=== PATIENT | female | born 1955 | race Caucasian/White ===

== ENCOUNTER → 2016-07-31 | Outpatient (REF) | payer OTHER | LOC: M LAB REF 11:49 | PROVIDERS: ATTEND Nurse Practitioner Family | DX: R50.9 Fever, unspecified (principal) ==

== ENCOUNTER 2016-10-08 00:53 | Emergency (ER) | payer OTHER ==
[~2016-10-08] VITALS: Ht 177.8 cm; Wt 71.2 kg
[2016-10-08] MEDS ORDERED: MELO7.5T6 PO (01:07)
[2016-10-08] MEDS ORDERED: CLON1TAB PO (01:08)
[2016-10-08] MEDS ORDERED: LISI-542 PO (01:08)
[2016-10-08] MEDS ORDERED: PRAV40TA2 PO (01:09)
[2016-10-08] MEDS ORDERED: VENL150C43 PO (01:10)
[2016-10-08] MEDS ORDERED: OMEP20CA3 PO (01:11)
[2016-10-08] MEDS ORDERED: MULTCAP11 PO (01:12)
[2016-10-08] MEDS ORDERED: SYMB16INH INH (01:12)
[2016-10-08] MEDS ORDERED: SING10TA32 PO (01:12)
[2016-10-08] MEDS ORDERED: ALBU17IN INH (01:14)
[2016-10-08] MEDS ORDERED: METOCLOPRAMIDE INJ 10MG/2ML VIAL (J2765) IV ONE ×2 (03:45→05:00)
[2016-10-08] MEDS ORDERED: NS 1,000 ML IV ONE (03:45)
[2016-10-08] MEDS ORDERED: diphenhydrAMINE INJ 50MG/ML VIAL (J1200) IV ONE ×2 (03:45→05:00)
[2016-10-08] MEDS ORDERED: KETOROLAC 30 MG/ML VIAL (J1885) IV ONE (03:45)
[2016-10-08 04:12] LABS: BASO # 0.1 K/mm3 (0.0-0.2); BASO % 0.9 % (0.0-1.0); EOS # 0.3 K/mm3 (0.0-0.50); EOS % 4.8 % (0.0-3.0); LARGE UNSTAINED CELL # 0.1 K/mm3 (0.0-0.4); LARGE UNSTAINED CELL % 1.7 % (0.0-4.0); LYMPH # 2.5 K/mm3 (1.5-4.5); LYMPH % 38.5 % (24.0-44.0); MEAN CORPUSCULAR HEMOGLOBIN 30.1 pg (27.0-33.0); MEAN CORPUSCULAR HGB CONC 32.3 g/dl (32.0-36.5); MEAN CORPUSCULAR VOLUME 93.2 fl (80.0-96.0); MONO # 0.3 K/mm3 (0.0-0.8); MONO % 4.8 % (0.0-5.0); NEUTROPHILS % 49.2 % (36.0-66.0); PLATELET COUNT, AUTOMATED 366 k/mm3 (150-450); RED CELL DISTRIBUTION WIDTH 12.8 % (11.5-14.5); WHITE BLOOD COUNT 6.1 K/mm3 (4.0-10.0)
--- NOTE | 2016-10-08 04:20 | REPUSA ---
CLINICAL HISTORY: Headaches. TECHNIQUE: Multiple axial brain CT scan sections were obtained from base to vertex without contrast a dministration. COMMENTS: The study shows normal configuration of sella turcica. There are no intra or extra-axial collections. There is no mass effect or midline shift. There is no evidence of hematoma formation. No hydrocephal us is present. No abnormal calcifications are noted. No significant abnormalities are seen either in the posterior fossa or supratentorial compartment. The sinuses and mastoid air cells are patent. IMPRESSION: No evidence of acute intracranial pathology. Thank you for your kind referral of this patient.
[2016-10-08 04:30] LABS: ANION GAP 5 MEQ/L (8-16); BLOOD UREA NITROGEN 9 MG/DL (7-18); CALCIUM LEVEL 8.6 MG/DL (8.8-10.2); CARBON DIOXIDE LEVEL 31 MEQ/L (21-32); CHLORIDE LEVEL 109 MEQ/L (98-107); CREATININE FOR GFR 0.68 MG/DL (0.55-1.02); GLOMERULAR FILTRATION RATE > 60.0 (>45); GLUCOSE, FASTING 90 MG/DL (80-110); POTASSIUM SERUM 3.6 MEQ/L (3.5-5.1); SODIUM LEVEL 145 MEQ/L (136-145)
[2016-10-08 06:03] VITALS: BP 109/69
== END 2016-10-08 06:06 | disposition home or self-care (01) ==
LOC: M ED 02:37
DX: R51 Headache (principal); Z79.899 Other long term (current) drug therapy
CPT/HCPCS: 70450; 80048; 85025; 86140; 96374; 96375; 99282; J1200; J1885; J2765

== ENCOUNTER 2017-09-22 16:11 | Emergency (ER) | payer OTHER ==
[2017-09-22] MEDS: ALBUTEROL SULFATE 2.5 MG/0.5 ML INH NEB SOLN NEB (17:15)
[2017-09-22 18:01] LABS: INFLUENZA A AMPLIFICATION NEGATIVE (NEGATIVE)
[2017-09-22 18:02] LABS: INFLUENZA B AMPLIFICATION NEGATIVE (NEGATIVE)
[2017-09-22] MEDS: IBUPROFEN 800 MG TAB PO (18:15)
[2017-09-22] MEDS: predniSONE 20 MG TAB PO (18:15)
== END 2017-09-22 18:25 | disposition home or self-care (01) ==
LOC: M ED 16:11
DX: B34.9 Viral infection, unspecified (principal); J44.1 Chronic obstructive pulmonary disease with (acute) exacerbation; I10 Essential (primary) hypertension; E78.5 Hyperlipidemia, unspecified; K21.9 Gastro-esophageal reflux disease without esophagitis; F41.9 Anxiety disorder, unspecified; Z79.899 Other long term (current) drug therapy; Z87.891 Personal history of nicotine dependence
CPT/HCPCS: 71046

== ENCOUNTER 2017-11-07 17:59 | Inpatient (IN) | payer OTHER ==
[2017-11-07] MEDS: NS 1,000 ML IV ×2 (18:15→21:30)
[2017-11-07 18:59] LABS: BASO # 0.1 10^3/uL (0.0-0.2); BASO % 0.4 % (0.0-1.0); EOS # 0.1 10^3/uL (0.0-0.50); EOS % 0.3 % (0.0-3.0); HEMATOCRIT 44.4 % (36.0-47.0); HEMOGLOBIN 14.9 g/dl (12.0-15.5); LYMPH # 1.8 10^3/uL (1.5-4.5); MEAN CORPUSCULAR HEMOGLOBIN 31.2 pg (27.0-33.0); MEAN CORPUSCULAR HGB CONC 33.6 g/dl (32.0-36.5); MEAN CORPUSCULAR VOLUME 93.1 fl (80.0-96.0); MONO # 1.3 10^3/uL (0.0-0.8); MONO % 4.4 % (0.0-5.0); NEUTROPHILS % 87.9 % (36.0-66.0); PLATELET COUNT, AUTOMATED 312 10^3/uL (150-450); RED BLOOD COUNT 4.77 10^6/uL (4.00-5.40)
[2017-11-07] MEDS: ONDANSETRON 4MG/2ML VIAL (J2405) IV (19:00)
[2017-11-07] MEDS: NS 500 ML IV (19:16)
[2017-11-07 19:20] LABS: AMMONIA 18 uMOL/L (<32)
[2017-11-07 19:24] LABS: NEUTROPHILS # 26.4 10^3/uL (1.8-7.7); POSITIVE DIFF POS FLAG
[2017-11-07] MEDS ORDERED: ONDANSETRON 4MG/2ML VIAL (J2405) As Ordered (19:24)
[2017-11-07 19:27] LABS: ALBUMIN 4.1 GM/DL (3.2-5.2); ALBUMIN/GLOBULIN RATIO 1.21 (1.00-1.93); ALKALINE PHOSPHATASE 112 U/L (45-117); ALT/SGPT 33 U/L (12-78); ANION GAP 12 MEQ/L (8-16); AST/SGOT 44 U/L (7-37); BILIRUBIN,DIRECT 0.2 MG/DL (0.0-0.2); BILIRUBIN,TOTAL 0.5 MG/DL (0.2-1.0); BLOOD UREA NITROGEN 17 MG/DL (7-18); CALCIUM LEVEL 9.6 MG/DL (8.8-10.2); CARBON DIOXIDE LEVEL 19 MEQ/L (21-32); CHLORIDE LEVEL 111 MEQ/L (98-107); CK-MB VALUE MASS 2.4 NG/ML (<3.6); CPK CREATINE PHOSPHOKINASE 158 U/L (26-192); CREATININE FOR GFR 1.65 MG/DL (0.55-1.30); GLOMERULAR FILTRATION RATE 33.4 (>45); GLUCOSE, FASTING 145 MG/DL (70-100); MB/CK RELATIVE INDEX 1.51 (< OR =4); POTASSIUM SERUM 4.1 MEQ/L (3.5-5.1); SODIUM LEVEL 142 MEQ/L (136-145); TOTAL PROTEIN 7.5 GM/DL (6.4-8.2); TROPONIN I < 0.02 NG/ML (< 0.10)
[2017-11-07 19:35] LABS: LACTIC ACID SEPSIS PROTOCOL 2.8 MMOL/L (0.4-2.0)
[2017-11-07] MEDS: SODIUM CHLORIDE IV (19:35)
[2017-11-07 20:22] LABS: KETONE, URINE AUTO RFX TRACE mg/dL (NEGATIVE); MUCUS, URINE RFX SMALL (NEGATIVE); NITRITE, URINE AUTO RFX NEGATIVE (NEGATIVE); RBC, URINE AUTO RFX 180 /HPF (0-3); SPECIFIC GRAVITY UR AUTO RFX 1.023 (1.002-1.035); SQUAM EPITHELIAL CELL UR AURFX 3 /HPF (0-6)
[2017-11-07 20:23] LABS: LEUKOCYTE ESTERASE UR AUTO RFX TRACE (NEGATIVE); WBC, URINE AUTO RFX 12 /HPF (0-3)
[2017-11-07] MEDS: ERTAPENEM SODIUM 1 GM in NS MINI-BAG PLUS 50 ML IV (20:31)
[2017-11-07] MEDS ORDERED: NS 1,000 ML IV (21:25)
[2017-11-07] MEDS ORDERED: IPRATROPIUM 0.5MG/ALBUTEROL 2.5MG INH SOL UD 3ML (DUONEB)(J7620) NEB (22:15)
[2017-11-07 22:26] LABS: OSMOLALITY SERUM 298 MOSM/KG (280-301)
[2017-11-07 22:31] LABS: INR 1.29; PROTHROMBIN TIME 16.4 SECONDS (12.4-14.5)
[2017-11-07 22:32] LABS: PARTIAL THROMBOPLASTIN TIME 35.3 SECONDS (26.8-37.9)
[2017-11-07 22:32] LABS: OSMOLALITY URINE 308 MOSM/KG (500-800)
[2017-11-07] MEDS: SYMBICORT 160/4.5MCG INHALER 6GM INH (22:37)
[2017-11-07 22:39] LABS: MAGNESIUM LEVEL 2.4 MG/DL (1.8-2.4); NT-PRO BNP 384 PG/ML (<125)
[2017-11-07] MEDS ORDERED: ACETAMINOPHEN 500 MG TAB PO (22:45)
[2017-11-07 22:51] LABS: SODIUM,RANDOM URINE 29 MEQ/L
[2017-11-07] MEDS ORDERED: CIPROFLOXACIN 200 MG in APPROPRIATE DILUENT 1 EA IV ×2 (23:00)
[2017-11-07] MEDS: CIPROFLOXACIN 200 MG in APPROPRIATE DILUENT 1 EA IV (23:35)
[2017-11-08] MEDS: ONDANSETRON 4MG/2ML VIAL (J2405) IV ×3 (01:10→15:01)
[2017-11-08] MEDS: ACETAMINOPHEN TAB 650MG DOSE (2X325MG) PO ×3 (01:12→20:10)
[2017-11-08] MEDS: metroNIDAZOLE 500 MG in APPROPRIATE DILUENT 1 EA IV ×3 (01:15→16:13)
[2017-11-08] MEDS: clonazePAM 1 MG TAB PO ×2 (01:27→20:41)
[2017-11-08] MEDS: NS 1,000 ML IV ×3 (06:30→20:48)
[2017-11-08 06:37] LABS: BASO # 0.1 10^3/uL (0.0-0.2); BASO % 0.2 % (0.0-1.0); HEMATOCRIT 36.9 % (36.0-47.0); IMMATURE GRANULOCYTE % 0.6 % (0-3.0); LYMPH # 0.7 10^3/uL (1.5-4.5); MEAN CORPUSCULAR HGB CONC 33.1 g/dl (32.0-36.5); MEAN CORPUSCULAR VOLUME 93.9 fl (80.0-96.0); MONO % 4.1 % (0.0-5.0); NEUTROPHILS # 21.3 10^3/uL (1.8-7.7); NEUTROPHILS % 92.1 % (36.0-66.0); PLATELET COUNT, AUTOMATED 233 10^3/uL (150-450); RED BLOOD COUNT 3.93 10^6/uL (4.00-5.40); RED CELL DISTRIBUTION WIDTH 13.3 % (11.5-14.5); WHITE BLOOD COUNT 23.2 10^3/uL (4.0-10.0)
[2017-11-08 07:12] LABS: HEMOGLOBIN 12.2 g/dl (12.0-15.5)
[2017-11-08 07:21] LABS: ALBUMIN 2.9 GM/DL (3.2-5.2); ALBUMIN/GLOBULIN RATIO 1.12 (1.00-1.93); ALKALINE PHOSPHATASE 74 U/L (45-117); ALT/SGPT 23 U/L (12-78); ANION GAP 8 MEQ/L (8-16); AST/SGOT 32 U/L (7-37); BILIRUBIN,TOTAL 0.3 MG/DL (0.2-1.0); BLOOD UREA NITROGEN 22 MG/DL (7-18); CALCIUM LEVEL 7.7 MG/DL (8.8-10.2); CARBON DIOXIDE LEVEL 20 MEQ/L (21-32); CHLORIDE LEVEL 119 MEQ/L (98-107); CREATININE FOR GFR 1.25 MG/DL (0.55-1.30); GLOMERULAR FILTRATION RATE 46.1 (>45); GLUCOSE, FASTING 123 MG/DL (70-100); POTASSIUM SERUM 4.5 MEQ/L (3.5-5.1); SODIUM LEVEL 147 MEQ/L (136-145); TOTAL PROTEIN 5.5 GM/DL (6.4-8.2)
[2017-11-08] MEDS: PANTOPRAZOLE 40MG INJ (PROTONIX) (C9113) IV (08:15)
[2017-11-08] MEDS: VENLAFAXINE **XR** 75MG CAPSULE PO (08:18)
[2017-11-08] MEDS: MULTIVITAMINS/MINERALS THERAP 1 TAB PO (08:18)
[2017-11-08] MEDS: MONTELUKAST 10 MG TAB PO (08:18)
[2017-11-08] MEDS: HEPARIN SOD (PORCINE) 5000 UNITS/ML VIAL SC ×2 (08:18→20:42)
[2017-11-08] MEDS: PRAVASTATIN 20 MG TAB PO (08:18)
[2017-11-08] MEDS: SYMBICORT 160/4.5MCG INHALER 6GM INH ×2 (09:34→20:52)
[2017-11-08 10:43] LABS: HEPATITIS B SURFACE ANTIBODY NEGATIVE (POSITIVE)
[2017-11-08 10:45] LABS: HEPATITIS B SURFACE ANTIGEN NEGATIVE (NEGATIVE)
[2017-11-08] MEDS: CIPROFLOXACIN 200 MG in APPROPRIATE DILUENT 1 EA IV ×2 (11:06→23:09)
[2017-11-08 11:14] LABS: HEPATITIS C VIRUS ABY INDEX < 0.0 INDEX (<0.8)
[2017-11-08 11:15] LABS: HEPATITIS A ANTIBODY IGM NEGATIVE (NEGATIVE)
[2017-11-08] MEDS: traMADol 50 MG TAB PO (12:56)
[2017-11-09] MEDS: metroNIDAZOLE 500 MG in APPROPRIATE DILUENT 1 EA IV ×3 (00:26→17:49)
[2017-11-09] MEDS: ACETAMINOPHEN TAB 650MG DOSE (2X325MG) PO (04:05)
[2017-11-09] MEDS: NS 1,000 ML IV (06:04)
[2017-11-09 07:27] LABS: HEMATOCRIT 30.3 % (36.0-47.0); MEAN CORPUSCULAR VOLUME 93.5 fl (80.0-96.0); RED BLOOD COUNT 3.24 10^6/uL (4.00-5.40); WHITE BLOOD COUNT 16.4 10^3/uL (4.0-10.0)
[2017-11-09 07:28] LABS: BASO % 0.2 % (0.0-1.0); EOS % 0.1 % (0.0-3.0); IMMATURE GRANULOCYTE % 0.4 % (0-3.0); LYMPH # 1.2 10^3/uL (1.5-4.5); LYMPH % 7.2 % (24.0-44.0); MEAN CORPUSCULAR HEMOGLOBIN 30.9 pg (27.0-33.0); NEUTROPHILS # 14.1 10^3/uL (1.8-7.7); NEUTROPHILS % 86.1 % (36.0-66.0); PLATELET COUNT, AUTOMATED 173 10^3/uL (150-450); RED CELL DISTRIBUTION WIDTH 13.9 % (11.5-14.5)
[2017-11-09] MEDS: SYMBICORT 160/4.5MCG INHALER 6GM INH ×3 (07:28→20:41)
[2017-11-09 07:59] LABS: ALBUMIN 2.3 GM/DL (3.2-5.2); ALBUMIN/GLOBULIN RATIO 0.96 (1.00-1.93); ALKALINE PHOSPHATASE 58 U/L (45-117); ALT/SGPT 18 U/L (12-78); ANION GAP 7 MEQ/L (8-16); AST/SGOT 28 U/L (7-37); BILIRUBIN,TOTAL 0.3 MG/DL (0.2-1.0); BLOOD UREA NITROGEN 15 MG/DL (7-18); CALCIUM LEVEL 7.2 MG/DL (8.8-10.2); CARBON DIOXIDE LEVEL 20 MEQ/L (21-32); CHLORIDE LEVEL 114 MEQ/L (98-107); CREATININE FOR GFR 0.77 MG/DL (0.55-1.30); GLOMERULAR FILTRATION RATE > 60.0 (>45); GLUCOSE, FASTING 97 MG/DL (70-100); POTASSIUM SERUM 3.8 MEQ/L (3.5-5.1); SODIUM LEVEL 141 MEQ/L (136-145); TOTAL PROTEIN 4.7 GM/DL (6.4-8.2)
[2017-11-09] MEDS ORDERED: SLF 3 ML SYR IV (08:15)
[2017-11-09] MEDS: PRAVASTATIN 20 MG TAB PO (08:38)
[2017-11-09] MEDS: VENLAFAXINE **XR** 75MG CAPSULE PO (08:38)
[2017-11-09] MEDS: HEPARIN SOD (PORCINE) 5000 UNITS/ML VIAL SC ×2 (08:38→20:32)
[2017-11-09] MEDS: PANTOPRAZOLE 40MG INJ (PROTONIX) (C9113) IV (08:38)
[2017-11-09] MEDS: MONTELUKAST 10 MG TAB PO (08:39)
[2017-11-09] MEDS: MULTIVITAMINS/MINERALS THERAP 1 TAB PO (08:39)
[2017-11-09] MEDS: GASTROGRAFIN SOLUTION 30ML PO ×2 (10:45→11:30)
[2017-11-09] MEDS: D5W/0.45% SODIUM CHLORIDE 1,000 ML IV ×2 (10:46→22:23)
[2017-11-09] MEDS: CIPROFLOXACIN 200 MG in APPROPRIATE DILUENT 1 EA IV ×2 (11:35→22:23)
[2017-11-09] MEDS ORDERED: ISOVUE-370 76% 100ML VIAL (Q9967) As Ordered (11:51)
[2017-11-09] MEDS: SLF 3 ML SYR IV ×2 (14:00→22:24)
[2017-11-09] MEDS: FIORICET TAB PO ×2 (15:00→20:31)
[2017-11-09] MEDS: PERCOCET 5MG/325MG TAB PO (15:10)
[2017-11-09] MEDS: MORPHINE 4 MG/ML 1ML VIAL/SYRINGE (J2270) IV (18:13)
[2017-11-09] MEDS: clonazePAM 1 MG TAB PO (20:31)
[2017-11-10] MEDS: ONDANSETRON 4MG/2ML VIAL (J2405) IV (00:37)
[2017-11-10] MEDS: FIORICET TAB PO ×3 (00:37→15:04)
[2017-11-10 04:17] LABS: HEMATOCRIT 27.8 % (36.0-47.0); HEMOGLOBIN 9.6 g/dl (12.0-15.5); MEAN CORPUSCULAR HEMOGLOBIN 31.9 pg (27.0-33.0); MEAN CORPUSCULAR HGB CONC 34.5 g/dl (32.0-36.5); MEAN CORPUSCULAR VOLUME 92.4 fl (80.0-96.0); PLATELET COUNT, AUTOMATED 164 10^3/uL (150-450); RED BLOOD COUNT 3.01 10^6/uL (4.00-5.40); RED CELL DISTRIBUTION WIDTH 13.5 % (11.5-14.5); WHITE BLOOD COUNT 12.5 10^3/uL (4.0-10.0)
[2017-11-10 04:30] LABS: POSITIVE MORPH POS FLAG
[2017-11-10 04:31] LABS: ADD MANUAL DIFFER YES; DIFF SLIDE NUMBER 39
[2017-11-10 04:40] LABS: ALBUMIN 2.1 GM/DL (3.2-5.2); ALKALINE PHOSPHATASE 55 U/L (45-117); ALT/SGPT 18 U/L (12-78); ANION GAP 6 MEQ/L (8-16); AST/SGOT 29 U/L (7-37); BILIRUBIN,TOTAL 0.3 MG/DL (0.2-1.0); BLOOD UREA NITROGEN 8 MG/DL (7-18); CALCIUM LEVEL 7.4 MG/DL (8.8-10.2); CARBON DIOXIDE LEVEL 22 MEQ/L (21-32); CHLORIDE LEVEL 112 MEQ/L (98-107); CREATININE FOR GFR 0.74 MG/DL (0.55-1.30); GLOMERULAR FILTRATION RATE > 60.0 (>45); GLUCOSE, FASTING 119 MG/DL (70-100); POTASSIUM SERUM 3.2 MEQ/L (3.5-5.1); SODIUM LEVEL 140 MEQ/L (136-145); TOTAL PROTEIN 5.1 GM/DL (6.4-8.2)
[2017-11-10 04:43] LABS: BANDS 8 % (< 11); CRENATED RBC 1+; LYMPHOCYTES 8 % (16-52); MONOCYTES 5 % (0-8); NEUTROPHILS 79 % (35-75); PLATELET CLUMPS SMALL AMT; PLATELET ESTIMATE NORMAL (NORMAL); TOXIC VACUOLATION 1+
[2017-11-10] MEDS: SLF 3 ML SYR IV ×3 (05:47→21:26)
[2017-11-10] MEDS: SYMBICORT 160/4.5MCG INHALER 6GM INH ×2 (08:13→21:18)
[2017-11-10] MEDS: HEPARIN SOD (PORCINE) 5000 UNITS/ML VIAL SC ×2 (08:49→20:11)
[2017-11-10] MEDS: PRAVASTATIN 20 MG TAB PO (08:49)
[2017-11-10] MEDS: VENLAFAXINE **XR** 75MG CAPSULE PO (08:50)
[2017-11-10] MEDS: POTASSIUM CHLORIDE 10 MEQ SR TABLET PO (08:50)
[2017-11-10] MEDS: MONTELUKAST 10 MG TAB PO (08:51)
[2017-11-10] MEDS: MULTIVITAMINS/MINERALS THERAP 1 TAB PO (08:52)
[2017-11-10] MEDS: PERCOCET 5MG/325MG TAB PO ×2 (08:52→16:36)
[2017-11-10] MEDS: CIPROFLOXACIN 200 MG in APPROPRIATE DILUENT 1 EA IV ×2 (11:35→23:34)
[2017-11-10] MEDS: clonazePAM 1 MG TAB PO (20:11)
[2017-11-11 05:15] LABS: BASO % 0.5 % (0.0-1.0); EOS # 0.1 10^3/uL (0.0-0.50); EOS % 1.7 % (0.0-3.0); HEMATOCRIT 27.5 % (36.0-47.0); HEMOGLOBIN 9.3 g/dl (12.0-15.5); IMMATURE GRANULOCYTE % 0.4 % (0-3.0); LYMPH # 1.1 10^3/uL (1.5-4.5); LYMPH % 14.3 % (24.0-44.0); MEAN CORPUSCULAR HEMOGLOBIN 31.3 pg (27.0-33.0); MEAN CORPUSCULAR HGB CONC 33.8 g/dl (32.0-36.5); MEAN CORPUSCULAR VOLUME 92.6 fl (80.0-96.0); MONO # 0.7 10^3/uL (0.0-0.8); MONO % 9.4 % (0.0-5.0); NEUTROPHILS # 5.6 10^3/uL (1.8-7.7); NEUTROPHILS % 73.7 % (36.0-66.0); PLATELET COUNT, AUTOMATED 190 10^3/uL (150-450); RED BLOOD COUNT 2.97 10^6/uL (4.00-5.40); RED CELL DISTRIBUTION WIDTH 13.5 % (11.5-14.5); WHITE BLOOD COUNT 7.6 10^3/uL (4.0-10.0)
[2017-11-11 05:31] LABS: ALBUMIN 2.1 GM/DL (3.2-5.2); ALBUMIN/GLOBULIN RATIO 0.66 (1.00-1.93); ALKALINE PHOSPHATASE 58 U/L (45-117); ALT/SGPT 19 U/L (12-78); ANION GAP 7 MEQ/L (8-16); AST/SGOT 32 U/L (7-37); BILIRUBIN,TOTAL 0.2 MG/DL (0.2-1.0); BLOOD UREA NITROGEN 3 MG/DL (7-18); CALCIUM LEVEL 7.7 MG/DL (8.8-10.2); CARBON DIOXIDE LEVEL 25 MEQ/L (21-32); CHLORIDE LEVEL 111 MEQ/L (98-107); CREATININE FOR GFR 0.71 MG/DL (0.55-1.30); GLOMERULAR FILTRATION RATE > 60.0 (>45); GLUCOSE, FASTING 80 MG/DL (70-100); POTASSIUM SERUM 3.4 MEQ/L (3.5-5.1); SODIUM LEVEL 143 MEQ/L (136-145); TOTAL PROTEIN 5.3 GM/DL (6.4-8.2)
[2017-11-11] MEDS: SLF 3 ML SYR IV ×3 (06:00→22:00)
[2017-11-11] MEDS: MULTIVITAMINS/MINERALS THERAP 1 TAB PO (08:31)
[2017-11-11] MEDS: PRAVASTATIN 20 MG TAB PO (08:31)
[2017-11-11] MEDS: HEPARIN SOD (PORCINE) 5000 UNITS/ML VIAL SC ×2 (08:32→20:35)
[2017-11-11] MEDS: MONTELUKAST 10 MG TAB PO (08:32)
[2017-11-11] MEDS: POTASSIUM CHLORIDE 10 MEQ SR TABLET PO ×2 (08:33→17:22)
[2017-11-11] MEDS: VENLAFAXINE **XR** 75MG CAPSULE PO (08:33)
[2017-11-11] MEDS: CIPROFLOXACIN 200 MG in APPROPRIATE DILUENT 1 EA IV (10:18)
[2017-11-11] MEDS: PERCOCET 5MG/325MG TAB PO (10:18)
[2017-11-11] MEDS: SYMBICORT 160/4.5MCG INHALER 6GM INH ×2 (10:19→21:37)
[2017-11-11 16:20] LABS: ANION GAP 7 MEQ/L (8-16); BLOOD UREA NITROGEN 4 MG/DL (7-18); CALCIUM LEVEL 7.7 MG/DL (8.8-10.2); CARBON DIOXIDE LEVEL 26 MEQ/L (21-32); CHLORIDE LEVEL 112 MEQ/L (98-107); GLOMERULAR FILTRATION RATE > 60.0 (>45); GLUCOSE, FASTING 92 MG/DL (70-100); MAGNESIUM LEVEL 1.9 MG/DL (1.8-2.4); POTASSIUM SERUM 3.5 MEQ/L (3.5-5.1); SODIUM LEVEL 145 MEQ/L (136-145)
[2017-11-11] MEDS: CIPROFLOXACIN 250 MG TAB PO (17:21)
[2017-11-11] MEDS: clonazePAM 1 MG TAB PO (20:35)
[2017-11-11] MEDS: ONDANSETRON 4MG/2ML VIAL (J2405) IV (20:35)
[2017-11-12] MEDS: FIORICET TAB PO (00:23)
[2017-11-12] MEDS: CIPROFLOXACIN 250 MG TAB PO ×2 (05:23→18:12)
[2017-11-12] MEDS: SLF 3 ML SYR IV ×3 (05:23→21:59)
[2017-11-12] MEDS: HEPARIN SOD (PORCINE) 5000 UNITS/ML VIAL SC ×2 (07:56→20:18)
[2017-11-12] MEDS: VENLAFAXINE **XR** 75MG CAPSULE PO (07:56)
[2017-11-12] MEDS: MULTIVITAMINS/MINERALS THERAP 1 TAB PO (07:56)
[2017-11-12] MEDS: PRAVASTATIN 20 MG TAB PO (07:56)
[2017-11-12] MEDS: MONTELUKAST 10 MG TAB PO (07:56)
[2017-11-12] MEDS: FORMOTEROL FUMARATE 20 MCG/2 ML INHALATION SOLUTION (PERFOROMIST) INH ×2 (08:00→19:44)
[2017-11-12] MEDS: BUDESONIDE 0.5 MG/2 ML INHALATION SUSPENSION INH ×2 (08:00→19:44)
[2017-11-12 08:37] LABS: BASO % 0.9 % (0.0-1.0); EOS # 0.2 10^3/uL (0.0-0.50); EOS % 4.2 % (0.0-3.0); HEMOGLOBIN 9.4 g/dl (12.0-15.5); IMMATURE GRANULOCYTE % 0.9 % (0-3.0); LYMPH # 1.3 10^3/uL (1.5-4.5); LYMPH % 27.6 % (24.0-44.0); MEAN CORPUSCULAR HGB CONC 33.6 g/dl (32.0-36.5); MEAN CORPUSCULAR VOLUME 92.4 fl (80.0-96.0); MONO # 0.5 10^3/uL (0.0-0.8); MONO % 11.9 % (0.0-5.0); NEUTROPHILS # 2.5 10^3/uL (1.8-7.7); NEUTROPHILS % 54.5 % (36.0-66.0); PLATELET COUNT, AUTOMATED 225 10^3/uL (150-450); RED BLOOD COUNT 3.03 10^6/uL (4.00-5.40); RED CELL DISTRIBUTION WIDTH 13.6 % (11.5-14.5); WHITE BLOOD COUNT 4.5 10^3/uL (4.0-10.0)
[2017-11-12] MEDS: SYMBICORT 160/4.5MCG INHALER 6GM INH (09:00)
[2017-11-12 09:11] LABS: ALBUMIN 2.1 GM/DL (3.2-5.2); ALBUMIN/GLOBULIN RATIO 0.75 (1.00-1.93); ALKALINE PHOSPHATASE 77 U/L (45-117); ALT/SGPT 21 U/L (12-78); ANION GAP 6 MEQ/L (8-16); AST/SGOT 30 U/L (7-37); BILIRUBIN,TOTAL 0.2 MG/DL (0.2-1.0); BLOOD UREA NITROGEN 4 MG/DL (7-18); CALCIUM LEVEL 7.6 MG/DL (8.8-10.2); CARBON DIOXIDE LEVEL 28 MEQ/L (21-32); CHLORIDE LEVEL 112 MEQ/L (98-107); CREATININE FOR GFR 0.75 MG/DL (0.55-1.30); GLOMERULAR FILTRATION RATE > 60.0 (>45); GLUCOSE, FASTING 108 MG/DL (70-100); SODIUM LEVEL 146 MEQ/L (136-145); TOTAL PROTEIN 4.9 GM/DL (6.4-8.2)
[2017-11-12] MEDS: clonazePAM 1 MG TAB PO (20:17)
[2017-11-13] MEDS: SLF 3 ML SYR IV (05:35)
[2017-11-13] MEDS: CIPROFLOXACIN 250 MG TAB PO (05:35)
[2017-11-13] MEDS: MONTELUKAST 10 MG TAB PO (08:26)
[2017-11-13] MEDS: PRAVASTATIN 20 MG TAB PO (08:26)
[2017-11-13] MEDS: MULTIVITAMINS/MINERALS THERAP 1 TAB PO (08:26)
[2017-11-13] MEDS: VENLAFAXINE **XR** 75MG CAPSULE PO (08:27)
[2017-11-13] MEDS: HEPARIN SOD (PORCINE) 5000 UNITS/ML VIAL SC (08:27)
[2017-11-13] MEDS: FORMOTEROL FUMARATE 20 MCG/2 ML INHALATION SOLUTION (PERFOROMIST) INH (10:21)
[2017-11-13] MEDS: BUDESONIDE 0.5 MG/2 ML INHALATION SUSPENSION INH (10:21)
[2017-11-14 00:11] LABS: VITAMIN E(ALPHA TOCOPHEROL) 5.2 mg/L (9.0-29.0); VITAMIN E(GAMMA TOCOPHEROL) 0.3 mg/L (0.5-4.9)
== END 2017-11-13 12:40 | disposition home or self-care (01) | DRG 872 ==
LOC: M MS4PR 11-12 13:40 → M PCU 11-08 13:53 → M ED 17:59 → M ED INP 21:10
DX: A41.9 Sepsis, unspecified organism (principal); N17.9 Acute kidney failure, unspecified; A08.0 Rotaviral enteritis; K21.9 Gastro-esophageal reflux disease without esophagitis; F41.9 Anxiety disorder, unspecified; E86.0 Dehydration; R65.20 Severe sepsis without septic shock; J44.9 Chronic obstructive pulmonary disease, unspecified; R55 Syncope and collapse; G43.909 Migraine, unspecified, not intractable, without status migrainosus; I10 Essential (primary) hypertension; Z79.899 Other long term (current) drug therapy; Z96.651 Presence of right artificial knee joint; R23.3 Spontaneous ecchymoses

== ENCOUNTER → 2017-11-25 | Outpatient (REF) | payer OTHER | LOC: M LAB REF 12:20 | DX: N39.0 Urinary tract infection, site not specified (principal) ==

== ENCOUNTER → 2017-12-13 | Outpatient (CLI) | payer OTHER ==
[2017-12-13 10:03] LABS: BASO # 0.1 10^3/uL (0.0-0.2); BASO % 1.6 % (0.0-1.0); EOS # 0.2 10^3/uL (0.0-0.50); EOS % 3.5 % (0.0-3.0); HEMATOCRIT 34.7 % (36.0-47.0); HEMOGLOBIN 11.6 g/dl (12.0-15.5); IMMATURE GRANULOCYTE % 0.3 % (0-3.0); LYMPH # 1.7 10^3/uL (1.5-4.5); LYMPH % 25.9 % (24.0-44.0); MEAN CORPUSCULAR HEMOGLOBIN 30.9 pg (27.0-33.0); MEAN CORPUSCULAR HGB CONC 33.4 g/dl (32.0-36.5); MEAN CORPUSCULAR VOLUME 92.3 fl (80.0-96.0); MONO # 0.6 10^3/uL (0.0-0.8); MONO % 9.9 % (0.0-5.0); NEUTROPHILS # 3.8 10^3/uL (1.8-7.7); NEUTROPHILS % 58.8 % (36.0-66.0); PLATELET COUNT, AUTOMATED 386 10^3/uL (150-450); RED BLOOD COUNT 3.76 10^6/uL (4.00-5.40); RED CELL DISTRIBUTION WIDTH 14.2 % (11.5-14.5); WHITE BLOOD COUNT 6.4 10^3/uL (4.0-10.0)
[2017-12-13 10:26] LABS: ALBUMIN 3.1 GM/DL (3.2-5.2); ALBUMIN/GLOBULIN RATIO 0.82 (1.00-1.93); ALKALINE PHOSPHATASE 102 U/L (45-117); ALT/SGPT 20 U/L (12-78); ANION GAP 7 MEQ/L (8-16); AST/SGOT 16 U/L (7-37); BILIRUBIN,TOTAL 0.2 MG/DL (0.2-1.0); BLOOD UREA NITROGEN 11 MG/DL (7-18); CALCIUM LEVEL 8.3 MG/DL (8.8-10.2); CARBON DIOXIDE LEVEL 25 MEQ/L (21-32); CHLORIDE LEVEL 111 MEQ/L (98-107); CREATININE FOR GFR 0.92 MG/DL (0.55-1.30); GLOMERULAR FILTRATION RATE > 60.0 (>45); GLUCOSE, FASTING 91 MG/DL (70-100); RHEUMATOID FACTOR QUANT < 10.0 IU/ML (<15.0); SODIUM LEVEL 143 MEQ/L (136-145); TOTAL PROTEIN 6.9 GM/DL (6.4-8.2)
[2017-12-13 10:31] LABS: ERYTHROCYTE SEDIMENTATION RATE 51 mm/hr (0-30)
[2017-12-13 10:48] LABS: TOTAL 25(OH) VITAMIN D 34.2 NG/ML (30.0-100.0)
[2017-12-14 15:28] LABS: ANTINUCLEAR ANTIBODIES DIRECT Negative (Negative)
== END ==
LOC: M LAB 09:03
DX: R51 Headache (principal)
CPT/HCPCS: 84443

== ENCOUNTER → 2018-10-31 | Outpatient (CLI) | payer OTHER ==
[~2018-10-31] MED LIST: ALBU17IN INH; CLON1TAB8 PO; EFFE75CA2 PO; FIOR1CAP PO; LISI-542 PO; MELO7.5T7 PO; MULTCAP11 PO; OMEP20CA3 PO; PRAV40TA2 PO; PRED20TA PO; SING10TA32 PO; SYMB16INH INH; VENL150C43 PO; VENTAER INH; VITMTA PO; ZOFR4TAB14 PO
--- NOTE | 2018-10-31 11:55 | REPMRS ---
Patient History The patient states she has not had a clinical breast exam in over a year. Family history of unknown cancer at age 49 in sister, breast cancer at age 65 in maternal aunt, unknown cancer at age 60 in maternal uncle. Took hormonal contraceptives for 6 months. 3D TOMOSYNTHESIS WAS PERFORMED. Digital Mammo Screening Bilat: October 31, 2018 - Exam #: [id number] Bilateral CC and MLO view(s) were taken. Technologist: Irina Cabrera, Technologist Prior study comparison: October 12, 2015, bilateral digital mammo screening bilat performed at [facility]. August 19, 2014, bilateral digital mammo screening bilat performed at [facility]. FINDINGS: There are scattered fibroglandular densities. There has been no change in the appearance of the mammogram from the prior studies. There is a mild amount of residual fibroglandular tissue which is fairly symmetric. There is no interval development of dominant mass, architectural distortion, or clustered microcalcification suggestive of malignancy. Assessment: BI-RADS/ACR category 1 mammogram. Negative Mammogram. Recommendation Routine screening mammogram in 1 year (for women over age 40). This mammogram was interpreted with the aid of an FDA-approved computer-aided dectection system. Electronically Signed By: Yahir Hare MD 10/31/18 [id number]
== END ==
LOC: M RAD 10:03
PROVIDERS: ATTEND Nurse Practitioner Adult Health
DX: Z12.31 Encounter for screening mammogram for malignant neoplasm of breast (principal); Z92.0 Personal history of contraception; Z80.9 Family history of malignant neoplasm, unspecified

== ENCOUNTER → 2018-11-07 | Outpatient (CLI) | payer OTHER ==
--- NOTE | 2018-11-17 00:37 | ECWPNPC ---
PATIENT NAME: DEJON WESTFALL : 1955 GENDER: FEMALE VISIT DATE: 11/07/2018 DISCHARGE DATE: 11/07/18 1154 VISIT LOCKED DATE TIME: PHYSICIAN: ALEYDA ANDERSON MD RESOURCE: ALEYDA ANDERSON MD REASON FOR APPOINTMENT 1. NECK PAIN HISTORY OF PRESENT ILLNESS PAIN SCREENING: PATIENT HAS A COMPLAINT OF ACUTE OR CHRONIC PAIN :YES 62 YEAR OLD FEMALE PATIENT WITH A HISTORY OF HEADACHES, NECK, AND RIGHT ARM PAIN. THE PATIENT DESCRIBES THE PAIN ACHING, SHOOTING, SORE, AND CONTINUOUS WITH A PAIN SCORE 5-9/10 DEPENDING ON PHYSICAL ACTIVITY. THE PATIENT STATES HER INCIDENT BEGAN WHILE SHE WAS OUTSIDE WITH HER GRANDCHILD WHEN SHE SUDDENLY DID NOT FEEL WELL. THE PATIENT SAYS SHE WENT INTO HER BATHROOM WHERE SHE CONTINUED TO GET SICK WITH DIARRHEA, SWEATING, AND PASSING OUT, WHICH LEAD TO HER HITTING HER HEAD ON THE SHOWER FLOOR. THE PATIENT SAYS SHE WAS AT [facility] FOR A WEEK FOR TESTING, BUT THE CAUSE WAS NOT FOUND. THE PATIENT SAID SHE SUFFERED A CONTUSIONS FROM HER FALL. THE PATIENT SAID SINCE THE ACCIDENT SHE HAS BEEN EXPERIENCING PAIN RADIATING FROM HER NECK UP TO HER HEAD AND FACE, DIFFICULTIES IN MOVING HER NECK LATERALLY AND UPWARD, AND TINGLING AND NUMBNESS IN HER RIGHT ARM. THE PATIENT STATES SHE HAS TRIED PAST CONSERVATIVE AND MEDICATION MANAGEMENTS. PATIENT DENIES UNEXPLAINABLE WEIGHT LOSS, FEVER, CHILLS, NEW CHANGES ON HER URINARY OR BOWEL CONTROL. FALL RISK SCREENING: SCREENING :NO FALLS REPORTED IN THE LAST YEAR CURRENT MEDICATIONS TAKING GABAPENTIN 100 MG CAPSULE DIRECTED ORALLY TID TAKING ZONISAMIDE 50 MG CAPSULE 1 CAPSULE ORALLY TWICE A DAY TAKING VENTOLIN HFA 108 (90 BASE) MCG/ACT AEROSOL SOLUTION DIRECTED INHALATION TAKING ASPIRIN 81 81 MG TABLET DELAYED RELEASE 1 TABLET ORALLY EVERY OTHER DAY TAKING LORATADINE 10 MG TABLET 1 TABLET ORALLY ONCE A DAY TAKING CLONAZEPAM 1 MG TABLET 1 TABLET ORALLY BID TAKING ONE DAILY COMPLETE - TABLET DIRECTED ORALLY TAKING SYMBICORT 160-4.5 MCG/ACT AEROSOL 2 PUFFS INHALATION TWICE A DAY TAKING LISINOPRIL 5 MG TABLET 1 TABLET ORALLY ONCE A DAY TAKING PRAVASTATIN SODIUM 40 MG TABLET 1 TABLET ORALLY ONCE A DAY TAKING MONTELUKAST SODIUM 10 MG TABLET 1 TABLET ORALLY ONCE A DAY TAKING OMEPRAZOLE 20 MG CAPSULE DELAYED RELEASE 1 CAPSULE ORALLY ONCE A DAY TAKING VENLAFAXINE HCL ER 225 MG TABLET EXTENDED RELEASE 24 HOUR 1 TABLET WITH FOOD ORALLY ONCE A DAY MEDICATION LIST REVIEWED AND RECONCILED WITH THE PATIENT PAST MEDICAL HISTORY ASTHMA CHRONIC NECK PAIN HYPERTENSION ALLERGIES N.K.D.A. SURGICAL HISTORY PARTIAL JAW REPLACEMENT 1986 RIGHT KNEE MENISCUS 2016 FAMILY HISTORY SIBLINGS: DIAGNOSED WITH CANCER SOCIAL HISTORY GENERAL: TOBACCO USE ARE YOU A:NONSMOKER PAIN CLINIC PFS, CLERGY, PUBLIC HEALTH REFERRALS HAS THE PATIENT BEEN EDUCATED REGARDING HIS/HER PLAN OF CARE?YES HAS THE PATIENT BEEN EDUCATED REGARDING PAIN, THE RISK FOR PAIN, THE IMPORTANCE OF EFFECTIVE PAIN MANAGEMENT, AND THE PAIN ASSESSMENT PROCESS?YES LATEX QUESTIONNAIRE LATEX ALLERGY : HAVE YOU EVER DEVELOPED ANY TYPE OF REACTION AFTER HANDLING LATEX PRODUCTS SUCH RUBBER GLOVES, CONDOMS, DIAPHRAGMS, BALLOONS, SOCKS, OR UNDERWEAR?NO LATEX ALLERGY : HAVE YOU EVER DEVELOPED ANY TYPE OF REACTION DURING OR AFTER DENTAL APPOINTMENT, VAGINAL/RECTAL EXAMINATION, SURGICAL PROCEDURE, OR ANY OTHER EXPOSURE?NO LATEX RISK : HAVE YOU EVER HAD ANY DIFFICULTY BREATHING OR HIVES AFTER EATING OR HANDLING ANY FRUITS, OR VEGETABLES; SUCH KIWI, BANANAS, STONE FRUITS, OR CHESTNUTSNO LATEX RISK : DO YOU HAVE A PREVIOUS PERSONAL HISTORY OF MORE THAN NINE SURGERIES, SPINA BIFIDA, OR REPEATED CATHERTIZATIONS? NO LATEX RISK : ARE YOU FREQUENTLY EXPOSED TO LATEX PRODUCTS IN YOUR OCCUPATION?NO DATE ASKED : 11/07/2018 ADVANCE DIRECTIVE ADVANCE DIRECTIVE DISCUSSED WITH PATIENT:NO PT DOES NOT HAVE A HCP AND DECLINES INFO AT THIS TIME. 11/07/18 CONGREGATION CONGREGATION NO ANABAPTIST BELIEFS THAT WOULD IMPACT HEALTH CARE. LANGUAGE LANGUAGES SPOKEN:SERBIAN ALCOHOL SCREENING DID YOU HAVE A DRINK CONTAINING ALCOHOL IN THE PAST YEAR?NO POINTS0 INTERPRETATIONNEGATIVE RECREATIONAL DRUG USE DRUG USE?NO LEARNING BARRIERS / SPECIAL NEEDS BARRIERS TO LEARNING?NO HEARING IMPAIRED?NO VISION IMPAIRED?YES :CORRECTIVE LENSES COGNITIVELY IMPAIRED?NO READINESS TO LEARN?YES REVIEWED WITH PT 11/07/18 1024 BV. HOSPITALIZATION/MAJOR DIAGNOSTIC PROCEDURE HOSPITALIZED FOR 3 DAYS FOR INFLUENZA 06/2017 HOSPITALIZED FOR 8 DAYS FOR NOROVIRUS 10/2017 REVIEW OF SYSTEMS REVIEWED BY: PROVIDER: ALEYDA ANDERSON MD . CONSTITUTIONAL: ANY CHANGE IN YOUR MEDICAL CONDITION? NO . CHILLS NO . FEVER NO . INFECTION: DO YOU HAVE NEW INFECTIONS? NO . DO YOU HAVE HISTORY OF MRSA? NO . MUSCULOSKELETAL: ANY NEW PATTERNS OF PAIN OR NUMBNESS? NO . SYTEMIC LUPUS NO . GASTROENTEROLOGY: ANY NEW CHANGE IN BOWEL CONTROL? YES, PT COMPLAINS OF INTERMITTENT DIARRHEA OVER THE PAST 6 MONTHS. . BARRETTS ESOPHAGUS NO . CIRRHOSIS NO . HEPATITIS NO . LIVER FAILURE NO . ACID REFLUX NO . UNEXPLAINED WEIGHT LOSS NO . GENITOURINARY: ANY NEW CHANGE IN BLADDER CONTROL? NO . IS THERE A CHANCE YOU COULD BE ? NO . HEMATOLOGY/LYMPH: DO YOU TAKE ANY BLOOD THINNERS? (FOR EXAMPLE- COUMADIN, PLAVIX, AGGRENOX, PLATEL, PRADAXA, OR XARELTO) NO . WHEN WAS YOUR LAST DOSE? DATE: TIME: . LOW PLATELET COUNT NO . SICKLE CELL DISEASE NO . VON WILLIEBRANDS NO . FACTOR V LEIDEN NO . THALLASEMIA NO . ANEMIA NO . EASY BRUISING NO . NEUROLOGY: HAVE YOU FALLEN IN THE PAST 12 MONTHS? YES, PT COMPLAINS OF A COUPLE MINOR FALLS IN THE PAST YEAR, DENIES ANY INJURIES WITH ANY OF THESE FALLS IN PAST YEAR. PT STATES SHE DID HAVE A FALL LAST OCTOBER, SHE HIT HER HEAD IN HER BATHTUB AND LOST CONSCIOUSNESS. WAS TREATED AT [facility], WAS TOLD SHE HAD A CONCUSSION. . ANY NEW EXTREMITY NUMBNESS OR WEAKNESS? NO . HEAD INJURY YES, HAD CONCUSSION OCT, 2017 . DEMENTIA NO . CEREBRAL PALSY NO . MULTIPLE SCLEROSIS NO . DIZZINESS NO . HEADACHE NO . STROKES NO . VERTIGO NO . CARDIOLOGY: DO YOU HAVE A PACEMAKER OR DEFIBRILLATOR? NO . ANGINA NO . HEART ATTACK NO . HEART SURGERY NO . CONGESTIVE HEART FAILURE/FLUID OVERLOAD NO . CHEST PAIN NO . HIGH BLOOD PRESSURE ON MEDICATION(S) . IRREGULAR HEART BEAT NO . RESPIRATORY: HAVE YOU BEEN SICK IN THE PAST WEEK? NO . FEVER NO . FLU LIKE SYMPTOMS? NO . CPAP NO . BYPAP NO . ASTHMA YES, ADULT ONSET ASTHMA. PT HAS INHALERS . EMPHYSEMA NO . CHRONIC LUNG DISEASES NO . SHORTNESS OF BREATH ON EXERTION NO . COUGH NO . SNORING NO . INTEGUMENTARY: DO YOU HAVE ANY RASHES OR OPEN SORES? YES, HAS A FEW MINOR CUTS ON HER ARMS FROM GARDENING. . ALLERGIC/IMMUNO: ARE YOU ALLERGIC TO IV DYE? NO . ANY NEW ALLERGIES? NO . PSYCHIATRIC: DO YOU HAVE THOUGHTS OF HURTING YOURSELF OR SOMEONE ELSE? NO . ARE YOU ABUSED, NEGLECTED, OR IN AN UNSAFE ENVIRONMENT? NO . ENDOCRINOLOGY: ARE YOU DIABETIC? NO . THYROID DISORDER NO . OTHER: DO YOU NEED ANY PRESCRIPTIONS? NO . IF YES, PLEASE LIST: ____ . ANY NEW PROBLEMS WITH YOUR MEDICATIONS? NO . WHEN DID YOU LAST EAT? ____ . WHEN DID YOU LAST DRINK? ____ . WHAT DID YOU LAST DRINK? ____ . NAME OF PERSON DRIVING YOU HOME? ____ . DO YOU HAVE ANY OTHER QUESTIONS OR CONCERNS NO . VITAL SIGNS WT 179.4 LBS, HT 69 IN, BMI 26.49 INDEX, BP 149/79 MM HG, HR 97%, RR 16 /MIN, TEMP 97.5 F, OXYGEN SAT % 97%, NA INITIALS SC 10:08. EXAMINATION GENERAL EXAMINATION: PATIENT IS ALERT O X 3 AND COOPERATIVE. LUNGS WHEEZES DURING INSPIRATION, TO AUSCULTATION. HEART: NO MURMURS OR GALLOPS; FACIAL CRANIAL NERVES ARE GROSSLY NORMAL. GOOD SYMMETRY OF FACIAL MUSCLE MOVEMENT. NORMAL VISUAL FELIZ. PRESENCE OF BANDS OF TISSUE AND TRIGGER POINTS WITH RESTRICTION OF MOVEMENT OF THE NECK. PAIN INCREASES OVER THE CERVICAL FACET JOINTS AND DOWN THE RIGHT ARM WITH EXTENSION AND LATERAL ROTATION OF THE NECK. RIGHT ARM IS WEAKER AT EXTENSION AND FLEXION. TENDERNESS OVER THE CERVICAL FACET OF THE NECK AREA. MRI OF THE CERVICAL SPINE DONE ON 07/09/2018 SHOWS CERVICAL FACET ARTHROPATHY AND BULGING DISCS AT C4-C5 AND C6-7 LEVELS. ASSESSMENTS MYALGIA, OTHER SITE - M79.18 (PRIMARY) CERVICAL DISC DISORDER WITH RADICULOPATHY OF CERVICAL REGION - M50.10 SPONDYLOSIS OF CERVICAL REGION WITHOUT MYELOPATHY OR RADICULOPATHY - M47.812 TREATMENT MYALGIA, OTHER SITE CLINICAL NOTES: WE DISCUSSED SEVERAL ISSUES WITH MS. WESTFALL'S PAIN MANAGEMENT CASE. DUE TO THE TRIGGER POINTS, BANDS OF TISSUE, AND RESTRICTION OF MOVEMENT, I WOULD LIKE TO MOVE FORWARD WITH A TRIGGER POINT INJECTION AT THIS TIME. WE DISCUSSED THE BENEFITS, RISKS, AND ALTERNATIVES OF THE INJECTION AND THE PATIENT WOULD LIKE TO PROCEED. I ALSO DISCUSSED THE OPTION OF AN EPIDURAL DUE TO THE BULGING DISKS AND RADIOFREQUENCY BLOCK FOR REDUCING THE ARTHRITIS IN THE CERVICAL FACET JOINTS. I WILL SEEK CLEARANCES FOR THESE PROCEDURES FROM LISY STEPHENS, THE PATIENT'S PRIMARY CARE, DUE TO THE PATIENT'S HISTORY OF EASY BRUISING AND POSSIBLE BLEEDING IN THE SPINE. THE PATIENT WILL FOLLOW UP IN SEVERAL WEEKS AFTER THE INJECTION. INSTRUCTIONS WERE GIVEN, QUESTIONS WERE ANSWERED, PATIENT REPORTS UNDERSTANDING AND AGREES WITH THE PLAN. I, AMRIT PANDEY, DOCUMENTED THE ABOVE INFORMATION ACTING A SCRIBE FOR DR. ANDERSON. I HAVE REVIEWED THE ABOVE DOCUMENT, WRITTEN BY AMRIT GRACE AND I VERIFY THAT IT IS ACCURATE. DEAR DR. LEWIS LAMAS M.D.: THANK YOU FOR YOUR KIND REFERRAL OF DEJON WESTFALL. IF YOU WANT TO DISCUSS HER CASE WITH ME PLEASE CALL ME AT THE PAIN CENTER AT [phone]. SINCERELY, ALEYDA ANDERSON MD PAIN MEDICINE . OTHERS NOTES: TRIGGER POINT INJECTION MATERIAL WAS PRINTED,TRIGGER POINT INJECTION: YOUR EXPERIENCE MATERIAL WAS PRINTED. PROCEDURE CODES FA211 ESTABILISHED PATIENT [facility] CHARGE G8427 CURRENT MEDS W/DOSAGES DOCUMENTED G8730 PAIN ASSESS POS TOOL F/U PLAN DOC DISPOSITION & COMMUNICATION FOLLOW UP 3 WEEKS (REASON: TPI) ELECTRONICALLY SIGNED BY ALEYDA ANDERSON MD, MD ON 11/16/2018 AT 08:55 AM EDT DISCLAIMER : THIS IS A VISIT SUMMARY EXTRACTED FROM THE [email or web address] CHART. IT IS NOT A COPY OF THE [employer] PROGRESS NOTE. KAITLYNN
== END ==
LOC: M PAIN 10:00
PROVIDERS: ATTEND Anesthesiology
DX: M79.18 Myalgia, other site (principal); M50.10 Cervical disc disorder with radiculopathy, unspecified cervical region; M47.812 Spondylosis without myelopathy or radiculopathy, cervical region; J45.909 Unspecified asthma, uncomplicated; I10 Essential (primary) hypertension; Z79.82 Long term (current) use of aspirin; Z79.899 Other long term (current) drug therapy

== ENCOUNTER → 2018-12-15 | Outpatient (CLI) | payer OTHER ==
[~2018-12-15] MED LIST changes: +BUPIVACAINE HCL 0.25% 10 ML VIAL As Ordered ONE; +BUPIVACAINE HCL 0.25% 30 ML VIAL As Ordered ONE; +TRIAMCINOLONE ACETONIDE SUSP 40 MG/ML VIAL (J3301) As Ordered ONE; +diazePAM 5 MG TAB As Ordered ONE; +oxyCODONE 5MG TAB As Ordered ONE
--- NOTE | 2018-12-24 00:26 | ECWPNPC ---
PATIENT NAME: DEJON WESTFALL : 1955 GENDER: FEMALE VISIT DATE: 12/15/2018 DISCHARGE DATE: 12/15/18 1338 VISIT LOCKED DATE TIME: PHYSICIAN: ALEYDA ANDERSON MD RESOURCE: ALEYDA ANDERSON MD REASON FOR APPOINTMENT 1. TPI HISTORY OF PRESENT ILLNESS HISTORY OF PRESENT ILLNESS: PAIN THE PATIENT DESCRIBES THE PAIN... FALL RISK SCREENING: SCREENING :NO FALLS REPORTED IN THE LAST YEAR CURRENT MEDICATIONS TAKING GABAPENTIN 100 MG CAPSULE DIRECTED ORALLY TID, NOTES: 12/15 699 TAKING ZONISAMIDE 50 MG CAPSULE 1 CAPSULE ORALLY TWICE A DAY, NOTES: 12/15 699 TAKING VENTOLIN HFA 108 (90 BASE) MCG/ACT AEROSOL SOLUTION DIRECTED INHALATION , NOTES: 12/15 699 TAKING ASPIRIN 81 81 MG TABLET DELAYED RELEASE 1 TABLET ORALLY EVERY OTHER DAY, NOTES: 12/14 729 TAKING LORATADINE 10 MG TABLET 1 TABLET ORALLY ONCE A DAY, NOTES: 12/15 699 TAKING CLONAZEPAM 1 MG TABLET 1 TABLET ORALLY BID, NOTES: 12/15 699 TAKING ONE DAILY COMPLETE - TABLET DIRECTED ORALLY , NOTES: 12/15 699 TAKING LISINOPRIL 5 MG TABLET 1 TABLET ORALLY ONCE A DAY, NOTES: 12/15 699 TAKING SYMBICORT 160-4.5 MCG/ACT AEROSOL 2 PUFFS INHALATION TWICE A DAY, NOTES: 12/15 699 TAKING PRAVASTATIN SODIUM 40 MG TABLET 1 TABLET ORALLY ONCE A DAY, NOTES: 12/15 699 TAKING MONTELUKAST SODIUM 10 MG TABLET 1 TABLET ORALLY ONCE A DAY, NOTES: 12/15 699 TAKING OMEPRAZOLE 20 MG CAPSULE DELAYED RELEASE 1 CAPSULE ORALLY ONCE A DAY, NOTES: 12/15 699 TAKING VENLAFAXINE HCL ER 225 MG TABLET EXTENDED RELEASE 24 HOUR 1 TABLET WITH FOOD ORALLY ONCE A DAY, NOTES: 12/15 699 TAKING EXCEDRIN EXTRA STRENGTH 250-250-65 MG TABLET 2 TABLETS ORALLY ONCE A DAY TAKING MAY USE CBD CREAM TOPICALLY NEEDED MEDICATION LIST REVIEWED AND RECONCILED WITH THE PATIENT PAST MEDICAL HISTORY ASTHMA CHRONIC NECK PAIN HYPERTENSION ANXIETY NOROVIRUS INFLUENZA ALLERGIES N.K.D.A. SURGICAL HISTORY PARTIAL JAW REPLACEMENT 1986 RIGHT KNEE MENISCUS 2015 FAMILY HISTORY FATHER: UNKNOWN MOTHER: , BLOOD CLOT AFTER SURGERY SIBLINGS: , SISTER-LUNG CANCER BROTHER- #1MALARIA, LEUKEMIA FROM AGENT ORANGE #2 DRUG ADDICTION, DIAGNOSED WITH CANCER HAS ADOPTED DAUGHTER. SOCIAL HISTORY GENERAL: TOBACCO USE ARE YOU A:NONSMOKER PAIN CLINIC PFS, CLERGY, PUBLIC HEALTH REFERRALS HAS THE PATIENT BEEN EDUCATED REGARDING HIS/HER PLAN OF CARE?YES HAS THE PATIENT BEEN EDUCATED REGARDING PAIN, THE RISK FOR PAIN, THE IMPORTANCE OF EFFECTIVE PAIN MANAGEMENT, AND THE PAIN ASSESSMENT PROCESS?YES LATEX QUESTIONNAIRE LATEX ALLERGY : HAVE YOU EVER DEVELOPED ANY TYPE OF REACTION AFTER HANDLING LATEX PRODUCTS SUCH RUBBER GLOVES, CONDOMS, DIAPHRAGMS, BALLOONS, SOCKS, OR UNDERWEAR?NO LATEX ALLERGY : HAVE YOU EVER DEVELOPED ANY TYPE OF REACTION DURING OR AFTER DENTAL APPOINTMENT, VAGINAL/RECTAL EXAMINATION, SURGICAL PROCEDURE, OR ANY OTHER EXPOSURE?NO LATEX RISK : HAVE YOU EVER HAD ANY DIFFICULTY BREATHING OR HIVES AFTER EATING OR HANDLING ANY FRUITS, OR VEGETABLES; SUCH KIWI, BANANAS, STONE FRUITS, OR CHESTNUTSNO LATEX RISK : DO YOU HAVE A PREVIOUS PERSONAL HISTORY OF MORE THAN NINE SURGERIES, SPINA BIFIDA, OR REPEATED CATHERTIZATIONS? NO LATEX RISK : ARE YOU FREQUENTLY EXPOSED TO LATEX PRODUCTS IN YOUR OCCUPATION?NO DATE ASKED : 12/15/2018 CAFFEINE CAFFEINE USE?YES HOW OFTEN AND HOW MUCH? (3) 16OZ BOTTLES OF PEPSI/DAY ADVANCE DIRECTIVE ADVANCE DIRECTIVE DISCUSSED WITH PATIENT:YES 12/15/18 PT STATES SHE HAS HCP:1. -MARLENY [phone](H) [phone](C)-CALL 1ST 2. DAUGHTER-JAKI [phone] EDUCATION LEVEL OF EDUCATION:FINISHED COLLEGE [employer]HEL[employer] RELIGIOUS [id number] LANGUAGE LANGUAGES SPOKEN:ITALIAN DOMESTIC VIOLENCE DO YOU FEEL SAFE IN YOUR ENVIRONMENT?YES ALCOHOL SCREENING DID YOU HAVE A DRINK CONTAINING ALCOHOL IN THE PAST YEAR?NO POINTS0 INTERPRETATIONNEGATIVE RECREATIONAL DRUG USE DRUG USE?NO LEARNING BARRIERS / SPECIAL NEEDS BARRIERS TO LEARNING?NO HEARING IMPAIRED?NO VISION IMPAIRED?YES :CORRECTIVE LENSES COGNITIVELY IMPAIRED?NO READINESS TO LEARN?YES LEARNING PREFERENCES?YES :DEMONSTRATION/VERBAL INSTRUCTION LEARNING CAPABILITIES PRESENT?YES EMOTIONAL BARRIERS?NO SPECIAL DEVICES?NO AIDS NURSE NEEDED?NO REVIEWED WITH PT 11/07/18 1024 BV. HOSPITALIZATION/MAJOR DIAGNOSTIC PROCEDURE HOSPITALIZED FOR 3 DAYS FOR INFLUENZA 06/2017 HOSPITALIZED FOR 8 DAYS FOR NOROVIRUS 10/2017 REVIEW OF SYSTEMS REVIEWED BY: PROVIDER: . CONSTITUTIONAL: ANY CHANGE IN YOUR MEDICAL CONDITION? NO . CHILLS NO . FEVER NO . INFECTION: DO YOU HAVE NEW INFECTIONS? NO . DO YOU HAVE HISTORY OF MRSA? NO . MUSCULOSKELETAL: ANY NEW PATTERNS OF PAIN OR NUMBNESS? NO . GASTROENTEROLOGY: ANY NEW CHANGE IN BOWEL CONTROL? NO . GENITOURINARY: ANY NEW CHANGE IN BLADDER CONTROL? NO . IS THERE A CHANCE YOU COULD BE ? NO . HEMATOLOGY/LYMPH: DO YOU TAKE ANY BLOOD THINNERS? (FOR EXAMPLE- COUMADIN, PLAVIX, AGGRENOX, PLATEL, PRADAXA, OR XARELTO) NO . WHEN WAS YOUR LAST DOSE? DATE: TIME: . NEUROLOGY: HAVE YOU FALLEN IN THE PAST 12 MONTHS? YES, SEVERAL TIMES JUST LOSES HER BALANCE- NOT EVALUATED AFTER. LAST TIME 1 1/2 WEEKS AGO- BRUISE LEFT FOREHEAD . ANY NEW EXTREMITY NUMBNESS OR WEAKNESS? YES, WEAKNESS AND NUMBNESS WORSE IN RIGHT ARM. DROP THINGS OFTEN. LEFT ARM IS OKAY . CARDIOLOGY: DO YOU HAVE A PACEMAKER OR DEFIBRILLATOR? NO . RESPIRATORY: HAVE YOU BEEN SICK IN THE PAST WEEK? NO . FEVER NO . FLU LIKE SYMPTOMS? NO . COUGH NO . INTEGUMENTARY: DO YOU HAVE ANY RASHES OR OPEN SORES? NO . ALLERGIC/IMMUNO: ARE YOU ALLERGIC TO IV DYE? NO . ANY NEW ALLERGIES? NO . PSYCHIATRIC: DO YOU HAVE THOUGHTS OF HURTING YOURSELF OR SOMEONE ELSE? NO . ARE YOU ABUSED, NEGLECTED, OR IN AN UNSAFE ENVIRONMENT? NO . ENDOCRINOLOGY: ARE YOU DIABETIC? NO . OTHER: DO YOU NEED ANY PRESCRIPTIONS? NO . IF YES, PLEASE LIST: ____ . ANY NEW PROBLEMS WITH YOUR MEDICATIONS? NO . WHEN DID YOU LAST EAT? 12/14/18 2300 . WHEN DID YOU LAST DRINK? 12/15 0700 . WHAT DID YOU LAST DRINK? SIP OF PEPSI AND GLASS OF WATER . NAME OF PERSON DRIVING YOU HOME? MARLENY . DO YOU HAVE ANY OTHER QUESTIONS OR CONCERNS NO . VITAL SIGNS WT 181.2 LBS, HT 69 IN, BMI 26.76 INDEX, BP 122/66 MM HG, HR 61 /MIN, RR 16 /MIN, TEMP 96.3 F, OXYGEN SAT % 98%, SAFE IN ENV? (Y/N) Y, NA INITIALS WY 11:43, REVIEWED BY: AD. ASSESSMENTS MYALGIA, OTHER SITE - M79.18 (PRIMARY) PROCEDURES PN TRIGGER POINT INJECTION WITH STEROIDS PRE PROCEDURE DIAGNOSIS 1. MYALGIA 2. PAIN AT BILATERAL NECK AREA AND RIGHT SHOULDER AREA POST PROCEDURE DIAGNOSIS 1. MYALGIA 2. PAIN AT BILATERAL NECK AREA AND RIGHT SHOULDER AREA PROCEDURE TRIGGER POINT INJECTION AT BILATERAL NECK AREA AND RIGHT SHOULDER AREA SURGEON DR. ALEYDA ANDERSON TRANSITION SPECIALIST NONE ANESTHESIA LOCAL PRE PROCEDURE NOTE THE PATIENT HAS A HISTORY OF CHRONIC PAIN AT THE RIGHT AND LEFT NECK AREA AND RIGHT SHOULDER AREA. I EVALUATE THE PATIENT AND REVIEWED THE CHART. THERE IS EVIDENCE OF BANDS OF TISSUE WITH RESTRICTION OF MOVEMENT AND PRESENCE OF TRIGGER POINT AT THE AFFECTED AREA. I WENT OVER THE RISKS, ALTERNATIVES, AND BENEFITS ASSOCIATED WITH THIS PROCEDURE. THE PATIENT WOULD LIKE TO PROCEED AND GIVE CONSENT TO PERFORMED THE PROCEDURE. THE PATIENT DENIES UNEXPLAINABLE WEIGHT LOSS, FEVER, CHILLS, OR NEW CHANGES IN URINARY OR BOWEL CONTROL DESCRIPTION OF PROCEDURE THE PATIENT WAS BROUGHT TO THE PROCEDURE ROOM AND PLACED IN THE SITTING POSITION. THE AREA WAS CLEANED WITH ALCOHOL. THE PROCEDURE WAS DONE USING ASEPTIC STERILE TECHNIQUE. I CHECKED LATERALITY AND THE LEVEL WHERE THE PROCEDURE WAS GOING TO BE PERFORMED WITH THE PATIENT AND THE SUPPORTING STAFF AT THE MOMENT OF THE TIME OUT IN THE PROCEDURE ROOM. USING A 25-GAUGE NEEDLE, TRIGGER POINTS WERE INJECTED AT THE RIGHT AND LEFT NECK AREA AND RIGHT SHOULDER AREA WITH A TOTAL OF 40 ML OF BUPIVACAINE 0.25% AND KENALOG 40 MG. THERE WAS NO EVIDENCE OF BLOOD, PARESTHESIA OR CEREBROSPINAL FLUID DURING THE PROCEDURE. THE PATIENT WAS SENT TO THE RECOVERY ROOM. THE PATIENT WAS MOVING THE EXTREMITIES AND DOING WELL. THERE WAS NO COMPLICATION DURING THE PROCEDURE POST PROCEDURE NOTE THE PATIENT WILL BE SEEN IN A FOLLOW UP IN THE NEXT FEW WEEKS. INSTRUCTIONS WERE GIVEN, QUESTIONS WERE ANSWERED, AND THE PATIENT EXPRESSED UNDERSTANDING AND AGREES WITH THE PLAN. I, LA CRUZ, DOCUMENTED THE ABOVE INFORMATION ACTING A SCRIBE FOR DR. ANDERSON. I HAVE REVIEWED THE ABOVE DOCUMENT, WRITTEN BY LA GRACE AND I VERIFY THAT IT IS ACCURATE. PROCEDURE CODES 58861 INJECT TRIGGER POINTS 3/> DISPOSITION & COMMUNICATION FOLLOW UP 3 WEEKS ELECTRONICALLY SIGNED BY ALEYDA ANDERSON MD, MD ON 12/23/2018 AT 03:40 PM EDT DISCLAIMER : THIS IS A VISIT SUMMARY EXTRACTED FROM THE [employer] CHART. IT IS NOT A COPY OF THE [employer] PROGRESS NOTE. KAITLYNN
== END ==
LOC: M PAIN 11:45
PROVIDERS: ATTEND Anesthesiology
DX: M79.18 Myalgia, other site (principal); J45.909 Unspecified asthma, uncomplicated; M54.2 Cervicalgia; I10 Essential (primary) hypertension; F41.9 Anxiety disorder, unspecified; Z79.82 Long term (current) use of aspirin; Z79.899 Other long term (current) drug therapy
CPT/HCPCS: 20553; J3301

== ENCOUNTER 2019-01-14 11:34 | Observation (INO) | payer MEDICARE, OTHER ==
[~2019-01-14] VITALS: Ht 175.3 cm; Wt 76.7 kg
[~2019-01-14 11:34] MED LIST changes: -BUPIVACAINE HCL 0.25% 10 ML VIAL As Ordered ONE; -BUPIVACAINE HCL 0.25% 30 ML VIAL As Ordered ONE; -OMEP20CA3 PO; +OMEP20CA4 PO; -TRIAMCINOLONE ACETONIDE SUSP 40 MG/ML VIAL (J3301) As Ordered ONE; -diazePAM 5 MG TAB As Ordered ONE; -oxyCODONE 5MG TAB As Ordered ONE
[2019-01-14] MEDS ORDERED: NS 1,000 ML IV ONE ×2 (12:15→16:00)
[2019-01-14] MEDS ORDERED: PROMETHAZINE INJ 25 MG/ML VIAL (J2550) IV ONE (12:15)
[2019-01-14 12:24] LABS: BASO # 0.1 10^3/uL (0.0-0.2); EOS # 0.1 10^3/uL (0.0-0.50); EOS % 1.5 % (0.0-3.0); HEMATOCRIT 42.9 % (36.0-47.0); HEMOGLOBIN 14.4 g/dl (12.0-15.5); LYMPH # 2.1 10^3/uL (1.5-4.5); LYMPH % 25.6 % (24.0-44.0); MEAN CORPUSCULAR HEMOGLOBIN 32.2 pg (27.0-33.0); MEAN CORPUSCULAR HGB CONC 33.6 g/dl (32.0-36.5); MONO # 0.8 10^3/uL (0.0-0.8); NEUTROPHILS # 5.1 10^3/uL (1.8-7.7); NEUTROPHILS % 61.5 % (36.0-66.0); PLATELET COUNT, AUTOMATED 374 10^3/uL (150-450); RED BLOOD COUNT 4.47 10^6/uL (4.00-5.40); WHITE BLOOD COUNT 8.2 10^3/uL (4.0-10.0)
[2019-01-14] MEDS ORDERED: IPRATROPIUM 0.5MG/ALBUTEROL 2.5MG INH SOL UD 3ML (DUONEB)(J7620) NEB ONE (12:30)
[2019-01-14] MEDS ORDERED: ALBUTEROL SULFATE 2.5 MG/0.5 ML INH NEB SOLN INH ONE (12:30)
[2019-01-14 12:35] LABS: INR 0.99; PROTHROMBIN TIME 12.8 SECONDS (11.8-14.0)
[2019-01-14 12:36] LABS: PARTIAL THROMBOPLASTIN TIME 34.3 SECONDS (25.0-38.4)
[2019-01-14 13:03] LABS: ALBUMIN 3.9 GM/DL (3.2-5.2); ALT/SGPT 28 U/L (12-78); AMYLASE 36 U/L (25-115); BILIRUBIN,DIRECT < 0.1 MG/DL (0.0-0.2); BILIRUBIN,TOTAL 0.3 MG/DL (0.2-1.0); CK-MB VALUE MASS 5.3 NG/ML (<3.6); CPK CREATINE PHOSPHOKINASE 214 U/L (26-192); LIPASE 73 U/L (73-393); MAGNESIUM LEVEL 2.5 MG/DL (1.8-2.4); MB/CK RELATIVE INDEX 2.48 (< OR =4); TOTAL PROTEIN 7.6 GM/DL (6.4-8.2); TROPONIN I < 0.02 NG/ML (< 0.10)
--- NOTE | 2019-01-14 14:00 | REP ---
REASON: Trauma. COMPARISON: 11/09/2017 TECHNIQUE: 4.5 mm contiguous transaxial sections were obtained from the skull base to the cerebral convexities with thin cuts through the posterior fossa without the administration of intravenous contrast. FINDINGS: The ventricles and sulci are consistent with the patient's age. There are no extra-axial fluid collections. There is no mass effect. The deep cerebral white matter is consistent with the patient's age. The orbital and petrous structures , cerebellopontine angles, and posterior fossa are unremarkable. The sella turcica, cavernous, and paracavernous structures are essentially unremarkable. The visualized portions of the paranasal sinuses and mastoid air cells are clear. Images of the skull base show no gross abnormality. IMPRESSION: Essentially unremarkable CT examination of the brain. There is no change from the prior exam. Electronically Signed by Ayden Stephen DO 01/14/2019 04:20 P
--- NOTE | 2019-01-14 14:14 | REP ---
REASON: Abdominal pain. The examination was ordered and performed without the administration of intravenous and oral bowel preparatory contrast stages. This limits the exam. The prior noncontrast-enhanced examination 11/07/2017 was reviewed and the prior contrast-enhanced examination of 11/09/2017 was reviewed. Limited evaluation of the solid intra-abdominal organs and gallbladder show no gross abnormalities. Limited evaluation of the pancreas, adrenal glands, kidneys, show no gross abnormalities or significant changes from the prior exams. There is a small right renal cyst status quo. Limited evaluation of the abdominal aorta and paraaortic regions show no gross abnormalities or significant changes from the prior exam. Limited evaluation of the bowel loops and their mesenteries show no gross abnormalities. The appendix is well visualized and is within normal limits. There is no free fluid or free air. CT PELVIS: Limited evaluation of the bowel loops and their mesenteries show no gross abnormalities. There is no free fluid or free air. There is no evidence of a pelvic mass or adenopathy. Bone window technique throughout the exam shows the osseous structures to be stable and intact. Spinal degenerative changes are noted status quo. IMPRESSION: No acute intra-abdominal or intrapelvic disease is noted on this limited examination as described above. Electronically Signed by Ayden Stephen DO 01/14/2019 04:20 P
--- NOTE | 2019-01-14 14:19 | REP ---
REASON FOR EXAM: Chest pain. PRIORS: Comparison is 07/09/2014. The lack of intravenous contrast decreases the sensitivity of the exam. The mediastinum and pulmonary ciera appear unchanged with no evidence of a significant mass or adenopathy. There are no pleural or pericardial effusions. The imaged osseous structures are stable and intact. Evaluation of the lung irizarry show a stable-appearing biapical pleural parenchymal scarring. The asymmetric pleural-based density seen previously in the right upper lobe laterally has increased in size and now there is evidence of central cavitation. The overall measurement of this lesion is approximately 3 x 2.3 x 2.2 cm. The lung irizarry are otherwise unchanged. Bilateral apical pleural blebs are noted status quo. IMPRESSION: There is a new cavitary lesion in the right upper lobe as described above. Infectious versus neoplastic etiology. This has been correlated clinically with pulmonary consultation and appropriate followup. Electronically Signed by Ayden Stephen DO 01/14/2019 04:20 P
[2019-01-14] MEDS ORDERED: ZONI50CA PO (16:05)
[2019-01-14] MEDS ORDERED: GABA-1171 PO (16:05)
[2019-01-14] MEDS ORDERED: CLAR10CA3 PO (16:06)
[2019-01-14] MEDS ORDERED: EXCETAB33 PO (16:06)
[2019-01-14] MEDS ORDERED: ACETAMINOPHEN TAB 650MG DOSE (2X325MG) PO ONE (16:45)
[2019-01-14] MEDS ORDERED: ACETAMINOPHEN TAB 650MG DOSE (2X325MG) PO PRN (17:30)
--- NOTE | 2019-01-14 17:59 | HPEPDOC ---
[facility] Medical History & Physical Date of Admission Jan 14, 2019 Date of Service: Jan 14, 2019 Attending Physician: GRAHAM FALCON MD History and Physical CHIEF COMPLAINT: Nausea, vomiting, diarrhea HISTORY OF PRESENT ILLNESS: Patient 63-year-old female with history of hypertension, hyperlipidemia, anxiety/depression who presents with 1 day of nausea, vomiting, diarrhea. Patient was in her usual state of health until day prior to admission when, while working outside, patient started to feel lightheaded and dizzy. She then had a syncopal episode while trying to sit down. Patient lost consciousness but landed on the grass. Patient then sat for a while in a chair. Patient then went inside and had episode of nausea, vomiting, diarrhea, which lasted about 30 minutes. Per patient, there were copious amounts of vomitus(NBNB) and diarrhea. Patient then confused about what happened for the rest of the evening but states she was mostly in bed. Patient then awoke the next morning feeling ongoing dizziness, lightheadedness with nausea. patient's daughter encouraged her to come to be evaluated in ED. Patient complaining of lightheadedness, dizziness, headache, chest fullness/pain, intermittent difficulty breathing, nausea, vomiting, diarrhea, abdominal pain. Patient denies cough, leg pain or swelling. PAST MEDICAL HISTORY: 1. Hypertension. 2. Hyperlipidemia. 3. Seasonal allergies 4. History of head trauma 5. Anxiety/depression. 6. History of lung nodule/calcification PAST SURGICAL HISTORY: 1. Right knee meniscal repair. 2. Jaw implantation surgery. SOCIAL HISTORY: Lives with . Quit smoking procedure smoked half pack cigarettes per day for 15 years. Denies alcohol. Denies illicits FAMILY HISTORY: Cancer ALLERGIES: Please see below. REVIEW OF SYSTEMS: 10 point review of systems reviewed and pertinent positives and negatives documented as per HPI. All other reviewed ROS negative. HOME MEDICATIONS: Please see below. PHYSICAL EXAMINATION: VITAL SIGNS: Please see below GENERAL APPEARANCE: Woman laying in stretcher in no acute distress. at bedside. Pleasant. Talkative. HEENT: PERRLA, EOMI, OP clear. Tongue straight, no adenopathy CARDIOVASCULAR: RRR, normal S1/S2. No MRG appreciated LUNGS:. Clear to auscultation bilaterally. No wheezes, rales or rhonchi. ABDOMEN:. Soft, nondistended, mild tenderness to palpation diffusely. MUSCULOSKELETAL:. No gross deformities. EXTREMITIES: No edema. Intact distal pulses. NEUROLOGICAL: No focal deficits PSYCHIATRIC: Normal mental status. normal mood LABORATORY DATA: See below. IMAGING: CT Head: neg for acute pathology CT Chest: There is a new cavitary lesion in the right upper lobe as described above. Infectious versus neoplastic etiology. This has been correlated clinically with pulmonary consultation and appropriate followup. CT ab/pelvis: No acute intra-abdominal or intrapelvic disease is noted MICROBIOLOGY: blood cultures pending ASSESSMENT: Patient 63-year-old female with history of hypertension, hyperlipidemia, anxiety/depression who presents with 1 day of nausea, vomiting, diarrhea in the setting of a syncope episode and lightheadedness/dizziness. Pt also found to have new renal dysfunction with Cr. 1.8 from baseline 0.92 last year. Pt also with elevated CK to 200's. . PLAN: 1. NANO -pt with pos orthostatics -suspect some element of prerenal etiology given N/V/D -will hydrate and recheck labs -trend BMP for Cr -also may be contribution of CK 2. Syncope -unclear etiology at this time -will place on tele -suspect some element of orthostasis 3. N/V/D -suspect viral etiology -symptomatic management of N/V -Pt says V/D has stopped 4. Cavitary lesion -Cavitary lesion found on CT chest imaging -pulm consult tomorrow for their input 5. HTN -monitor BP -can add back home BP meds as needed 6. HLD -cont. home meds 7. Anxiety/Depression -cont. home meds Disposition: admit to observation to assess how much of this is dehydration related Vital Signs Vital Signs Date Time Temp Pulse Resp B/P (MAP) Pulse Ox O2 Delivery O2 Flow Rate FiO2 01/14/19 16:04 84 97 01/14/19 16:00 100/50 (67) 01/14/19 11:34 96.6 18 Room Air Laboratory Data Labs 24H Laboratory Tests 2 01/14/19 12:08: Immature Granulocyte % (Auto) 0.4, White Blood Count 8.2, Red Blood Count 4.47, Hemoglobin 14.4, Hematocrit 42.9, Mean Corpuscular Volume 96.0, Mean Corpuscular Hemoglobin 32.2, Mean Corpuscular Hemoglobin Concent 33.6, Red Cell Distribution Width 14.1, Platelet Count 374, Neutrophils (%) (Auto) 61.5, Lymphocytes (%) (Auto) 25.6, Monocytes (%) (Auto) 10.0H, Eosinophils (%) (Auto) 1.5, Basophils (%) (Auto) 1.0, Neutrophils # (Auto) 5.1, Lymphocytes # (Auto) 2.1, Monocytes # (Auto) 0.8, Eosinophils # (Auto) 0.1, Basophils # (Auto) 0.1, Nucleated Red Blood Cells % (auto) 0.0, Prothrombin Time 12.8, Prothromb Time International Ratio 0.99, Activated Partial Thromboplast Time 34.3, Lactic Acid Level 1.4, Magnesium Level 2.5H, Aspartate Amino Transf (AST/SGOT) 25, Alanine Aminotransferase (ALT/SGPT) 28, Alkaline Phosphatase 102, Total Bilirubin 0.3, Direct Bilirubin < 0.1, Total Creatine Kinase 214H, Creatine Kinase MB 5.3H, Creatine Kinase MB Relative Index 2.48, Troponin I < 0.02, Total Protein 7.6, Albumin 3.9, Albumin/Globulin Ratio 1.05, Amylase Level 36, Lipase 73, Thyroid Stimulating Hormone (TSH) 1.460 01/14/19 12:32: POC Glucose (Misc Panel) 79, POC Sodium (Misc Panel) 139, POC Potassium (Misc Panel) 3.6, POC Chloride (Misc Panel) 103, POC Total CO2 (Misc Panel) 24.0, POC Blood Urea Nitrogen (Misc Panel 27H, POC Ionized Calcium (Misc Panel) 4.6, POC Creatinine (Misc Panel) 1.8H, POC Hematocrit (Misc Panel) 45.0 CBC/BMP Laboratory Tests 01/14/19 12:08 Red Blood Count 4.47, Mean Corpuscular Volume 96.0, Mean Corpuscular Hemoglobin 32.2, Mean Corpuscular Hemoglobin Concent 33.6, Red Cell Distribution Width 14.1, Neutrophils (%) (Auto) 61.5, Lymphocytes (%) (Auto) 25.6, Monocytes (%) (Auto) 10.0 H, Eosinophils (%) (Auto) 1.5, Basophils (%) (Auto) 1.0, Neutrophils # (Auto) 5.1, Lymphocytes # (Auto) 2.1, Monocytes # (Auto) 0.8, Eosinophils # (Auto) 0.1, Basophils # (Auto) 0.1 Microbiology Microbiology 01/14/19 Blood Culture, Received Pending 01/14/19 Blood Culture, Received Pending Home Medications Scheduled Budesonide/Formoterol (Symbicort 160-4.5 Mcg Inhaler) 60 Puff/Inhaler Aers, 2 PUFF INH BID Clonazepam (Clonazepam) 1 Mg Tab, 1 MG PO BID Gabapentin (Gabapentin) 100 Mg Capsule, 100 MG PO ASDIRECTED MEDICATION STILL AT PHARMACY. TO TAKE 1 CAP HS X 5 DAYS, THEN 1 CAP BID X 5 DAYS THEN TID. Lisinopril (Lisinopril) 5 Mg Tab, 5 MG PO DAILY Loratadine (Claritin) 10 Mg Capsule, 10 MG PO DAILY Montelukast Sodium (Singulair) 10 Mg Tab, 10 MG PO DAILY Multivitamins (Thera M Plus Tablet) 1 Tab Tab, 1 TAB PO DAILY Omeprazole (Omeprazole) 20 Mg Cap, 20 MG PO DAILY Pravastatin Sodium (Pravastatin Sodium) 40 Mg Tab, 40 MG PO DAILY Venlafaxine HCl (Effexor Xr) 75 Mg Cap, 225 MG PO DAILY Zonisamide (Zonisamide) 50 Mg Capsule, 50 MG PO BID MEDICATION STILL AT PHARMACY Scheduled PRN Albuterol Sulfate (Ventolin Hfa) 108 Mcg/Act Aer, 2 PUFFS INH QID PRN for SHORTNESS OF BREATH Aspirin/Acetaminophen/Caffeine (Excedrin Migraine Caplet) 1 Each Tablet, 1 TAB PO DAILY PRN for HEADACHE Allergies Coded Allergies: umeclidinium (Verified Adverse Reaction, Mild, STOMACH ACHE, 01/14/19) A-FIB/CHADSVASC A-FIB History Current/History of A-Fib/PAF?: No GRAHAM FALCON MD Jan 14, 2019 17:59
[2019-01-14] MEDS: HEPARIN SOD (PORCINE) 5000 UNITS/ML VIAL SC SCH (18:00)
[2019-01-14 18:11] LABS: CALCIUM LEVEL 8.1 MG/DL (8.8-10.2); CREATININE FOR GFR 1.32 MG/DL (0.55-1.30); POTASSIUM SERUM 3.5 MEQ/L (3.5-5.1)
[2019-01-14 18:30] VITALS: BP 113/57
--- NOTE | 2019-01-14 20:39 | ECGEPIP ---
[facility] - ED Test Date: 2019-01-14 Pat Name: DEJON WESTFALL Department: Room: - Gender: Female [employer]: TC : 1955 Requested By: Aleksey Dickens Order Number: [id number] Reading MD: Aleksey Rojas Measurements Intervals [place] Rate: 86 P: 38 MO: 143 QRS: 34 QRSD: 80 T: 50 QT: 366 QTc: 439 Interpretive Statements SINUS RHYTHM NONSPECIFIC T-WAVE ABNORMALITY SIMILAR TO 11/07/17 Electronically Signed on 01-14-2019 20:39:11 EDT by Aleksey Rojas
[2019-01-14] MEDS: NS 1,000 ML IV SCH (21:17)
[2019-01-15] MEDS: HEPARIN SOD (PORCINE) 5000 UNITS/ML VIAL SC SCH ×3 (02:45→10:03)
[2019-01-15] MEDS: NS 1,000 ML IV SCH ×2 (05:20→09:30)
[2019-01-15 06:00] VITALS: BP 116/70
[2019-01-15 06:44] LABS: BLOOD UREA NITROGEN 16 MG/DL (7-18); CALCIUM LEVEL 8.3 MG/DL (8.8-10.2); CARBON DIOXIDE LEVEL 24 MEQ/L (21-32); CHLORIDE LEVEL 118 MEQ/L (98-107); CPK CREATINE PHOSPHOKINASE 110 U/L (26-192); CREATININE FOR GFR 0.92 MG/DL (0.55-1.30); GLOMERULAR FILTRATION RATE > 60.0 (>45); GLUCOSE, FASTING 78 MG/DL (70-100); MB/CK RELATIVE INDEX 2.73 (< OR =4); POTASSIUM SERUM 4.2 MEQ/L (3.5-5.1); SODIUM LEVEL 145 MEQ/L (136-145)
--- NOTE | 2019-01-15 19:47 | DS.PDOC ---
Discharge Summary General Date of Admission Jan 14, 2019 at 17:17 Date of Discharge 01/15/19 Attending Physician: GRAHAM FALCON MD Discharge Summary PROCEDURES PERFORMED DURING STAY: None. ADMITTING DIAGNOSES: 1. syncope 2. dehydration 3. anxiety 4. Hypertension. 5. Hyperlipidemia. DISCHARGE DIAGNOSES: 1. syncope 2. dehydration 3. anxiety 4. Hypertension. 5. Hyperlipidemia. COMPLICATIONS/CHIEF COMPLAINT: Acute Kidney Injury. HISTORY OF PRESENT ILLNESS: As per HPI: "Patient 63-year-old female with history of hypertension, hyperlipidemia, anxiety/depression who presents with 1 day of nausea, vomiting, diarrhea. Patient was in her usual state of health until day prior to admission when, while working outside, patient started to feel lightheaded and dizzy. She then had a syncopal episode while trying to sit down. Patient lost consciousness but landed on the grass. Patient then sat for a while in a chair. Patient then went inside and had episode of nausea, vomiting, diarrhea, which lasted about 30 minutes. Per patient, there were copious amounts of vomitus(NBNB) and diarrhea. Patient then confused about what happened for the rest of the evening but states she was mostly in bed. Patient then awoke the next morning feeling ongoing dizziness, lightheadedness with nausea. patient's daughter encouraged her to come to be evaluated in ED. Patient complaining of lightheadedness, dizziness, headache, chest fullness/pain, intermittent difficulty breathing, nausea, vomiting, diarrhea, abdominal pain. Patient denies cough, leg pain or swelling." HOSPITAL COURSE: Pt placed on IV hydration and tele overnight. No tele events. With IV hydration morning labs showed resolution of NANO with labs back to baseline. PT feeling better as well. Discussed with pt the lung lesion and per pt she has already had this lesion worked up including biopsy and PET scan. Therefore, will defer further management to outpatient provider. Pt denies any fever, chills, CP, SOB, N/V/D, leg pain or swelling. Pt overall feeling back to baseline. Pt seen and examined on day of discharge and deemed stable to be discharged home. DISCHARGE MEDICATIONS: Please see below. ALLERGIES: Please see below. PHYSICAL EXAMINATION ON DISCHARGE: VITAL SIGNS: Please see below. GENERAL: laying in bed in NAD, appears younger than stated age CARDIOVASCULAR EXAMINATION: RRR, nl s1/2 no mrg appreciated RESPIRATORY EXAMINATION: CTA b/l no w/r/r ABDOMINAL EXAMINATION: soft, NT, ND EXTREMITIES: no edema, intact distal pulses SKIN: no rashes or skin breakdown NEUROLOGICAL EXAMINATION: no focal deficits PSYCHIATRIC EXAMINATION: nl mental status, A&Ox3 LABORATORY DATA: Please see below. IMAGING: CT Chest: Evaluation of the lung irizarry show a stable-appearing biapical pleural parenchymal scarring. The asymmetric pleural-based density seen previously in the right upper lobe laterally has increased in size and now there is evidence of central cavitation. The overall measurement of this lesion is approximately 3 x 2.3 x 2.2 cm. The lung irizarry are otherwise unchanged. Bilateral apical pleural blebs are noted status quo. ACTIVITY: As tolerated. DIET: regular DISCHARGE PLAN: Follow up with PMD within 1week DISPOSITION: 01 Home, Self-Care. DISCHARGE INSTRUCTIONS: 1. Please follow up with your PMD within 1 week ITEMS TO FOLLOWUP ON ON OUTPATIENT: 1. PMD to follow up cavitary lesion on CT chest. Per pt she has already had this evaluated but current findings should be correlated with prior images by PMD to assess for any malignant change DISCHARGE CONDITION: Stable. TIME SPENT ON DISCHARGE: 35 minutes. Vital Signs/I&Os Vital Signs Date Time Temp Pulse Resp B/P (MAP) Pulse Ox O2 Delivery O2 Flow Rate FiO2 01/15/19 06:00 98.3 81 17 116/70 (85) 97 01/14/19 18:18 Room Air I&O- Last 24 Hours up to 6 AM 01/15/19 06:00 Intake Total 1540 ml Output Total 900 ml Balance 640 ml Laboratory Data Labs 24H Laboratory Tests 2 01/15/19 05:50: Anion Gap 3L, Glomerular Filtration Rate > 60.0, Blood Urea Nitrogen 16, Creatinine 0.92, Sodium Level 145, Potassium Level 4.2, Chloride Level 118H, Carbon Dioxide Level 24, Calcium Level 8.3L, Total Creatine Kinase 110, Creatine Kinase MB 3.0, Creatine Kinase MB Relative Index 2.73 CBC/BMP Laboratory Tests 01/15/19 05:50 Calcium Level 8.3 L Microbiology Microbiology 01/14/19 Blood Culture - Preliminary, Resulted No growth after 24 hours . All specim... 01/14/19 Blood Culture - Preliminary, Resulted No growth after 24 hours . All specim... Discharge Medications Scheduled Budesonide/Formoterol (Symbicort 160-4.5 Mcg Inhaler) 60 Puff/Inhaler Aers, 2 PUFF INH BID, (Reported) Clonazepam (Clonazepam) 1 Mg Tab, 1 MG PO BID, (Reported) Gabapentin (Gabapentin) 100 Mg Capsule, 100 MG PO ASDIRECTED, (Reported) MEDICATION STILL AT PHARMACY. TO TAKE 1 CAP HS X 5 DAYS, THEN 1 CAP BID X 5 DAYS THEN TID. Lisinopril (Lisinopril) 5 Mg Tab, 5 MG PO DAILY, (Reported) Loratadine (Claritin) 10 Mg Capsule, 10 MG PO DAILY, (Reported) Montelukast Sodium (Singulair) 10 Mg Tab, 10 MG PO DAILY, (Reported) Multivitamins (Thera M Plus Tablet) 1 Tab Tab, 1 TAB PO DAILY, (Reported) Omeprazole (Omeprazole) 20 Mg Cap, 20 MG PO DAILY, (Reported) Pravastatin Sodium (Pravastatin Sodium) 40 Mg Tab, 40 MG PO DAILY, (Reported) Venlafaxine HCl (Effexor Xr) 75 Mg Cap, 225 MG PO DAILY, (Reported) Zonisamide (Zonisamide) 50 Mg Capsule, 50 MG PO BID, (Reported) MEDICATION STILL AT PHARMACY Scheduled PRN Albuterol Sulfate (Ventolin Hfa) 108 Mcg/Act Aer, 2 PUFFS INH QID PRN for SH ORTNESS OF BREATH, (Reported) Aspirin/Acetaminophen/Caffeine (Excedrin Migraine Caplet) 1 Each Tablet, 1 TAB PO DAILY PRN for HEADACHE, (Reported) Allergies Coded Allergies: umeclidinium (Verified Adverse Reaction, Mild, STOMACH ACHE, 01/14/19) GRAHAM FALCON MD Jan 15, 2019 19:47
== END 2019-01-15 12:20 | disposition home or self-care (01) ==
LOC: M ED 11:34 → M ED INP 17:17 → M MSPAV 18:55
PROVIDERS: ADMIT Internal Medicine; ATTEND Internal Medicine
DX: R55 Syncope and collapse (principal); E86.0 Dehydration; F41.9 Anxiety disorder, unspecified; I10 Essential (primary) hypertension; E78.49 Other hyperlipidemia; N17.9 Acute kidney failure, unspecified; Z79.899 Other long term (current) drug therapy; Z88.8 Allergy status to other drugs, medicaments and biological substances; Z87.891 Personal history of nicotine dependence
CPT/HCPCS: 36415; 70450; 71250; 74176; 80047; 80048; 80076; 82150; 82550; 82553; 83605; 83690; 83735; 84443; 84484; 85025; 85610; 85730; 87040; 93005; 93041; 94640; 94760; 96374; 96375; 99285; G0378

== ENCOUNTER → 2019-01-19 | Outpatient (REF) | payer MEDICARE ==
[~2019-01-19] MED LIST changes: +CLAR10CA3 PO; +EXCETAB33 PO; +GABA-1171 PO; +ZONI50CA PO
== END ==
LOC: M LAB REF 12:50
PROVIDERS: ATTEND Nurse Practitioner Adult Health
DX: C34.11 Malignant neoplasm of upper lobe, right bronchus or lung (principal)

== ENCOUNTER 2019-02-08 14:18 | Inpatient (IN) | payer MEDICARE ==
[~2019-02-08] VITALS: Ht 182.9 cm; Wt 85.9 kg
[2019-02-08] MEDS ORDERED: NS 1,000 ML IV ONE ×4 (14:30→16:30)
[2019-02-08] MEDS ORDERED: ONDANSETRON 4MG/2ML VIAL (J2405) IV ONE (14:45)
[2019-02-08 15:10] LABS: BASO # 0.1 10^3/uL (0.0-0.2); BASO % 1.2 % (0.0-1.0); EOS # 0.2 10^3/uL (0.0-0.50); EOS % 2.2 % (0.0-3.0); HEMATOCRIT 44.5 % (36.0-47.0); HEMOGLOBIN 14.8 g/dl (12.0-15.5); LYMPH # 3.1 10^3/uL (1.5-4.5); LYMPH % 30.1 % (24.0-44.0); MEAN CORPUSCULAR HEMOGLOBIN 31.6 pg (27.0-33.0); MEAN CORPUSCULAR HGB CONC 33.3 g/dl (32.0-36.5); MEAN CORPUSCULAR VOLUME 94.9 fl (80.0-96.0); MONO # 0.5 10^3/uL (0.0-0.8); MONO % 4.5 % (0.0-5.0); NEUTROPHILS # 6.4 10^3/uL (1.8-7.7); NEUTROPHILS % 61.4 % (36.0-66.0); PLATELET COUNT, AUTOMATED 369 10^3/uL (150-450); RED BLOOD COUNT 4.69 10^6/uL (4.00-5.40); WHITE BLOOD COUNT 10.4 10^3/uL (4.0-10.0)
[2019-02-08] MEDS ORDERED: NOREPINEPHRINE BITARTRATE 8 MG in D5W 492 ML IV SCH ×2 (15:35→19:00)
[2019-02-08] MEDS ORDERED: NOREPINEPHRINE 4 MG/4 ML AMP As Ordered ONE (15:36)
[2019-02-08 15:37] LABS: ALBUMIN 3.9 GM/DL (3.2-5.2); ALT/SGPT 27 U/L (12-78); BILIRUBIN,DIRECT 0.1 MG/DL (0.0-0.2); BILIRUBIN,TOTAL 0.3 MG/DL (0.2-1.0); BLOOD UREA NITROGEN 13 MG/DL (7-18); CALCIUM LEVEL 9.7 MG/DL (8.8-10.2); CARBON DIOXIDE LEVEL 20 MEQ/L (21-32); CHLORIDE LEVEL 109 MEQ/L (98-107); CREATININE FOR GFR 1.64 MG/DL (0.55-1.30); GLOMERULAR FILTRATION RATE 33.5 (>45); GLUCOSE, FASTING 160 MG/DL (70-100); LIPASE 348 U/L (73-393); POTASSIUM SERUM 4.1 MEQ/L (3.5-5.1); SODIUM LEVEL 141 MEQ/L (136-145); TOTAL PROTEIN 7.4 GM/DL (6.4-8.2)
[2019-02-08 15:44] LABS: CK-MB VALUE MASS 2.5 NG/ML (<3.6); CPK CREATINE PHOSPHOKINASE 129 U/L (26-192); MB/CK RELATIVE INDEX 1.94 (< OR =4); TROPONIN I < 0.02 NG/ML (< 0.10)
[2019-02-08] MEDS ORDERED: LIDOCAINE 2% 5ML JELLY UROJET TOP ONE (15:45)
[2019-02-08 15:57] LABS: INR 1.15; PARTIAL THROMBOPLASTIN TIME 26.5 SECONDS (25.0-38.4); PROTHROMBIN TIME 14.4 SECONDS (11.8-14.0)
[2019-02-08] MEDS ORDERED: PIPERACILLIN/TAZOBACTAM SOD 4.5 GM in D5W MINI-BAG PLUS 50 ML IV ONE (16:00)
[2019-02-08] MEDS ORDERED: ISOVUE-370 76% 100ML VIAL (Q9967) As Ordered ONE (16:00)
[2019-02-08 16:01] LABS: AMYLASE 91 U/L (25-115); C REACTIVE PROTEIN QUANTITATIV 0.63 MG/DL (0.00-0.30)
[2019-02-08] MEDS ORDERED: diphenhydrAMINE INJ 50MG/ML VIAL (J1200) IV STA (17:29)
[2019-02-08] MEDS ORDERED: IPRATROPIUM 0.5MG/ALBUTEROL 2.5MG INH SOL UD 3ML (DUONEB)(J7620) NEB PRN (17:45)
--- NOTE | 2019-02-08 17:51 | HPEPDOC ---
[facility] Medical History & Physical Date of Admission Feb 08, 2019 Date of Service: Feb 08, 2019 History and Physical CHIEF COMPLAINT: Nausea vomiting HISTORY OF PRESENT ILLNESS: This is a 63-year-old female who has a long history of recurrent bouts of nausea vomiting diarrhea where she drops her blood pressur es. They're 2 well documented admissions one from 2007 and one from December of this year as well as anecdotal stories from the patient's who is bedside today. These attacks seem to present out of no where without any known inciting trigger some of these episodes have been associated with being outdoors like today she was visited [id number] and previously while he was cutting the grass she began to feel unwell and went inside the house prior to the onset of 1 episode. Patient describes a long history of allergies and she is on loratadine and Singulair she cannot tell me what happens when she does not take these medications as she has been on them for years and takes them every day even in the winter. She tells me in the past she previously had injections related to her allergies. She tells me that prior to visiting the [facility] she was in her usual state of good health denies changes in her urine cough recent illness or fevers changes in bowels. She tells me she had a turkey sandwich prior to the onset of her symptoms but this is not unusual for her. Shortly thereafter she began to have feel intensely warm developed nausea and then had profuse watery diarrhea and vomiting uncontrolled bouts too numerous to count prompting her to present to the emergency room where she was found to be severely hypotensive. Otherwise patient denies weight loss, hair loss, headache, visual changes, chest pain, shortness of breath, cough, muscle aches, worsening arthritis, change in mood of note the patient's only documented allergy or adverse reaction was nausea and vomiting PAST MEDICAL HISTORY: 1. Hypertension. 2. COPD. 3. Dyslipidemia For anxiety depression 5 lung nodule. HOME MEDICATIONS: Please see below. ALLERGIES: Please see below PAST SURGICAL HISTORY: 1. Right knee surgery. SOCIAL HISTORY: Lives with: , Employment: Retired, Tobacco use: Former smoker [id number] in the past. ETOH: Denies, Illicit drug use: Denies, CODE STATUS: Full code FAMILY HISTORY:Reviewed and noncontributory REVIEW OF SYSTEMS: 10 systems reviewed and negative other than HPI PHYSICAL EXAMINATION: VITAL SIGNS: Temperature 97.5, pulse 101, respiratory rate 18, blood pressure 74/52, pulse oximetry 94 % on 2 L nasal cannula. GENERAL: Fatigued elderly female laying flat in bed awake alert oriented speaking in complete sentences she is able to open her eyes but keeps them closed and she tells me she is quite tired HEENT: Dry mucous membranes no elevation in CVP CARDIOVASCULAR: S1 S2 tachycardic no additional heart sounds appreciated. RESPIRATORY: Clear to auscultation bilaterally. Possibly some end expiratory wheeze ABDOMINAL: Bowel sounds hyperactive abdomen soft and diffusely tender to soft palpation EXTREMITIES: No clubbing cyanosis or edema NEUROLOGICAL: Spontaneously moves all 4 extremities cranial 2 through 12 grossly intact no gross focal deficits appreciated PSYCHOLOGICAL: Appropriate but fatigued LABORATORY DATA: See below. MICROBIOLOGY: Please see below. IMAGING: Chest x-ray: Report pending CT abdomen pelvis: Report pending ASSESSMENT & PLAN: This is a 63-year-old female presenting in shock. PROBLEMS: 1. Shock: The initial concern was for possibly septic shock. She has received over 2-1/2 L of normal saline and has been started on levo fed through a peripheral IV at 8 g. She is maintaining a map of 65 or greater at this current level. I will admit the patient to the medical intensive care unit she is started on empiric Zosyn I will continue her on lactated Ringer's at 150 mL per hour her initial lactic acid was within normal limits our recycle this in 4 ho urs from the original draw. It is somewhat peculiar to have such a sudden onset without a toxic shocklike trigger she does not have leukocytosis or fever. In fact the history of recurrent bouts has been more concerned for an atypical anaphylaxis presentation, she does not have involvement of her mucosal membranes or skin otherwise it does appear consistent. I will provide her with hydrocortisone 100 mg IV followed by 50 mg every 6 hours. I will also provide her with IV Benadryl 1. I'm optimistic about her recovery given her history of such bouts. I will check a pro-calcitonin blood cultures UA urine culture follow-up her chest x-ray CT scan of the abdomen as well as a GI PCR panel to exclude infectious pathology. I will also check a serum histamine and tryptase levels. For the time being she will be nothing by mouth we'll provide with IV PPI twice a day antiemetics and monitor closely 2. Acute kidney injury: Acute rise in creatinine similar to her previous stays likely prerenal azotemia secondary to her hypotension 3. Anxiety depression: We will hold her psychotropic medications for the time being 4. COPD: I'll provide her with nebulizer treatments as well as oxygen to keep sats greater than 90% she appears to be at her baseline respiratory status and is normally on inhalers at home 5. Hypertension: Shock as outlined above hold lisinopril 6. Gastroesophageal reflux disease: As outlined above DVT PROPHYLAXIS: Heparin DISPOSITION: Admitted to the medical intensive care unit prognosis is guarded all questions answered to the satisfaction of the who is bedside and the patient who is oriented at this time Vital Signs Vital Signs Date Time Temp Pulse Resp B/P (MAP) Pulse Ox O2 Delivery O2 Flow Rate FiO2 02/08/19 17:00 109/61 (77) 02/08/19 16:55 99 20 91 Nasal Cannula 02/08/19 16:29 97.5 2.0 Laboratory Data Labs 24H Laboratory Tests 2 02/08/19 14:57: POC Glucose (Misc Panel) 166H, POC Sodium (Misc Panel) 140, POC Potassium (Misc Panel) 3.7, POC Chloride (Misc Panel) 108, POC Total CO2 (Misc Panel) 19.0L, POC Blood Urea Nitrogen (Misc Panel 13, POC Ionized Calcium (Misc Panel) 4.9, POC Creatinine (Misc Panel) 1.7H, POC Hematocrit (Misc Panel) 45.0 02/08/19 14:59: Prothrombin Time 14.4H, Prothromb Time International Ratio 1.15, Activated Partial Thromboplast Time 26.5 02/08/19 15:00: Anion Gap 12, Glomerular Filtration Rate 33.5L, Lactic Acid Level 2.0, Calcium Level 9.7, Aspartate Amino Transf (AST/SGOT) 33, Alanine Aminotransferase (ALT/SGPT) 27, Alkaline Phosphatase 109, Total Bilirubin 0.3, Direct Bilirubin 0.1, Total Creatine Kinase 129, Creatine Kinase MB 2.5, Creatine Kinase MB Relative Index 1.94, Troponin I < 0.02, C-Reactive Protein, Quantitative 0.63H, Total Protein 7.4, Albumin 3.9, Albumin/Globulin Ratio 1.11, Amylase Level 91, Lipase 348 02/08/19 15:01: Immature Granulocyte % (Auto) 0.6, White Blood Count 10.4H, Red Blood Count 4.69, Hemoglobin 14.8, Hematocrit 44.5, Mean Corpuscular Volume 94.9, Mean Corpuscular Hemoglobin 31.6, Mean Corpuscular Hemoglobin Concent 33.3, Red Cell Distribution Width 14.0, Platelet Count 369, Neutrophils (%) (Auto) 61.4, Lymphocytes (%) (Auto) 30.1, Monocytes (%) (Auto) 4.5, Eosinophils (%) (Auto) 2.2, Basophils (%) (Auto) 1.2H, Neutrophils # (Auto) 6.4, Lymphocytes # (Auto) 3.1, Monocytes # (Auto) 0.5, Eosinophils # (Auto) 0.2, Basophils # (Auto) 0.1, Nucleated Red Blood Cells % (auto) 0.0 02/08/19 15:59: POC pH (Misc Panel) 7.236*L, POC Base Excess (Misc Panel) -10.0L, POC Saturated Percent O2 (Misc) 93L, POC pO2 (Misc Panel) 79.0L, POC pCO2 (Misc Panel) 42.2, POC HCO3 (Misc Panel) 17.9L, POC Total CO2 (Misc Panel) 19.0L CBC/BMP Laboratory Tests 02/08/19 15:00 02/08/19 15:01 Red Blood Count 4.69, Mean Corpuscular Volume 94.9, Mean Corpuscular Hemoglobin 31.6, Mean Corpuscular Hemoglobin Concent 33.3, Red Cell Distribution Width 14.0, Neutrophils (%) (Auto) 61.4, Lymphocytes (%) (Auto) 30.1, Monocytes (%) (Auto) 4.5, Eosinophils (%) (Auto) 2.2, Basophils (%) (Auto) 1.2 H, Neutrophils # (Auto) 6.4, Lymphocytes # (Auto) 3.1, Monocytes # (Auto) 0.5, Eosinophils # (Auto) 0.2, Basophils # (Auto) 0.1 Microbiology Microbiology 02/08/19 Blood Culture, Received Pending Home Medications Scheduled Budesonide/Formoterol (Symbicort 160-4.5 Mcg Inhaler) 60 Puff/Inhaler Aers, 2 PUFF INH BID Clonazepam (Clonazepam) 1 Mg Tab, 1 MG PO BID Gabapentin (Gabapentin) 100 Mg Capsule, 100 MG PO TID Lisinopril (Lisinopril) 5 Mg Tab, 2.5 MG PO DAILY Loratadine (Claritin) 10 Mg Capsule, 10 MG PO DAILY Montelukast Sodium (Singulair) 10 Mg Tab, 10 MG PO DAILY Multivitamins (Thera M Plus Tablet) 1 Tab Tab, 1 TAB PO DAILY Omeprazole (Omeprazole) 20 Mg Cap, 20 MG PO DAILY Pravastatin Sodium (Pravastatin Sodium) 40 Mg Tab, 40 MG PO DAILY Venlafaxine HCl (Effexor Xr) 75 Mg Cap, 225 MG PO DAILY Zonisamide (Zonisamide) 50 Mg Capsule, 50 MG PO BID Scheduled PRN Albuterol Sulfate (Ventolin Hfa) 108 Mcg/Act Aer, 2 PUFFS INH Q4H PRN for SHORTNESS OF BREATH Aspirin/Acetaminophen/Caffeine (Excedrin Migraine Caplet) 1 Each Tablet, 1 TAB PO DAILY PRN for HEADACHE Allergies Coded Allergies: umeclidinium (Verified Adverse Reaction, Mild, STOMACH ACHE, 01/14/19) A-FIB/CHADSVASC A-FIB History Current/History of A-Fib/PAF?: No SHAHLA SUÁREZ MD Feb 08, 2019 17:51
[2019-02-08 18:35] LABS: BASO # 0.1 10^3/uL (0.0-0.2); BASO % 0.5 % (0.0-1.0); EOS % 0.1 % (0.0-3.0); HEMOGLOBIN 13.9 g/dl (12.0-15.5); LYMPH # 1.2 10^3/uL (1.5-4.5); LYMPH % 5.1 % (24.0-44.0); MEAN CORPUSCULAR HEMOGLOBIN 32.6 pg (27.0-33.0); MEAN CORPUSCULAR HGB CONC 33.1 g/dl (32.0-36.5); MEAN CORPUSCULAR VOLUME 98.4 fl (80.0-96.0); MONO # 1.5 10^3/uL (0.0-0.8); MONO % 6.4 % (0.0-5.0); NEUTROPHILS # 20.8 10^3/uL (1.8-7.7); NEUTROPHILS % 87.4 % (36.0-66.0); PLATELET COUNT, AUTOMATED 321 10^3/uL (150-450); RED BLOOD COUNT 4.27 10^6/uL (4.00-5.40); WHITE BLOOD COUNT 23.9 10^3/uL (4.0-10.0)
[2019-02-08] MEDS ORDERED: HYDROCORTISONE 100 MG/2 ML VIAL (J1720) IV ONE (19:00)
[2019-02-08] MEDS: LR 1,000 ML IV SCH (19:04)
[2019-02-08] MEDS: ONDANSETRON 4MG/2ML VIAL (J2405) IV SCH (19:24)
[2019-02-08] MEDS: PANTOPRAZOLE 40MG INJ (PROTONIX) (C9113) IV SCH (19:24)
--- NOTE | 2019-02-08 19:31 | ECGEPIP ---
[facility] - ED Test Date: 2019-02-08 Pat Name: DEJON WESTFALL Department: Room: - Gender: Female Oral Health Therapist: daryl : 1955 Requested By: Alejo Fletcher Order Number: [id number] Reading MD: Alejo Fletcher Measurements Intervals [place] Rate: 99 P: 58 ME: 137 QRS: 40 QRSD: 81 T: 68 QT: 368 QTc: 473 Interpretive Statements SINUS RHYTHM NONSPECIFIC ST T WAVE CHANGES PROLONGED QTC CW 01/14/[address] T WAVE CHANGES Electronically Signed on 02-08-2019 19:31:01 EDT by Alejo Fletcher
[2019-02-08] MEDS: IPRATROPIUM 0.5MG/ALBUTEROL 2.5MG INH SOL UD 3ML (DUONEB)(J7620) NEB SCH (19:42)
[2019-02-08 19:54] LABS: APPEARANCE, URINE CLOUDY (CLEAR); BACTERIA, URINE AUTO 1+ (NEGATIVE); BILIRUBIN, URINE AUTO 1+ (NEGATIVE); BLOOD, URINE BLOOD 3+ (NEGATIVE); COLOR, URINE AMBER (YELLOW); GLUCOSE, URINE (UA) AUTO NEGATIVE (NEGATIVE); KETONE, URINE AUTO NEGATIVE (NEGATIVE); LEUKOCYTE ESTERASE, URINE AUTO NEGATIVE (NEGATIVE); NITRITE, URINE AUTO NEGATIVE (NEGATIVE); PROTEIN, URINE AUTO 1+ mg/dL (NEGATIVE); RBC, URINE AUTO 108 /HPF (0-3); SPECIFIC GRAVITY URINE AUTO 1.055 (1.002-1.035); SQUAMOUS EPITHELIAL CELL UR AU 5 /HPF (0-6); WBC, URINE AUTO 4 /HPF (0-3)
[2019-02-08 20:00] VITALS: BP 85/56
[2019-02-08 20:01] VITALS: BP 85/56
[2019-02-08 21:00] VITALS: BP 87/53
[2019-02-08] MEDS: HEPARIN SOD (PORCINE) 5000 UNITS/ML VIAL SC SCH (21:42)
[2019-02-08] MEDS: PIPERACILLIN/TAZOBACTAM SOD 3.375 GM in D5W MINI-BAG PLUS 50 ML IV SCH (21:43)
[2019-02-08 22:00] VITALS: BP 106/59
[2019-02-08 23:00] VITALS: BP 86/60
[2019-02-09] VITALS (23 sets, daily range): BP systolic 81–99; BP diastolic 47–57
[2019-02-09] MEDS: ONDANSETRON 4MG/2ML VIAL (J2405) IV SCH ×7 (00:59→23:51)
[2019-02-09] MEDS: LR 1,000 ML IV SCH ×4 (01:01→20:44)
[2019-02-09] MEDS: IPRATROPIUM 0.5MG/ALBUTEROL 2.5MG INH SOL UD 3ML (DUONEB)(J7620) NEB SCH ×4 (01:32→19:44)
[2019-02-09] MEDS: ACETAMINOPHEN TAB 650MG DOSE (2X325MG) PO PRN ×2 (01:33→08:55)
[2019-02-09] MEDS ORDERED: HYDROCORTISONE 100 MG/2 ML VIAL (J1720) IV SCH (02:00)
[2019-02-09 04:13] LABS: HEMOGLOBIN 12.6 g/dl (12.0-15.5); MEAN CORPUSCULAR HEMOGLOBIN 31.6 pg (27.0-33.0); MEAN CORPUSCULAR HGB CONC 32.3 g/dl (32.0-36.5); MEAN CORPUSCULAR VOLUME 97.7 fl (80.0-96.0); PLATELET COUNT, AUTOMATED 306 10^3/uL (150-450); RED BLOOD COUNT 3.99 10^6/uL (4.00-5.40)
[2019-02-09 04:30] LABS: CALCIUM LEVEL 7.7 MG/DL (8.8-10.2); CREATININE FOR GFR 1.66 MG/DL (0.55-1.30); POTASSIUM SERUM 4.3 MEQ/L (3.5-5.1)
[2019-02-09] MEDS: PIPERACILLIN/TAZOBACTAM SOD 3.375 GM in D5W MINI-BAG PLUS 50 ML IV SCH ×4 (04:54→22:06)
[2019-02-09] MEDS: PANTOPRAZOLE 40MG INJ (PROTONIX) (C9113) IV SCH ×2 (08:49→20:44)
[2019-02-09] MEDS: HEPARIN SOD (PORCINE) 5000 UNITS/ML VIAL SC SCH ×2 (08:50→20:45)
--- NOTE | 2019-02-09 10:06 | REP ---
AP PORTABLE SUPINE CHEST: 02/08/2019 Comparison: CT chest 01/14/2019, chest x-ray 10/09/2017. Clinical history: Weakness. Findings. Peripheral cavitary lesion in the right upper lobe subpleural or pleural-based is as seen on chest CT last month. There is some stranding towards the hilum. This is as seen on the chest CT. This is somewhat different configuration and is more complete in appearance than on the chest x-ray last year. The lung irizarry are well inflated. CP angles sharply defined. I see no definite layering effusion. Heart not grossly enlarged and the aorta is calcified at the arch but without gross aneurysm. Impression: 1. No gross cardiomegaly, willie edema, layering effusion or dense consolidation. There is cavitary lesion in the periphery of the right upper lobe as seen on the CT last month, unchanged when allowing for differences in technique. Electronically Signed by Mainor Easley MD 02/09/2019 10:19 A
--- NOTE | 2019-02-09 10:52 | REP ---
CT ABDOMEN PELVIS WITH IV CONTRAST ONLY: 02/08/2019. Clinical history: Hypotension, diarrhea. Comparison: CT 01/14/2019, 11/09/2017. Technique: Bolus of 75 ml of Isovue 370 given with scanning through the abdomen pelvis with both coronal and sagittal reconstructions. Findings: CT abdomen: Lung bases show minor dependent atelectasis but were otherwise clear. Heart is not enlarged. There is a small hiatal hernia. This is probably a sliding type. There is larger than previously visible. Stomach partially fluid-filled. The liver and spleen are without focal lesion. The gallbladder partially contracted without calcified stone or mass. Pancreas shows no calcification, mass, dilated duct, adjacent inflammatory change, fluid or adenopathy. Some of proximal small bowel loops are mildly prominent. No small bowel loops are fluid-filled without dilatation or air-fluid levels or the colon shows stool and fluid levels, left and right side. This is consistent with history of diarrhea. Transverse colon shows wall thickening while the right and left colon do not in the abdomen proper. Kidneys show function in a symmetric fashion. There is a posterior upper pole cyst unchanged about 11 mm. No stone, solid mass or hydronephrosis. No hydroureter or ureteral dilatation or stone on any of these images. The bone windows show degenerative changes in the lower lumbar spine without spondylolysis or compression fractures. The visualized ribs are intact. CT pelvis: sacrum, SI joints, iliac bones, hips and ischia without acute finding. Bladder empty with a [place] catheter balloon inflated within it. No calcifications in the bladder or evidence of bladder wall mass. Rectal balloon is present and inflated. The uterus is diminutive tilted towards the left. No pelvic or adnexal mass. Fluid-filled distal left colon, sigmoid and rectum to the balloon level. No ventral or inguinal hernia. Impression: 1. Small bowel loops fluid-filled without dilatation. Colon mostly fluid-filled with air-fluid levels but not distended. This is consistent with history of diarrhea and extends from the cecum to the rectal balloon. 2. Solid organs in the upper abdomen without acute finding. Gallbladder without calcified stone or mass. No ascites or intra-abdominal/retroperitoneal hematoma. 3. There is a small sliding-type hiatal hernia suggested, present now but not visible last month. 4. Symmetric renal enhancement with a small 11 mm cyst upper pole on the right. No stone, mass, hydronephrosis or cyst. No ureteral or bladder calculi. Bladder empty with [place] catheter balloon inflated. No other findings. Electronically Signed by Mainor Easley MD 02/09/2019 11:15 A
--- NOTE | 2019-02-09 11:37 | IPNPDOC ---
Date Seen The patient was seen on 02/09/19. Progress Note SUBJECTIVE: Patient reports feeling better this morning, she still feels somewhat nauseous but no vomiting she has tolerated ice chips otherwise patient denies chest pain, shortness breath, fevers, chills, denies diarrhea OBJECTIVE PHYSICAL EXAMINATION: VITAL SIGNS: Please see below. GENERAL: Fatigued elderly female laying flat in bed awake alert oriented speaking in complete sentences does appear improved from previous day exam HEENT: Dry mucous membranes no elevation in CVP CARDIOVASCULAR: S1 S2 tachycardic no additional heart sounds appreciated. RESPIRATORY: Clear to auscultation bilaterally. Possibly some end expiratory wheeze ABDOMINAL: Bowel sounds hyperactive abdomen soft and diffusely tender to soft palpation EXTREMITIES: No clubbing cyanosis or edema NEUROLOGICAL: Spontaneously moves all 4 extremities cranial 2 through 12 grossly intact no gross focal deficits appreciated PSYCHOLOGICAL: Appropriate LABORATORY DATA: See below. MICROBIOLOGY: Please see below. IMAGING: Chest x-ray: . No gross cardiomegaly, willie edema, layering effusion or dense consolidation. There is cavitary lesion in the periphery of the right upper lobe as seen on the CT last month, unchanged when allowing for differences in technique. CT abdomen pelvis: 1. Small bowel loops fluid-filled without dilatation. Colon mostly fluid-filled with air-fluid levels but not distended. This is consistent with history of diarrhea and extends from the cecum to the rectal balloon. 2. Solid organs in the upper abdomen without acute finding. Gallbladder without calcified stone or mass. No ascites or intra-abdominal/retroperitoneal hematoma. 3. There is a small sliding-type hiatal hernia suggested, present now but not visible last month. 4. Symmetric renal enhancement with a small 11 mm cyst upper pole on the right. No stone, mass, hydronephrosis or cyst. No ureteral or bladder calculi. Bladder empty with [place] catheter balloon inflated. No other findings. ASSESSMENT & PLAN: This is a 63-year-old female presenting in shock secondary to Escherichia coli. PROBLEMS: 1. Shock: Secondary to massive volume loss related to Escherichia coli. She had profound nausea and vomiting with volume loss. She is now off levo fed I'll continue with aggressive fluid resuscitation she does appear to be improving for now we will continue her on Zosyn and continue to monitor closely in the medical intensive care unit. Continue her on IV PPI twice a day she likely has an element of gastritis secondary to such profound retching 2. Acute kidney injury: Acute rise in creatinine similar to her previous stays likely prerenal azotemia secondary to her hypotension continue to monitor I suspect he'll be improved tomorrow 3. Anxiety depression: We will hold her psychotropic medications for the time being, consider resumption when she is able to better tolerate by mouth and had complete resolution of her nausea vomiting and diarrhea 4. COPD: I'll continue to provide her with nebulizer treatments as well as oxygen to keep sats greater than 90% she appears to be at her baseline respiratory status and is normally on inhalers at home 5. Hypertension: Shock as outlined above hold lisinopril 6. Gastroesophageal reflux disease: As outlined above DVT PROPHYLAXIS: Heparin DISPOSITION: Pending clinical improvement VS, I&O, 24H, Fishbone Vital Signs/I&O Vital Signs Date Time Temp Pulse Resp B/P (MAP) Pulse Ox O2 Delivery O2 Flow Rate FiO2 02/09/19 11:00 101 20 88/52 (64) 98 02/09/19 10:00 1.0 02/09/19 08:00 98.0 02/08/19 18:30 Nasal Cannula I&O- Last 24 Hours up to 6 AM 02/09/19 06:00 Intake Total 4634 ml Output Total 2035 ml Balance 2599 ml Laboratory Data 24H LABS Laboratory Tests 2 02/08/19 14:26: Bedside Glucose (Misc Panel) 143H 02/08/19 14:57: POC Glucose (Misc Panel) 166H, POC Sodium (Misc Panel) 140, POC Potassium (Misc Panel) 3.7, POC Chloride (Misc Panel) 108, POC Total CO2 (Misc Panel) 19.0L, POC Blood Urea Nitrogen (Misc Panel 13, POC Ionized Calcium (Misc Panel) 4.9, POC Creatinine (Misc Panel) 1.7H, POC Hematocrit (Misc Panel) 45.0 02/08/19 14:59: Prothrombin Time 14.4H, Prothromb Time International Ratio 1.15, Activated Partial Thromboplast Time 26.5 02/08/19 15:00: Anion Gap 12, Glomerular Filtration Rate 33.5L, Lactic Acid Level 2.0, Calcium L evel 9.7, Aspartate Amino Transf (AST/SGOT) 33, Alanine Aminotransferase (ALT/SGPT) 27, Alkaline Phosphatase 109, Total Bilirubin 0.3, Direct Bilirubin 0.1, Total Creatine Kinase 129, Creatine Kinase MB 2.5, Creatine Kinase MB Relative Index 1.94, Troponin I < 0.02, C-Reactive Protein, Quantitative 0.63H, Total Protein 7.4, Albumin 3.9, Albumin/Globulin Ratio 1.11, Amylase Level 91, Lipase 348 02/08/19 15:01: Immature Granulocyte % (Auto) 0.6, White Blood Count 10.4H, Red Blood Count 4.69, Hemoglobin 14.8, Hematocrit 44.5, Mean Corpuscular Volume 94.9, Mean Corpuscular Hemoglobin 31.6, Mean Corpuscular Hemoglobin Concent 33.3, Red Cell Distribution Width 14.0, Platelet Count 369, Neutrophils (%) (Auto) 61.4, Lymphocytes (%) (Auto) 30.1, Monocytes (%) (Auto) 4.5, Eosinophils (%) (Auto) 2.2, Basophils (%) (Auto) 1.2H, Neutrophils # (Auto) 6.4, Lymphocytes # (Auto) 3.1, Monocytes # (Auto) 0.5, Eosinophils # (Auto) 0.2, Basophils # (Auto) 0.1, Nucleated Red Blood Cells % (auto) 0.0 02/08/19 15:59: POC pH (Misc Panel) 7.236*L, POC Base Excess (Misc Panel) -10.0L, POC Saturated Percent O2 (Misc) 93L, POC pO2 (Misc Panel) 79.0L, POC pCO2 (Misc Panel) 42.2, POC HCO3 (Misc Panel) 17.9L, POC Total CO2 (Misc Panel) 19.0L 02/08/19 18:29: Immature Granulocyte % (Auto) 0.5, White Blood Count 23.9H, Red Blood Count 4.27, Hemoglobin 13.9, Hematocrit 42.0, Mean Corpuscular Volume 98.4H, Mean Corpuscular Hemoglobin 32.6, Mean Corpuscular Hemoglobin Concent 33.1, Red Cell Distribution Width 14.4, Platelet Count 321, Neutrophils (%) (Auto) 87.4H, Lymphocytes (%) (Auto) 5.1L, Monocytes (%) (Auto) 6.4H, Eosinophils (%) (Auto) 0.1, Basophils (%) (Auto) 0.5, Neutrophils # (Auto) 20.8H, Lymphocytes # (Auto) 1.2L, Monocytes # (Auto) 1.5H, Eosinophils # (Auto) 0.0, Basophils # (Auto) 0.1, Nucleated Red Blood Cells % (auto) 0.0, Lactic Acid Level 1.2, Troponin I < 0.02 02/08/19 19:30: Urine Appearance CLOUDYH, Urine Color LUIS, Urine pH 5.0, Urine Specific [place] 1.055, Urine Protein 1+H, Urine Glucose (UA) NEGATIVE, Urine Ketones NEGATIVE, Urine Urobilinogen 4.0H, Urine Bilirubin 1+H, Urine Leukocyte Esterase NEGATIVE, Urine Blood 3+H, Urine Nitrite NEGATIVE, Urine WBC (Auto) 4H, Urine RBC (Auto) 108H, Urine Hyaline Casts (Auto) 0, Urine Bacteria (Auto) 1+H, Urine Squamous Epithelial Cells 5, Urine Sperm (Auto) 02/09/19 01:00: Troponin I < 0.02 02/09/19 03:40: Nucleated Red Blood Cells % (auto) 0.0, Anion Gap 8, Glomerular Filtration Rate 33.0L, Blood Urea Nitrogen 21#H, Creatinine 1.66H, Sodium Level 143, Potassium Level 4.3, Chloride Level 113H, Carbon Dioxide Level 22, Calcium Level 7.7#L CBC/BMP Laboratory Tests 02/08/19 15:00 02/08/19 15:01 Red Blood Count 4.69, Mean Corpuscular Volume 94.9, Mean Corpuscular Hemoglobin 31.6, Mean Corpuscular Hemoglobin Concent 33.3, Red Cell Distribution Width 14.0, Neutrophils (%) (Auto) 61.4, Lymphocytes (%) (Auto) 30.1, Monocytes (%) (Auto) 4.5, Eosinophils (%) (Auto) 2.2, Basophils (%) (Auto) 1.2 H, Neutrophils # (Auto) 6.4, Lymphocytes # (Auto) 3.1, Monocytes # (Auto) 0.5, Eosinophils # (Auto) 0.2, Basophils # (Auto) 0.1 02/08/19 18:29 Red Blood Count 4.27, Mean Corpuscular Volume 98.4 H, Mean Corpuscular Hemoglobin 32.6, Mean Corpuscular Hemoglobin Concent 33.1, Red Cell Distribution Width 14.4, Neutrophils (%) (Auto) 87.4 H, Lymphocytes (%) (Auto) 5.1 L, Monocytes (%) (Auto) 6.4 H, Eosinophils (%) (Auto) 0.1, Basophils (%) (Auto) 0.5, Neutrophils # (Auto) 20.8 H, Lymphocytes # (Auto) 1.2 L, Monocytes # (Auto) 1.5 H, Eosinophils # (Auto) 0.0, Basophils # (Auto) 0.1 02/09/19 03:40 Red Blood Count 3.99 L, Mean Corpuscular Volume 97.7 H, Mean Corpuscular Hemoglobin 31.6, Mean Corpuscular Hemoglobin Concent 32.3, Red Cell Distribution Width 14.5, Calcium Level 7.7 #L Microbiology Microbiology 02/08/19 Blood Culture, Received Pending 02/08/19 Blood Culture, Received Pending 02/08/19 Gastrointestinal Tract Panel (PCR) - Final, Complete Enteroaggregative E.coli 02/08/19 Urine Culture, Received Pending SHAHLA SUÁREZ MD Feb 09, 2019 11:37
[2019-02-09] MEDS ORDERED: LR 1,000 ML IV ONE (11:45)
[2019-02-09] MEDS: EXCEDRIN MIGRAINE TABLET PO PRN (13:30)
[2019-02-09] MEDS: clonazePAM 1 MG TAB PO SCH ×2 (14:51→20:45)
[2019-02-09] MEDS: ZONISAMIDE 50 MG CAP (ZONEGRAN) PO SCH ×2 (14:51→20:45)
[2019-02-09] MEDS: GABAPENTIN 100 MG CAP PO SCH ×2 (15:00→20:45)
[2019-02-10] VITALS (9 sets, daily range): BP systolic 89–125; BP diastolic 51–76
[2019-02-10] MEDS: IPRATROPIUM 0.5MG/ALBUTEROL 2.5MG INH SOL UD 3ML (DUONEB)(J7620) NEB SCH ×4 (02:44→20:00)
[2019-02-10] MEDS: LR 1,000 ML IV SCH ×4 (03:24→23:33)
[2019-02-10] MEDS: ONDANSETRON 4MG/2ML VIAL (J2405) IV SCH (03:28)
[2019-02-10] MEDS: PIPERACILLIN/TAZOBACTAM SOD 3.375 GM in D5W MINI-BAG PLUS 50 ML IV SCH (03:32)
[2019-02-10 03:36] LABS: HEMATOCRIT 29.3 % (36.0-47.0); MEAN CORPUSCULAR HEMOGLOBIN 31.6 pg (27.0-33.0); MEAN CORPUSCULAR HGB CONC 32.8 g/dl (32.0-36.5); MEAN CORPUSCULAR VOLUME 96.4 fl (80.0-96.0); PLATELET COUNT, AUTOMATED 226 10^3/uL (150-450); RED BLOOD COUNT 3.04 10^6/uL (4.00-5.40); WHITE BLOOD COUNT 16.3 10^3/uL (4.0-10.0)
[2019-02-10] MEDS: EXCEDRIN MIGRAINE TABLET PO PRN ×2 (03:41→21:49)
[2019-02-10 03:44] LABS: HEMOGLOBIN 9.6 g/dl (12.0-15.5)
[2019-02-10 03:57] LABS: CALCIUM LEVEL 7.8 MG/DL (8.8-10.2); CREATININE FOR GFR 1.29 MG/DL (0.55-1.30); GLOMERULAR FILTRATION RATE 44.2 (>45); POTASSIUM SERUM 3.6 MEQ/L (3.5-5.1)
[2019-02-10] MEDS ORDERED: ONDANSETRON 4MG/2ML VIAL (J2405) IV PRN (08:30)
[2019-02-10] MEDS ORDERED: MONTELUKAST 10 MG TAB PO SCH (09:00)
[2019-02-10] MEDS: HEPARIN SOD (PORCINE) 5000 UNITS/ML VIAL SC SCH ×2 (09:03→21:16)
[2019-02-10] MEDS: clonazePAM 1 MG TAB PO SCH ×2 (09:04→21:15)
[2019-02-10] MEDS: GABAPENTIN 100 MG CAP PO SCH ×3 (09:04→21:15)
[2019-02-10] MEDS: PANTOPRAZOLE 40MG TAB (PROTONIX) PO SCH ×2 (09:04→21:15)
[2019-02-10] MEDS: ACETAMINOPHEN TAB 650MG DOSE (2X325MG) PO PRN ×2 (09:04→17:52)
[2019-02-10] MEDS: ZONISAMIDE 50 MG CAP (ZONEGRAN) PO SCH ×2 (09:04→21:15)
--- NOTE | 2019-02-10 10:59 | IPNPDOC ---
Date Seen The patient was seen on 02/10/19. Progress Note SUBJECTIVE: 63-year-old female who presented with nausea, vomiting, and diarrhea, found to be in shock secondary to Escherichia coli Patient states she does feel somewhat better today, although still feels fairly fatigued and continues to have diarrhea. She denies any blood in her stool. She states she has had much improvement in her nausea and has not vomited. She states she still has some diffuse abdominal cramping but that does also feel improved. She continues to tolerate ice chips and water. She denies any fevers, chills, lightheadedness, chest pain, palpitations, shortness of breath, cough, nausea, vomiting. OBJECTIVE: PHYSICAL EXAMINATION: VITAL SIGNS: Please see below. GENERAL: Alert, comfortable, laying in bed, no acute distress HEENT: PERRLA, EOMI, moist mucous membranes, no JVD CARDIOVASCULAR: Tachycardic with regular rhythm, Normal S1 and S2, no murmurs appreciated RESPIRATORY: Clear to auscultation bilaterally with good air entry bilaterally ABDOMINAL: Soft, diffusely tender to palpation, mildly distended, bowel sounds present and hyperactive, no masses or hepatosplenomegaly appreciated. EXTREMITIES: No cyanosis or edema, pulses 2/4 in the radial and dorsalis pedis arteries. NEUROLOGICAL: Alert and oriented 3 to person, place and time, cranial nerves 212 grossly intact, no focal deficits appreciated PSYCHOLOGICAL: Appropriate mood and affect LABORATORY DATA: See below. MICROBIOLOGY: Please see below. IMAGING: CXR: No gross cardiomegaly, willie edema, layering effusion or dense consolidation. There is cavitary lesion in the periphery of the right upper lobe as seen on the CT last month, unchanged when allowing for differences in technique. CT abdomen pelvis: 1. Small bowel loops fluid-filled without dilatation. Colon mostly fluid-filled with air-fluid levels but not distended. This is consistent with history of diarrhea and extends from the cecum to the rectal balloon. 2. Solid organs in the upper abdomen without acute finding. Gallbladder without calcified stone or mass. No ascites or intra-abdominal/retroperitoneal hematoma. 3. There is a small sliding-type hiatal hernia suggested, present now but not visible last month. 4. Symmetric renal enhancement with a small 11 mm cyst upper pole on the right. No stone, mass, hydronephrosis or cyst. No ureteral or bladder calculi. Bladder empty with [place] catheter balloon inflated. No other findings. ASSESSMENT & PLAN: This is a 63-year-old female presenting in shock secondary to Escherichia coli. PROBLEMS: 1. Hypovolemic Shock Secondary to volume loss with vomiting and diarrhea due to Escherichia coli infection. Blood pressure stable, off levophed and continues on fluids for rehyd ration. Vomiting has resolved, but she does continue to have diarrhea We'll progress her diet to clear liquids today to see if she tolerates this. 2. Acute kidney injury, resolved likely prerenal azotemia secondary to hypotension Renal function back to baseline 3. Anxiety/depression Continue to hold home medications, will restart if she tolerates diet 4. COPD Continue with nebulizer treatments, will continue her home inhalers as well. 5. Hypertension. Continue to hold home medications due to hypotension 6. GERD. Continue PPI DVT PROPHYLAXIS: Heparin DISPOSITION: Pending clinical improvement Attending Note I saw and evaluated the patient. I agree with the finding and plan of care as documented in the resident's note. VS, I&O, 24H, Fishbone Vital Signs/I&O Vital Signs Date Time Temp Pulse Resp B/P (MAP) Pulse Ox O2 Delivery O2 Flow Rate FiO2 02/10/19 08:00 108 18 107/68 (81) 98 02/10/19 04:00 98.6 02/09/19 10:00 1.0 02/08/19 18:30 Nasal Cannula I&O- Last 24 Hours up to 6 AM 02/10/19 06:00 Intake Total 4655 ml Output Total 905 ml Balance 3750 ml Laboratory Data 24H LABS Laboratory Tests 2 02/10/19 03:23: Nucleated Red Blood Cells % (auto) 0.0, Anion Gap 2L, Glomerular Filtration Rate 44.2L, Blood Urea Nitrogen 19H, Creatinine 1.29, Sodium Level 141, Potassium Level 3.6, Chloride Level 113H, Carbon Dioxide Level 26, Calcium Level 7.8L CBC/BMP Laboratory Tests 02/10/19 03:23 Red Blood Count 3.04 L, Mean Corpuscular Volume 96.4 H, Mean Corpuscular Hemoglobin 31.6, Mean Corpuscular Hemoglobin Concent 32.8, Red Cell Distribution Width 14.8 H, Calcium Level 7.8 L Microbiology Microbiology 02/08/19 Blood Culture - Preliminary, Resulted No growth after 24 hours . All specim... 02/08/19 Blood Culture - Preliminary, Resulted No growth after 24 hours . All specim... 02/08/19 Gastrointestinal Tract Panel (PCR) - Final, Complete Enteroaggregative E.coli 02/08/19 Urine Culture - Final, Complete [facility] PGY-1 Feb 10, 2019 10:59 DONITA PAULSON MD Feb 10, 2019 16:07
[2019-02-10] MEDS: SYMBICORT 160/4.5MCG INHALER 6GM INH SCH ×2 (13:33→20:17)
[2019-02-10] MEDS: MONTELUKAST 10 MG TAB PO SCH (21:15)
[2019-02-11] MEDS: IPRATROPIUM 0.5MG/ALBUTEROL 2.5MG INH SOL UD 3ML (DUONEB)(J7620) NEB SCH ×4 (02:00→21:07)
[2019-02-11 05:39] LABS: HEMATOCRIT 28.4 % (36.0-47.0); HEMOGLOBIN 9.2 g/dl (12.0-15.5); MEAN CORPUSCULAR HEMOGLOBIN 30.6 pg (27.0-33.0); MEAN CORPUSCULAR HGB CONC 32.4 g/dl (32.0-36.5); MEAN CORPUSCULAR VOLUME 94.4 fl (80.0-96.0); PLATELET COUNT, AUTOMATED 197 10^3/uL (150-450); RED BLOOD COUNT 3.01 10^6/uL (4.00-5.40); WHITE BLOOD COUNT 8.9 10^3/uL (4.0-10.0)
[2019-02-11] MEDS: LR 1,000 ML IV SCH (05:53)
[2019-02-11 05:58] LABS: BLOOD UREA NITROGEN 11 MG/DL (7-18); CALCIUM LEVEL 7.7 MG/DL (8.8-10.2); CARBON DIOXIDE LEVEL 24 MEQ/L (21-32); CHLORIDE LEVEL 115 MEQ/L (98-107); CREATININE FOR GFR 0.89 MG/DL (0.55-1.30); GLOMERULAR FILTRATION RATE > 60.0 (>45); GLUCOSE, FASTING 77 MG/DL (70-100); POTASSIUM SERUM 3.5 MEQ/L (3.5-5.1); SODIUM LEVEL 146 MEQ/L (136-145)
[2019-02-11 06:59] VITALS: BP 122/74
[2019-02-11] MEDS: SYMBICORT 160/4.5MCG INHALER 6GM INH SCH ×2 (07:39→21:07)
[2019-02-11] MEDS: PANTOPRAZOLE 40MG TAB (PROTONIX) PO SCH ×2 (09:34→21:46)
[2019-02-11] MEDS: GABAPENTIN 100 MG CAP PO SCH ×3 (09:34→21:46)
[2019-02-11] MEDS: HEPARIN SOD (PORCINE) 5000 UNITS/ML VIAL SC SCH ×2 (09:34→21:46)
[2019-02-11] MEDS: ZONISAMIDE 50 MG CAP (ZONEGRAN) PO SCH ×2 (09:34→21:47)
[2019-02-11] MEDS: clonazePAM 1 MG TAB PO SCH ×2 (09:34→21:46)
[2019-02-11 15:15] VITALS: BP 120/74
[2019-02-11] MEDS: EXCEDRIN MIGRAINE TABLET PO PRN ×2 (15:32→21:47)
[2019-02-11] MEDS: SUCRALFATE 1 GM TAB PO SCH ×2 (15:32→21:46)
--- NOTE | 2019-02-11 17:11 | IPNPDOC ---
Date Seen The patient was seen on 02/11/19. Progress Note SUBJECTIVE: 63-year-old female who presented with nausea, vomiting, and diarrhea, found to be in shock secondary to Escherichia coli Patient seen and examined today in her room lying comfortably in bed. She states she is in some improvement today with continued diffuse abdominal discomfort that improved from yesterday. She has been on a full liquid diet for breakfast, which she tolerated well without nausea or vomiting. She states she had one episode of diarrhea this morning, which was watery. She also states she does feel somewhat wheezy today and we typically use a rescue inhaler at home for this, agrees to DuoNeb while in hospital. She denies any fevers, chills, lightheadedness, chest pain, palpitations, shortness of breath, cough, nausea, vomiting. OBJECTIVE: PHYSICAL EXAMINATION: VITAL SIGNS: Please see below. GENERAL: Alert, comfortable, laying in bed, no acute distress HEENT: PERRLA, EOMI, moist mucous membranes, no JVD CARDIOVASCULAR: Regular rate and regular rhythm, Normal S1 and S2, no murmurs appreciated RESPIRATORY: Diffuse wheezing bilaterally, good air entry bilaterally. ABDOMINAL: Soft, diffusely tender to palpation, nondistended, bowel sounds present and hyperactive, no masses or hepatosplenomegaly appreciated. EXTREMITIES: No cyanosis or edema, pulses 2/4 in the radial and dorsalis pedis arteries. NEUROLOGICAL: Alert and oriented 3 [address] person, place and time, cranial nerves 212 grossly intact, no focal deficits appreciated PSYCHOLOGICAL: Appropriate mood and affect LABORATORY DATA: See below. MICROBIOLOGY: Please see below. IMAGING: CXR: No gross cardiomegaly, willie edema, layering effusion or dense consolidation. There is cavitary lesion in the periphery of the right upper lobe as seen on the CT last month, unchanged when allowing for differences in technique. CT abdomen pelvis: 1. Small bowel loops fluid-filled without dilatation. Colon mostly fluid-filled with air-fluid levels but not distended. This is consistent with history of diarrhea and extends from the cecum to the rectal balloon. 2. Solid organs in the upper abdomen without acute finding. Gallbladder without calcified stone or mass. No ascites or intra-abdominal/retroperitoneal hematoma. 3. There is a small sliding-type hiatal hernia suggested, present now but not visible last month. 4. Symmetric renal enhancement with a small 11 mm cyst upper pole on the right. No stone, mass, hydronephrosis or cyst. No ureteral or bladder calculi. Bladder empty with [place] catheter balloon inflated. No other findings. ASSESSMENT & PLAN: This is a 63-year-old female presenting in shock secondary to Escherichia coli. PROBLEMS: 1. Hypovolemic Shock Secondary to volume loss with vomiting and diarrhea due to Escherichia coli infection. Blood pressure stable, off levophed and continues on fluids for rehydration. Vomiting has resolved, but she does continue to have diarrhea Continue to progress diet today as a regular diet and see how she tolerates this. If she has good oral intake, will discontinue IV fluids. 2. Acute kidney injury, resolved likely prerenal azotemia secondary to hypotension Renal function back to baseline, continue to monitor 3. Anxiety/depression Continue to hold home medication 4. COPD Continue with nebulizer treatments as needed for wheezing, will continue her home inhalers as well. 5. Hypertension. Blood pressure currently stable, continue to hold home medications 6. GERD. Continue PPI DVT PROPHYLAXIS: Heparin DISPOSITION: Pending clinical improvement VS, I&O, 24H, [facility] Vital Signs/I&O Vital Signs Date Time Temp Pulse Resp B/P (MAP) Pulse Ox O2 Delivery O2 Flow Rate FiO2 02/11/19 15:15 98.7 75 20 120/74 (89) 97 02/09/19 10:00 1.0 02/08/19 18:30 Nasal Cannula I&O- Last 24 Hours up to 6 AM 02/11/19 06:00 Intake Total 2160 ml Output Total 0 ml Balance 2160 ml Laboratory Data 24H LABS Laboratory Tests 2 02/11/19 05:24: Nucleated Red Blood Cells % (auto) 0.0, Anion Gap 7L, Glomerular Filtration Rate > 60.0, Blood Urea Nitrogen 11, Creatinine 0.89, Sodium Level 146H, Potassium Level 3.5, Chloride Level 115H, Carbon Dioxide Level 24, Calcium Level 7.7L CBC/BMP Laboratory Tests 02/11/19 05:24 Red Blood Count 3.01 L, Mean Corpuscular Volume 94.4, Mean Corpuscular Hemoglobin 30.6, Mean Corpuscular Hemoglobin Concent 32.4, Red Cell Distribution Width 14.6 H, Calcium Level 7.7 L Microbiology Microbiology 02/08/19 Blood Culture - Preliminary, Resulted No Growth after 48 hours. All Specime... 8/18/19 Blood Culture - Preliminary, Resulted No Growth after 72 hours. All specime... 02/08/19 Gastrointestinal Tract Panel (PCR) - Final, Complete Enteroaggregative E.coli 02/08/19 Urine Culture - Final, Complete [facility] PGY-1 Feb 11, 2019 17:11
[2019-02-11] MEDS: MONTELUKAST 10 MG TAB PO SCH (21:46)
[2019-02-11 22:00] VITALS: BP 123/72
[2019-02-12 00:06] LABS: HISTAMINE PLASMA 0.6 ng/mL (<1.00); TRYPTASE 11.2 ug/L (2.2-13.2)
[2019-02-12] MEDS: IPRATROPIUM 0.5MG/ALBUTEROL 2.5MG INH SOL UD 3ML (DUONEB)(J7620) NEB SCH ×4 (01:37→20:00)
[2019-02-12 06:00] VITALS: BP 128/57
[2019-02-12 06:58] LABS: HEMATOCRIT 27.8 % (36.0-47.0); HEMOGLOBIN 9.1 g/dl (12.0-15.5); MEAN CORPUSCULAR HGB CONC 32.7 g/dl (32.0-36.5); MEAN CORPUSCULAR VOLUME 94.6 fl (80.0-96.0); PLATELET COUNT, AUTOMATED 231 10^3/uL (150-450); RED BLOOD COUNT 2.94 10^6/uL (4.00-5.40); WHITE BLOOD COUNT 6.3 10^3/uL (4.0-10.0)
[2019-02-12] MEDS: SYMBICORT 160/4.5MCG INHALER 6GM INH SCH ×2 (07:18→20:31)
[2019-02-12 07:22] LABS: BLOOD UREA NITROGEN 9 MG/DL (7-18); CALCIUM LEVEL 8.1 MG/DL (8.8-10.2); CARBON DIOXIDE LEVEL 25 MEQ/L (21-32); CHLORIDE LEVEL 115 MEQ/L (98-107); CREATININE FOR GFR 0.82 MG/DL (0.55-1.30); GLOMERULAR FILTRATION RATE > 60.0 (>45); GLUCOSE, FASTING 81 MG/DL (70-100); POTASSIUM SERUM 3.5 MEQ/L (3.5-5.1); SODIUM LEVEL 147 MEQ/L (136-145)
[2019-02-12 08:53] VITALS: BP 130/68
[2019-02-12] MEDS: ZONISAMIDE 50 MG CAP (ZONEGRAN) PO SCH ×2 (10:15→20:28)
[2019-02-12] MEDS: SUCRALFATE 1 GM TAB PO SCH ×4 (10:15→20:28)
[2019-02-12] MEDS: PANTOPRAZOLE 40MG TAB (PROTONIX) PO SCH ×2 (10:15→20:28)
[2019-02-12] MEDS: EXCEDRIN MIGRAINE TABLET PO PRN (10:17)
[2019-02-12] MEDS: GABAPENTIN 100 MG CAP PO SCH ×3 (10:17→20:28)
[2019-02-12] MEDS: HEPARIN SOD (PORCINE) 5000 UNITS/ML VIAL SC SCH ×2 (10:18→20:28)
[2019-02-12] MEDS: clonazePAM 1 MG TAB PO SCH ×2 (10:37→20:28)
[2019-02-12] MEDS ORDERED: FUROSEMIDE 20 MG/2 ML VIAL (J1940) IV ONE (11:00)
--- NOTE | 2019-02-12 11:42 | IPNPDOC ---
Date Seen The patient was seen on 02/12/19. Progress Note SUBJECTIVE: 63-year-old female who presented with nausea, vomiting, and diarrhea, found to be in shock secondary to Escherichia coli Patient seen and examined today in her room lying comfortably in bed. She continues to have some abdominal distention and discomfort, but denies any recurrent nausea, vomiting, and diarrhea. She states she is tolerating a low fiber diet better, after having some pain after eating spinach yesterday. She is also complaining of some increased shortness of breath today and increased leg swelling. She states she had gotten up to make her bed and very winded after and had to lay back down to rest. She also states she feels more short of breath when she lays flat in bed and prefers to have the head of the bed lifted up an angle. She denies any fevers, chills, lightheadedness, chest pain, palpitations, shortness of breath, cough, nausea, vomiting, diarrhea. OBJECTIVE: PHYSICAL EXAMINATION: VITAL SIGNS: Please see below. GENERAL: Alert, comfortable, laying in bed, no acute distress HEENT: PERRLA, EOMI, moist mucous membranes, no JVD CARDIOVASCULAR: Regular rate and regular rhythm, Normal S1 and S2, no murmurs appreciated RESPIRATORY: Diffuse wheezing bilaterally, good air entry bilaterally. ABDOMINAL: Soft, diffusely tender to palpation, mildly distended, bowel sounds present and hyperactive, no masses or hepatosplenomegaly appreciated. EXTREMITIES: 1+ bilateral edema up to the low calf, pulses 2/4 in the radial and dorsalis pedis arteries. NEUROLOGICAL: Alert and oriented 3 [address], place and time, cranial nerves 212 grossly intact, no focal deficits appreciated PSYCHOLOGICAL: Appropriate mood and affect LABORATORY DATA: See below. MICROBIOLOGY: Please see below. IMAGING: CXR: No gross cardiomegaly, willie edema, layering effusion or dense consolidation. There is cavitary lesion in the periphery of the right upper lobe as seen on the CT last month, unchanged when allowing for differences in technique. CT abdomen pelvis: 1. Small bowel loops fluid-filled without dilatation. Colon mostly fluid-filled with air-fluid levels but not distended. This is consistent with history of diarrhea and extends from the cecum to the rectal balloon. 2. Solid organs in the upper abdomen without acute finding. Gallbladder without calcified stone or mass. No ascites or intra-abdominal/retroperitoneal hematoma. 3. There is a small sliding-type hiatal hernia suggested, present now but not visible last month. 4. Symmetric renal enhancement with a small 11 mm cyst upper pole on the right. No stone, mass, hydronephrosis or cyst. No ureteral or bladder calculi. Bladder empty with [place] catheter balloon inflated. No other findings. ASSESSMENT & PLAN: This is a 63-year-old female presenting in shock secondary to Escherichia coli. PROBLEMS: 1. Hypovolemic shock 2/2 vomiting/diarrhea from E. coli infection Secondary to volume loss with vomiting and diarrhea due to Escherichia coli infection. Blood pressure stable, off levophed and off IVF. Pt is tolerating regular diet but continues to have some abdominal discomfort. Will give Bentyl for abdominal spasms and continue with a low fiber diet 2. Fluid overload Pt complaining of increased shortness of breath with exertion and when laying flat. On exam lungs are clear but 1+ pitting edema is present in bilateral lower extremities. Will give one-time dose, 10 mg Lasix IV to see if this helps, may consider additional doses if further diuresis needed. 3. Acute kidney injury, resolved likely prerenal azotemia secondary to hypotension Renal function back to baseline, continue to monitor 4. Anxiety/depression Continue to hold home medication 5. COPD Continue with nebulizer treatments as needed for wheezing, will continue her home inhalers as well. 6. Hypertension. Blood pressure currently stable, continue to hold home medications 7. GERD. Continue PPI DVT PROPHYLAXIS: Heparin DISPOSITION: Pending clinical improvement VS, I&O, 24H, Fishbone Vital Signs/I&O Vital Signs Date Time Temp Pulse Resp B/P (MAP) Pulse Ox O2 Delivery O2 Flow Rate FiO2 02/12/19 08:53 97.4 68 18 130/68 (88) 96 02/09/19 10:00 1.0 02/08/19 18:30 Nasal Cannula I&O- Last 24 Hours up to 6 AM 02/12/19 06:00 Intake Total 1700 ml Balance 1700 ml Laboratory Data 24H LABS Laboratory Tests 2 02/12/19 06:33: Nucleated Red Blood Cells % (auto) 0.0, Anion Gap 7L, Glomerular Filtration Rate > 60.0, Blood Urea Nitrogen 9, Creatinine 0.82, Sodium Level 147H, Potassium Level 3.5, Chloride Level 115H, Carbon Dioxide Level 25, Calcium Level 8.1L CBC/BMP Laboratory Tests 02/12/19 06:33 Red Blood Count 2.94 L, Mean Corpuscular Volume 94.6, Mean Corpuscular Hemoglobin 31.0, Mean Corpuscular Hemoglobin Concent 32.7, Red Cell Distribution Width 14.4, Calcium Level 8.1 L Microbiology Microbiology 02/08/19 Blood Culture - Preliminary, Resulted No Growth after 72 hours. All specime... 02/08/19 Blood Culture - Preliminary, Resulted No Growth after 72 hours. All specime... 02/08/19 Gastrointestinal Tract Panel (PCR) - Final, Complete Enteroaggregative E.coli 02/08/19 Urine Culture - Final, Complete [facility] PGY-1 Feb 12, 2019 11:42
[2019-02-12] MEDS: DICYCLOMINE 10 MG CAP PO PRN ×2 (12:59→20:28)
[2019-02-12 14:00] VITALS: BP 136/66
[2019-02-12] MEDS: ACETAMINOPHEN TAB 650MG DOSE (2X325MG) PO PRN (15:22)
[2019-02-12] MEDS: MONTELUKAST 10 MG TAB PO SCH (20:28)
[2019-02-12 21:22] VITALS: BP 120/54
[2019-02-13] MEDS: IPRATROPIUM 0.5MG/ALBUTEROL 2.5MG INH SOL UD 3ML (DUONEB)(J7620) NEB SCH ×4 (02:00→11:37)
[2019-02-13 06:43] VITALS: BP 137/76
[2019-02-13 07:23] LABS: HEMATOCRIT 31.6 % (36.0-47.0); HEMOGLOBIN 10.4 g/dl (12.0-15.5); MEAN CORPUSCULAR HEMOGLOBIN 31.6 pg (27.0-33.0); MEAN CORPUSCULAR HGB CONC 32.9 g/dl (32.0-36.5); PLATELET COUNT, AUTOMATED 288 10^3/uL (150-450); RED BLOOD COUNT 3.29 10^6/uL (4.00-5.40); WHITE BLOOD COUNT 6.7 10^3/uL (4.0-10.0)
[2019-02-13 07:49] LABS: CREATININE FOR GFR 1.03 MG/DL (0.55-1.30); GLOMERULAR FILTRATION RATE 57.3 (>45); POTASSIUM SERUM 3.3 MEQ/L (3.5-5.1)
[2019-02-13] MEDS: SYMBICORT 160/4.5MCG INHALER 6GM INH SCH (08:01)
[2019-02-13] MEDS ORDERED: FUROSEMIDE 20 MG/2 ML VIAL (J1940) IV ONE (08:45)
[2019-02-13] MEDS: SUCRALFATE 1 GM TAB PO SCH ×2 (08:59→12:43)
[2019-02-13] MEDS: clonazePAM 1 MG TAB PO SCH (08:59)
[2019-02-13] MEDS: PANTOPRAZOLE 40MG TAB (PROTONIX) PO SCH (08:59)
[2019-02-13] MEDS: ZONISAMIDE 50 MG CAP (ZONEGRAN) PO SCH (08:59)
[2019-02-13] MEDS: HEPARIN SOD (PORCINE) 5000 UNITS/ML VIAL SC SCH (08:59)
[2019-02-13] MEDS: GABAPENTIN 100 MG CAP PO SCH (08:59)
[2019-02-13] MEDS ORDERED: POTASSIUM CHLORIDE 10 MEQ SR TABLET PO ONE (10:15)
[2019-02-13] MEDS ORDERED: DICY1CAP8 PO (11:19)
--- NOTE | 2019-02-13 17:55 | DS.PDOC ---
Discharge Summary General Date of Admission Feb 08, 2019 at 17:31 Date of Discharge 02/13/2019 Primary Care Physician: Massiel Stephens Attending Physician: DONIAT PAULSON MD Discharge Summary PROCEDURES PERFORMED DURING STAY: None ADMITTING DIAGNOSES: 1. Shock, septic 2. NANO 3. Anxiety/depression 4. COPD 5. HTN 6. GERD DISCHARGE DIAGNOSES: 1. Shock, hypovolemic, resolved 2. NANO secondary to hypotension, resolved 3. Anxiety/depression 4. COPD 5. HTN 6. GERD COMPLICATIONS/CHIEF COMPLAINT: Septic Shock. HISTORY OF PRESENT ILLNESS: 63-year-old female presented to the emergency room with recurrent episodes of nausea, vomiting, diarrhea with drops in blood pre ssure. She states the attacks present out of nowhere without any known trigger and many have been associated with being outdoors, similar to the day she presented. On the day the symptoms began, she was visiting [employer] and had been cutting grass earlier. She has a history of allergies and is on loratadine and Singulair for this. She also states she has had injections for allergies in the past. She does state she had a turkey sandwich prior to the onset of symptoms, but this is not unusual food for her. She admits to profuse watery diarrhea and vomiting too numerous to count. In the emergency room, the patient was found to be hypotensive. HOSPITAL COURSE: Patient was admitted to the ICU and started on IV fluids. She continued to be serially hypotensive and did require blood pressure support sleeve affect. She had a mildly elevated to be account of fevers, mildly elevated CRP, and a borderline lactic acid at 2.0. BP lactic acid is 1.2. Blood cultures were drawn and negative. GI panel was positive for Enteroaggregative E.coli. Patient was started on Zosyn for antibiotic coverage and PPI for gastritis. She was kept nothing by mouth until she started to develop an appetite and then her diet was progressed slowly. She does have some recurrent abdominal pain which was treated with Bentyl with good effect. Patient also did have elevated creatinine and BUN on presentation, which resolved with fluid resuscitation. As the patient's shock improved, she did start to develop some increasing shortness of breath and bilateral lower extremity swelling. This was treated with IV Lasix with good effect. She also developed some wheezing, which was treated with nebulizer treatments with good effect. On the day of discharge, the patient was found to be stable and safe for discharge home. DISCHARGE MEDICATIONS: Please see below. ALLERGIES: Please see below. PHYSICAL EXAMINATION ON DISCHARGE: VITAL SIGNS: Please see below. GENERAL: Alert, comfortable, laying in bed, no acute distress HEENT: PERRLA, EOMI, moist mucous membranes NECK: supple, no JVD CARDIOVASCULAR EXAMINATION: Regular rate and regular rhythm, Normal S1 and S2, no murmurs appreciated RESPIRATORY EXAMINATION: Diffuse wheezing bilaterally, good air entry bilaterally. ABDOMINAL EXAMINATION: Soft, diffusely tender to palpation, mildly distended, bowel sounds present and hyperactive, no masses or hepatosplenomegaly appreciated. EXTREMITIES: trace bilateral edema, pulses 2/4 in the radial and dorsalis pedis arteries. SKIN: intact, warm, dry NEUROLOGICAL EXAMINATION: Alert and oriented [address], place and time, cranial nerves 212 grossly intact, no focal deficits appreciated PSYCHIATRIC EXAMINATION: Appropriate mood and affect LABORATORY DATA: Please see below. IMAGING: CXR: No gross cardiomegaly, willie edema, layering effusion or dense consolidation. There is cavitary lesion in the periphery of the right upper lobe as seen on the CT last month, unchanged when allowing for differences in [place]. CT abdomen pelvis: 1. Small bowel loops fluid-filled without dilatation. Colon mostly fluid-filled with air-fluid levels but not distended. This is consistent with history of diarrhea and extends from the cecum to the rectal balloon. 2. Solid organs in the upper abdomen without acute finding. Gallbladder without calcified stone or mass. No ascites or intra-abdominal/retroperitoneal hematoma. 3. There is a small sliding-type hiatal hernia suggested, present now but not visible last month. 4. Symmetric renal enhancement with a small 11 mm cyst upper pole on the right. No stone, mass, hydronephrosis or cyst. No ureteral or bladder calculi. Bladder empty with [place] catheter balloon inflated. No other findings. PROGNOSIS: Good ACTIVITY: As tolerated. DIET: As tolerated DISCHARGE PLAN: Home DISPOSITION: 01 Home, Self-Care. DISCHARGE INSTRUCTIONS: 1.FOLLOW UP: MASSIEL STEPHENS [phone](02/16/19 @ 3:15) 2. You can use bentyl for the next 5-7 days if you continue to have abdmoinal discomfort or pain. 3. Continue to take all of your home medications 4. If your symptoms return please call your PCP or return to the ER for further evaluation ITEMS TO FOLLOWUP ON ON OUTPATIENT: 1. Sepsis secondary to Escherichia coli infection with volume depletion. DISCHARGE CONDITION: Stable TIME SPENT ON DISCHARGE: Greater than 35 minutes. Vital Signs/I&Os Vital Signs Date Time Temp Pulse Resp B/P (MAP) Pulse Ox O2 Delivery O2 Flow Rate FiO2 02/13/19 06:43 98.0 74 20 137/76 (96) 97 02/09/19 10:00 1.0 02/08/19 18:30 Nasal Cannula I&O- Last 24 Hours up to 6 AM 02/13/19 06:00 Intake Total 2840 ml Output Total 0 ml Balance 2840 ml Laboratory Data Labs 24H Laboratory Tests 2 02/13/19 07:10: Nucleated Red Blood Cells % (auto) 0.0, Anion Gap 7L, Glomerular Filtration Rate 57.3, Blood Urea Nitrogen 7, Creatinine 1.03, Sodium Level 143, Potassium Level 3.3L, Chloride Level 110H, Carbon Dioxide Level 26, Calcium Level 8.0L CBC/BMP Laboratory Tests 02/13/19 07:10 Red Blood Count 3.29 L, Mean Corpuscular Volume 96.0, Mean Corpuscular Hemoglobin 31.6, Mean Corpuscular Hemoglobin Concent 32.9, Red Cell Distribution Width 14.5, Calcium Level 8.0 L Microbiology Microbiology 02/08/19 Blood Culture - Preliminary, Resulted No Growth after 72 hours. All specime... 02/08/19 Blood Culture - Final, Complete NO GROWTH AFTER 5 DAYS 02/08/19 Gastrointestinal Tract Panel (PCR) - Final, Complete Enteroaggregative E.coli 02/08/19 Urine Culture - Final, Complete Discharge Medications Scheduled Budesonide/Formoterol (Symbicort 160-4.5 Mcg Inhaler) 60 Puff/Inhaler Aers, 2 PUFF INH BID, (Reported) Clonazepam (Clonazepam) 1 Mg Tab, 1 MG PO BID, (Reported) Gabapentin (Gabapentin) 100 Mg Capsule, 100 MG PO TID, (Reported) Lisinopril (Lisinopril) 5 Mg Tab, 2.5 MG PO DAILY, (Reported) Loratadine (Claritin) 10 Mg Capsule, 10 MG PO DAILY, (Reported) Montelukast Sodium (Singulair) 10 Mg Tab, 10 MG PO DAILY, (Reported) Multivitamins (Thera M Plus Tablet) 1 Tab Tab, 1 TAB PO DAILY, (Reported) Omeprazole (Omeprazole) 20 Mg Cap, 20 MG PO DAILY, (Reported) Pravastatin Sodium (Pravastatin Sodium) 40 Mg Tab, 40 MG PO DAILY, (Reported) Venlafaxine HCl (Effexor Xr) 75 Mg Cap, 225 MG PO DAILY, (Reported) Zonisamide (Zonisamide) 50 Mg Capsule, 50 MG PO BID, (Reported) Scheduled PRN Albuterol Sulfate (Ventolin Hfa) 108 Mcg/Act Aer, 2 PUFFS INH Q4H PRN for SHORTNESS OF BREATH, (Reported) Aspirin/Acetaminophen/Caffeine (Excedrin Migraine Caplet) 1 Each Tablet, 1 TAB PO DAILY PRN for HEADACHE, (Reported) Dicyclomine HCl (Dicyclomine HCl) 10 Mg Capsule, 10 MG PO TIDP PRN for CRAMPS Allergies Coded Allergies: umeclidinium (Verified Adverse Reaction, Mild, STOMACH ACHE, 01/14/19) [facility] PGY-1 Feb 13, 2019 17:12
== END 2019-02-13 14:15 | disposition home or self-care (01) | DRG 371 ==
LOC: M ED 14:18 → M ED INP 17:31 → M ICU 18:49 → M MS5PR 02-10 16:00
PROVIDERS: ADMIT Internal Medicine; ATTEND Internal Medicine
DX: A04.4 Other intestinal Escherichia coli infections (principal); R57.1 Hypovolemic shock; N17.9 Acute kidney failure, unspecified; I10 Essential (primary) hypertension; J44.9 Chronic obstructive pulmonary disease, unspecified; E87.70 Fluid overload, unspecified; E78.5 Hyperlipidemia, unspecified; F41.9 Anxiety disorder, unspecified; F32.9 Major depressive disorder, single episode, unspecified; R91.1 Solitary pulmonary nodule; Z87.891 Personal history of nicotine dependence; K21.9 Gastro-esophageal reflux disease without esophagitis; Z79.899 Other long term (current) drug therapy; Z88.8 Allergy status to other drugs, medicaments and biological substances

== ENCOUNTER → 2019-02-20 | Outpatient (CLI) | payer MEDICARE ==
[~2019-02-20] MED LIST changes: +DICY1CAP8 PO
== END ==
LOC: M PAIN 11:00
PROVIDERS: ATTEND Anesthesiology
DX: M79.18 Myalgia, other site (principal); M54.2 Cervicalgia; J45.909 Unspecified asthma, uncomplicated; I10 Essential (primary) hypertension; Z86.59 Personal history of other mental and behavioral disorders; Z86.19 Personal history of other infectious and parasitic diseases; Z88.8 Allergy status to other drugs, medicaments and biological substances; Z79.82 Long term (current) use of aspirin; Z79.899 Other long term (current) drug therapy

== ENCOUNTER 2019-03-04 14:27 | Emergency (ER) | payer MEDICARE ==
[~2019-03-04] VITALS: Ht 175.3 cm; Wt 78.8 kg
[2019-03-04 15:30] LABS: BASO # 0.1 10^3/uL (0.0-0.2); BASO % 1.3 % (0.0-1.0); EOS # 0.2 10^3/uL (0.0-0.5); EOS % 3.1 % (0.0-3.0); LYMPH # 2.5 10^3/uL (1.5-5.0); LYMPH % 39.8 % (24.0-44.0); MEAN CORPUSCULAR HEMOGLOBIN 32.2 pg (27.0-33.0); MEAN CORPUSCULAR HGB CONC 33.3 g/dl (32.0-36.5); MEAN CORPUSCULAR VOLUME 96.5 fl (80.0-96.0); MONO # 0.6 10^3/uL (0.0-0.8); MONO % 9.1 % (0.0-5.0); NEUTROPHILS % 46.5 % (36.0-66.0); PLATELET COUNT, AUTOMATED 340 10^3/uL (150-450); RED BLOOD COUNT 3.73 10^6/uL (4.00-5.40); WHITE BLOOD COUNT 6.4 10^3/uL (4.0-10.0)
[2019-03-04 15:38] LABS: ALBUMIN 3.4 GM/DL (3.2-5.2); ALT/SGPT 21 U/L (12-78); BILIRUBIN,DIRECT < 0.1 MG/DL (0.0-0.2); BILIRUBIN,TOTAL 0.4 MG/DL (0.2-1.0); BLOOD UREA NITROGEN 10 MG/DL (7-18); CALCIUM LEVEL 8.9 MG/DL (8.8-10.2); CARBON DIOXIDE LEVEL 23 MEQ/L (21-32); CHLORIDE LEVEL 107 MEQ/L (98-107); CREATININE FOR GFR 1.03 MG/DL (0.55-1.30); GLOMERULAR FILTRATION RATE 57.3 (>45); GLUCOSE, FASTING 88 MG/DL (70-100); LIPASE 59 U/L (73-393); POTASSIUM SERUM 3.9 MEQ/L (3.5-5.1); SODIUM LEVEL 140 MEQ/L (136-145); TOTAL PROTEIN 6.9 GM/DL (6.4-8.2)
[2019-03-04] MEDS ORDERED: MIRA3350 PO (18:52)
[2019-03-04] MEDS ORDERED: LACTULOSE 20 GM/30 ML SYRUP UD PO ONE (19:00)
[2019-03-04 19:01] VITALS: BP 108/63
--- NOTE | 2019-03-04 19:19 | REP ---
ABDOMINAL SERIES: Supine and erect views of the abdomen demonstrate no free air and no evidence of small bowel obstruction. Moderate fecal material is seen throughout the colon. No dilated small bowel loops are seen. There are degenerative changes of the spine and hips. An accompanying view of the chest demonstrates scarring focally in the right upper lobe unchanged when compared to the prior study of 01/29/2019. No acute infiltrate is seen. The heart is normal in size. IMPRESSION: No free air or obstruction. Moderate fecal retention. Electronically Signed by Yahir Hare MD 03/05/2019 10:56 A
== END 2019-03-04 19:20 | disposition home or self-care (01) ==
LOC: M ED 14:27
DX: K59.00 Constipation, unspecified (principal); K92.1 Melena; I10 Essential (primary) hypertension; J44.9 Chronic obstructive pulmonary disease, unspecified; E78.5 Hyperlipidemia, unspecified; R91.1 Solitary pulmonary nodule; Z87.891 Personal history of nicotine dependence; Z79.82 Long term (current) use of aspirin; Z79.899 Other long term (current) drug therapy; Z88.8 Allergy status to other drugs, medicaments and biological substances

== ENCOUNTER → 2019-04-03 | Outpatient (CLI) | payer MEDICARE ==
[~2019-04-03] MED LIST changes: +BUPIVACAINE HCL 0.25% 10 ML VIAL As Ordered ONE; +BUPIVACAINE HCL 0.25% 30 ML VIAL As Ordered ONE; +MIRA3350 PO; +TRIAMCINOLONE ACETONIDE SUSP 40 MG/ML VIAL (J3301) As Ordered ONE; +diazePAM 5 MG TAB As Ordered ONE; +oxyCODONE 5MG TAB As Ordered ONE
--- NOTE | 2019-04-17 00:55 | ECWPNPC ---
PATIENT NAME: DEJON WESTFALL : 1955 GENDER: FEMALE VISIT DATE: 04/03/2019 DISCHARGE DATE: 04/03/19 1555 VISIT LOCKED DATE TIME: PHYSICIAN: ALEYDA ANDERSON MD RESOURCE: ALEYDA ANDERSON MD REASON FOR APPOINTMENT 1. TPI, LEFT NECK AND SHOULDER HISTORY OF PRESENT ILLNESS HISTORY OF PRESENT ILLNESS: PAIN THE PATIENT DESCRIBES THE PAIN... FALL RISK SCREENING: SCREENING :NO FALLS REPORTED IN THE LAST YEAR CURRENT MEDICATIONS TAKING VENTOLIN HFA 108 (90 BASE) MCG/ACT AEROSOL SOLUTION DIRECTED INHALATION , NOTES: 04/03/19 TAKING ASPIRIN 81 81 MG TABLET DELAYED RELEASE 1 TABLET ORALLY EVERY OTHER DAY, NOTES: 04/02/19 TAKING CLONAZEPAM 1 MG TABLET 1 TABLET ORALLY BID, NOTES: 04/03/19 TAKING ONE DAILY COMPLETE - TABLET DIRECTED ORALLY , NOTES: 04/03/19 TAKING LISINOPRIL 5 MG TABLET 1 TABLET ORALLY ONCE A DAY, NOTES: 04/03/19 TAKING SYMBICORT 160-4.5 MCG/ACT AEROSOL 2 PUFFS INHALATION TWICE A DAY, NOTES: 04/03/19 TAKING PRAVASTATIN SODIUM 40 MG TABLET 1 TABLET ORALLY ONCE A DAY, NOTES: 04/03/19 TAKING MONTELUKAST SODIUM 10 MG TABLET 1 TABLET ORALLY ONCE A DAY, NOTES: 04/03/19 TAKING OMEPRAZOLE 20 MG CAPSULE DELAYED RELEASE 1 CAPSULE ORALLY ONCE A DAY, NOTES: 04/03/19 TAKING VENLAFAXINE HCL ER 225 MG TABLET EXTENDED RELEASE 24 HOUR 1 TABLET WITH FOOD ORALLY ONCE A DAY, NOTES: 04/03/19 TAKING EXCEDRIN EXTRA STRENGTH 250-250-65 MG TABLET 2 TABLETS ORALLY ONCE A DAY NEEDED, NOTES: 04/03/19 TAKING MAY USE CBD CREAM TOPICALLY NEEDED, NOTES: NONE LATELY TAKING GABAPENTIN 100 MG CAPSULE DIRECTED ORALLY TID FOR PAIN, NOTES: 04/03/19 TAKING ZONISAMIDE 100 MG CAPSULE 1 CAPSULE ORALLY TWICE A DAY, NOTES: 04/03/19 NOT-TAKING LORATADINE 10 MG TABLET 1 TABLET ORALLY ONCE A DAY MEDICATION LIST REVIEWED AND RECONCILED WITH THE PATIENT PAST MEDICAL HISTORY ASTHMA CHRONIC NECK PAIN HYPERTENSION ANXIETY NOROVIRUS INFLUENZA ECOLI ALLERGIES DICYCLOMINE HCL: UNCONTROLLABLE CRYING, VISION CHANGES, FELT FUNNY, CONFUSED - SIDE EFFECTS SURGICAL HISTORY PARTIAL JAW REPLACEMENT 1985 RIGHT KNEE MENISCUS 2015 FAMILY HISTORY FATHER: UNKNOWN MOTHER: , BLOOD CLOT AFTER SURGERY SIBLINGS: , SISTER-LUNG CANCER BROTHER- #1MALARIA, LEUKEMIA FROM AGENT ORANGE #2 DRUG ADDICTION, DIAGNOSED WITH OTHER MALIGNANT NEOPLASM OF UNSPECIFIED SITE HAS ADOPTED DAUGHTER. SOCIAL HISTORY GENERAL: TOBACCO USE ARE YOU A:NONSMOKER PAIN CLINIC PFS, CLERGY, PUBLIC HEALTH REFERRALS HAS THE PATIENT BEEN EDUCATED REGARDING HIS/HER PLAN OF CARE?YES HAS THE PATIENT BEEN EDUCATED REGARDING PAIN, THE RISK FOR PAIN, THE IMPORTANCE OF EFFECTIVE PAIN MANAGEMENT, AND THE PAIN ASSESSMENT PROCESS?YES LATEX QUESTIONNAIRE LATEX ALLERGY : HAVE YOU EVER DEVELOPED ANY TYPE OF REACTION AFTER HANDLING LATEX PRODUCTS SUCH RUBBER GLOVES, CONDOMS, DIAPHRAGMS, BALLOONS, SOCKS, OR UNDERWEAR?NO LATEX ALLERGY : HAVE YOU EVER DEVELOPED ANY TYPE OF REACTION DURING OR AFTER DENTAL APPOINTMENT, VAGINAL/RECTAL EXAMINATION, SURGICAL PROCEDURE, OR ANY OTHER EXPOSURE?NO DATE ASKED : 02/20/2019 LATEX RISK : HAVE YOU EVER HAD ANY DIFFICULTY BREATHING OR HIVES AFTER EATING OR HANDLING ANY FRUITS, OR VEGETABLES; SUCH KIWI, BANANAS, STONE FRUITS, OR CHESTNUTSNO LATEX RISK : DO YOU HAVE A PREVIOUS PERSONAL HISTORY OF MORE THAN NINE SURGERIES, SPINA BIFIDA, OR REPEATED CATHERIZATIONS? NO LATEX RISK : ARE YOU FREQUENTLY EXPOSED TO LATEX PRODUCTS IN YOUR OCCUPATION?NO CAFFEINE CAFFEINE USE?YES HOW OFTEN AND HOW MUCH? (3) 16OZ BOTTLES OF PEPSI/DAY ADVANCE DIRECTIVE ADVANCE DIRECTIVE DISCUSSED WITH PATIENT:YES PT STATES SHE HAS HCP:1. -MARLENY [phone](H) [phone](C)-CALL 1ST 2. DAUGHTER-JAKI [phone] EDUCATION LEVEL OF EDUCATION:FINISHED COLLEGE BACHELORS CONGREGATION [id number] EVANGELICAL LANGUAGE LANGUAGES SPOKEN:ALGERIAN DOMESTIC VIOLENCE DO YOU FEEL SAFE IN YOUR ENVIRONMENT?YES ALCOHOL SCREENING DID YOU HAVE A DRINK CONTAINING ALCOHOL IN THE PAST YEAR?NO POINTS0 INTERPRETATIONNEGATIVE RECREATIONAL DRUG USE DRUG USE?NO LEARNING BARRIERS / SPECIAL NEEDS BARRIERS TO LEARNING?NO HEARING IMPAIRED?NO VISION IMPAIRED?YES COGNITIVELY IMPAIRED?NO :CORRECTIVE LENSES READINESS TO LEARN?YES LEARNING PREFERENCES?YES :DEMONSTRATION/VERBAL INSTRUCTION LEARNING CAPABILITIES PRESENT?YES EMOTIONAL BARRIERS?NO SPECIAL DEVICES?NO MEDICARE SALES EXECUTIVE NEEDED?NO REVIEWED WITH PT 11/07/18 1024 BV02/20/19 REVIEWED WITH PT. AD. HOSPITALIZATION/MAJOR DIAGNOSTIC PROCEDURE HOSPITALIZED FOR 3 DAYS FOR INFLUENZA 06/2017 HOSPITALIZED FOR 8 DAYS FOR NOROVIRUS 10/2017 ECOLI 01/2019 DEHYDRATION REVIEW OF SYSTEMS REVIEWED BY: PROVIDER: . CONSTITUTIONAL: ANY CHANGE IN YOUR MEDICAL CONDITION? NO . CHILLS NO . FEVER NO . INFECTION: DO YOU HAVE NEW INFECTIONS? NO . DO YOU HAVE HISTORY OF MRSA? NO . MUSCULOSKELETAL: ANY NEW PATTERNS OF PAIN OR NUMBNESS? NO . GASTROENTEROLOGY: ANY NEW CHANGE IN BOWEL CONTROL? NO . GENITOURINARY: ANY NEW CHANGE IN BLADDER CONTROL? NO . IS THERE A CHANCE YOU COULD BE ? NO . HEMATOLOGY/LYMPH: DO YOU TAKE ANY BLOOD THINNERS? (FOR EXAMPLE- COUMADIN, PLAVIX, AGGRENOX, PLATEL, PRADAXA, OR XARELTO) NO . WHEN WAS YOUR LAST DOSE? DATE: TIME: . NEUROLOGY: HAVE YOU FALLEN IN THE PAST 12 MONTHS? YES, PT STATES SHE FALLS ALL THE TIME FROM LOSS OF BALANCE . ANY NEW EXTREMITY NUMBNESS OR WEAKNESS? YES, LEFT ARM WEAKNESS AND NUMBNESS . CARDIOLOGY: DO YOU HAVE A PACEMAKER OR DEFIBRILLATOR? NO . RESPIRATORY: HAVE YOU BEEN SICK IN THE PAST WEEK? NO . FEVER NO . FLU LIKE SYMPTOMS? NO . COUGH NO . INTEGUMENTARY: DO YOU HAVE ANY RASHES OR OPEN SORES? NO . ALLERGIC/IMMUNO: ARE YOU ALLERGIC TO IV DYE? NO . ANY NEW ALLERGIES? NO . PSYCHIATRIC: DO YOU HAVE THOUGHTS OF HURTING YOURSELF OR SOMEONE ELSE? NO . ARE YOU ABUSED, NEGLECTED, OR IN AN UNSAFE ENVIRONMENT? NO . ENDOCRINOLOGY: ARE YOU DIABETIC? NO . OTHER: DO YOU NEED ANY PRESCRIPTIONS? NO . IF YES, PLEASE LIST: ____ . ANY NEW PROBLEMS WITH YOUR MEDICATIONS? NO . WHEN DID YOU LAST EAT? 04/03/19 0730 . WHEN DID YOU LAST DRINK? 04/03/19 1130 . WHAT DID YOU LAST DRINK? WATER . NAME OF PERSON DRIVING YOU HOME? MARLENY . DO YOU HAVE ANY OTHER QUESTIONS OR CONCERNS NO . VITAL SIGNS WT 171.0 LBS, HT 69 IN, BMI 25.25 INDEX, BP 131/81 MM HG, HR 89 /MIN, RR 16 /MIN, TEMP 96.0 F, OXYGEN SAT % 97%, NA INITIALS AW 1427, REVIEWED BY: EM. ASSESSMENTS MYALGIA, OTHER SITE - M79.18 (PRIMARY) PROCEDURES PN TRIGGER POINT INJECTION WITH STEROIDS PRE PROCEDURE DIAGNOSIS 1. MYALGIA 2. PAIN AT LEFT NECK AREA AND LEFT SHOULDER AREA. POST PROCEDURE DIAGNOSIS 1. MYALGIA 2. PAIN AT LEFT NECK AREA AND LEFT SHOULDER AREA. PROCEDURE TRIGGER POINT INJECTION AT LEFT NECK AREA AND LEFT SHOULDER AREA. SURGEON DR. ALEYDA ANDERSON GRAVEL MACHINE OPERATOR NONE ANESTHESIA LOCAL PRE PROCEDURE NOTE THE PATIENT HAS A HISTORY OF CHRONIC PAIN AT THE LEFT NECK AREA AND LEFT SHOULDER AREA. I EVALUATED THE PATIENT AND REVIEWED THE CHART. THERE IS EVIDENCE OF BANDS OF TISSUE WITH RESTRICTION OF MOVEMENT AND PRESENCE OF TRIGGER POINT AT THE AFFECTED AREA. I WENT OVER THE RISKS, ALTERNATIVES, AND BENEFITS ASSOCIATED WITH THIS PROCEDURE. THE PATIENT WOULD LIKE TO PROCEED AND GIVES CONSENT TO PERFORM THE PROCEDURE. THE PATIENT DENIES UNEXPLAINABLE WEIGHT LOSS, FEVER, CHILLS, OR NEW CHANGES IN URINARY OR BOWEL CONTROL DESCRIPTION OF PROCEDURE THE PATIENT WAS BROUGHT TO THE PROCEDURE ROOM AND PLACED IN THE SITTING POSITION. THE AREA WAS CLEANED WITH ALCOHOL. THE PROCEDURE WAS DONE USING ASEPTIC STERILE TECHNIQUE. I CHECKED LATERALITY AND THE LEVEL WHERE THE PROCEDURE WAS GOING TO BE PERFORMED WITH THE PATIENT AND THE SUPPORTING STAFF AT THE MOMENT OF THE TIME OUT IN THE PROCEDURE ROOM. USING A 25-GAUGE NEEDLE, TRIGGER POINTS WERE INJECTED AT THE LEFT NECK AREA AND LEFT SHOULDER AREA WITH A TOTAL OF 40 ML OF BUPIVACAINE 0.25% AND KENALOG 40 MG. THERE WAS NO EVIDENCE OF BLOOD, PARESTHESIA OR CEREBROSPINAL FLUID DURING THE PROCEDURE. THE PATIENT WAS SENT TO THE RECOVERY ROOM. THE PATIENT WAS MOVING THE EXTREMITIES AND DOING WELL. THERE WAS NO COMPLICATION DURING THE PROCEDURE POST PROCEDURE NOTE THE PATIENT WILL BE SEEN IN A FOLLOW UP IN THE NEXT FEW WEEKS. INSTRUCTIONS WERE GIVEN, QUESTIONS WERE ANSWERED, AND THE PATIENT EXPRESSED UNDERSTANDING AND AGREES WITH THE PLAN. I, AMRIT PANDEY, DOCUMENTED THE ABOVE INFORMATION ACTING A SCRIBE FOR DR. ANDERSON. I HAVE REVIEWED THE ABOVE DOCUMENT, WRITTEN BY AMRIT GRACE AND I VERIFY THAT IT IS ACCURATE. PROCEDURE CODES 56321 INJ TRIGGER POINT / [facility] DISPOSITION & COMMUNICATION FOLLOW UP 3 WEEKS ELECTRONICALLY SIGNED BY ALEYDA ANDERSNO MD, MD ON 04/16/2019 AT 06:48 PM EDT DISCLAIMER : THIS IS A VISIT SUMMARY EXTRACTED FROM THE [employer] CHART. IT IS NOT A COPY OF THE [employer] PROGRESS NOTE. KAITLYNN
== END ==
LOC: M PAIN 14:30
PROVIDERS: ATTEND Anesthesiology
DX: M79.18 Myalgia, other site (principal); M54.2 Cervicalgia; I10 Essential (primary) hypertension; Z79.82 Long term (current) use of aspirin; Z79.899 Other long term (current) drug therapy; Z88.8 Allergy status to other drugs, medicaments and biological substances
CPT/HCPCS: 20552; J3301

== ENCOUNTER → 2019-04-21 | Outpatient (CLI) | payer MEDICARE ==
[~2019-04-21] MED LIST changes: -BUPIVACAINE HCL 0.25% 10 ML VIAL As Ordered ONE; -BUPIVACAINE HCL 0.25% 30 ML VIAL As Ordered ONE; -TRIAMCINOLONE ACETONIDE SUSP 40 MG/ML VIAL (J3301) As Ordered ONE; -diazePAM 5 MG TAB As Ordered ONE; -oxyCODONE 5MG TAB As Ordered ONE
--- NOTE | 2019-04-23 00:59 | ECWPNPC ---
PATIENT NAME: DEJON WESTFALL : 1955 GENDER: FEMALE VISIT DATE: 04/21/2019 DISCHARGE DATE: 04/21/19 1424 VISIT LOCKED DATE TIME: PHYSICIAN: ANDREA FALCON RESOURCE: ANDREA FALCON REASON FOR APPOINTMENT 1. POST TPI HISTORY OF PRESENT ILLNESS HISTORY OF PRESENT ILLNESS: PAIN THE PATIENT DESCRIBES THE PAIN... 63-YEAR-OLD FEMALE IN FOR POST TPI FOLLOW-UP. SHE FEELS THE PROCEDURE HELP TO RELIEVE THE PAIN IN THE UPPER ASPECT OF HER NECK HOWEVER SHE IS EXPERIENCING PAIN IN THE LOWER ASPECT OF THE LEFT SIDE OF HER NECK AND UPPER LEFT SHOULDER. SHE RATES HER PAIN CURRENTLY AT A 4 OUT OF 10 AND DESCRIBES IT ACHING, TENDER, AND SHOOTING. FALL RISK SCREENING: SCREENING :NO FALLS REPORTED IN THE LAST YEAR CURRENT MEDICATIONS TAKING VENTOLIN HFA 108 (90 BASE) MCG/ACT AEROSOL SOLUTION DIRECTED INHALATION TAKING CLONAZEPAM 1 MG TABLET 1 TABLET ORALLY BID TAKING ONE DAILY COMPLETE - TABLET DIRECTED ORALLY TAKING LISINOPRIL 5 MG TABLET 1 TABLET ORALLY ONCE A DAY TAKING SYMBICORT 160-4.5 MCG/ACT AEROSOL 2 PUFFS INHALATION TWICE A DAY TAKING PRAVASTATIN SODIUM 40 MG TABLET 1 TABLET ORALLY ONCE A DAY TAKING MONTELUKAST SODIUM 10 MG TABLET 1 TABLET ORALLY ONCE A DAY TAKING OMEPRAZOLE 20 MG CAPSULE DELAYED RELEASE 1 CAPSULE ORALLY ONCE A DAY TAKING VENLAFAXINE HCL ER 225 MG TABLET EXTENDED RELEASE 24 HOUR 1 TABLET WITH FOOD ORALLY ONCE A DAY TAKING EXCEDRIN EXTRA STRENGTH 250-250-65 MG TABLET 2 TABLETS ORALLY ONCE A DAY NEEDED TAKING MAY USE CBD CREAM TOPICALLY NEEDED TAKING GABAPENTIN 100 MG CAPSULE DIRECTED ORALLY TID FOR PAIN TAKING ZONISAMIDE 100 MG CAPSULE 1 CAPSULE ORALLY TWICE A DAY NOT-TAKING ASPIRIN 81 81 MG TABLET DELAYED RELEASE 1 TABLET ORALLY EVERY OTHER DAY NOT-TAKING LORATADINE 10 MG TABLET 1 TABLET ORALLY ONCE A DAY MEDICATION LIST REVIEWED AND RECONCILED WITH THE PATIENT PAST MEDICAL HISTORY ASTHMA CHRONIC NECK PAIN HYPERTENSION ANXIETY NOROVIRUS INFLUENZA ECOLI ALLERGIES DICYCLOMINE HCL: UNCONTROLLABLE CRYING, VISION CHANGES, FELT FUNNY, CONFUSED - SIDE EFFECTS SURGICAL HISTORY PARTIAL JAW REPLACEMENT 1985 RIGHT KNEE MENISCUS 2015 FAMILY HISTORY FATHER: UNKNOWN MOTHER: , BLOOD CLOT AFTER SURGERY SIBLINGS: , SISTER-LUNG CANCER BROTHER- #1MALARIA, LEUKEMIA FROM AGENT ORANGE #2 DRUG ADDICTION, DIAGNOSED WITH OTHER MALIGNANT NEOPLASM OF UNSPECIFIED SITE HAS ADOPTED DAUGHTER. SOCIAL HISTORY GENERAL: TOBACCO USE ARE YOU A:NONSMOKER PAIN CLINIC PFS, CLERGY, PUBLIC HEALTH REFERRALS HAS THE PATIENT BEEN EDUCATED REGARDING HIS/HER PLAN OF CARE?YES HAS THE PATIENT BEEN EDUCATED REGARDING PAIN, THE RISK FOR PAIN, THE IMPORTANCE OF EFFECTIVE PAIN MANAGEMENT, AND THE PAIN ASSESSMENT PROCESS?YES LATEX QUESTIONNAIRE LATEX ALLERGY : HAVE YOU EVER DEVELOPED ANY TYPE OF REACTION AFTER HANDLING LATEX PRODUCTS SUCH RUBBER GLOVES, CONDOMS, DIAPHRAGMS, BALLOONS, SOCKS, OR UNDERWEAR?NO LATEX ALLERGY : HAVE YOU EVER DEVELOPED ANY TYPE OF REACTION DURING OR AFTER DENTAL APPOINTMENT, VAGINAL/RECTAL EXAMINATION, SURGICAL PROCEDURE, OR ANY OTHER EXPOSURE?NO LATEX RISK : HAVE YOU EVER HAD ANY DIFFICULTY BREATHING OR HIVES AFTER EATING OR HANDLING ANY FRUITS, OR VEGETABLES; SUCH KIWI, BANANAS, STONE FRUITS, OR CHESTNUTSNO LATEX RISK : DO YOU HAVE A PREVIOUS PERSONAL HISTORY OF MORE THAN NINE SURGERIES, SPINA BIFIDA, OR REPEATED CATHERIZATIONS? NO LATEX RISK : ARE YOU FREQUENTLY EXPOSED TO LATEX PRODUCTS IN YOUR OCCUPATION?NO DATE ASKED : 02/20/2019 CAFFEINE CAFFEINE USE?YES HOW OFTEN AND HOW MUCH? (3) 16OZ BOTTLES OF PEPSI/DAY ADVANCE DIRECTIVE ADVANCE DIRECTIVE DISCUSSED WITH PATIENT:YES PT STATES SHE HAS HCP:1. -MARLENY [phone](H) [phone](C)-CALL 1ST 2. DAUGHTER-JAKI [phone] EDUCATION LEVEL OF EDUCATION:FINISHED COLLEGE BACHELORS LATTER-DAY [id number] RASTAFARI LANGUAGE LANGUAGES SPOKEN:LATVIAN DOMESTIC VIOLENCE DO YOU FEEL SAFE IN YOUR ENVIRONMENT?YES ALCOHOL SCREENING DID YOU HAVE A DRINK CONTAINING ALCOHOL IN THE PAST YEAR?NO POINTS0 INTERPRETATIONNEGATIVE RECREATIONAL DRUG USE DRUG USE?NO LEARNING BARRIERS / SPECIAL NEEDS BARRIERS TO LEARNING?NO HEARING IMPAIRED?NO VISION IMPAIRED?YES COGNITIVELY IMPAIRED?NO :CORRECTIVE LENSES READINESS TO LEARN?YES LEARNING PREFERENCES?YES :DEMONSTRATION/VERBAL INSTRUCTION LEARNING CAPABILITIES PRESENT?YES EMOTIONAL BARRIERS?NO SPECIAL DEVICES?NO NANOSCIENCE TECHNICIAN NEEDED?NO REVIEWED WITH PT 11/07/18 1024 BV02/20/19 REVIEWED WITH PT. MEMO WITH PATIENT 04/21/19 1350 JS. HOSPITALIZATION/MAJOR DIAGNOSTIC PROCEDURE HOSPITALIZED FOR 3 DAYS FOR INFLUENZA 06/2017 HOSPITALIZED FOR 8 DAYS FOR NOROVIRUS 10/2017 ECOLI 01/2019 DEHYDRATION REVIEW OF SYSTEMS REVIEWED BY: PROVIDER: MIKO FALCON TOOL ROOM GEAR MACHINE OPERATOR-C . CONSTITUTIONAL: ANY CHANGE IN YOUR MEDICAL CONDITION? NO . CHILLS NO . FEVER NO . INFECTION: DO YOU HAVE NEW INFECTIONS? NO . DO YOU HAVE HISTORY OF MRSA? NO . MUSCULOSKELETAL: ANY NEW PATTERNS OF PAIN OR NUMBNESS? NO . GASTROENTEROLOGY: ANY NEW CHANGE IN BOWEL CONTROL? NO . GENITOURINARY: ANY NEW CHANGE IN BLADDER CONTROL? NO . IS THERE A CHANCE YOU COULD BE ? NO . HEMATOLOGY/LYMPH: DO YOU TAKE ANY BLOOD THINNERS? (FOR EXAMPLE- COUMADIN, PLAVIX, AGGRENOX, PLATEL, PRADAXA, OR XARELTO) NO . WHEN WAS YOUR LAST DOSE? DATE: TIME: . NEUROLOGY: HAVE YOU FALLEN IN THE PAST 12 MONTHS? YES, STATES PRIOR TO LAST VISIT, DISCUSSED AT PREVIOUS VISIT . ANY NEW EXTREMITY NUMBNESS OR WEAKNESS? NO . CARDIOLOGY: DO YOU HAVE A PACEMAKER OR DEFIBRILLATOR? NO . RESPIRATORY: HAVE YOU BEEN SICK IN THE PAST WEEK? NO . FEVER NO . FLU LIKE SYMPTOMS? NO . COUGH NO . INTEGUMENTARY: DO YOU HAVE ANY RASHES OR OPEN SORES? NO . ALLERGIC/IMMUNO: ARE YOU ALLERGIC TO IV DYE? NO . ANY NEW ALLERGIES? NO . PSYCHIATRIC: DO YOU HAVE THOUGHTS OF HURTING YOURSELF OR SOMEONE ELSE? NO . ARE YOU ABUSED, NEGLECTED, OR IN AN UNSAFE ENVIRONMENT? NO . ENDOCRINOLOGY: ARE YOU DIABETIC? NO . OTHER: DO YOU NEED ANY PRESCRIPTIONS? YES . IF YES, PLEASE LIST: ____ . ANY NEW PROBLEMS WITH YOUR MEDICATIONS? NO . WHEN DID YOU LAST EAT? ____ . WHEN DID YOU LAST DRINK? ____ . WHAT DID YOU LAST DRINK? ____ . NAME OF PERSON DRIVING YOU HOME? ____ . DO YOU HAVE ANY OTHER QUESTIONS OR CONCERNS FLU VACCINE 2 WEEKS AGO . VITAL SIGNS WT 170.8 LBS, HT 69 IN, BMI 25.22 INDEX, BP 122/72 MM HG, HR 111 /MIN, RR 16 /MIN, TEMP 95.4 F, OXYGEN SAT % 99%, SAFE IN ENV? (Y/N) YES, NA INITIALS AW 1337, REVIEWED BY: SHAYAN. EXAMINATION GENERAL EXAMINATION: GENERALNO ACUTE DISTRESS, WELL NOURISHED AND HYDRATED. PSYCHAPPROPRIATE MOOD AND AFFECT . NECK:POINT TENDER ALONG POSTERIOR ASPECT LEFT NECK AND ACROSS LEFT TRAPEZIUS SURROUNDING SKIN SHOWS NO ERYTHEMA, ECCHYMOSIS, INCREASED WARMTH, AND/OR SKIN ERUPTIONS NOTED.. LUNGS:CLEAR TO AUSCULTATION BILATERALLY, NO WHEEZES, RHONCHI, RALES. HEART:NO MURMURS, REGULAR RATE AND RHYTHM. ASSESSMENTS MYALGIA, OTHER SITE - M79.18 (PRIMARY) TREATMENT MYALGIA, OTHER SITE NOTES: TPI LEFT NECK AND SHOULDER. CLINICAL NOTES: 63-YEAR-OLD FEMALE IN FOR TPI FOLLOW-UP. GIVEN PRESENTING SYMPTOMS AND RESULTS OF PHYSICAL EXAMINATION RECOMMENDED TPI OF THE LEFT NECK AND SHOULDER WITH POSTPROCEDURAL FOLLOW-UP. PATIENT HAS EXPRESSED UNDERSTANDING OF AND WAS IN AGREEMENT WITH TREATMENT PLAN. GIVEN TIME TO ASK QUESTIONS AND EXPRESS CONCERNS. PREVENTIVE MEDICINE PAIN CLINIC TEACHING: PROCEDURE TEACHING REVIEWED INFORMATION ON TRIGGER POINT INJECTIONS WITH PATIENT. ALSO REVIEWED PRE-PROCEDURE INSTRUCTIONS. PATIENT VERBALIZED AN UNDERSTANDING. HARLAN PEGUERO 04/21/2019 2:24:29 PM > . PROCEDURE CODES FA211 ESTABILISHED PATIENT [facility] CHARGE DISPOSITION & COMMUNICATION FOLLOW UP POSTPROCEDURE (REASON: TPI LEFT NECK AND SHOULDER) ELECTRONICALLY SIGNED BY KRIS PAUL ON 04/22/2019 AT 08:53 AM EDT DISCLAIMER : THIS IS A VISIT SUMMARY EXTRACTED FROM THE [employer] CHART. IT IS NOT A COPY OF THE [employer] PROGRESS NOTE. KAITLYNN
== END ==
LOC: M PAIN 13:45
PROVIDERS: ATTEND Family Medicine
DX: M79.18 Myalgia, other site (principal); J45.909 Unspecified asthma, uncomplicated; M54.2 Cervicalgia; I10 Essential (primary) hypertension; F41.9 Anxiety disorder, unspecified; Z79.899 Other long term (current) drug therapy; Z88.8 Allergy status to other drugs, medicaments and biological substances

== ENCOUNTER → 2019-05-12 | Outpatient (CLI) | payer MEDICARE ==
[~2019-05-12] MED LIST changes: +BUPIVACAINE HCL 0.25% 10 ML VIAL As Ordered ONE; +BUPIVACAINE HCL 0.25% 30 ML VIAL As Ordered ONE; +TRIAMCINOLONE ACETONIDE SUSP 40 MG/ML VIAL (J3301) As Ordered ONE; +diazePAM 5 MG TAB As Ordered ONE; +oxyCODONE 5MG TAB As Ordered ONE
--- NOTE | 2019-05-19 00:58 | ECWPNPC ---
PATIENT NAME: DEJON WESTFALL : 1955 GENDER: FEMALE VISIT DATE: 05/12/2019 DISCHARGE DATE: 05/12/191513 VISIT LOCKED DATE TIME: PHYSICIAN: ALEYDA ANDERSON MD RESOURCE: ALEYDA ANDERSON MD REASON FOR APPOINTMENT 1. TPI LEFT NECK AND SHOULDER HISTORY OF PRESENT ILLNESS HISTORY OF PRESENT ILLNESS: PAIN THE PATIENT DESCRIBES THE PAIN... FALL RISK SCREENING: SCREENING :NO FALLS REPORTED IN THE LAST YEAR CURRENT MEDICATIONS TAKING VENTOLIN HFA 108 (90 BASE) MCG/ACT AEROSOL SOLUTION DIRECTED INHALATION , NOTES: 05-12-19799 TAKING CLONAZEPAM 1 MG TABLET 1 TABLET ORALLY BID, NOTES: 05-12-19699 TAKING ONE DAILY COMPLETE - TABLET DIRECTED ORALLY , NOTES: 05-12-19799 TAKING LISINOPRIL 5 MG TABLET 1 TABLET ORALLY ONCE A DAY, NOTES: 05-12-19799 TAKING SYMBICORT 160-4.5 MCG/ACT AEROSOL 2 PUFFS INHALATION TWICE A DAY, NOTES: 05-12-19699 TAKING PRAVASTATIN SODIUM 40 MG TABLET 1 TABLET ORALLY ONCE A DAY, NOTES: 05-12-19799 TAKING MONTELUKAST SODIUM 10 MG TABLET 1 TABLET ORALLY ONCE A DAY, NOTES: 05-12-19799 TAKING OMEPRAZOLE 20 MG CAPSULE DELAYED RELEASE 1 CAPSULE ORALLY ONCE A DAY, NOTES: 05-12-19799 TAKING VENLAFAXINE HCL ER 225 MG TABLET EXTENDED RELEASE 24 HOUR 1 TABLET WITH FOOD ORALLY ONCE A DAY, NOTES: 05-12-19799 TAKING EXCEDRIN EXTRA STRENGTH 250-250-65 MG TABLET 2 TABLETS ORALLY ONCE A DAY NEEDED, NOTES: NOT LATELY TAKING MAY USE CBD CREAM TOPICALLY NEEDED TAKING GABAPENTIN 100 MG CAPSULE DIRECTED ORALLY TID FOR PAIN, NOTES: 05-12-19699 TAKING ZONISAMIDE 100 MG CAPSULE 1 CAPSULE ORALLY TWICE A DAY, NOTES: 05-11-19799 NOT-TAKING ASPIRIN 81 81 MG TABLET DELAYED RELEASE 1 TABLET ORALLY EVERY OTHER DAY NOT-TAKING LORATADINE 10 MG TABLET 1 TABLET ORALLY ONCE A DAY MEDICATION LIST REVIEWED AND RECONCILED WITH THE PATIENT PAST MEDICAL HISTORY ASTHMA CHRONIC NECK PAIN HYPERTENSION ANXIETY NOROVIRUS INFLUENZA ECOLI ALLERGIES DICYCLOMINE HCL: UNCONTROLLABLE CRYING, VISION CHANGES, FELT FUNNY, CONFUSED - SIDE EFFECTS SURGICAL HISTORY PARTIAL JAW REPLACEMENT 1986 RIGHT KNEE MENISCUS 2016 FAMILY HISTORY FATHER: UNKNOWN MOTHER: , BLOOD CLOT AFTER SURGERY SIBLINGS: , SISTER-LUNG CANCER BROTHER- #1MALARIA, LEUKEMIA FROM AGENT ORANGE #2 DRUG ADDICTION, DIAGNOSED WITH OTHER MALIGNANT NEOPLASM OF UNSPECIFIED SITE HAS ADOPTED DAUGHTER. SOCIAL HISTORY GENERAL: TOBACCO USE ARE YOU A:NONSMOKER PAIN CLINIC PFS, CLERGY, PUBLIC HEALTH REFERRALS HAS THE PATIENT BEEN EDUCATED REGARDING HIS/HER PLAN OF CARE?YES HAS THE PATIENT BEEN EDUCATED REGARDING PAIN, THE RISK FOR PAIN, THE IMPORTANCE OF EFFECTIVE PAIN MANAGEMENT, AND THE PAIN ASSESSMENT PROCESS?YES LATEX QUESTIONNAIRE LATEX ALLERGY : HAVE YOU EVER DEVELOPED ANY TYPE OF REACTION AFTER HANDLING LATEX PRODUCTS SUCH RUBBER GLOVES, CONDOMS, DIAPHRAGMS, BALLOONS, SOCKS, OR UNDERWEAR?NO LATEX ALLERGY : HAVE YOU EVER DEVELOPED ANY TYPE OF REACTION DURING OR AFTER DENTAL APPOINTMENT, VAGINAL/RECTAL EXAMINATION, SURGICAL PROCEDURE, OR ANY OTHER EXPOSURE?NO DATE ASKED : 02/20/2019 LATEX RISK : HAVE YOU EVER HAD ANY DIFFICULTY BREATHING OR HIVES AFTER EATING OR HANDLING ANY FRUITS, OR VEGETABLES; SUCH KIWI, BANANAS, STONE FRUITS, OR CHESTNUTSNO LATEX RISK : DO YOU HAVE A PREVIOUS PERSONAL HISTORY OF MORE THAN NINE SURGERIES, SPINA BIFIDA, OR REPEATED CATHERIZATIONS? NO LATEX RISK : ARE YOU FREQUENTLY EXPOSED TO LATEX PRODUCTS IN YOUR OCCUPATION?NO CAFFEINE CAFFEINE USE?YES HOW OFTEN AND HOW MUCH? (3) 16OZ BOTTLES OF PEPSI/DAY ADVANCE DIRECTIVE ADVANCE DIRECTIVE DISCUSSED WITH PATIENT:YES PT STATES SHE HAS HCP:1. -MARLENY [phone](H) [phone](C)-CALL 1ST 2. DAUGHTER-JAKI [phone] EDUCATION LEVEL OF EDUCATION:FINISHED COLLEGE BACHELORS ANABAPTISM [id number] RESTORATIONISM LANGUAGE LANGUAGES SPOKEN:LIBERIAN DOMESTIC VIOLENCE DO YOU FEEL SAFE IN YOUR ENVIRONMENT?YES ALCOHOL SCREENING DID YOU HAVE A DRINK CONTAINING ALCOHOL IN THE PAST YEAR?NO POINTS0 INTERPRETATIONNEGATIVE RECREATIONAL DRUG USE DRUG USE?NO LEARNING BARRIERS / SPECIAL NEEDS BARRIERS TO LEARNING?NO HEARING IMPAIRED?NO VISION IMPAIRED?YES COGNITIVELY IMPAIRED?NO :CORRECTIVE LENSES READINESS TO LEARN?YES LEARNING PREFERENCES?YES :DEMONSTRATION/VERBAL INSTRUCTION LEARNING CAPABILITIES PRESENT?YES EMOTIONAL BARRIERS?NO SPECIAL DEVICES?NO ORDINARY SEAMAN NEEDED?NO REVIEWED WITH PT 11/07/18 1024 BV02/20/19 REVIEWED WITH PTAdreinne HAMPTON WITH PATIENT 04/21/19 9810 JS. HOSPITALIZATION/MAJOR DIAGNOSTIC PROCEDURE HOSPITALIZED FOR 3 DAYS FOR INFLUENZA 06/2017 HOSPITALIZED FOR 8 DAYS FOR NOROVIRUS 10/2017 ECOLI 01/2019 DEHYDRATION REVIEW OF SYSTEMS REVIEWED BY: PROVIDER: . CONSTITUTIONAL: ANY CHANGE IN YOUR MEDICAL CONDITION? NO . CHILLS NO . FEVER NO . INFECTION: DO YOU HAVE NEW INFECTIONS? NO . DO YOU HAVE HISTORY OF MRSA? NO . MUSCULOSKELETAL: ANY NEW PATTERNS OF PAIN OR NUMBNESS? NO . GASTROENTEROLOGY: ANY NEW CHANGE IN BOWEL CONTROL? NO . GENITOURINARY: ANY NEW CHANGE IN BLADDER CONTROL? NO . IS THERE A CHANCE YOU COULD BE ? NO . HEMATOLOGY/LYMPH: DO YOU TAKE ANY BLOOD THINNERS? (FOR EXAMPLE- COUMADIN, PLAVIX, AGGRENOX, PLATEL, PRADAXA, OR XARELTO) NO . WHEN WAS YOUR LAST DOSE? DATE: TIME: . NEUROLOGY: HAVE YOU FALLEN IN THE PAST 12 MONTHS? NO . ANY NEW EXTREMITY NUMBNESS OR WEAKNESS? NO . CARDIOLOGY: DO YOU HAVE A PACEMAKER OR DEFIBRILLATOR? NO . RESPIRATORY: HAVE YOU BEEN SICK IN THE PAST WEEK? NO . FEVER NO . FLU LIKE SYMPTOMS? NO . COUGH NO . INTEGUMENTARY: DO YOU HAVE ANY RASHES OR OPEN SORES? NO . ALLERGIC/IMMUNO: ARE YOU ALLERGIC TO IV DYE? NO . ANY NEW ALLERGIES? NO . PSYCHIATRIC: DO YOU HAVE THOUGHTS OF HURTING YOURSELF OR SOMEONE ELSE? NO . ARE YOU ABUSED, NEGLECTED, OR IN AN UNSAFE ENVIRONMENT? NO . ENDOCRINOLOGY: ARE YOU DIABETIC? NO . OTHER: DO YOU NEED ANY PRESCRIPTIONS? NO . IF YES, PLEASE LIST: ____ . ANY NEW PROBLEMS WITH YOUR MEDICATIONS? NO . WHEN DID YOU LAST EAT? ____[phone] . WHEN DID YOU LAST DRINK? ____[phone] . WHAT DID YOU LAST DRINK? ____ . NAME OF PERSON DRIVING YOU HOME? ____MARLENY . DO YOU HAVE ANY OTHER QUESTIONS OR CONCERNS NO . VITAL SIGNS WT 168.6 LBS, HT 69 IN, BMI 24.90 INDEX, BP 108/65 MM HG, HR 112 /MIN, RR 16 /MIN, TEMP 97.8 F, OXYGEN SAT % 100%, NA INITIALS AW 1335. ASSESSMENTS MYALGIA, OTHER SITE - M79.18 (PRIMARY) PROCEDURES PN TRIGGER POINT INJECTION WITH STEROIDS PRE PROCEDURE DIAGNOSIS 1. MYALGIA 2. PAIN AT LEFT NECK AREA AND LEFT SHOULDER AREA. POST PROCEDURE DIAGNOSIS 1. MYALGIA 2. PAIN AT LEFT NECK AREA AND LEFT SHOULDER AREA. PROCEDURE TRIGGER POINT INJECTION AT LEFT NECK AREA AND LEFT SHOULDER AREA. SURGEON DR. ALEYDA ANDERSON AUTOMOTIVE PARTS PERSON NONE ANESTHESIA LOCAL PRE PROCEDURE NOTE THE PATIENT HAS A HISTORY OF CHRONIC PAIN AT THE LEFT NECK AREA AND LEFT SHOULDER AREA. I EVALUATED THE PATIENT AND REVIEWED THE CHART. THERE IS EVIDENCE OF BANDS OF TISSUE WITH RESTRICTION OF MOVEMENT AND PRESENCE OF TRIGGER POINT AT THE AFFECTED AREA. I WENT OVER THE RISKS, ALTERNATIVES, AND BENEFITS ASSOCIATED WITH THIS PROCEDURE. THE PATIENT WOULD LIKE TO PROCEED AND GIVES CONSENT TO PERFORM THE PROCEDURE. THE PATIENT DENIES UNEXPLAINABLE WEIGHT LOSS, FEVER, CHILLS, OR NEW CHANGES IN URINARY OR BOWEL CONTROL DESCRIPTION OF PROCEDURE THE PATIENT WAS BROUGHT TO THE PROCEDURE ROOM AND PLACED IN THE SITTING POSITION. THE AREA WAS CLEANED WITH ALCOHOL. THE PROCEDURE WAS DONE USING ASEPTIC STERILE TECHNIQUE. I CHECKED LATERALITY AND THE LEVEL WHERE THE PROCEDURE WAS GOING TO BE PERFORMED WITH THE PATIENT AND THE SUPPORTING STAFF AT THE MOMENT OF THE TIME OUT IN THE PROCEDURE ROOM. USING A 25-GAUGE NEEDLE, TRIGGER POINTS WERE INJECTED AT THE LEFT NECK AREA AND LEFT SHOULDER AREA WITH A TOTAL OF 40 ML OF BUPIVACAINE 0.25% AND KENALOG 40 MG. THERE WAS NO EVIDENCE OF BLOOD, PARESTHESIA OR CEREBROSPINAL FLUID DURING THE PROCEDURE. THE PATIENT WAS SENT TO THE RECOVERY ROOM. THE PATIENT WAS MOVING THE EXTREMITIES AND DOING WELL. THERE WAS NO COMPLICATION DURING THE PROCEDURE POST PROCEDURE NOTE THE PATIENT WILL BE SEEN IN A FOLLOW UP IN THE NEXT FEW WEEKS. INSTRUCTIONS WERE GIVEN, QUESTIONS WERE ANSWERED, AND THE PATIENT EXPRESSED UNDERSTANDING AND AGREES WITH THE PLAN. I, AMRIT PANDEY, DOCUMENTED THE ABOVE INFORMATION ACTING A SCRIBE FOR DR. ANDERSON. I HAVE REVIEWED THE ABOVE DOCUMENT, WRITTEN BY AMRIT GRACE AND I VERIFY THAT IT IS ACCURATE. PROCEDURE CODES 52660 INJ TRIGGER POINT / [facility] DISPOSITION & COMMUNICATION FOLLOW UP 3 WEEKS ELECTRONICALLY SIGNED BY ALEYDA ANDERSON MD, MD ON 05/18/2019 AT 02:30 PM EST DISCLAIMER : THIS IS A VISIT SUMMARY EXTRACTED FROM THE [facility] CHART. IT IS NOT A COPY OF THE [facility] PROGRESS NOTE. [facility]
== END ==
LOC: M PAIN 13:30
PROVIDERS: ATTEND Anesthesiology
DX: M79.18 Myalgia, other site (principal)
CPT/HCPCS: 20552; J3301

== ENCOUNTER → 2019-05-29 | Outpatient (CLI) | payer MEDICARE ==
[~2019-05-29] MED LIST changes: -BUPIVACAINE HCL 0.25% 10 ML VIAL As Ordered ONE; -BUPIVACAINE HCL 0.25% 30 ML VIAL As Ordered ONE; +OMEP-172 PO; -OMEP20CA4 PO; -TRIAMCINOLONE ACETONIDE SUSP 40 MG/ML VIAL (J3301) As Ordered ONE; -diazePAM 5 MG TAB As Ordered ONE; -oxyCODONE 5MG TAB As Ordered ONE
--- NOTE | 2019-06-02 01:17 | ECWPNPC ---
PATIENT NAME: DEJON WESTFALL : 1955 GENDER: FEMALE VISIT DATE: 05/29/2019 DISCHARGE DATE: 05/29/19958 VISIT LOCKED DATE TIME: PHYSICIAN: ANDREA FALCON RESOURCE: ANDREA FALCON REASON FOR APPOINTMENT 1. POST TPI HISTORY OF PRESENT ILLNESS HISTORY OF PRESENT ILLNESS: PAIN THE PATIENT DESCRIBES THE PAIN... 63-YEAR-OLD FEMALE IN FOR POST TPI FOLLOW-UP. SHE RATES HER PAIN PREPROCEDURE AT A 6 OUT OF 10 AND POSTPROCEDURE AT A 3-4 OUT OF 10. SHE DOES NOT FEEL THIS PROCEDURE WAS EFFECTIVE OVERALL AND ADMITS TO CONTINUED PAIN IN HER LEFT NECK AND SHOULDER. SHE RATES HER PAIN CURRENTLY AT A 3 OUT OF 10 AND DESCRIBES IT ACHING, SORE, AND TENDER. FALL RISK SCREENING: SCREENING :NO FALLS REPORTED IN THE LAST YEAR CURRENT MEDICATIONS TAKING VENTOLIN HFA 108 (90 BASE) MCG/ACT AEROSOL SOLUTION DIRECTED INHALATION TAKING CLONAZEPAM 1 MG TABLET 1 TABLET ORALLY BID TAKING ONE DAILY COMPLETE - TABLET DIRECTED ORALLY TAKING LISINOPRIL 5 MG TABLET 1 TABLET ORALLY ONCE A DAY TAKING SYMBICORT 160-4.5 MCG/ACT AEROSOL 2 PUFFS INHALATION TWICE A DAY TAKING PRAVASTATIN SODIUM 40 MG TABLET 1 TABLET ORALLY ONCE A DAY TAKING MONTELUKAST SODIUM 10 MG TABLET 1 TABLET ORALLY ONCE A DAY TAKING OMEPRAZOLE 20 MG CAPSULE DELAYED RELEASE 1 CAPSULE ORALLY ONCE A DAY TAKING VENLAFAXINE HCL ER 225 MG TABLET EXTENDED RELEASE 24 HOUR 1 TABLET WITH FOOD ORALLY ONCE A DAY TAKING EXCEDRIN EXTRA STRENGTH 250-250-65 MG TABLET 2 TABLETS ORALLY ONCE A DAY NEEDED, NOTES: NOT LATELY TAKING MAY USE CBD CREAM TOPICALLY NEEDED TAKING GABAPENTIN 100 MG CAPSULE DIRECTED ORALLY TID FOR PAIN, NOTES: 05-12-19 0700 TAKING ZONISAMIDE 100 MG CAPSULE 1 CAPSULE ORALLY TWICE A DAY UNKNOWN ASPIRIN 81 81 MG TABLET DELAYED RELEASE 1 TABLET ORALLY EVERY OTHER DAY UNKNOWN LORATADINE 10 MG TABLET 1 TABLET ORALLY ONCE A DAY MEDICATION LIST REVIEWED AND RECONCILED WITH THE PATIENT PAST MEDICAL HISTORY ASTHMA CHRONIC NECK PAIN HYPERTENSION ANXIETY NOROVIRUS INFLUENZA ECOLI ALLERGIES DICYCLOMINE HCL: UNCONTROLLABLE CRYING, VISION CHANGES, FELT FUNNY, CONFUSED - SIDE EFFECTS SURGICAL HISTORY PARTIAL JAW REPLACEMENT 1986 RIGHT KNEE MENISCUS 2015 FAMILY HISTORY FATHER: UNKNOWN MOTHER: , BLOOD CLOT AFTER SURGERY SIBLINGS: , SISTER-LUNG CANCER BROTHER- #1MALARIA, LEUKEMIA FROM AGENT ORANGE #2 DRUG ADDICTION, DIAGNOSED WITH OTHER MALIGNANT NEOPLASM OF UNSPECIFIED SITE HAS ADOPTED DAUGHTER. SOCIAL HISTORY GENERAL: TOBACCO USE ARE YOU A:NONSMOKER PAIN CLINIC PFS, CLERGY, PUBLIC HEALTH REFERRALS HAS THE PATIENT BEEN EDUCATED REGARDING HIS/HER PLAN OF CARE?YES HAS THE PATIENT BEEN EDUCATED REGARDING PAIN, THE RISK FOR PAIN, THE IMPORTANCE OF EFFECTIVE PAIN MANAGEMENT, AND THE PAIN ASSESSMENT PROCESS?YES LATEX QUESTIONNAIRE LATEX ALLERGY : HAVE YOU EVER DEVELOPED ANY TYPE OF REACTION AFTER HANDLING LATEX PRODUCTS SUCH RUBBER GLOVES, CONDOMS, DIAPHRAGMS, BALLOONS, SOCKS, OR UNDERWEAR?NO LATEX ALLERGY : HAVE YOU EVER DEVELOPED ANY TYPE OF REACTION DURING OR AFTER DENTAL APPOINTMENT, VAGINAL/RECTAL EXAMINATION, SURGICAL PROCEDURE, OR ANY OTHER EXPOSURE?NO DATE ASKED : 02/20/2019 LATEX RISK : HAVE YOU EVER HAD ANY DIFFICULTY BREATHING OR HIVES AFTER EATING OR HANDLING ANY FRUITS, OR VEGETABLES; SUCH KIWI, BANANAS, STONE FRUITS, OR CHESTNUTSNO LATEX RISK : DO YOU HAVE A PREVIOUS PERSONAL HISTORY OF MORE THAN NINE SURGERIES, SPINA BIFIDA, OR REPEATED CATHERIZATIONS? NO LATEX RISK : ARE YOU FREQUENTLY EXPOSED TO LATEX PRODUCTS IN YOUR OCCUPATION?NO CAFFEINE CAFFEINE USE?YES HOW OFTEN AND HOW MUCH? (3) 16OZ BOTTLES OF PEPSI/DAY ADVANCE DIRECTIVE ADVANCE DIRECTIVE DISCUSSED WITH PATIENT:YES PT STATES SHE HAS HCP:1. -MARLENY [phone](H) [phone](C)-CALL 1ST 2. DAUGHTER-JAKI [phone] EDUCATION LEVEL OF EDUCATION:FINISHED COLLEGE BACHELORS ORIENTAL ORTHODOX [id number] GNOSTICIST LANGUAGE LANGUAGES SPOKEN:AZERBAIJANI DOMESTIC VIOLENCE DO YOU FEEL SAFE IN YOUR ENVIRONMENT?YES ALCOHOL SCREENING DID YOU HAVE A DRINK CONTAINING ALCOHOL IN THE PAST YEAR?NO POINTS0 INTERPRETATIONNEGATIVE RECREATIONAL DRUG USE DRUG USE?NO LEARNING BARRIERS / SPECIAL NEEDS BARRIERS TO LEARNING?NO HEARING IMPAIRED?NO VISION IMPAIRED?YES COGNITIVELY IMPAIRED?NO :CORRECTIVE LENSES READINESS TO LEARN?YES LEARNING PREFERENCES?YES :DEMONSTRATION/VERBAL INSTRUCTION LEARNING CAPABILITIES PRESENT?YES EMOTIONAL BARRIERS?NO SPECIAL DEVICES?NO AUTO SERVICE REPRESENTATIVE NEEDED?NO REVIEWED WITH PT 11/07/18 1024 BV02/20/19 REVIEWED WITH PT. MEMO WITH PATIENT 04/21/19 1350 JS. HOSPITALIZATION/MAJOR DIAGNOSTIC PROCEDURE HOSPITALIZED FOR 3 DAYS FOR INFLUENZA 06/2017 HOSPITALIZED FOR 8 DAYS FOR NOROVIRUS 10/2017 ECOLI 01/2019 DEHYDRATION REVIEW OF SYSTEMS REVIEWED BY: PROVIDER: MIKO BARBOSAC . CONSTITUTIONAL: ANY CHANGE IN YOUR MEDICAL CONDITION? NO . CHILLS NO . FEVER NO . INFECTION: DO YOU HAVE NEW INFECTIONS? NO . DO YOU HAVE HISTORY OF MRSA? NO . MUSCULOSKELETAL: ANY NEW PATTERNS OF PAIN OR NUMBNESS? NO . GASTROENTEROLOGY: ANY NEW CHANGE IN BOWEL CONTROL? NO . GENITOURINARY: ANY NEW CHANGE IN BLADDER CONTROL? NO . IS THERE A CHANCE YOU COULD BE ? NO . HEMATOLOGY/LYMPH: DO YOU TAKE ANY BLOOD THINNERS? (FOR EXAMPLE- COUMADIN, PLAVIX, AGGRENOX, PLATEL, PRADAXA, OR XARELTO) NO . WHEN WAS YOUR LAST DOSE? DATE: TIME: . NEUROLOGY: HAVE YOU FALLEN IN THE PAST 12 MONTHS? FALL ON THANKSGIVEING , CAUSE BEING " CARELESSNESS" . ANY NEW EXTREMITY NUMBNESS OR WEAKNESS? NO . CARDIOLOGY: DO YOU HAVE A PACEMAKER OR DEFIBRILLATOR? NO . RESPIRATORY: HAVE YOU BEEN SICK IN THE PAST WEEK? NO . FEVER NO . FLU LIKE SYMPTOMS? NO . COUGH NO . INTEGUMENTARY: DO YOU HAVE ANY RASHES OR OPEN SORES? NO . ALLERGIC/IMMUNO: ARE YOU ALLERGIC TO IV DYE? NO . ANY NEW ALLERGIES? NO . PSYCHIATRIC: DO YOU HAVE THOUGHTS OF HURTING YOURSELF OR SOMEONE ELSE? NO . ARE YOU ABUSED, NEGLECTED, OR IN AN UNSAFE ENVIRONMENT? NO . ENDOCRINOLOGY: ARE YOU DIABETIC? NO . OTHER: DO YOU NEED ANY PRESCRIPTIONS? NO . IF YES, PLEASE LIST: ____ . ANY NEW PROBLEMS WITH YOUR MEDICATIONS? NO . WHEN DID YOU LAST EAT? ____ . WHEN DID YOU LAST DRINK? ____ . WHAT DID YOU LAST DRINK? ____ . NAME OF PERSON DRIVING YOU HOME? ____ . DO YOU HAVE ANY OTHER QUESTIONS OR CONCERNS NO . VITAL SIGNS WT 173.0 LBS, HT 69 IN, BMI 25.54 INDEX, BP 156/78 MM HG, HR 100 /MIN, RR 16 /MIN, TEMP 97.0 F, OXYGEN SAT % 99%, SAFE IN ENV? (Y/N) YES, NA INITIALS AW 0921, REVIEWED BY: KG. EXAMINATION GENERAL EXAMINATION: GENERALNO ACUTE DISTRESS, WELL NOURISHED AND HYDRATED. PSYCHAPPROPRIATE MOOD AND AFFECT . LUNGS:CLEAR TO AUSCULTATION BILATERALLY, NO WHEEZES, RHONCHI, RALES. HEART:NO MURMURS, REGULAR RATE AND RHYTHM. ASSESSMENTS CERVICAL DISC DISORDER WITH RADICULOPATHY OF CERVICAL REGION - M50.10 (PRIMARY) TREATMENT CERVICAL DISC DISORDER WITH RADICULOPATHY OF CERVICAL REGION NOTES: ADRIEN C5-C6 C6-C7. CLINICAL NOTES: 63-YEAR-OLD FEMALE IN FOR TPI FOLLOW-UP. GIVEN PRESENTING SYMPTOMS AND RESULTS OF PHYSICAL EXAMINATION RECOMMENDED ADRIEN C4-C5 C6-C7 WITH POST PROCEDURAL FOLLOW-UP. PATIENT HAS EXPRESSED UNDERSTANDING OF AND WAS IN AGREEMENT WITH TREATMENT PLAN. GIVEN TIME TO ASK QUESTIONS AND EXPRESS CONCERNS. PREVENTIVE MEDICINE PAIN CLINIC TEACHING: PROCEDURE TEACHING PT GIVEN WRITTEN AND VERBAL EDUCATION ON CERVICAL EPIDURAL INJECTIONS. PT ALSO GIVEN WRITTEN AND VERBAL PRE PROCEDURE INSTRUCTIONS. PT VERBALIZES UNDERSTANDING OF ALL EDUCATION AND INSTRUCTIONS. MATEUSZ GRANGER 05/29/2019 10:51:23 AM > . PROCEDURE CODES FA211 ESTABILISHED PATIENT [facility] CHARGE DISPOSITION & COMMUNICATION FOLLOW UP POSTPROCEDURE (REASON: ADRIEN C4-C5 C6-C7) ELECTRONICALLY SIGNED BY KRIS PAUL ON 06/01/2019 AT 08:28 AM EST DISCLAIMER : THIS IS A VISIT SUMMARY EXTRACTED FROM THE [employer] CHART. IT IS NOT A COPY OF THE [employer] PROGRESS NOTE. KAITLYNN
== END ==
LOC: M PAIN 09:15
PROVIDERS: ATTEND Family Medicine
DX: M50.10 Cervical disc disorder with radiculopathy, unspecified cervical region (principal); J45.909 Unspecified asthma, uncomplicated; I10 Essential (primary) hypertension; Z86.59 Personal history of other mental and behavioral disorders; Z88.8 Allergy status to other drugs, medicaments and biological substances; Z79.899 Other long term (current) drug therapy

== ENCOUNTER 2019-07-09 17:25 | Inpatient (IN) | payer MEDICARE ==
[~2019-07-09] VITALS: Ht 175.3 cm; Wt 81.1 kg
[~2019-07-09 17:25] MED LIST changes: -OMEP-172 PO; +OMEP1CAP73 PO
[2019-07-09] MEDS ORDERED: NS 2,350 ML in IV 1 EA IV ONE (17:45)
[2019-07-09 18:00] LABS: BASO # 0.1 10^3/uL (0.0-0.2); BASO % 0.6 % (0.0-1.0); EOS # 0.1 10^3/uL (0.0-0.5); EOS % 0.6 % (0.0-3.0); HEMATOCRIT 37.7 % (36.0-47.0); HEMOGLOBIN 12.4 g/dl (12.0-15.5); LYMPH # 2.1 10^3/uL (1.5-5.0); LYMPH % 9.2 % (24.0-44.0); MEAN CORPUSCULAR HEMOGLOBIN 31.9 pg (27.0-33.0); MEAN CORPUSCULAR HGB CONC 32.9 g/dl (32.0-36.5); MEAN CORPUSCULAR VOLUME 96.9 fl (80.0-96.0); MONO # 1.2 10^3/uL (0.0-0.8); MONO % 5.6 % (0.0-5.0); NEUTROPHILS # 18.5 10^3/uL (1.5-8.5); NEUTROPHILS % 83.3 % (36.0-66.0); PLATELET COUNT, AUTOMATED 359 10^3/uL (150-450); RED BLOOD COUNT 3.89 10^6/uL (4.00-5.40); WHITE BLOOD COUNT 22.2 10^3/uL (4.0-10.0)
[2019-07-09 18:14] LABS: INR 1.24; PARTIAL THROMBOPLASTIN TIME 29.1 SECONDS (25.0-38.4); PROTHROMBIN TIME 15.4 SECONDS (11.8-14.0)
[2019-07-09 18:16] LABS: VENOUS BASE EXCESS -11.7 (-2.0-2.0); VENOUS HCO3 17.1 MEQ/L (23.0-27.0); VENOUS O2 SATURATION 73.3 % (60.0-80.0); VENOUS PARTIAL PRESSURE CO2 50.6 mmHg (38.0-50.0); VENOUS PARTIAL PRESSURE O2 43.1 mmHg (30.0-50.0); VENOUS PH 7.147 UNITS (7.330-7.430); VENOUS STANDARD HCO3 14.9 MEQ/L; VENOUS TOTAL CO2 18.7 MEQ/L (24.0-28.0)
[2019-07-09 18:27] LABS: ALBUMIN 3.2 GM/DL (3.2-5.2); ALT/SGPT 18 U/L (12-78); BILIRUBIN,DIRECT < 0.1 MG/DL (0.0-0.2); BILIRUBIN,TOTAL 0.5 MG/DL (0.2-1.0); BLOOD UREA NITROGEN 21 MG/DL (7-18); C REACTIVE PROTEIN QUANTITATIV 1.25 MG/DL (0.00-0.30); CALCIUM LEVEL 8.2 MG/DL (8.8-10.2); CARBON DIOXIDE LEVEL 21 MEQ/L (21-32); CHLORIDE LEVEL 113 MEQ/L (98-107); CK-MB VALUE MASS 1.8 NG/ML (<3.6); CPK CREATINE PHOSPHOKINASE 65 U/L (26-192); CREATININE FOR GFR 1.81 MG/DL (0.55-1.30); GLOMERULAR FILTRATION RATE 29.9 (>45); GLUCOSE, FASTING 143 MG/DL (70-100); MB/CK RELATIVE INDEX 2.77 (< OR =4); SODIUM LEVEL 142 MEQ/L (136-145); TOTAL PROTEIN 6.2 GM/DL (6.4-8.2); TROPONIN I < 0.02 NG/ML (< 0.10)
--- NOTE | 2019-07-09 18:27 | REP ---
CHEST, PORTABLE: AP portable view of the chest is performed and compared to prior study of 03/04/2019. Irregular nodular lesion in the right upper lobe peripherally appears mildly larger than when compared to the prior study. No acute infiltrate is seen. Heart is normal in size and there is calcification of the thoracic aorta. Mediastinal silhouette is unchanged. Electronically Signed by Yahir Hare MD 07/09/2019 07:16 P
[2019-07-09] MEDS ORDERED: cefTRIAXone SOD 2 GM in D5W MINI-BAG PLUS 50 ML IV ONE (18:30)
[2019-07-09 18:44] LABS: INFLUENZA A AMPLIFICATION NEGATIVE (NEGATIVE); INFLUENZA B AMPLIFICATION NEGATIVE (NEGATIVE)
[2019-07-09] MEDS ORDERED: COLA100C5 PO (18:54)
[2019-07-09] MEDS ORDERED: ZONI100C17 PO (18:54)
[2019-07-09] MEDS ORDERED: ALEV220T22 PO (18:54)
[2019-07-09] MEDS ORDERED: MIRA3350 PO (18:54)
[2019-07-09] MEDS ORDERED: VENL150C43 PO (18:54)
--- NOTE | 2019-07-09 19:32 | REPVR ---
PROCEDURE INFORMATION: Exam: CT Chest Without Contrast Exam date and. The cyst: 07/09/2019 6:22 PM Exam date and time: 07/09/2019 6:22 PM Age: 63 years old Clinical indication: Other: Hypotension TECHNIQUE: Imaging protocol: Computed tomography of the chest without contrast. Radiation optimization: All CT scans at this facility use at least one of these dose optimization techniques: automated exposure control; mA and/or kV adjustment per patient size (includes targeted exams where dose is matched to clinical indication); or iterative reconstruction. COMPARISON: CT Chest without contrast 01/14/2019 12:49 PM FINDINGS: Lungs: Mild bilateral apical paraseptal emphysematous changes. Pleural space: Increasing size of a cavitating right upper lobe mass now measuring 3 x 2.9 x 3.4 cm the mass now extends to the lateral pleural surface associated with focal pleural thickening. Heart: Unremarkable. No cardiomegaly. No pericardial effusion. Moderate atherosclerotic changes in the coronary arteries. Aorta: The aorta demonstrates mild atherosclerotic calcification. Lymph nodes: Unremarkable. No enlarged lymph nodes. Bones/joints: Unremarkable. No acute fracture. Soft tissues: Unremarkable. IMPRESSION: 1. Increasing size of a cavitating right upper lobe mass now measuring 3 x 2.9 x 3.4 cm the mass now extends to the lateral pleural surface associated with focal pleural thickening. 2. Mild bilateral apical paraseptal emphysematous changes. Electronically signed by: Marco Finnegan On 07/09/2019 19:32:13 PM
--- NOTE | 2019-07-09 19:44 | REPVR ---
PROCEDURE INFORMATION: Exam: CT Abdomen And Pelvis Without Contrast Exam date and time: 07/09/2019 6:22 PM Age: 63 years old Clinical indication: Other: Hypotension TECHNIQUE: Imaging protocol: Computed tomography of the abdomen and pelvis without contrast. Radiation optimization: All CT scans at this facility use at least one of these dose optimization techniques: automated exposure control; mA and/or kV adjustment per patient size (includes targeted exams where dose is matched to clinical indication); or iterative reconstruction. COMPARISON: CT ABD PELVIS W/O CONTRAST 01/14/2019 12:49 PM FINDINGS: Mediastinum: A small hiatal hernia is present. Liver: Normal. No mass. Gallbladder and bile ducts: Normal. No calcified stones. No ductal dilation. Pancreas: There is diffuse pancreatic atrophy. Spleen: Normal. No splenomegaly. Adrenals: Normal. No mass. Kidneys and ureters: Normal. No hydronephrosis. Stomach and bowel: There is increased fluid in the right hemicolon and mural stratification and wall thickening in the distal transverse, splenic flexure and descending colon. Clinical correlation to exclude colitis suggested. Inflammatory changes demonstrated adjacent to the duodenal sweep with some dilatation of the duodenal sweep, findings which may indicate the presence of acute duodenitis. Appendix: No evidence of appendicitis. Intraperitoneal space: Unremarkable. No free air. No significant fluid collection. Vasculature: The aorta and iliac arteries demonstrates mild atherosclerotic calcification. Lymph nodes: Unremarkable. No enlarged lymph nodes. Bladder: Unremarkable as visualized. Reproductive: Unremarkable as visualized. Bones/joints: Moderate to severe central spinal stenosis L3-L4, L4-L5. Soft tissues: Unremarkable. IMPRESSION: 1. Small hiatal hernia. 2. There is increased fluid in the right hemicolon and mural stratification and wall thickening in the distal transverse, splenic flexure and descending colon. Clinical correlation to exclude colitis suggested. 3. Inflammatory changes demonstrated adjacent to the duodenal sweep with some dilatation of the duodenal sweep, findings which may indicate the presence of acute duodenitis. 4. There is diffuse pancreatic atrophy. Electronically signed by: Marco Finnegan On 07/09/2019 19:44:03 PM
--- NOTE | 2019-07-09 20:17 | HPEPDOC ---
General Date of Admission Jul 09, 2019 at 19:40 Date of Service: Jul 09, 2019 Chief Complaint The patient is a 63-year-old female Who presented to the emergency room with complaints of abdominal pain associated with nausea and vomiting History of Present Illness Patient is a 63-year-old female with a PMHx of Chronic constipation (Follows with Dr. Grayson), Hx of E. Coli Diarrhea, HTN, DLP, COPD, Anxiety, Neuropathy, Chronic pain 2/2 Herniated disks at cervical spine (Follows with pain clinic) and GERD, presented to the emergency room with complaint of abdominal pain associated with nausea and vomiting. Patient reported that today around 1 PM she began to experience a single episode of diarrhea followed by multiple episodes of nausea and vomiting. Reported approximately 5-6 times of vomiting. . He denied any blood in her stool or her vomitus. Patient reported abdominal pain that occurred at the lower portion of her abdomen, rated an 8-9/10, reported as painful, continuous, non-radiating, without any alleviating or aggravating factors. Patient reported that she felt w eak and was unable to ambulate and crawled to her bed. She contacted her daughter who then called EMS for further assistance. Upon arrival to emergency room, patient was found to have a systolic blood pressure in 70s. This has responded to IV fluid hydration. Clinically, patient reports that her abdominal pain has resolved. She denies any nausea, vomiting. Denies chest pain, shortness of breath, palpitations, cough, discomfort with urination. Patient denies experiencing any fevers, chills. Over the last 2 weeks. She reports her appetite has been fairly normal, however, today it has obviously decreased. She reports that her weight has remained consistent. Home Medications Scheduled Budesonide/Formoterol (Symbicort 160-4.5 Mcg Inhaler) 60 Puff/Inhaler Aers, 2 PUFF INH BID, (Reported) Clonazepam (Clonazepam) 1 Mg Tab, 1 MG PO BID, (Reported) Docusate Sodium (Colace) 100 Mg Capsule, 200 MG PO QHS, (Reported) Gabapentin (Gabapentin) 100 Mg Capsule, 100 MG PO TID, (Reported) Lisinopril (Lisinopril) 5 Mg Tab, 5 MG PO DAILY, (Reported) Montelukast Sodium (Singulair) 10 Mg Tab, 10 MG PO DAILY, (Reported) Multivitamins (Thera M Plus Tablet) 1 Tab Tab, 1 TAB PO DAILY, (Reported) Omeprazole (Omeprazole) 20 Mg Cap, 20 MG PO DAILY, (Reported) Polyethylene Glycol 3350 (Miralax) 119 Gm Powder, 17 GM PO DAILY, (Reported) dilute in 8 ounces of water or juice Pravastatin Sodium (Pravastatin Sodium) 40 Mg Tab, 40 MG PO DAILY, (Reported) Venlafaxine HCl (Effexor Xr) 75 Mg Cap, 75 MG PO DAILY, (Reported) TAKES WITH 150MG FOR TOTAL DOSE 225MG Venlafaxine HCl (Venlafaxine HCl ER) 150 Mg Cap.er.24h, 150 MG PO DAILY, (Reported) TAKES WITH 75MG FOR TOTAL DOSE 225MG Zonisamide (Zonisamide) 100 Mg Capsule, 100 MG PO BID, (Reported) Scheduled PRN Albuterol Sulfate (Ventolin Hfa) 108 Mcg/Act Aer, 2 PUFFS INH Q4H PRN for SHORTNESS OF BREATH, (Reported) Naproxen Sodium (Aleve) 220 Mg Tablet, 220 MG PO BID PRN for PAIN, (Reported) Allergies Coded Allergies: umeclidinium (Verified Adverse Reaction, Mild, dizzy, black spots in front of eyes, 05/19/19) Past Medical History Medical History Chronic constipation (Follows with Dr. Grayson), Hx of E. 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 Review of Systems Other systems 10 point review of systems complete, all negative otherwise stated in HPI Vital Signs - Vitals: BP 102/63, HR 86, RR 13, Sat 97%RA, Temp 97.0 - General: Lying in bed, No acute distress, Speaking in full sentences, AAOx3 - HEENT: NC, AT, PERRLA, EOMI - CVS: RRR, +S1S2 - Lungs: Fair air entry bilaterally, No appreciable wheezing / rales / rhonchi - Abdomen: Soft, Non-distended, does not reveal any significant abdominal tenderness - Extremities: No lower extremity edema, No calf tenderness - Neuro: No focal motor or sensory deficit - Skin: No visible rashes Laboratory Data Labs 24H Laboratory Tests 2 07/09/19 17:35: Immature Granulocyte % (Auto) 0.7, Neutrophils (%) (Auto) 83.3H, Lymphocytes (%) (Auto) 9.2L, Monocytes (%) (Auto) 5.6H, Eosinophils (%) (Auto) 0.6, Basophils (%) (Auto) 0.6, Neutrophils # (Auto) 18.5H, Lymphocytes # (Auto) 2.1, Monocytes # (Auto) 1.2H, Eosinophils # (Auto) 0.1, Basophils # (Auto) 0.1, Nucleated Red Blood Cells % (auto) 0.0, Prothrombin Time 15.4H, Prothromb Time International Ratio 1.24, Activated Partial Thromboplast Time 29.1, Anion Gap 8, Glomerular Filtration Rate 29.9L, Lactic Acid Level 1.2, Calcium Level 8.2L, Total Bilirubin 0.5, Direct Bilirubin < 0.1, Aspartate Amino Transf (AST/SGOT) 17, Alanine Aminotransferase (ALT/SGPT) 18, Alkaline Phosphatase 84, Total Creatine Kinase 65, Creatine Kinase MB 1.8, Creatine Kinase MB Relative Index 2.77, Troponin I < 0.02, C-Reactive Protein, Quantitative 1.25H, Total Protein 6.2L, Albumin 3.2, Albumin/Globulin Ratio 1.07 07/09/19 17:47: POC Glucose (Misc Panel) 149H, POC Sodium (Misc Panel) 140, POC Potassium (Misc Panel) 3.8, POC Chloride (Misc Panel) 109, POC Total CO2 (Misc Panel) 20.0L, POC Blood Urea Nitrogen (Misc Panel 21, POC Ionized Calcium (Misc Panel) 4.7, POC Creatinine (Misc Panel) 1.8H, POC Hematocrit (Misc Panel) 38.0 07/09/19 18:00: Blood Gas Bicarbonate Standard 14.9, Venous Blood pH 7.147L, Venous Blood Partial Pressure CO2 50.6H, Venous Blood Partial Pressure O2 43.1, Venous Blood Total Carbon Dioxide 18.7L, Venous Blood HCO3 17.1L, Venous Blood Oxygen Saturation 73.3, Venous Blood Base Excess -11.7L, Influenza Type A (RT-PCR) NEGATIVE, Influenza Type B (RT-PCR) NEGATIVE CBC/BMP Laboratory Tests 07/09/19 17:35 Microbiology Microbiology 07/09/19 Blood Culture, Received Pending 07/09/19 Blood Culture, Received Pending Plan / VTE VTE Prophylaxis Ordered?: Yes Plan Plan Hypotension - likely 2/2 hypovolemic etiology - 2/2 nausea / vomiting / diarrhea, less likely 2/2 sepsis - 2/2 intra-abdominal etiology - Patient has presented to the emergency room brought in by EMS after she experience weakness and inability to walk - In the ER, patient was found to have systolic blood pressures in the 70s; this has responded with IV fluid hydration; currently, patient systolic blood pressure is in the 100-110 range - Will check blood cultures, urinalysis, urine culture, GI panel - Will continue with IV fluid hydration Nausea, vomiting and diarrhea associated with abdominal pain - possibly 2/2 enteritis / colitis - Currently patient has reported resolution of her symptoms - Physical without any epigastric tenderness - Profound leukocytosis with neutrophil predominance; no lactic acidosis - CT abdomen / pelvis 07/09: 1. Small hiatal hernia. 2. There is increased fluid in the right hemicolon and mural stratification and wall thickening in the distal transverse, splenic flexure and descending colon. Clinical correlation to exclude colitis suggested. 3. Inflammatory changes demonstrated adjacent to the duodenal sweep with some dilatation of the duodenal sweep, findings which may indicate the presence of acute duodenitis. 4. There is diffuse pancreatic atrophy. - Blood cultures pending; will check GI panel, urine analysis and urine cultures - Will empirically cover with ciprofloxacin and Flagyl - pending results of GI panel Acute kidney injury - likely 2/2 pre-renal etiology, possibly 2/2 intra-renal etiology - 2/2 possible ATN - Baseline creatinine approximately 1.0; current creatinine of 1.8 - Will avoid nephrotoxic medications - Will continue with aggressive IV fluid hydration Lung Lesion - CXR 07/09: Irregular nodular lesion in the right upper lobe peripherally appears mildly larger than when compared to the prior study. No acute infiltrate is seen. Heart is normal in size and there is calcification of the thoracic aorta. Mediastinal silhouette is unchanged. - CT chest 07/09: 1. Increasing size of a cavitating right upper lobe mass now measuring 3 x 2.9 x 3.4 cm the mass now extends to the lateral pleural surface associated with focal pleural thickening. 2. Mild bilateral apical paraseptal emphysematous changes. - Findings were discussed with the patient - Will require follow up with Pulmonology; possibly as an outpatient Chronic constipation - Follows with Dr. Grayson - Patient has had a recent EGD and colonoscopy in May 2019; multiple polyps were found; pathology reviewed and was negative for malignancies - Colonoscopy did reveal abnormal finding and transverse colon; possible correlation with imaging above - Will likely require outpatient follow-up with Dr. Grayson Hx of E. Coli Diarrhea - GI panel pending HTN - Patient was initially hypotensive upon arrival to emergency room - Will hold lisinopril at this time DLP - Continue with pravastatin COPD - No evidence of exacerbation - Continue with inhaled therapy as ordered Anxiety - Continue with benzodiazepines from outpatient setting Neuropathy - Continue with gabapentin Chronic pain 2/2 Herniated disks at cervical spine - Patient follows with pain clinic - We will continue with venlafaxine and Zonisamide GERD - c/w Protonix DVT prophylaxis - Will start Heparin VIRGINIE LORD MD Jul 09, 2019 20:17
[2019-07-09] MEDS: DOCUSATE SODIUM 100 MG CAP PO SCH (21:00)
[2019-07-09 21:07] VITALS: BP 108/70
--- NOTE | 2019-07-09 21:18 | ECGEPIP ---
[facility] - ED Test Date: 2019-07-09 Pat Name: DEJON WESTFALL Department: Room: - Gender: Female Supervisor Riprap Placing: franchesca : 1955 Requested By: Frannie Nelson Order Number: [id number] Reading MD: Frannie Nelson Measurements Intervals [place]aud Rate: 96 P: 33 MI: 142 QRS: 19 QRSD: 82 T: 41 QT: 380 QTc: 481 Interpretive Statements SINUS RHYTHM WITH OCCASIONAL VENTRICULAR PREMATURE COMPLEXES NONSPECIFIC T-WAVE ABNORMALITY PROLONGED QTC SIMILAR 02/08/19 Electronically Signed on 07-09-2019 21:17:46 EST by Frannie Nelson
[2019-07-09] MEDS: GABAPENTIN 100 MG CAP PO SCH (21:47)
[2019-07-09] MEDS: clonazePAM 1 MG TAB PO SCH (21:48)
[2019-07-09] MEDS: ZONISAMIDE 100 MG CAP (ZONEGRAN) PO SCH (21:48)
[2019-07-09] MEDS: metroNIDAZOLE 500 MG in IV 1 EA IV SCH (21:48)
[2019-07-09] MEDS: NS 1,000 ML IV SCH (21:49)
[2019-07-10] VITALS: BP 102/64
[2019-07-10] MEDS: SYMBICORT 160/4.5MCG INHALER 6GM INH SCH ×3 (03:43→20:23)
[2019-07-10 04:00] VITALS: BP 110/58
[2019-07-10 05:30] LABS: BASO # 0.1 10^3/uL (0.0-0.2); BASO % 0.5 % (0.0-1.0); EOS # 0.1 10^3/uL (0.0-0.5); EOS % 0.6 % (0.0-3.0); LYMPH # 1.8 10^3/uL (1.5-5.0); MEAN CORPUSCULAR HEMOGLOBIN 31.2 pg (27.0-33.0); MEAN CORPUSCULAR HGB CONC 32.6 g/dl (32.0-36.5); MEAN CORPUSCULAR VOLUME 95.7 fl (80.0-96.0); MONO # 0.9 10^3/uL (0.0-0.8); MONO % 6.3 % (0.0-5.0); NEUTROPHILS % 80.1 % (36.0-66.0); PLATELET COUNT, AUTOMATED 288 10^3/uL (150-450); RED BLOOD COUNT 3.24 10^6/uL (4.00-5.40)
[2019-07-10 05:37] LABS: HEMOGLOBIN 10.1 g/dl (12.0-15.5)
[2019-07-10 05:47] LABS: CALCIUM LEVEL 7.4 MG/DL (8.8-10.2); CREATININE FOR GFR 1.34 MG/DL (0.55-1.30); GLOMERULAR FILTRATION RATE 42.3 (>45); MAGNESIUM LEVEL 1.9 MG/DL (1.8-2.4); POTASSIUM SERUM 3.8 MEQ/L (3.5-5.1)
[2019-07-10] MEDS: metroNIDAZOLE 500 MG in IV 1 EA IV SCH ×3 (05:59→21:32)
[2019-07-10] MEDS: HEPARIN SOD (PORCINE) 5000 UNITS/ML VIAL SC SCH ×3 (05:59→21:33)
[2019-07-10 08:00] VITALS: BP 91/55
[2019-07-10] MEDS: MIRALAX *UNIT DOSE* 17GM PACKET PO SCH (08:40)
[2019-07-10] MEDS ORDERED: VENLAFAXINE **XR** 75MG CAPSULE PO SCH (09:00)
[2019-07-10] MEDS: VENLAFAXINE **XR** 75MG CAPSULE PO SCH (09:00)
[2019-07-10] MEDS: PRAVASTATIN 20 MG TAB PO SCH (09:01)
[2019-07-10] MEDS: OMEPRAZOLE 20 MG CAP PO SCH (09:01)
[2019-07-10] MEDS: MONTELUKAST 10 MG TAB PO SCH (09:01)
[2019-07-10] MEDS: clonazePAM 1 MG TAB PO SCH ×2 (09:01→21:32)
[2019-07-10] MEDS: ZONISAMIDE 100 MG CAP (ZONEGRAN) PO SCH ×2 (09:01→21:36)
[2019-07-10] MEDS: GABAPENTIN 100 MG CAP PO SCH ×3 (09:01→21:32)
[2019-07-10] MEDS: MULTIVITAMINS/MINERALS THERAP 1 TAB PO SCH (09:01)
[2019-07-10] MEDS: NS 1,000 ML IV SCH ×2 (09:27→21:32)
[2019-07-10 11:58] LABS: APPEARANCE, URINE CLEAR (CLEAR); BACTERIA, URINE AUTO NEGATIVE (NEGATIVE); BILIRUBIN, URINE AUTO NEGATIVE (NEGATIVE); BLOOD, URINE BLOOD NEGATIVE (NEGATIVE); COLOR, URINE YELLOW (YELLOW); GLUCOSE, URINE (UA) AUTO NEGATIVE (NEGATIVE); KETONE, URINE AUTO NEGATIVE (NEGATIVE); LEUKOCYTE ESTERASE, URINE AUTO 2+ (NEGATIVE); MUCUS, URINE SMALL (NEGATIVE); NITRITE, URINE AUTO NEGATIVE (NEGATIVE); PROTEIN, URINE AUTO NEGATIVE (NEGATIVE); RBC, URINE AUTO 1 /HPF (0-3); SPECIFIC GRAVITY URINE AUTO 1.004 (1.002-1.035); SQUAMOUS EPITHELIAL CELL UR AU 0 /HPF (0-6); UROBILINOGEN, URINE AUTO 0.2 mg/dL (0.0-2.0); WBC, URINE AUTO 18 /HPF (0-3)
[2019-07-10 12:00] VITALS: BP 108/57
[2019-07-10 16:00] VITALS: BP 143/65
[2019-07-10] MEDS: cefTRIAXone SOD 1 GM in D5W MINI-BAG PLUS 50 ML IV SCH (18:02)
[2019-07-10] MEDS: ACETAMINOPHEN TAB 650MG DOSE (2X325MG) PO PRN (18:02)
--- NOTE | 2019-07-10 18:24 | IPNPDOC ---
Date Seen The patient was seen on 07/10/19. Progress Note SUBJECTIVE: Patient reports feeling better today. States that she feels a bit "queezy" but no longer nauseous and abdomen is no longer tender. BP has been stable overnight >100 systolic. WBC 22->15. Cr 1.8->1.3 OBJECTIVE PHYSICAL EXAMINATION: VITAL SIGNS: Please see below. General: No acute distress, Alert Eyes: Normal sclera, EOMI HENT: Atraumatic Cardiovascular: Normal rate Pulmonary: Clear to auscultation b/l, no wheezing GI: Soft, nontender Skin: Warm and dry Neuro: CN grossly intact. No focal deficits. Strengths equal b/l. Psych: oriented x 3 LABORATORY DATA, IMAGING STUDIES, MICROBIOLOGY: Please see below. DVT prophylaxis ordered?: HSQ ASSESSMENT AND PLAN: 1. Suspect enteritis/colitis - Symptoms had resolved. Leukocytosis improving, no lactic acidosis. - CT abdomen shows some wall thickening in distal bowel. Likely viral enteritis. - c/w antibiotics until GI panel results. - Supportive care, IVF. 2. NANO - Pre-renal etiology for n/v/d. - IVF support. Improving. 3. Lung lesion - reportedly larger than in the past with history of lung lesion that was bi opsied about 5-6 years ago. In setting of 20 years smoking history. - Was done in [place] and patient was told everything was fine. - Discussed with pulm. can continue workup/follow outpatient. 4. Chronic constipation/abdomen symptoms - follows with Dr. Grayson and reported recent polyp resections. - need to continue follow up post discharge. - hx E. coli diarrhea. 5. HTN - Initially hypotensive but now normotensive. - Hold anti-hypertensive at this time. 6. HLD - c/w statin 7. COPD - c/w inhaled therapy. not in exacerbation. 8. Anxiety - c/w home benzo meds 9. chronic cervical spine pain 2/2 herniated disc - c/w home med DISPOSITION: Home. VS, I&O, 24H, Fishbone Vital Signs/I&O Vital Signs Date Time Temp Pulse Resp B/P (MAP) Pulse Ox O2 Delivery O2 Flow Rate FiO2 07/10/19 16:00 97.1 85 17 143/65 (91) 98 Room Air I&O- Last 24 Hours up to 6 AM 07/10/19 06:00 Intake Total 3800 ml Output Total 0 ml Balance 3800 ml Laboratory Data 24H LABS Laboratory Tests 2 07/10/19 05:09: Immature Granulocyte % (Auto) 0.5, Neutrophils (%) (Auto) 80.1H, Lymphocytes (%) (Auto) 12.0L, Monocytes (%) (Auto) 6.3H, Eosinophils (%) (Auto) 0.6, Basophils (%) (Auto) 0.5, Neutrophils # (Auto) 12.0H, Lymphocytes # (Auto) 1.8, Monocytes # (Auto) 0.9H, Eosinophils # (Auto) 0.1, Basophils # (Auto) 0.1, Nucleated Red Blood Cells % (auto) 0.0, Anion Gap 7L, Glomerular Filtration Rate 42.3L, Calcium Level 7.4L, Magnesium Level 1.9 07/10/19 11:15: Urine Color YELLOW, Urine Appearance CLEAR, Urine pH 5.0, Urine Specific [place] 1.004, Urine Protein NEGATIVE, Urine Glucose (Auto)(UA) NEGATIVE, Urine Ketones (Auto) NEGATIVE, Urine Blood NEGATIVE, Urine Nitrite NEGATIVE, Urine Bilirubin NEGATIVE, Urine Urobilinogen 0.2, Urine Leukocyte Esterase (Auto) 2+H, Urine WBC (Auto) 18H, Urine RBC (Auto) 1, Urine Hyaline Casts (Auto) 0, Urine Bacteria (Auto) NEGATIVE, Urine Squamous Epithelial Cells 0, Urine Mucus (Auto) SMALL, Urine Sperm (Auto) CBC/BMP Laboratory Tests 07/10/19 05:09 Microbiology Microbiology 07/10/19 Urine Culture, Received Pending 07/09/19 Blood Culture - Preliminary, Resulted No growth after 24 hours . All specim... 07/09/19 Blood Culture - Preliminary, Resulted No growth after 24 hours . All specim... SELAM BLUE MD Jul 10, 2019 18:24
[2019-07-10 20:00] VITALS: BP 136/71
[2019-07-10] MEDS: DOCUSATE SODIUM 100 MG CAP PO SCH (21:32)
[2019-07-11] VITALS (7 sets, daily range): BP systolic 104–142; BP diastolic 61–82
[2019-07-11] MEDS: metroNIDAZOLE 500 MG in IV 1 EA IV SCH ×3 (05:32→21:40)
[2019-07-11] MEDS: HEPARIN SOD (PORCINE) 5000 UNITS/ML VIAL SC SCH ×3 (05:32→21:41)
[2019-07-11 05:48] LABS: BASO # 0.1 10^3/uL (0.0-0.2); BASO % 1.2 % (0.0-1.0); EOS # 0.1 10^3/uL (0.0-0.5); EOS % 2.8 % (0.0-3.0); HEMATOCRIT 29.1 % (36.0-47.0); HEMOGLOBIN 9.4 g/dl (12.0-15.5); LYMPH # 1.9 10^3/uL (1.5-5.0); LYMPH % 37.1 % (24.0-44.0); MEAN CORPUSCULAR HEMOGLOBIN 31.4 pg (27.0-33.0); MEAN CORPUSCULAR HGB CONC 32.3 g/dl (32.0-36.5); MEAN CORPUSCULAR VOLUME 97.3 fl (80.0-96.0); MONO # 0.4 10^3/uL (0.0-0.8); MONO % 8.5 % (0.0-5.0); NEUTROPHILS # 2.5 10^3/uL (1.5-8.5); NEUTROPHILS % 50.2 % (36.0-66.0); PLATELET COUNT, AUTOMATED 255 10^3/uL (150-450); RED BLOOD COUNT 2.99 10^6/uL (4.00-5.40)
[2019-07-11 06:23] LABS: BLOOD UREA NITROGEN 10 MG/DL (7-18); CALCIUM LEVEL 7.6 MG/DL (8.8-10.2); CARBON DIOXIDE LEVEL 19 MEQ/L (21-32); CHLORIDE LEVEL 119 MEQ/L (98-107); CREATININE FOR GFR 0.94 MG/DL (0.55-1.30); GLOMERULAR FILTRATION RATE > 60.0 (>45); GLUCOSE, FASTING 79 MG/DL (70-100); POTASSIUM SERUM 3.6 MEQ/L (3.5-5.1); SODIUM LEVEL 145 MEQ/L (136-145)
[2019-07-11] MEDS: SYMBICORT 160/4.5MCG INHALER 6GM INH SCH ×2 (08:27→18:15)
[2019-07-11] MEDS: clonazePAM 1 MG TAB PO SCH ×2 (10:04→21:40)
[2019-07-11] MEDS: PRAVASTATIN 20 MG TAB PO SCH (10:05)
[2019-07-11] MEDS: MONTELUKAST 10 MG TAB PO SCH (10:05)
[2019-07-11] MEDS: MULTIVITAMINS/MINERALS THERAP 1 TAB PO SCH (10:05)
[2019-07-11] MEDS: OMEPRAZOLE 20 MG CAP PO SCH (10:05)
[2019-07-11] MEDS: MIRALAX *UNIT DOSE* 17GM PACKET PO SCH (10:05)
[2019-07-11] MEDS: GABAPENTIN 100 MG CAP PO SCH ×3 (10:05→21:40)
[2019-07-11] MEDS: VENLAFAXINE **XR** 75MG CAPSULE PO SCH (10:27)
[2019-07-11] MEDS: ZONISAMIDE 100 MG CAP (ZONEGRAN) PO SCH ×2 (10:27→21:40)
[2019-07-11] MEDS: ACETAMINOPHEN TAB 650MG DOSE (2X325MG) PO PRN (10:28)
[2019-07-11] MEDS: NS 1,000 ML IV SCH ×3 (12:15→19:07)
--- NOTE | 2019-07-11 13:47 | IPNPDOC ---
Date Seen The patient was seen on 07/11/19. Progress Note SUBJECTIVE: Patient reports feeling still a bit crampy in lower abdomen. Denies apparent tenderness or nausea. Afebrile overnight. WBC 22->15->5 Had not passed PT yesterday but patient reports no problems walking around at all, to re-evaluate today. OBJECTIVE PHYSICAL EXAMINATION: VITAL SIGNS: Please see below. General: Alert, mild discomfort Eyes: Normal sclera, EOMI HENT: Atraumatic Cardiovascular: Normal rate Pulmonary: Clear to auscultation b/l, no wheezing GI: Soft, nontender Skin: Warm and dry Neuro: CN grossly intact. No focal deficits. Strengths equal b/l. Psych: oriented x 3 LABORATORY DATA, IMAGING STUDIES, MICROBIOLOGY: Please see below. DVT prophylaxis ordered?: HSQ ASSESSMENT AND PLAN: 1. Suspect enteritis/colitis - Symptoms had resolved. Leukocytosis improving, no lactic acidosis. - CT abdomen shows some wall thickening in distal bowel. Likely viral enteritis. - GI panel negative but still have some abdominal crampiness. Has history of E. coli infection with GI problems, follows with Dr. Grayson. - Supportive care, IVF. 2. NANO - Pre-renal etiology for n/v/d. - IVF support. Improving. 3. Lung lesion - reportedly larger than in the past with history of lung lesion that was biopsied about 5-6 years ago. In setting of 20 years smoking history. - Was done in [place] and patient was told everything was fine. - Discussed with pulm. can continue workup/follow outpatient. 4. Chronic constipation/abdomen symptoms - follows with Dr. Grayson and reported recent polyp resections. - need to continue follow up post discharge. - hx E. coli diarrhea. 5. HTN - Initially hypotensive but now normotensive. - Hold anti-hypertensive at this time. 6. HLD - c/w statin 7. COPD - c/w inhaled therapy. not in exacerbation. 8. Anxiety - c/w home benzo meds 9. chronic cervical spine pain 2/2 herniated disc - c/w home med DISPOSITION: Home likely tomorrow. VS, I&O, 24H, Fishbone Vital Signs/I&O Vital Signs Date Time Temp Pulse Resp B/P (MAP) Pulse Ox O2 Delivery O2 Flow Rate FiO2 07/11/19 12:00 97.6 77 18 140/82 (101) 100 Room Air I&O- Last 24 Hours up to 6 AM 07/11/19 06:00 Intake Total 4460 ml Output Total 2200 ml Balance 2260 ml Laboratory Data 24H LABS Laboratory Tests 2 07/11/19 05:19: Immature Granulocyte % (Auto) 0.2, Neutrophils (%) (Auto) 50.2, Lymphocytes (%) (Auto) 37.1, Monocytes (%) (Auto) 8.5H, Eosinophils (%) (Auto) 2.8, Basophils (%) (Auto) 1.2H, Neutrophils # (Auto) 2.5, Lymphocytes # (Auto) 1.9, Monocytes # (Auto) 0.4, Eosinophils # (Auto) 0.1, Basophils # (Auto) 0.1, Nucleated Red Blood Cells % (auto) 0.0, Anion Gap 7L, Glomerular Filtration Rate > 60.0, Calcium Level 7.6L, Magnesium Level 2.0 CBC/BMP Laboratory Tests 07/11/19 05:19 Microbiology Microbiology 07/10/19 Gastrointestinal Tract Panel (PCR) - Final, Complete 07/10/19 Urine Culture - Final, Complete 07/09/19 Blood Culture - Preliminary, Resulted No growth after 24 hours . All specim... 07/09/19 Blood Culture - Preliminary, Resulted No growth after 24 hours . All specim... SELAM BLUE MD Jul 11, 2019 13:47
[2019-07-11] MEDS: cefTRIAXone SOD 1 GM in D5W MINI-BAG PLUS 50 ML IV SCH (17:35)
[2019-07-11] MEDS: traMADol 50 MG TAB PO PRN (17:58)
[2019-07-11] MEDS: DOCUSATE SODIUM 100 MG CAP PO SCH (21:40)
[2019-07-12] MEDS: HEPARIN SOD (PORCINE) 5000 UNITS/ML VIAL SC SCH ×3 (05:24→20:39)
[2019-07-12] MEDS: NS 1,000 ML IV SCH (05:24)
[2019-07-12] MEDS: metroNIDAZOLE 500 MG in IV 1 EA IV SCH ×3 (05:24→20:38)
[2019-07-12 06:00] VITALS: BP 129/74
[2019-07-12 06:30] LABS: BASO # 0.1 10^3/uL (0.0-0.2); BASO % 1.1 % (0.0-1.0); EOS # 0.1 10^3/uL (0.0-0.5); EOS % 2.6 % (0.0-3.0); HEMATOCRIT 29.7 % (36.0-47.0); HEMOGLOBIN 9.2 g/dl (12.0-15.5); LYMPH # 1.8 10^3/uL (1.5-5.0); LYMPH % 33.7 % (24.0-44.0); MEAN CORPUSCULAR HEMOGLOBIN 30.3 pg (27.0-33.0); MEAN CORPUSCULAR VOLUME 97.7 fl (80.0-96.0); MONO # 0.6 10^3/uL (0.0-0.8); MONO % 10.7 % (0.0-5.0); NEUTROPHILS # 2.8 10^3/uL (1.5-8.5); NEUTROPHILS % 51.5 % (36.0-66.0); PLATELET COUNT, AUTOMATED 265 10^3/uL (150-450); RED BLOOD COUNT 3.04 10^6/uL (4.00-5.40); WHITE BLOOD COUNT 5.4 10^3/uL (4.0-10.0)
[2019-07-12 07:01] LABS: BLOOD UREA NITROGEN 7 MG/DL (7-18); CALCIUM LEVEL 7.9 MG/DL (8.8-10.2); CARBON DIOXIDE LEVEL 21 MEQ/L (21-32); CHLORIDE LEVEL 117 MEQ/L (98-107); CREATININE FOR GFR 0.85 MG/DL (0.55-1.30); GLOMERULAR FILTRATION RATE > 60.0 (>45); GLUCOSE, FASTING 82 MG/DL (70-100); MAGNESIUM LEVEL 1.9 MG/DL (1.8-2.4); POTASSIUM SERUM 3.7 MEQ/L (3.5-5.1); SODIUM LEVEL 144 MEQ/L (136-145)
[2019-07-12] MEDS: SYMBICORT 160/4.5MCG INHALER 6GM INH SCH ×2 (07:51→21:00)
[2019-07-12] MEDS: MULTIVITAMINS/MINERALS THERAP 1 TAB PO SCH (08:26)
[2019-07-12] MEDS: clonazePAM 1 MG TAB PO SCH ×2 (08:26→20:38)
[2019-07-12] MEDS: GABAPENTIN 100 MG CAP PO SCH ×3 (08:26→20:38)
[2019-07-12] MEDS: MIRALAX *UNIT DOSE* 17GM PACKET PO SCH (08:26)
[2019-07-12] MEDS: PRAVASTATIN 20 MG TAB PO SCH (08:26)
[2019-07-12] MEDS: ZONISAMIDE 100 MG CAP (ZONEGRAN) PO SCH ×2 (08:26→20:38)
[2019-07-12] MEDS: OMEPRAZOLE 20 MG CAP PO SCH (08:26)
[2019-07-12] MEDS: VENLAFAXINE **XR** 75MG CAPSULE PO SCH (08:26)
[2019-07-12] MEDS: MONTELUKAST 10 MG TAB PO SCH (08:26)
[2019-07-12] MEDS: ONDANSETRON 4MG/2ML VIAL (J2405) IV PRN (09:16)
--- NOTE | 2019-07-12 11:11 | IPNPDOC ---
Date Seen The patient was seen on 07/12/19. Progress Note SUBJECTIVE: Patient reports less abdominal discomfort after getting one dose of tramadol yesterday. Reportedly has been ambulating well. Transitioned to full liquid diet today but reportedly vomited and did not tolerate well. OBJECTIVE PHYSICAL EXAMINATION: VITAL SIGNS: Please see below. General: Alert, generalized weakness Eyes: Normal sclera, EOMI HENT: Atraumatic Cardiovascular: Normal rate Pulmonary: Clear to auscultation b/l, no wheezing GI: Soft, nontender Skin: Warm and dry Neuro: CN grossly intact. No focal deficits. Strengths equal b/l. Psych: oriented x 3 LABORATORY DATA, IMAGING STUDIES, MICROBIOLOGY: Please see below. DVT prophylaxis ordered?: HSQ ASSESSMENT AND PLAN: 1. Suspect enteritis/colitis - Symptoms improving. Leukocytosis resolved, no lactic acidosis. - CT abdomen shows some wall thickening in distal bowel. Likely viral enteritis. - GI panel negative, still nauseous. Has history of E. coli infection with GI problems, follows with Dr. Grayson. - Supportive care, IVF. 2. NANO - Pre-renal etiology for n/v/d. - IVF with resolution. 3. Lung lesion - reportedly larger than in the past with history of lung lesion that was biopsied about 5-6 years ago. In setting of 20 years smoking history. - Was done in [place] and patient was told everything was fine. - Discussed with pulm. can continue workup/follow outpatient. 4. Chronic constipation/abdomen symptoms - follows with Dr. Grayson and reported recent polyp resections. - need to continue follow up post discharge. - hx E. coli diarrhea. 5. HTN - Initially hypotensive but now normotensive. - Hold anti-hypertensive at this time. 6. HLD - c/w statin 7. COPD - c/w inhaled therapy. not in exacerbation. 8. Anxiety - c/w home benzo meds 9. chronic cervical spine pain 2/2 herniated disc - c/w home med DISPOSITION: Home once patient able to tolerate diet. VS, I&O, 24H, Fishbone Vital Signs/I&O Vital Signs Date Time Temp Pulse Resp B/P (MAP) Pulse Ox O2 Delivery O2 Flow Rate FiO2 07/12/19 06:00 97.0 69 17 129/74 (92) 96 Room Air I&O- Last 24 Hours up to 6 AM 07/12/19 05:59 Intake Total 4665 ml Output Total 2250 ml Balance 2415 ml Laboratory Data 24H LABS Laboratory Tests 2 07/12/19 06:08: Immature Granulocyte % (Auto) 0.4, Neutrophils (%) (Auto) 51.5, Lymphocytes (%) (Auto) 33.7, Monocytes (%) (Auto) 10.7H, Eosinophils (%) (Auto) 2.6, Basophils (%) (Auto) 1.1H, Neutrophils # (Auto) 2.8, Lymphocytes # (Auto) 1.8, Monocytes # (Auto) 0.6, Eosinophils # (Auto) 0.1, Basophils # (Auto) 0.1, Nucleated Red Blo od Cells % (auto) 0.0, Anion Gap 6L, Glomerular Filtration Rate > 60.0, Calcium Level 7.9L, Magnesium Level 1.9 CBC/BMP Laboratory Tests 07/12/19 06:08 Microbiology Microbiology 07/10/19 Gastrointestinal Tract Panel (PCR) - Final, Complete 07/10/19 Urine Culture - Final, Complete 07/09/19 Blood Culture - Preliminary, Resulted No Growth after 48 hours. All Specime... 07/09/19 Blood Culture - Preliminary, Resulted No Growth after 48 hours. All Specime... SELAM BLUE MD Jul 12, 2019 11:11
[2019-07-12 14:00] VITALS: BP_SYST 116; BP_SYST 65; BP_DIAS 64
[2019-07-12] MEDS: cefTRIAXone SOD 1 GM in D5W MINI-BAG PLUS 50 ML IV SCH (18:01)
[2019-07-12] MEDS: DOCUSATE SODIUM 100 MG CAP PO SCH (20:38)
[2019-07-12 22:00] VITALS: BP 123/65
[2019-07-13] MEDS: metroNIDAZOLE 500 MG in IV 1 EA IV SCH (05:03)
[2019-07-13] MEDS: HEPARIN SOD (PORCINE) 5000 UNITS/ML VIAL SC SCH ×3 (05:03→22:03)
[2019-07-13 05:54] LABS: BASO # 0.1 10^3/uL (0.0-0.2); BASO % 1.3 % (0.0-1.0); EOS # 0.2 10^3/uL (0.0-0.5); EOS % 3.4 % (0.0-3.0); HEMATOCRIT 27.4 % (36.0-47.0); LYMPH % 37.5 % (24.0-44.0); MEAN CORPUSCULAR HEMOGLOBIN 31.4 pg (27.0-33.0); MEAN CORPUSCULAR HGB CONC 32.8 g/dl (32.0-36.5); MEAN CORPUSCULAR VOLUME 95.5 fl (80.0-96.0); MONO # 0.5 10^3/uL (0.0-0.8); MONO % 9.8 % (0.0-5.0); NEUTROPHILS # 2.5 10^3/uL (1.5-8.5); NEUTROPHILS % 47.8 % (36.0-66.0); PLATELET COUNT, AUTOMATED 260 10^3/uL (150-450); RED BLOOD COUNT 2.87 10^6/uL (4.00-5.40); WHITE BLOOD COUNT 5.2 10^3/uL (4.0-10.0)
[2019-07-13 06:00] VITALS: BP 124/55
[2019-07-13 06:34] LABS: BLOOD UREA NITROGEN 6 MG/DL (7-18); CALCIUM LEVEL 7.9 MG/DL (8.8-10.2); CARBON DIOXIDE LEVEL 24 MEQ/L (21-32); CHLORIDE LEVEL 120 MEQ/L (98-107); CREATININE FOR GFR 0.94 MG/DL (0.55-1.30); GLOMERULAR FILTRATION RATE > 60.0 (>45); GLUCOSE, FASTING 83 MG/DL (70-100); MAGNESIUM LEVEL 1.9 MG/DL (1.8-2.4); POTASSIUM SERUM 3.6 MEQ/L (3.5-5.1); SODIUM LEVEL 148 MEQ/L (136-145)
[2019-07-13] MEDS: SYMBICORT 160/4.5MCG INHALER 6GM INH SCH ×2 (07:29→19:28)
[2019-07-13] MEDS: PRAVASTATIN 20 MG TAB PO SCH (09:14)
[2019-07-13] MEDS: MIRALAX *UNIT DOSE* 17GM PACKET PO SCH (09:14)
[2019-07-13] MEDS: clonazePAM 1 MG TAB PO SCH ×2 (09:14→22:04)
[2019-07-13] MEDS: ZONISAMIDE 100 MG CAP (ZONEGRAN) PO SCH ×2 (09:14→22:04)
[2019-07-13] MEDS: OMEPRAZOLE 20 MG CAP PO SCH (09:15)
[2019-07-13] MEDS: MULTIVITAMINS/MINERALS THERAP 1 TAB PO SCH (09:15)
[2019-07-13] MEDS: MONTELUKAST 10 MG TAB PO SCH (09:15)
[2019-07-13] MEDS: GABAPENTIN 100 MG CAP PO SCH ×3 (09:15→22:04)
[2019-07-13] MEDS: VENLAFAXINE **XR** 75MG CAPSULE PO SCH (09:15)
[2019-07-13 14:00] VITALS: BP 122/81
--- NOTE | 2019-07-13 14:26 | IPNPDOC ---
Date Seen The patient was seen on 07/13/19. Progress Note SUBJECTIVE: Patient appears much more comfortable this morning. Still has abdominal sensation that she cannot describe but not pain. Nausea had improved and seemed to tolerate regular diet since last night. Na 148 this morning. Afebrile overnight, WBC 5.2. OBJECTIVE PHYSICAL EXAMINATION: VITAL SIGNS: Please see below. General: Alert, generalized weakness Eyes: Normal sclera, EOMI HENT: Atraumatic Cardiovascular: Normal rate Pulmonary: Clear to auscultation b/l, no wheezing GI: Soft, nontender Skin: Warm and dry Neuro: CN grossly intact. No focal deficits. Strengths equal b/l. Psych: oriented x 3 LABORATORY DATA, IMAGING STUDIES, MICROBIOLOGY: Please see below. DVT prophylaxis ordered?: HSQ ASSESSMENT AND PLAN: 1. Suspect enteritis/colitis - Symptoms improving. Leukocytosis resolved, no lactic acidosis. - CT abdomen shows some wall thickening in distal bowel. Likely viral enteritis. - GI panel negative. Has history of E. coli infection with GI problems, follows with Dr. Grayson. - Supportive care. 2. NANO - Pre-renal etiology for n/v/d. - IVF with resolution. 3. Lung lesion - reportedly larger than in the past with history of lung lesion that was biopsied about 5-6 years ago. In setting of 20 years smoking history. - Was done in [place] and patient was told everything was fine. - Discussed with pulm. can continue workup/follow outpatient. 4. Chronic constipation/abdomen symptoms - follows with Dr. Grayson and reported recent polyp resections. - need to continue follow up post discharge. - hx E. coli diarrhea. 5. HTN - Initially hypotensive but now normotensive. - Hold anti-hypertensive at this time. 6. HLD - c/w statin 7. COPD - c/w inhaled therapy. not in exacerbation. 8. Anxiety - c/w home benzo meds 9. chronic cervical spine pain 2/2 herniated disc - c/w home med 10. Hypernatremia - Encouraged oral free water intake. - tolerating diet better now. DISPOSITION: Home likely tomorrow if hypernatremia improves/not worsen VS, I&O, 24H, Fishbone Vital Signs/I&O Vital Signs Date Time Temp Pulse Resp B/P (MAP) Pulse Ox O2 Delivery O2 Flow Rate FiO2 07/13/19 06:00 98.3 55 16 124/55 (78) 95 Room Air I&O- Last 24 Hours up to 6 AM 07/13/19 06:00 Intake Total 2140 ml Output Total 3000 ml Balance -860 ml Laboratory Data 24H LABS Laboratory Tests 2 07/13/19 05:34: Immature Granulocyte % (Auto) 0.2, Neutrophils (%) (Auto) 47.8, Lymphocytes (%) (Auto) 37.5, Monocytes (%) (Auto) 9.8H, Eosinophils (%) (Auto) 3.4H, Basophils (%) (Auto) 1.3H, Neutrophils # (Auto) 2.5, Lymphocytes # (Auto) 2.0, Monocytes # (Auto) 0.5, Eosinophils # (Auto) 0.2, Basophils # (Auto) 0.1, Nucleated Red Blood Cells % (auto) 0.0, Anion Gap 4L, Glomerular Filtration Rate > 60.0, Calcium Level 7.9L, Magnesium Level 1.9 CBC/BMP Laboratory Tests 07/13/19 05:34 Microbiology Microbiology 07/10/19 Gastrointestinal Tract Panel (PCR) - Final, Complete 07/10/19 Urine Culture - Final, Complete 07/09/19 Blood Culture - Preliminary, Resulted No Growth after 72 hours. All specime... 07/09/19 Blood Culture - Preliminary, Resulted No Growth after 72 hours. All specime... SELAM BLUE MD Jul 13, 2019 14:26
[2019-07-13 22:00] VITALS: BP 132/68
[2019-07-13] MEDS: DOCUSATE SODIUM 100 MG CAP PO SCH (22:04)
[2019-07-13] MEDS: ONDANSETRON 4MG/2ML VIAL (J2405) IV PRN (22:09)
[2019-07-13] MEDS: traMADol 50 MG TAB PO PRN (22:10)
[2019-07-14] MEDS: HEPARIN SOD (PORCINE) 5000 UNITS/ML VIAL SC SCH ×2 (05:31→13:02)
[2019-07-14 06:00] VITALS: BP 122/65
[2019-07-14 06:12] LABS: BASO # 0.1 10^3/uL (0.0-0.2); BASO % 1.3 % (0.0-1.0); EOS # 0.2 10^3/uL (0.0-0.5); EOS % 3.1 % (0.0-3.0); HEMATOCRIT 28.8 % (36.0-47.0); HEMOGLOBIN 9.2 g/dl (12.0-15.5); LYMPH # 1.7 10^3/uL (1.5-5.0); LYMPH % 30.2 % (24.0-44.0); MEAN CORPUSCULAR HEMOGLOBIN 30.7 pg (27.0-33.0); MEAN CORPUSCULAR HGB CONC 31.9 g/dl (32.0-36.5); MONO # 0.6 10^3/uL (0.0-0.8); MONO % 10.7 % (0.0-5.0); NEUTROPHILS % 54.2 % (36.0-66.0); PLATELET COUNT, AUTOMATED 276 10^3/uL (150-450); WHITE BLOOD COUNT 5.5 10^3/uL (4.0-10.0)
[2019-07-14 06:35] LABS: BLOOD UREA NITROGEN 5 MG/DL (7-18); CALCIUM LEVEL 8.2 MG/DL (8.8-10.2); CARBON DIOXIDE LEVEL 25 MEQ/L (21-32); CHLORIDE LEVEL 116 MEQ/L (98-107); CREATININE FOR GFR 0.85 MG/DL (0.55-1.30); GLOMERULAR FILTRATION RATE > 60.0 (>45); GLUCOSE, FASTING 94 MG/DL (70-100); MAGNESIUM LEVEL 1.8 MG/DL (1.8-2.4); POTASSIUM SERUM 3.6 MEQ/L (3.5-5.1); SODIUM LEVEL 146 MEQ/L (136-145)
[2019-07-14] MEDS: SYMBICORT 160/4.5MCG INHALER 6GM INH SCH (07:40)
[2019-07-14] MEDS: PRAVASTATIN 20 MG TAB PO SCH (08:24)
[2019-07-14] MEDS: MONTELUKAST 10 MG TAB PO SCH (08:24)
[2019-07-14] MEDS: OMEPRAZOLE 20 MG CAP PO SCH (08:24)
[2019-07-14] MEDS: MIRALAX *UNIT DOSE* 17GM PACKET PO SCH (08:24)
[2019-07-14] MEDS: clonazePAM 1 MG TAB PO SCH (08:24)
[2019-07-14] MEDS: MULTIVITAMINS/MINERALS THERAP 1 TAB PO SCH (08:24)
[2019-07-14] MEDS: VENLAFAXINE **XR** 75MG CAPSULE PO SCH (08:24)
[2019-07-14] MEDS: GABAPENTIN 100 MG CAP PO SCH (08:24)
[2019-07-14] MEDS: ZONISAMIDE 100 MG CAP (ZONEGRAN) PO SCH (08:24)
[2019-07-14 14:00] VITALS: BP 157/86
--- NOTE | 2019-07-14 14:36 | DS.PDOC ---
Discharge Summary General Date of Admission Jul 09, 2019 at 19:40 Date of Discharge July 14 2019 Primary Care Physician: Massiel Louise Attending Physician: SELAM BLUE MD Discharge Summary PROCEDURES PERFORMED DURING STAY: [None]. ADMITTING DIAGNOSES: 1. Hypotension - likely 2/2 hypovolemic etiology - 2/2 nausea / vomiting / diarrhea, less likely 2/2 sepsis - 2/2 intra-abdominal etiology 2. Nausea, vomiting and diarrhea associated with abdominal pain - possibly 2/2 enteritis / colitis 3. Acute kidney injury - likely 2/2 pre-renal etiology, possibly 2/2 intra-renal etiology - 2/2 possible ATN 4. Lung Lesion 5. Chronic constipation DISCHARGE DIAGNOSES: 1. Suspect enteritis/colitis - resolved 2. NANO -resolved 3. Lung lesion - f/u w PCP for Pulm referal 4. Chronic constipation/abdomen symptoms - has f/u apt w GI on Jun 5. Hypernatremia -resolving COMPLICATIONS/CHIEF COMPLAINT: Hypotension. HISTORY OF PRESENT ILLNESS: Per HPI " Patient is a 63-year-old female with a PMHx of Chronic constipation (Follows with Dr. Grayson), Hx of E. Coli Diarrhea, HTN, DLP, COPD, Anxiety, Neuropathy, Chronic pain 2/2 Herniated disks at cervical spine (Follows with pain clinic) and GERD, presented to the emergency room with complaint of abdominal pain associated with nausea and vomiting. Patient reported that today around 1 PM she began to experience a single episode of diarrhea followed by multiple episodes of nausea and vomiting. Reported approximately 5-6 times of vomiting. . He denied any blood in her stool or her vomitus. Patient reported abdominal pain that occurred at the lower portion of her abdomen, rated an 8-9/10, reported as painful, continuous, non-radiating, without any alleviating or aggravating factors. Patient reported that she felt weak and was unable to ambulate and crawled to her bed. She contacted her allan andrade who then called EMS for further assistance. Upon arrival to emergency room, patient was found to have a systolic blood pressure in 70s. This has responded to IV fluid hydration. Clinically, patient reports that her abdominal pain has resolved. She denies any nausea, vomiting. Denies chest pain, shortness of breath, palpitations, cough, discomfort with urination. Patient denies experiencing any fevers, chills. Over the last 2 weeks. She reports her appetite has been fairly normal, however, today it has obviously decreased. She reports that her weight has remained consistent." HOSPITAL COURSE: She was admitted to the hospital for a 6 days, received supportive care for the enteritis/colitis. Her NANO resolved after receiving IV fluids. She developed hypernatremia which improved with increased free water intake. She was examined on July 14 at 2:10 PM reported that she no longer had abdominal pain, vomiting or diarrhea. She was no longer hypotensive and her hypernatremia had improved. DISCHARGE MEDICATIONS: Please see below. ALLERGIES: Please see below. PHYSICAL EXAMINATION ON DISCHARGE: VITAL SIGNS: Please see below. GENERAL: Well-nourished, well-developed, not in apparent distress HEENT:. Normocephalic, atraumatic. Mucous members moist and pink CARDIOVASCULAR EXAMINATION: Regular rate and rhythm. No murmurs, rubs or gallops RESPIRATORY EXAMINATION: . Clear to auscultation bilaterally on room air ABDOMINAL EXAMINATION: Soft and nontender on palpation PSYCHIATRIC EXAMINATION: Alert and oriented, able to understand and follow commands LABORATORY DATA: Please see below. IMAGING: See EMR PROGNOSIS: Fair ACTIVITY: As tolerated DIET: Regular DISCHARGE PLAN: She has a follow-up appointment with her PCP tomorrow to discuss referral to business project analyst to follow-up on the lung nodule; she also has an appointment with GI on the DISPOSITION: Home DISCHARGE INSTRUCTIONS: 1. See discharge plan ITEMS TO FOLLOWUP ON ON OUTPATIENT: 1. See discharge plan. 2. Repeat BMP to follow-up on hypernatremia DISCHARGE CONDITION: [Stable]. TIME SPENT ON DISCHARGE: Approximately 15 minutes. Vital Signs/I&Os Vital Signs Date Time Temp Pulse Resp B/P (MAP) Pulse Ox O2 Delivery O2 Flow Rate FiO2 07/14/19 06:00 97.8 74 20 122/65 (84) 94 07/13/19 22:10 Room Air I&O- Last 24 Hours up to 6 AM 07/14/19 06:00 Intake Total 3455 ml Output Total 2850 ml Balance 605 ml Laboratory Data Labs 24H Laboratory Tests 2 07/14/19 05:46: Immature Granulocyte % (Auto) 0.5, Neutrophils (%) (Auto) 54.2, Lymphocytes (%) (Auto) 30.2, Monocytes (%) (Auto) 10.7H, Eosinophils (%) (Auto) 3.1H, Basophils (%) (Auto) 1.3H, Neutrophils # (Auto) 3.0, Lymphocytes # (Auto) 1.7, Monocytes # (Auto) 0.6, Eosinophils # (Auto) 0.2, Basophils # (Auto) 0.1, Nucleated Red Blood Cells % (auto) 0.0, Anion Gap 5L, Glomerular Filtration Rate > 60.0, Calcium Level 8.2L, Magnesium Level 1.8 CBC/BMP Laboratory Tests 07/14/19 05:46 Microbiology Microbiology 07/10/19 Gastrointestinal Tract Panel (PCR) - Final, Complete 07/10/19 Urine Culture - Final, Complete 07/09/19 Blood Culture - Preliminary, Resulted No Growth after 72 hours. All specime... 07/09/19 Blood Culture - Preliminary, Resulted No Growth after 72 hours. All specime... Discharge Medications Scheduled Budesonide/Formoterol (Symbicort 160-4.5 Mcg Inhaler) 60 Puff/Inhaler Aers, 2 PUFF INH BID, (Reported) Clonazepam (Clonazepam) 1 Mg Tab, 1 MG PO BID, (Reported) Docusate Sodium (Colace) 100 Mg Capsule, 200 MG PO QHS, (Reported) Gabapentin (Gabapentin) 100 Mg Capsule, 100 MG PO TID, (Reported) Lisinopril (Lisinopril) 5 Mg Tab, 5 MG PO DAILY, (Reported) Montelukast Sodium (Singulair) 10 Mg Tab, 10 MG PO DAILY, (Reported) Multivitamins (Thera M Plus Tablet) 1 Tab Tab, 1 TAB PO DAILY, (Reported) Omeprazole (Omeprazole) 20 Mg Cap, 20 MG PO DAILY, (Reported) Polyethylene Glycol 3350 (Miralax) 119 Gm Powder, 17 GM PO DAILY, (Reported) dilute in 8 ounces of water or juice Pravastatin Sodium (Pravastatin Sodium) 40 Mg Tab, 40 MG PO DAILY, (Reported) Venlafaxine HCl (Effexor Xr) 75 Mg Cap, 75 MG PO DAILY, (Reported) TAKES WITH 150MG FOR TOTAL DOSE 225MG Venlafaxine HCl (Venlafaxine HCl ER) 150 Mg Cap.er.24h, 150 MG PO DAILY, (Reported) TAKES WITH 75MG FOR TOTAL DOSE 225MG Zonisamide (Zonisamide) 100 Mg Capsule, 100 MG PO BID, (Reported) Scheduled PRN Albuterol Sulfate (Ventolin Hfa) 108 Mcg/Act Aer, 2 PUFFS INH Q4H PRN for SHORTNESS OF BREATH, (Reported) Naproxen Sodium (Aleve) 220 Mg Tablet, 220 MG PO BID PRN for PAIN, (Reported) Allergies Coded Allergies: umeclidinium (Verified Adverse Reaction, Mild, dizzy, black spots in front of eyes, 05/19/19) CONNOR ENGLISH MD Jul 14, 2019 14:36
[2019-07-14 22:00] VITALS: BP 110/56
== END 2019-07-14 15:00 | disposition home or self-care (01) | DRG 392 ==
LOC: M ED 17:25 → EDBD 17:25 → M ED INP 19:40 → ENRESERV 20:06 → M PCU 21:07 → M MSPAV 07-11 19:00
PROVIDERS: ADMIT Internal Medicine; ATTEND Internal Medicine
DX: K52.9 Noninfective gastroenteritis and colitis, unspecified (principal); N17.9 Acute kidney failure, unspecified; E87.0 Hyperosmolality and hypernatremia; K59.09 Other constipation; E78.5 Hyperlipidemia, unspecified; J44.9 Chronic obstructive pulmonary disease, unspecified; F41.9 Anxiety disorder, unspecified; G62.9 Polyneuropathy, unspecified; M89.29 Other disorders of bone development and growth, multiple sites; M50.20 Other cervical disc displacement, unspecified cervical region; K21.9 Gastro-esophageal reflux disease without esophagitis; Z79.899 Other long term (current) drug therapy; Z88.8 Allergy status to other drugs, medicaments and biological substances; Z87.891 Personal history of nicotine dependence; I95.9 Hypotension, unspecified; E86.1 Hypovolemia; D72.829 Elevated white blood cell count, unspecified; R91.8 Other nonspecific abnormal finding of lung field

== ENCOUNTER → 2019-07-16 | Outpatient (CLI) | payer MEDICARE ==
[~2019-07-16] MED LIST changes: +ALEV220T22 PO; +COLA100C5 PO; +GLUCAGON FOR INJ 1 MG VIAL (J1610) As Ordered ONE; +ISOVUE-370 76% 100ML VIAL (Q9967) As Ordered ONE; +VoLumen 0.1% SUSPENSION 450ML BOTTLE As Ordered ONE; +ZONI100C17 PO
--- NOTE | 2019-07-17 04:50 | REP ---
Clinical: Benign neoplasm of the transverse colon. Constipation. Technique: Axial contrast enhanced images using CT enterography technique including 100 ml Isovue 370 intravenous contrast material and low density oral contrast as per protocol. Images obtained in arterial phase and portal venous phases of enhancement along with coronal and sagittal MIP re-formations. Comparison: 07/09/2019 Findings: The enteric system including stomach/duodenum, small and large bowel is unremarkable by current examination. Previously suggested elements of duodenitis and colitis involving the transverse and splenic flexure are no longer apparent. The terminal ileum, cecum and appendix are normal. There is no bowel wall thickening or adjacent inflammatory changes. There is no evidence for bowel obstruction. Incidental scattered sigmoid diverticula noted without acute diverticulitis. No free air. No free fluid. Liver, spleen, pancreas, gallbladder, bilateral adrenal glands and kidneys are normal. 1.1 cm right renal cyst noted. Pelvis demonstrates normal bladder and age-appropriate uterus/adnexa. No ascites. No free air. No adenopathy. Abdominal aorta and vasculature without aneurysm or dissection. Musculoskeletal structures demonstrate age-related changes without focal abnormality. Lung bases are clear. Impression: 1. The enteric system is relatively normal and the previously suggested elements of duodenitis as well as colitis are no longer apparent. No obvious acute enteric abnormalities or pathology appreciated. 2. Scattered sigmoid diverticula without acute diverticulitis. 3. Stable 1.1 cm simple right renal cyst. Electronically Signed by Benja Corcoran MD 07/17/2019 04:42 A
== END ==
LOC: M RAD 07:21
PROVIDERS: ATTEND Internal Medicine Gastroenterology
DX: D12.3 Benign neoplasm of transverse colon (principal); K59.00 Constipation, unspecified; N28.1 Cyst of kidney, acquired; K57.90 Diverticulosis of intestine, part unspecified, without perforation or abscess without bleeding
CPT/HCPCS: 74177; J1610; Q9967

== ENCOUNTER → 2019-07-20 | Outpatient (CLI) | payer MEDICARE ==
[~2019-07-20] MED LIST changes: -GLUCAGON FOR INJ 1 MG VIAL (J1610) As Ordered ONE; -ISOVUE-370 76% 100ML VIAL (Q9967) As Ordered ONE; +ISOVUE-M 300 61% 15ML VIAL (Q9967) As Ordered ONE; +LIDOCAINE 1% SDV INJ 30 ML VIAL As Ordered ONE; -VoLumen 0.1% SUSPENSION 450ML BOTTLE As Ordered ONE; +diazePAM 5 MG TAB As Ordered ONE; +methylPREDNISolone SUSP 40 MG/ML (DEPO-medrol) VIAL (J1030) As Ordered ONE; +oxyCODONE 5MG TAB As Ordered ONE
--- NOTE | 2019-07-20 18:38 | REP ---
C-ARM VIEWS CERVICAL SPINE: CLINICAL HISTORY: Pain. Three C-ARM views of the cervical spine region were performed during cervical epidural injection performed by Dr. Mathis. Needle was seen at the lower cervical level. 21 seconds of fluoroscopy time was utilized. Electronically Signed by Yahir Hare MD 07/22/2019 12:13 P
--- NOTE | 2019-07-31 03:37 | ECWPNPC ---
PATIENT NAME: DEJON WESTFALL : 1955 GENDER: FEMALE VISIT DATE: 07/20/2019 DISCHARGE DATE: 07/20/19 1342 VISIT LOCKED DATE TIME: PHYSICIAN: ALEYDA ANDERSON MD RESOURCE: ALEYDA ANDERSON MD REASON FOR APPOINTMENT 1. ADRIEN C7-T1 HISTORY OF PRESENT ILLNESS HISTORY OF PRESENT ILLNESS: PAIN THE PATIENT DESCRIBES THE PAIN... FALL RISK SCREENING: SCREENING :NO FALLS REPORTED IN THE LAST YEAR CURRENT MEDICATIONS TAKING VENTOLIN HFA 108 (90 BASE) MCG/ACT AEROSOL SOLUTION DIRECTED INHALATION , NOTES: 07/20 599 TAKING CLONAZEPAM 1 MG TABLET 1 TABLET ORALLY BID, NOTES: 07/20 599 TAKING ONE DAILY COMPLETE - TABLET DIRECTED ORALLY , NOTES: 07/20 599 TAKING LISINOPRIL 5 MG TABLET 1 TABLET ORALLY ONCE A DAY, NOTES: 07/20 599 TAKING SYMBICORT 160-4.5 MCG/ACT AEROSOL 2 PUFFS INHALATION TWICE A DAY, NOTES: 07/20 599 TAKING PRAVASTATIN SODIUM 40 MG TABLET 1 TABLET ORALLY ONCE A DAY, NOTES: 07/20 599 TAKING MONTELUKAST SODIUM 10 MG TABLET 1 TABLET ORALLY ONCE A DAY, NOTES: 07/20 599 TAKING OMEPRAZOLE 20 MG CAPSULE DELAYED RELEASE 1 CAPSULE ORALLY ONCE A DAY, NOTES: 07/20 599 TAKING VENLAFAXINE HCL ER 225 MG TABLET EXTENDED RELEASE 24 HOUR 1 TABLET WITH FOOD ORALLY ONCE A DAY, NOTES: 07/20 599 TAKING EXCEDRIN EXTRA STRENGTH 250-250-65 MG TABLET 2 TABLETS ORALLY ONCE A DAY NEEDED, NOTES: NOT RECENT TAKING MAY USE CBD CREAM TOPICALLY NEEDED, NOTES: NONE RECENT TAKING GABAPENTIN 100 MG CAPSULE DIRECTED ORALLY TID FOR PAIN, NOTES: 07/20 599 TAKING ZONISAMIDE 100 MG CAPSULE 1 CAPSULE ORALLY TWICE A DAY, NOTES: 07/20 599 NOT-TAKING ASPIRIN 81 81 MG TABLET DELAYED RELEASE 1 TABLET ORALLY EVERY OTHER DAY NOT-TAKING LORATADINE 10 MG TABLET 1 TABLET ORALLY ONCE A DAY MEDICATION LIST REVIEWED AND RECONCILED WITH THE PATIENT PAST MEDICAL HISTORY ASTHMA CHRONIC NECK PAIN HYPERTENSION ANXIETY NOROVIRUS INFLUENZA ECOLI DEHYDRATION ALLERGIES DICYCLOMINE HCL: UNCONTROLLABLE CRYING, VISION CHANGES, FELT FUNNY, CONFUSED - SIDE EFFECTS SURGICAL HISTORY PARTIAL JAW [facility]AC[facility] FAMILY H[facility] FATHER: UNKNOWN MOTHER: , BLOOD CLOT AFTER SURGERY SIBLINGS: , SISTER-LUNG CANCER BROTHER-#1 MALARIA, LEUKEMIA FROM AGENT ORANGE, #2 DRUNG ADDICTION, DIAGNOSED ITH OTHER MALIGNANT NEOPLASM OF UNSPECIFIED SITE HAS ADOPTED DAUGHTER. SOCIAL HISTORY GENERAL: TOBACCO USE ARE YOU A:NONSMOKER PAIN CLINIC PFS, CLERGY, PUBLIC HEALTH REFERRALS HAS THE PATIENT BEEN EDUCATED REGARDING HIS/HER PLAN OF CARE?YES HAS THE PATIENT BEEN EDUCATED REGARDING PAIN, THE RISK FOR PAIN, THE IMPORTANCE OF EFFECTIVE PAIN MANAGEMENT, AND THE PAIN ASSESSMENT PROCESS?YES LATEX QUESTIONNAIRE LATEX ALLERGY : HAVE YOU EVER DEVELOPED ANY TYPE OF REACTION AFTER HANDLING LATEX PRODUCTS SUCH RUBBER GLOVES, CONDOMS, DIAPHRAGMS, BALLOONS, SOCKS, OR UNDERWEAR?NO LATEX ALLERGY : HAVE YOU EVER DEVELOPED ANY TYPE OF REACTION DURING OR AFTER DENTAL APPOINTMENT, VAGINAL/RECTAL EXAMINATION, SURGICAL PROCEDURE, OR ANY OTHER EXPOSURE?NO LATEX RISK : HAVE YOU EVER HAD ANY DIFFICULTY BREATHING OR HIVES AFTER EATING OR HANDLING ANY FRUITS, OR VEGETABLES; SUCH KIWI, BANANAS, STONE FRUITS, OR CHESTNUTSNO LATEX RISK : DO YOU HAVE A PREVIOUS PERSONAL HISTORY OF MORE THAN NINE SURGERIES, SPINA BIFIDA, OR REPEATED CATHERIZATIONS? NO LATEX RISK : ARE YOU FREQUENTLY EXPOSED TO LATEX PRODUCTS IN YOUR OCCUPATION?NO DATE ASKED : 07/20/2019 CAFFEINE CAFFEINE USE?YES HOW OFTEN AND HOW MUCH? (3) 16OZ BOTTLES PEPSI/DAY ADVANCE DIRECTIVE ADVANCE DIRECTIVE DISCUSSED WITH PATIENT:YES PT STATES SHE HAS HCP: 1. -MARLENY [phone] (C)-CALL 1ST, (H) 2. DAUGHTER-JAKI [phone] EDUCATION LEVEL OF EDUCATION:FINISHED [employer]LEGE [employer] [id number] [employer] LANG[employer] LANGUAGES SPOKEN:SERBIAN DOMESTIC VIOLENCE DO YOU FEEL SAFE IN YOUR ENVIRONMENT?YES ALCOHOL SCREENING DID YOU HAVE A DRINK CONTAINING ALCOHOL IN THE PAST YEAR?NO POINTS0 INTERPRETATIONNEGATIVE RECREATIONAL DRUG USE DRUG USE?NO LEARNING BARRIERS / SPECIAL NEEDS BARRIERS TO LEARNING?NO HEARING IMPAIRED?NO VISION IMPAIRED?YES :CORRECTIVE LENSES COGNITIVELY IMPAIRED?NO READINESS TO LEARN?YES LEARNING PREFERENCES?YES :DEMONSTRATION/VERBAL INSTRUCTION LEARNING CAPABILITIES PRESENT?YES EMOTIONAL BARRIERS?NO SPECIAL DEVICES?NO PENOLOGY PROFESSOR NEEDED?NO REVIEWED WITH PT 11/07/18 1024 BV02/20/19 REVIEWED WITH PT. MEMO WITH PATIENT 04/21/19 1350 JS07/14/2019 REVIEWED WITH PT. AD. HOSPITALIZATION/MAJOR DIAGNOSTIC PROCEDURE FOR 3 DAYS FOR INFLUENZA 06/2017 FOR 8 DAYS FOR NOROVIRUS 10/2017 ECOLI 01/2019 DEHYDRATION X2 ?,06/2019 REVIEW OF SYSTEMS REVIEWED BY: PROVIDER: . CONSTITUTIONAL: ANY CHANGE IN YOUR MEDICAL CONDITION? YES, WAS RELEASED FROM [facility] APPROX. 2 WEEKS AGO DUE TO SYNCOPE/DEHYDRATION . CHILLS NO . FEVER NO . INFECTION: DO YOU HAVE NEW INFECTIONS? NO . DO YOU HAVE HISTORY OF MRSA? NO . MUSCULOSKELETAL: ANY NEW PATTERNS OF PAIN OR NUMBNESS? NO . GASTROENTEROLOGY: ANY NEW CHANGE IN BOWEL CONTROL? NO . GENITOURINARY: ANY NEW CHANGE IN BLADDER CONTROL? NO . IS THERE A CHANCE YOU COULD BE ? NO . HEMATOLOGY/LYMPH: DO YOU TAKE ANY BLOOD THINNERS? (FOR EXAMPLE- COUMADIN, PLAVIX, AGGRENOX, PLATEL, PRADAXA, OR XARELTO) NO . WHEN WAS YOUR LAST DOSE? DATE: TIME: . NEUROLOGY: HAVE YOU FALLEN IN THE PAST 12 MONTHS? NO . ANY NEW EXTREMITY NUMBNESS OR WEAKNESS? NO . CARDIOLOGY: DO YOU HAVE A PACEMAKER OR DEFIBRILLATOR? NO . RESPIRATORY: HAVE YOU BEEN SICK IN THE PAST WEEK? NO . FEVER NO . FLU LIKE SYMPTOMS? NO . COUGH NO . INTEGUMENTARY: DO YOU HAVE ANY RASHES OR OPEN SORES? NO . ALLERGIC/IMMUNO: ARE YOU ALLERGIC TO IV DYE? NO . ANY NEW ALLERGIES? NO . PSYCHIATRIC: DO YOU HAVE THOUGHTS OF HURTING YOURSELF OR SOMEONE ELSE? NO . ARE YOU ABUSED, NEGLECTED, OR IN AN UNSAFE ENVIRONMENT? NO . ENDOCRINOLOGY: ARE YOU DIABETIC? NO . OTHER: DO YOU NEED ANY PRESCRIPTIONS? NO . IF YES, PLEASE LIST: ____ . ANY NEW PROBLEMS WITH YOUR MEDICATIONS? NO . WHEN DID YOU LAST EAT? 07/19 2100 . WHEN DID YOU LAST DRINK? 07/20 0600 . WHAT DID YOU LAST DRINK? WATER . NAME OF PERSON DRIVING YOU HOME? MARLENY . DO YOU HAVE ANY OTHER QUESTIONS OR CONCERNS NO PT HAS NOT HAD ANY VACCINES IN THE PAST 30 DAYS . VITAL SIGNS WT 168.2 LBS, HT 69 IN, BMI 24.84 INDEX, BP 127/65 MM HG, HR 112 /MIN, RR 16 /MIN, TEMP 97.0 F, OXYGEN SAT % 98%, SAFE IN ENV? (Y/N) Y, NA INITIALS AW 1022, REVIEWED BY: AD. ASSESSMENTS CERVICAL DISC DISORDER WITH RADICULOPATHY OF CERVICAL REGION - M50.10 (PRIMARY) TREATMENT CERVICAL DISC DISORDER WITH RADICULOPATHY OF CERVICAL REGION [facility] FLUORO GUIDE SPINE INJECTION (PAIN)[id number] PROCEDURES PN CERVICAL EPIDURAL PRE PROCEDURE DIAGNOSIS CERVICAL DISC DISORDER WITH RADICULOPATHY POST PROCEDURE DIAGNOSIS CERVICAL DISC DISORDER WITH RADICULOPATHY PROCEDURE CERVICAL EPIDURAL STEROID INJECTION UNDER FLUOROSCOPIC GUIDANCE SURGEON DR. ALEYDA ANDERSON BOBBIN DRIER NONE ANESTHESIA LOCAL PRE PROCEDURE NOTE THE PATIENT HAS A HISTORY OF CHRONIC CERVICAL PAIN. I EVALUATED THE PATIENT AND REVIEWED THE CHART. I WENT OVER THE RISKS, ALTERNATIVES AND BENEFITS ASSOCIATED WITH THIS PROCEDURE. THE PATIENT WOULD LIKE TO PROCEED AND GAVE CONSENT TO PERFORM THE PROCEDURE. THE PATIENT DENIES UNEXPLAINABLE WEIGHT LOSS, FEVER, CHILLS, OR NEW CHANGES IN URINARY OR BOWEL CONTROL. DESCRIPTION OF PROCEDURE THE PATIENT WAS BROUGHT TO THE PROCEDURE ROOM AND PLACED IN THE PRONE POSITION. THE CERVICOTHORACIC AREA WAS CLEANED WITH BETADINE SOLUTION AND DRAPED ASEPTICALLY. THE PROCEDURE WAS DONE UNDER STERILE CONDITIONS. I CHECKED LATERALITY AND THE LEVEL WHERE THE PROCEDURE WAS GOING TO BE PERFORMED WITH THE PATIENT AND THE SUPPORTING STAFF AT THE MOMENT OF THE TIMEOUT IN THE PROCEDURE ROOM. UNDER FLUOROSCOPIC GUIDANCE, THE TARGET WAS SELECTED AT THE INTERLAMINAR LEVEL OF C7-T1. LIDOCAINE WAS USED TO NUMB THE SKIN AND THE SUBCUTANEOUS TISSUE BELOW IT. EPIDURAL TUOHY NEEDLE 17-GAUGE WAS ADVANCED UNDER FLUOROSCOPIC GUIDANCE AND FOLLOWING PATIENT FEEDBACK UNTIL THE EPIDURAL SPACE WAS REACHED 6 CM DEEP INTO THE SKIN BY THE LOSS OF RESISTANCE TECHNIQUE. ISOVUE M DYE 30%, 0.25 ML, WAS INJECTED SHOWING ADEQUATE SPREAD OF THE DYE. THEN, A SOLUTION OF 3 ML OF NORMAL SALINE WITH DEPO-MEDROL 60 MG WAS INJECTED SLOWLY FOLLOWING PATIENT FEEDBACK. THERE WAS NO EVIDENCE OF BLOOD, PARESTHESIA OR CEREBROSPINAL FLUID DURING THE PROCEDURE. THE PATIENT WAS SENT TO THE RECOVERY ROOM. THE PATIENT WAS MOVING THE EXTREMITIES AND DOING WELL. THERE WAS NO COMPLICATION DURING THE PROCEDURE. FLUOROSCOPY TIME WAS 21 SECONDS POST PROCEDURE NOTE THE PATIENT WILL BE SEEN IN A FOLLOWUP IN THE NEXT FEW WEEKS. I AM LOOKING FOR LONG-LASTING PAIN RELIEF WITH THIS INTERVENTION. INSTRUCTIONS WERE GIVEN, QUESTIONS WERE ANSWERED, AND THE PATIENT EXPRESSED UNDERSTANDING AND AGREES WITH THE PLAN. I, CARINA MEHTA, DOCUMENTED THE ABOVE INFORMATION ACTING A SCRIBE FOR DR. ANDERSON. I HAVE REVIEWED THE ABOVE DOCUMENT, WRITTEN BY SANJAY COCHRAN, AND I VERIFY THAT IT IS ACCURATE PROCEDURE CODES 20299 CERVICAL/THORACIC W/ IMAGING [id number] RADXPS IN END [id number] [id number] DISPOSITION & COMMUNICATION FOLLOW UP 3 WEEKS ELECTRONICALLY SIGNED BY ALEYDA ANDERSON MD, MD ON 07/30/2019 AT 05:18 PM EST DISCLAIMER : THIS IS A VISIT SUMMARY EXTRACTED FROM THE [employer] CHART. IT IS NOT A COPY OF THE [employer] PROGRESS NOTE. KAITLYNN
== END ==
LOC: M PAIN 10:30
PROVIDERS: ATTEND Anesthesiology
DX: M50.10 Cervical disc disorder with radiculopathy, unspecified cervical region (principal); J45.909 Unspecified asthma, uncomplicated; I10 Essential (primary) hypertension; Z86.59 Personal history of other mental and behavioral disorders; Z88.8 Allergy status to other drugs, medicaments and biological substances; Z79.899 Other long term (current) drug therapy
CPT/HCPCS: 62321; J1030; Q9967

== ENCOUNTER 2019-07-27 15:41 | Inpatient (IN) | payer MEDICARE ==
[~2019-07-27] VITALS: Ht 175.3 cm; Wt 75.9 kg
[~2019-07-27 15:41] MED LIST changes: -ISOVUE-M 300 61% 15ML VIAL (Q9967) As Ordered ONE; -LIDOCAINE 1% SDV INJ 30 ML VIAL As Ordered ONE; -diazePAM 5 MG TAB As Ordered ONE; -methylPREDNISolone SUSP 40 MG/ML (DEPO-medrol) VIAL (J1030) As Ordered ONE; -oxyCODONE 5MG TAB As Ordered ONE
[2019-07-27] MEDS ORDERED: MECLIZINE 25 MG TABLET PO ONE (18:00)
[2019-07-27] MEDS ORDERED: NS 1,000 ML IV ONE (18:00)
--- NOTE | 2019-07-27 18:33 | REP ---
KUB: Two views. History: Constipation. Lack of bowel movement times 2 weeks. Findings: Two views of the abdomen demonstrate formed stool in the proximal and transverse segments of the colon. No rectal stool is seen. No colonic dilation is observed. No small bowel dilation is seen. Psoas margins and flank stripes are intact. No mass organomegaly is seen. Impression: There is some formed stool in the right and transverse colon segments. No larger small bowel dilation seen. Unremarkable KUB. Electronically Signed by Jorje Warner MD 07/27/2019 06:24 P
[2019-07-27 18:51] LABS: BASO # 0.1 10^3/uL (0.0-0.2); BASO % 1.5 % (0.0-1.0); EOS # 0.2 10^3/uL (0.0-0.5); EOS % 2.2 % (0.0-3.0); HEMOGLOBIN 11.7 g/dl (12.0-15.5); LYMPH # 2.9 10^3/uL (1.5-5.0); LYMPH % 38.3 % (24.0-44.0); MEAN CORPUSCULAR HGB CONC 31.6 g/dl (32.0-36.5); MEAN CORPUSCULAR VOLUME 98.1 fl (80.0-96.0); MONO # 0.8 10^3/uL (0.0-0.8); MONO % 9.9 % (0.0-5.0); NEUTROPHILS # 3.6 10^3/uL (1.5-8.5); NEUTROPHILS % 47.8 % (36.0-66.0); PLATELET COUNT, AUTOMATED 331 10^3/uL (150-450); RED BLOOD COUNT 3.77 10^6/uL (4.00-5.40); WHITE BLOOD COUNT 7.6 10^3/uL (4.0-10.0)
[2019-07-27 19:01] LABS: INR 1.01; PROTHROMBIN TIME 13.1 SECONDS (11.8-14.0)
[2019-07-27 19:02] LABS: PARTIAL THROMBOPLASTIN TIME 26.5 SECONDS (25.0-38.4)
--- NOTE | 2019-07-27 19:15 | REPVR ---
PROCEDURE INFORMATION: Exam: CT Head Without Contrast Exam date and time: 07/27/2019 6:41 PM Age: 63 years old Clinical indication: Syncope and collapse TECHNIQUE: Imaging protocol: Computed tomography of the head without contrast. Radiation optimization: All CT scans at this facility use at least one of these dose optimization techniques: automated exposure control; mA and/or kV adjustment per patient size (includes targeted exams where dose is matched to clinical indication); or iterative reconstruction. COMPARISON: CT Head without contrast 01/14/2019 12:46 PM FINDINGS: Brain: Normal. No hemorrhage. Unremarkable white matter. No mass effect. Ventricles: Normal. No ventriculomegaly. Bones/joints: Unremarkable. No acute fracture. Sinuses: Visualized sinuses are unremarkable. No fluid levels. Mastoid air cells: Visualized mastoid air cells are well aerated. Soft tissues: Unremarkable. IMPRESSION: No acute intracranial abnormality. Electronically signed by: Marco Finnegan On 07/27/2019 19:15:19 PM
--- NOTE | 2019-07-27 19:21 | ECGEPIP ---
[facility] - ED Test Date: 2019-07-27 Pat Name: DEJON WESTFALL Department: Room: - Gender: Female Jinriksha Driver: : [id number] Requested By: JORDAN Dickens PA-C Order Number: [id number] Reading MD: Frannie Nelson Measurements Intervals [place] Rate: 69 P: 57 [place]: 156 QRS: 58 QRSD: 85 T: 57 QT: 419 QTc: 449 Interpretive Statements SINUS RHYTHM NSTTW abnormalities SHORTER QTC COMPARED 07/09/19 Electronically Signed on 07-27-2019 19:21:17 EST by Frannie Nelson
[2019-07-27 19:25] LABS: BLOOD UREA NITROGEN 23 MG/DL (7-18); CALCIUM LEVEL 8.4 MG/DL (8.8-10.2); CARBON DIOXIDE LEVEL 26 MEQ/L (21-32); CHLORIDE LEVEL 106 MEQ/L (98-107); CK-MB VALUE MASS 1.5 NG/ML (<3.6); CPK CREATINE PHOSPHOKINASE 70 U/L (26-192); GLOMERULAR FILTRATION RATE 26.6 (>45); GLUCOSE, FASTING 84 MG/DL (70-100); MB/CK RELATIVE INDEX 2.14 (< OR =4); POTASSIUM SERUM 3.9 MEQ/L (3.5-5.1); SODIUM LEVEL 139 MEQ/L (136-145)
[2019-07-27 19:26] LABS: TROPONIN I < 0.02 NG/ML (< 0.10)
--- NOTE | 2019-07-27 20:53 | HPEPDOC ---
[facility] Medical History & Physical Date of Admission Jul 27, 2019 Date of Service: Jul 27, 2019 Primary Care Physician: Massiel Louise Attending Physician: CONNOR ENGLISH MD History and Physical TIME OF SERVICE: 9:45 PM CHIEF COMPLAINT: Sent by home RN because of low blood pressure HISTORY OF PRESENT ILLNESS: This is a 63-year-old female that was sent to the ER for evaluation by her home RN who noted that her blood pressure was 80/50. The patient reports feeling dizzy and lightheaded yesterday and fell 2 times but did not hurt herself. Today she developed an 8 out of 10 headache and had to sit down because of the dizziness to avoid passing out. She also has associated blurry vision. She is also complaining of abdominal bloating and has not had a bowel movement several days. Denies having nausea, vomiting or diarrhea. She denies eating less food or drinking less water than usual. She was discharged on July 14 after being admitted for management of NANO secondary to enterocolitis. REVIEW OF SYSTEMS: 12 point review of systems negative except as listed in HPI PAST MEDICAL HISTORY: Chronic Hypertension COPD Dyslipidemia Anxiety/depression Neuropathy Chronic neck pain secondary to herniated disks Chronic constipation Right knee surgery. SOCIAL HISTORY: Tobacco use: Former smoker [id number] in the past FAMILY HISTORY:Reviewed and noncontributory ALLERGIES: Please see below. HOME MEDICATIONS: Please see below. PHYSICAL EXAMINATION: VITAL SIGNS: Please see below. GEN: well-nourished / well developed/ appears uncomfortable INTEGUMENT: not flushed/ not jaundice CVS: RRR/NMRG LUNGS: clear to auscultation bilaterally on room air ABDOMEN: Contour (distended) / bowel sounds are a proactive/ the abdomen is tympanic on percussion, soft & not tender with palpation MSK/EXTREMITIES: range of motion intact in all 4 extremities NEURO: CN 2-12 are grossly intact / speech is not dysarthric PSYCH: alert and oriented to person place and time/ able to understand and follow all commands LABORATORY DATA: See below. IMAGING: CT head is unremarkable. KUB showed formed stool in the colon MICROBIOLOGY: Please see below. ASSESSMENT: Ms. Damon is a 63-year-old female the past with history of HTN, COPD, dyslipidemia, anxiety, depression, neuropathy, chronic neck pain, chronic constipation who is admitted for evaluation of NANO and and presyncope. PLAN: 1.Acute Renal Failure Cause is likely prerenal due to combination of hypotension and her medications including an LANCE inhibitor, and naproxen. She is chronically on omeprazole, which can also cause interstitial nephritis. Clinically she does not appear to be dehydrated. Her baseline creatinine was about 0.85 on July 14, today it has increased to 2. Her BUN has increased from 5 up to 23, while her GFR has decreased from greater than 60 down to 26.6 Her UA is unremarkable and CPKs within normal limits Plan: Is/Os, daily weights / IVF / f/u ulytes for FENa / renal US / hold Lance inhibitor, omeprazole, naproxen 2. Presyncope Possibly due to hypotension as her blood pressures reported to be 80/50 at home Orthostats were negative. The EKG was unremarkable per ER provider. Her troponin was within normal limits and the CT of the head did not show an acute process. Plan: Telemetry / IV fluids /elevate head of bed/ fall precautions / hold BP meds 3. Chronic Hypertension . She is currently normotensive.- Plan: hold BP meds, the daytime team may consider starting amlodipine in the morning if her blood pressure increases 4. COPD- Plan: c/w home meds 5. Dyslipidemia - Plan: c/w home meds 6. Anxiety/depression - Plan: c/w home meds 7. Neuropathy / Chronic neck pain secondary to herniated disks- Plan: c/w home meds 8. Chronic constipation - Plan: c/w home meds / add MiraLAX and request enema 9. Normocytic normochromic anemia. Her hemoglobin is at baseline. - Plan: Follow -up CBC DVT PROPHYLAXIS: Heparin bc her GFR is under 30 DISPOSITION: Home after more than 2 midnight's stay Vital Signs Vital Signs Date Time Temp Pulse Resp B/P (MAP) Pulse Ox O2 Delivery O2 Flow Rate FiO2 07/27/19 19:23 65 118/62 (80) 70 139/67 (91) 78 126/66 (86) 07/27/19 19:03 15 99 07/27/19 18:33 Room Air 07/27/19 15:41 97.7 Laboratory Data Labs 24H Laboratory Tests 2 07/27/19 18:32: Immature Granulocyte % (Auto) 0.3, Neutrophils (%) (Auto) 47.8, Lymphocytes (%) (Auto) 38.3, Monocytes (%) (Auto) 9.9H, Eosinophils (%) (Auto) 2.2, Basophils (% ) (Auto) 1.5H, Neutrophils # (Auto) 3.6, Lymphocytes # (Auto) 2.9, Monocytes # (Auto) 0.8, Eosinophils # (Auto) 0.2, Basophils # (Auto) 0.1, Nucleated Red Blood Cells % (auto) 0.0, Prothrombin Time 13.1, Prothromb Time International Ratio 1.01, Activated Partial Thromboplast Time 26.5, Anion Gap 7L, Glomerular Filtration Rate 26.6L, Calcium Level 8.4L, Total Creatine Kinase 70, Creatine Kinase MB 1.5, Creatine Kinase MB Relative Index 2.14, Troponin I < 0.02, Thyroid Stimulating Hormone (TSH) 2.810 07/27/19 18:37: POC Glucose (Misc Panel) 88, POC Sodium (Misc Panel) 136, POC Potassium (Misc Panel) 3.7, POC Chloride (Misc Panel) 104, POC Total CO2 (Misc Panel) 24.0, POC Blood Urea Nitrogen (Misc Panel 24, POC Ionized Calcium (Misc Panel) 4.8, POC Creatinine (Misc Panel) 1.9H, POC Hematocrit (Misc Panel) 37.0L 07/27/19 19:39: Urine Color YELLOW, Urine Appearance CLEAR, Urine pH 5.0, Urine Specific Dunn 1.005, Urine Protein NEGATIVE, Urine Glucose (UA) NEGATIVE, Urine Ketones NEGATIVE, Urine Blood NEGATIVE, Urine Nitrite NEGATIVE, Urine Bilirubin NEGATIVE, Urine Urobilinogen 0.2, Urine Leukocyte Esterase NEGATIVE, Urine WBC (Auto) 2, Urine RBC (Auto) 3, Urine Hyaline Casts (Auto) 0, Urine Bacteria (Auto) 1+H, Urine Squamous Epithelial Cells 1, Urine Transitional Epithelial Cells <1, Urine Mucus (Auto) SMALL, Urine Sperm (Auto) CBC/BMP Laboratory Tests 07/27/19 18:32 Home Medications Scheduled Budesonide/Formoterol (Symbicort 160-4.5 Mcg Inhaler) 60 Puff/Inhaler Aers, 2 PUFF INH BID Clonazepam (Clonazepam) 1 Mg Tab, 1 MG PO BID Docusate Sodium (Colace) 100 Mg Capsule, 200 MG PO QHS Gabapentin (Gabapentin) 100 Mg Capsule, 100 MG PO TID Lisinopril (Lisinopril) 5 Mg Tab, 5 MG PO DAILY Montelukast Sodium (Singulair) 10 Mg Tab, 10 MG PO DAILY Multivitamins (Thera M Plus Tablet) 1 Tab Tab, 1 TAB PO DAILY Omeprazole (Omeprazole) 20 Mg Cap, 20 MG PO DAILY Polyethylene Glycol 3350 (Miralax) 119 Gm Powder, 17 GM PO QPM TAKES BEFORE DINNER AROUND 1600 Pravastatin Sodium (Pravastatin Sodium) 40 Mg Tab, 40 MG PO DAILY Venlafaxine HCl (Effexor Xr) 75 Mg Cap, 75 MG PO DAILY TAKES WITH 150MG FOR TOTAL DOSE 225MG Venlafaxine HCl (Venlafaxine HCl ER) 150 Mg Cap.er.24h, 150 MG PO DAILY TAKES WITH 75MG FOR TOTAL DOSE 225MG Zonisamide (Zonisamide) 100 Mg Capsule, 100 MG PO BID Scheduled PRN Albuterol Sulfate (Ventolin Hfa) 108 Mcg/Act Aer, 2 PUFFS INH Q4H PRN for SHORTNESS OF BREATH Naproxen Sodium (Aleve) 220 Mg Tablet, 220 MG PO BID PRN for PAIN Allergies Coded Allergies: umeclidinium (Verified Adverse Reaction, Mild, dizzy, black spots in front of eyes, 05/19/19) A-FIB/CHADSVASC A-FIB History Current/History of A-Fib/PAF?: No Current PO Anticoag Therapy: No CONNOR ENGLISH MD Jul 27, 2019 20:53
[2019-07-27] MEDS ORDERED: MAALOX 30 ML SUSP *UDC PO PRN (21:00)
[2019-07-27] MEDS ORDERED: DOCUSATE SODIUM 100 MG CAP PO SCH (21:00)
[2019-07-27] MEDS ORDERED: MOM 30ML SUSPENSION UDC PO PRN (21:00)
[2019-07-27] MEDS ORDERED: ACETAMINOPHEN TAB 650MG DOSE (2X325MG) PO PRN (21:00)
[2019-07-27] MEDS ORDERED: MIRALAX *UNIT DOSE* 17GM PACKET PO SCH (21:00)
[2019-07-27] MEDS ORDERED: ALBUTEROL 90 MCG/ACT 8GM HFA INHALER INH PRN (21:45)
--- NOTE | 2019-07-27 23:29 | REPVR ---
PROCEDURE INFORMATION: Exam: US Retroperitoneal Limited, Kidneys Exam date and time: 07/27/2019 11:06 PM Age: 63 years old Clinical indication: Abnormal findings; Abnormal lab test; Abnormal kidney function lab tests; Additional info: Second episode of chaya in one month R/O ckd TECHNIQUE: Imaging protocol: Real-time ultrasound of the retroperitoneum with image documentation. Examination was focused on the kidneys. COMPARISON: RENAL US 11/08/2017 6:09 AM FINDINGS: Right kidney: The right kidney measures 9.5 cm in its cephalocaudad dimension and 4.6 x 4.7 cm in diameter. There is an upper pole cyst measuring 1.3 x 1.4 x 1.3 cm. No mass or hydronephrosis. Left kidney: The left kidney measures 9.5 cm in its cephalocaudad dimension and 5.3 x 4.8 cm in diameter. No mass, cyst or hydronephrosis. Bladder: The bladder is within normal limits. IMPRESSION: 1. Right renal cyst measuring 13 x 14 x 13 mm. 2. Otherwise negative renal sonogram. Electronically signed by: Earl Walden On 07/27/2019 23:28:44 PM
[2019-07-28] MEDS: GABAPENTIN 100 MG CAP PO SCH ×2 (00:25→08:00)
[2019-07-28] MEDS: ZONISAMIDE 100 MG CAP (ZONEGRAN) PO SCH ×2 (00:25→08:00)
[2019-07-28] MEDS: clonazePAM 1 MG TAB PO SCH ×2 (00:25→08:00)
[2019-07-28] MEDS: NS 1,000 ML IV SCH ×2 (00:26→07:00)
[2019-07-28] MEDS: HEPARIN SOD (PORCINE) 5000 UNITS/ML VIAL (J1644 PER 1000UNITS) SQ SCH ×2 (00:27→08:01)
[2019-07-28 04:45] VITALS: BP 116/59
[2019-07-28] MEDS ORDERED: SYMBICORT 160/4.5MCG INHALER 6GM INH SCH (08:00)
[2019-07-28 08:36] LABS: HEMATOCRIT 33.1 % (36.0-47.0); HEMOGLOBIN 10.4 g/dl (12.0-15.5); MEAN CORPUSCULAR HEMOGLOBIN 30.8 pg (27.0-33.0); MEAN CORPUSCULAR HGB CONC 31.4 g/dl (32.0-36.5); MEAN CORPUSCULAR VOLUME 97.9 fl (80.0-96.0); PLATELET COUNT, AUTOMATED 301 10^3/uL (150-450); RED BLOOD COUNT 3.38 10^6/uL (4.00-5.40); WHITE BLOOD COUNT 5.2 10^3/uL (4.0-10.0)
[2019-07-28 08:58] LABS: CREATININE FOR GFR 1.14 MG/DL (0.55-1.30); GLOMERULAR FILTRATION RATE 50.9 (>45); POTASSIUM SERUM 4.5 MEQ/L (3.5-5.1)
[2019-07-28] MEDS ORDERED: VENLAFAXINE **XR** 75MG CAPSULE PO SCH ×2 (09:00)
[2019-07-28] MEDS ORDERED: MULTIVITAMINS/MINERALS THERAP 1 TAB PO SCH (09:00)
[2019-07-28] MEDS ORDERED: ENOXAPARIN 40 MG/0.4 ML SYRINGE (J1650) SC SCH (09:00)
[2019-07-28] MEDS ORDERED: MONTELUKAST 10 MG TAB PO SCH (09:00)
[2019-07-28] MEDS ORDERED: PRAVASTATIN 20 MG TAB PO SCH (09:00)
--- NOTE | 2019-07-28 15:31 | DS.PDOC ---
Discharge Summary General Date of Admission Jul 27, 2019 at 20:51 Date of Discharge 07/28/19 Discharge Summary PROCEDURES PERFORMED DURING STAY: None. ADMITTING DIAGNOSES: 1. NANO. Presyncope. DISCHARGE DIAGNOSES: 1. NANO, presyncope, hypertension. COMPLICATIONS/CHIEF COMPLAINT: Acute Kidney Injury, Pre Syncope. HISTORY OF PRESENT ILLNESS: This is a 63-year-old female that was sent to the ER for evaluation by her home RN who noted that her blood pressure was 80/50. The patient reports feeling dizzy and lightheaded yesterday and fell 2 times but did not hurt herself. Today she developed an 8 out of 10 headache and had to sit down because of the dizziness to avoid passing out. She also has associated blurry vision. She is also complaining of abdominal bloating and has not had a bowel movement several days. Denies having nausea, vomiting or diarrhea. She denies eating less food or drinking less water than usual. She was discharged on July 14 after being admitted for management of NANO secondary to enterocolitis.. HOSPITAL COURSE: Patient was admitted with the diagnosis of acute kidney injury, most likely secondary to medications, also was found to have high BUN/creatinine. Patient received a liter of normal saline in ED and her ANTWAN inhibitor was stopped. Patient was not found hypotensive during stay in the emergency room. Patient is clinically stable. Her be on creatinine this morning is essentially within normal limits. Her ANTWAN inhibitor have been stopped and she will be discharged home and follow with her PCP for further care.. DISCHARGE MEDICATIONS: Please see below. ALLERGIES: Please see below. PHYSICAL EXAMINATION ON DISCHARGE: VITAL SIGNS: Please see below. GENERAL: Within normal limits HEENT: PERRLA. Extraocular muscles intact NECK: Supple CARDIOVASCULAR EXAMINATION: S1, S2, regular RESPIRATORY EXAMINATION: Clear to A&P ABDOMINAL EXAMINATION: , Soft, nontender, bowel sounds present. No organomegaly EXTREMITIES: No clubbing, cyanosis, edema SKIN: Within normal limits NEUROLOGICAL EXAMINATION: . No focal motor sensory deficit PSYCHIATRIC EXAMINATION: Normal LABORATORY DATA: Please see below. IMAGING: Head CT: IMPRESSION: No acute intracranial abnormality. PROGNOSIS: Good ACTIVITY: As tolerated. DIET: As tolerated DISCHARGE PLAN: Discharge home DISPOSITION: Home, Self-Care. DISCHARGE INSTRUCTIONS: 1. As per discharge instruction. ITEMS TO FOLLOWUP ON ON OUTPATIENT: 1. Follow PCP in one week. DISCHARGE CONDITION: Stable. TIME SPENT ON DISCHARGE: 25 minutes. Vital Signs/I&Os Vital Signs Date Time Temp Pulse Resp B/P (MAP) Pulse Ox O2 Delivery O2 Flow Rate FiO2 07/28/19 04:45 75 17 116/59 (78) 97 07/28/19 02:30 Room Air 07/27/19 15:41 97.7 Laboratory Data Labs 24H Laboratory Tests 2 07/27/19 18:32: Immature Granulocyte % (Auto) 0.3, Neutrophils (%) (Auto) 47.8, Lymphocytes (%) (Auto) 38.3, Monocytes (%) (Auto) 9.9H, Eosinophils (%) (Auto) 2.2, Basophils (%) (Auto) 1.5H, Neutrophils # (Auto) 3.6, Lymphocytes # (Auto) 2.9, Monocytes # (Auto) 0.8, Eosinophils # (Auto) 0.2, Basophils # (Auto) 0.1, Nucleated Red Blood Cells % (auto) 0.0, Prothrombin Time 13.1, Prothromb Time International Ratio 1.01, Activated Partial Thromboplast Time 26.5, Anion Gap 7L, Glomerular Filtration Rate 26.6L, Calcium Level 8.4L, Total Creatine Kinase 70, Creatine Kinase MB 1.5, Creatine Kinase MB Relative Index 2.14, Troponin I < 0.02, Thyroid Stimulating Hormone (TSH) 2.810 07/27/19 18:37: POC Glucose (Misc Panel) 88, POC Sodium (Misc Panel) 136, POC Potassium (Misc Panel) 3.7, POC Chloride (Misc Panel) 104, POC Total CO2 (Misc Panel) 24.0, POC Blood Urea Nitrogen (Misc Panel 24, POC Ionized Calcium (Misc Panel) 4.8, POC Creatinine (Misc Panel) 1.9H, POC Hematocrit (Misc Panel) 37.0L 07/27/19 19:39: Urine Color YELLOW, Urine Appearance CLEAR, Urine pH 5.0, Urine Specific [place] 1.005, Urine Protein NEGATIVE, Urine Glucose (UA) NEGATIVE, Urine Ketones NEGATIVE, Urine Blood NEGATIVE, Urine Nitrite NEGATIVE, Urine Bilirubin NEGATIVE, Urine Urobilinogen 0.2, Urine Leukocyte Esterase NEGATIVE, Urine WBC (Auto) 2, Urine RBC (Auto) 3, Urine Hyaline Casts (Auto) 0, Urine Bacteria (Auto) 1+H, Urine Squamous Epithelial Cells 1, Urine Transitional Epithelial Cells <1, Urine Mucus (Auto) SMALL, Urine Sperm (Auto) 07/28/19 08:11: Nucleated Red Blood Cells % (auto) 0.0, Anion Gap 4L, Glomerular Filtration Rate 50.9, Calcium Level 8.0L CBC/BMP Laboratory Tests 07/27/19 18:32 07/28/19 08:11 Discharge Medications Scheduled Budesonide/Formoterol (Symbicort 160-4.5 Mcg Inhaler) 60 Puff/Inhaler Aers, 2 PUFF INH BID, (Reported) Clonazepam (Clonazepam) 1 Mg Tab, 1 MG PO BID, (Reported) Docusate Sodium (Colace) 100 Mg Capsule, 200 MG PO QHS, (Reported) Gabapentin (Gabapentin) 100 Mg Capsule, 100 MG PO TID, (Reported) Montelukast Sodium (Singulair) 10 Mg Tab, 10 MG PO DAILY, (Reported) Multivitamins (Thera M Plus Tablet) 1 Tab Tab, 1 TAB PO DAILY, (Reported) Omeprazole (Omeprazole) 20 Mg Cap, 20 MG PO DAILY, (Reported) Polyethylene Glycol 3350 (Miralax) 119 Gm Powder, 17 GM PO QPM, (Reported) TAKES BEFORE DINNER AROUND 1600 Pravastatin Sodium (Pravastatin Sodium) 40 Mg Tab, 40 MG PO DAILY, (Reported) Venlafaxine HCl (Effexor Xr) 75 Mg Cap, 75 MG PO DAILY, (Reported) TAKES WITH 150MG FOR TOTAL DOSE 225MG Venlafaxine HCl (Venlafaxine HCl ER) 150 Mg Cap.er.24h, 150 MG PO DAILY, (Reported) TAKES WITH 75MG FOR TOTAL DOSE 225MG Zonisamide (Zonisamide) 100 Mg Capsule, 100 MG PO BID, (Reported) Scheduled PRN Albuterol Sulfate (Ventolin Hfa) 108 Mcg/Act Aer, 2 PUFFS INH Q4H PRN for SHORTNESS OF BREATH, (Reported) Naproxen Sodium (Aleve) 220 Mg Tablet, 220 MG PO BID PRN for PAIN, (Reported) Allergies Coded Allergies: umeclidinium (Verified Adverse Reaction, Mild, dizzy, black spots in front of eyes, 05/19/19) BHAKTI ROSE MD Jul 28, 2019 15:31
[2019-07-28] MEDS ORDERED: MIRALAX *UNIT DOSE* 17GM PACKET PO SCH (16:00)
--- NOTE | 2019-07-28 17:01 | IPNPDOC ---
Subjective Date Seen The patient was seen on 07/28/19. Subjective Chief Complaint/HPI Patient is comfortable, no distress. Offers no new complaints General: Denies: ROS Unobtainable, Chills, Night Sweats, Fatigue, Malaise, Normal Appetite, Other Symptoms Constitutional: Denies: Chills, Fever, Malaise, Night Sweats, Weakness, Fatigue, Weight Loss, Lethargy, Other Skin: Denies: Rash, Lesions, Jaundice, Bruising, Itching, Dry, Breakdown, Nail Changes, Other Pulmonary: Denies: Dyspnea, Cough, Pleuritic Chest Pain, Other Symptoms Cardiovascular: Denies: Chest Pain, Palpitations, Orthopnea, Paroxysmal Noc. Dyspnea, Edema, Lt Headedness, Other Symptoms Gastrointestinal: Denies: Nausea, Vomiting, Abdominal Pain, Diarrhea, Constipation, Melena, Hematochezia, Other Symptoms Genitourinary: Denies: Dysuria, Frequency, Incontinence, Hematuria, Retention, Other Symptoms Musculoskeletal: Denies: Neck Pain, Back Pain, Shoulder Pain, Arm Pain, Hand Pain, Leg Pain, Foot Pain, Joint Pain, Muscle Pain, Spasms, Other Symptoms Neurological: Denies: Weakness, Numbness, Incoordination, Change in speech, Confusion, Seizures, Other Symptoms Objective Physical Examination General Exam: Positive: Alert, Cooperative Eye Exam: Positive: PERRLA, Conjunctiva & lids normal ENT Exam: Positive: Atraumatic, Mucous membr. moist/pink Neck Exam: Positive: Supple Chest Exam: Positive: Clear to auscultation, Normal air movement Heart Exam: Positive: Rate Normal, Normal S2 Abdomen Exam: Positive: Normal bowel sounds Extremity Exam: Positive: Normal pulses Neuro Exam: Positive: Strength at 5/5 X4 ext, Cranial Nerves 3-12 NL Assessment /Plan Problems (1) Acute kidney injury Status: Resolved Problem Text: Patient acute renal failure most likely secondary to dehydration and her medication including ANTWAN inhibitor and naproxen Patient's renal functions are within normal range. This morning after IV hydration We will continue monitoring renal function and continue IV fluid for 24 more hours A.m. labs (2) Pre-syncope Status: Resolved Problem Text: Most likely secondary to dehydration Continue IV hydration Check a.m. labs Continue home meds (3) HTN (hypertension) Status: Chronic Problem Text: Hold ANTWAN inhibitor continue all other meds (4) COPD with exacerbation Status: Chronic Problem Text: Continue home meds Plan/VTE VTE Prophylaxis Ordered?: Yes VS, I&O, 24H, Fishbone Vital Signs/I&O Vital Signs Date Time Temp Pulse Resp B/P (MAP) Pulse Ox O2 Delivery O2 Flow Rate FiO2 07/28/19 04:45 75 17 116/59 (78) 97 07/28/19 02:30 Room Air 07/27/19 15:41 97.7 Laboratory Data 24H LABS Laboratory Tests 2 07/27/19 18:32: Immature Granulocyte % (Auto) 0.3, Neutrophils (%) (Auto) 47.8, Lymphocytes (%) (Auto) 38.3, Monocytes (%) (Auto) 9.9H, Eosinophils (%) (Auto) 2.2, Basophils (%) (Auto) 1.5H, Neutrophils # (Auto) 3.6, Lymphocytes # (Auto) 2.9, Monocytes # (Auto) 0.8, Eosinophils # (Auto) 0.2, Basophils # (Auto) 0.1, Nucleated Red Blood Cells % (auto) 0.0, Prothrombin Time 13.1, Prothromb Time International Ratio 1.01, Activated Partial Thromboplast Time 26.5, Anion Gap 7L, Glomerular Filtration Rate 26.6L, Calcium Level 8.4L, Total Creatine Kinase 70, Creatine Kinase MB 1.5, Creatine Kinase MB Relative Index 2.14, Troponin I < 0.02, Thyro id Stimulating Hormone (TSH) 2.810 07/27/19 18:37: POC Glucose (Misc Panel) 88, POC Sodium (Misc Panel) 136, POC Potassium (Misc Panel) 3.7, POC Chloride (Misc Panel) 104, POC Total CO2 (Misc Panel) 24.0, POC Blood Urea Nitrogen (Misc Panel 24, POC Ionized Calcium (Misc Panel) 4.8, POC Creatinine (Misc Panel) 1.9H, POC Hematocrit (Misc Panel) 37.0L 07/27/19 19:39: Urine Color YELLOW, Urine Appearance CLEAR, Urine pH 5.0, Urine Specific [place] 1.005, Urine Protein NEGATIVE, Urine Glucose (UA) NEGATIVE, Urine Ketones NEGATIVE, Urine Blood NEGATIVE, Urine Nitrite NEGATIVE, Urine Bilirubin NEGATIVE, Urine Urobilinogen 0.2, Urine Leukocyte Esterase NEGATIVE, Urine WBC (Auto) 2, Urine RBC (Auto) 3, Urine Hyaline Casts (Auto) 0, Urine Bacteria (Auto) 1+H, Urine Squamous Epithelial Cells 1, Urine Transitional Epithelial Cells <1, Urine Mucus (Auto) SMALL, Urine Sperm (Auto) 07/28/19 08:11: Nucleated Red Blood Cells % (auto) 0.0, Anion Gap 4L, Glomerular Filtration Rate 50.9, Calcium Level 8.0L CBC/BMP Laboratory Tests 07/27/19 18:32 07/28/19 08:11 BHAKTI ROSE MD Jul 28, 2019 12:34
[2019-07-28] MEDS ORDERED: DOCUSATE SODIUM 100 MG CAP PO SCH (21:00)
== END 2019-07-28 14:30 | disposition home or self-care (01) | DRG 684 ==
LOC: M ED 15:41 → M ED INP 20:51 → ENRESERVTM 07-28 13:51 → ENRESERVDT 07-28 13:51
PROVIDERS: ADMIT Internal Medicine; ATTEND Internal Medicine
DX: N17.9 Acute kidney failure, unspecified (principal); I95.9 Hypotension, unspecified; I10 Essential (primary) hypertension; Z79.899 Other long term (current) drug therapy; Z88.8 Allergy status to other drugs, medicaments and biological substances; J44.9 Chronic obstructive pulmonary disease, unspecified; G62.9 Polyneuropathy, unspecified; K59.00 Constipation, unspecified; E78.5 Hyperlipidemia, unspecified; F41.9 Anxiety disorder, unspecified; F32.9 Major depressive disorder, single episode, unspecified; M50.20 Other cervical disc displacement, unspecified cervical region; D64.9 Anemia, unspecified; Z87.891 Personal history of nicotine dependence

== ENCOUNTER → 2019-08-03 | Outpatient (CLI) | payer MEDICARE ==
--- NOTE | 2019-08-05 03:51 | ECWPNPC ---
PATIENT NAME: DEJON WESTFALL : 1955 GENDER: FEMALE VISIT DATE: 08/03/2019 DISCHARGE DATE: 08/03/19 1108 VISIT LOCKED DATE TIME: PHYSICIAN: ANDREA FALCON RESOURCE: ANDREA FALCON REASON FOR APPOINTMENT 1. POST ADRIEN C4-C5 C6-C7 HISTORY OF PRESENT ILLNESS HISTORY OF PRESENT ILLNESS: PAIN THE PATIENT DESCRIBES THE PAIN... 63-YEAR-OLD FEMALE IN FOR POST ADRIEN FOLLOW-UP. SHE RATES HER PAIN PREPROCEDURE AT A 4-5 OUT OF 10 AND POSTPROCEDURE AT A 0-1 OUT OF 10 AND FURTHER STATES THAT HER RELIEF CONTINUES TODAY. SHE RATES HER PAIN CURRENTLY AT A 1 OUT OF 10 AND DESCRIBES IT SORE, AND TENDER. FALL RISK SCREENING: SCREENING :NO FALLS REPORTED IN THE LAST YEAR CURRENT MEDICATIONS TAKING VENTOLIN HFA 108 (90 BASE) MCG/ACT AEROSOL SOLUTION 2 PUFFS DIRECTED INHALATION NEEDED TAKING CLONAZEPAM 1 MG TABLET 1 TABLET ORALLY BID TAKING ONE DAILY COMPLETE - TABLET DIRECTED ORALLY DAILY TAKING SYMBICORT 160-4.5 MCG/ACT AEROSOL 2 PUFFS INHALATION TWICE A DAY TAKING PRAVASTATIN SODIUM 40 MG TABLET 1 TABLET ORALLY ONCE A DAY TAKING MONTELUKAST SODIUM 10 MG TABLET 1 TABLET ORALLY ONCE A DAY TAKING OMEPRAZOLE 20 MG CAPSULE DELAYED RELEASE 1 CAPSULE ORALLY ONCE A DAY TAKING VENLAFAXINE HCL ER 225 MG TABLET EXTENDED RELEASE 24 HOUR 1 TABLET WITH FOOD ORALLY ONCE A DAY TAKING MAY USE CBD CREAM TOPICALLY NEEDED TAKING GABAPENTIN 100 MG CAPSULE DIRECTED ORALLY TID FOR PAIN TAKING ZONISAMIDE 100 MG CAPSULE 1 CAPSULE ORALLY TWICE A DAY NOT-TAKING EXCEDRIN EXTRA STRENGTH 250-250-65 MG TABLET 2 TABLETS ORALLY ONCE A DAY NEEDED NOT-TAKING LISINOPRIL 5 MG TABLET 1 TABLET ORALLY ONCE A DAY NOT-TAKING ASPIRIN 81 81 MG TABLET DELAYED RELEASE 1 TABLET ORALLY EVERY OTHER DAY NOT-TAKING LORATADINE 10 MG TABLET 1 TABLET ORALLY ONCE A DAY MEDICATION LIST REVIEWED AND RECONCILED WITH THE PATIENT PAST MEDICAL HISTORY ASTHMA CHRONIC NECK PAIN HYPERTENSION ANXIETY NOROVIRUS INFLUENZA ECOLI DEHYDRATION ALLERGIES DICYCLOMINE HCL: UNCONTROLLABLE CRYING, VISION CHANGES, FELT FUNNY, CONFUSED - SIDE EFFECTS SURGICAL HISTORY PARTIAL JAW REPLACEMENT 1986 RIGHT KNEE MENICCUS 2015 FAMILY HISTORY FATHER: UNKNOWN MOTHER: , BLOOD CLOT AFTER SURGERY SIBLINGS: , SISTER-LUNG CANCER BROTHER-#1 MALARIA, LEUKEMIA FROM AGENT ORANGE, #2 DRUNG ADDICTION, DIAGNOSED ITH OTHER MALIGNANT NEOPLASM OF UNSPECIFIED SITE HAS ADOPTED DAUGHTER. SOCIAL HISTORY GENERAL: TOBACCO USE ARE YOU A:NONSMOKER PAIN CLINIC PFS, CLERGY, PUBLIC HEALTH REFERRALS HAS THE PATIENT BEEN EDUCATED REGARDING HIS/HER PLAN OF CARE?YES HAS THE PATIENT BEEN EDUCATED REGARDING PAIN, THE RISK FOR PAIN, THE IMPORTANCE OF EFFECTIVE PAIN MANAGEMENT, AND THE PAIN ASSESSMENT PROCESS?YES LATEX QUESTIONNAIRE LATEX ALLERGY : HAVE YOU EVER DEVELOPED ANY TYPE OF REACTION AFTER HANDLING LATEX PRODUCTS SUCH RUBBER GLOVES, CONDOMS, DIAPHRAGMS, BALLOONS, SOCKS, OR UNDERWEAR?NO LATEX ALLERGY : HAVE YOU EVER DEVELOPED ANY TYPE OF REACTION DURING OR AFTER DENTAL APPOINTMENT, VAGINAL/RECTAL EXAMINATION, SURGICAL PROCEDURE, OR ANY OTHER EXPOSURE?NO DATE ASKED : 07/20/2019 LATEX RISK : HAVE YOU EVER HAD ANY DIFFICULTY BREATHING OR HIVES AFTER EATING OR HANDLING ANY FRUITS, OR VEGETABLES; SUCH KIWI, BANANAS, STONE FRUITS, OR CHESTNUTSNO LATEX RISK : DO YOU HAVE A PREVIOUS PERSONAL HISTORY OF MORE THAN NINE SURGERIES, SPINA BIFIDA, OR REPEATED CATHERIZATIONS? NO LATEX RISK : ARE YOU FREQUENTLY EXPOSED TO LATEX PRODUCTS IN YOUR OCCUPATION?NO CAFFEINE CAFFEINE USE?YES HOW OFTEN AND HOW MUCH? (3) 16OZ BOTTLES PEPSI/DAY ADVANCE DIRECTIVE ADVANCE DIRECTIVE DISCUSSED WITH PATIENT:YES PT STATES SHE HAS HCP: 1. -MARLENY [phone] (C)-CALL 1ST, (H) 2. DAUGHTER-JAKI [phone] EDUCATION LEVEL OF EDUCATION:FINISHED [employer] [id number] BAPTISM LANGUAGE LANGUAGES SPOKEN:UKRAINIAN DOMESTIC VIOLENCE DO YOU FEEL SAFE IN YOUR ENVIRONMENT?YES ALCOHOL SCREENING DID YOU HAVE A DRINK CONTAINING ALCOHOL IN THE PAST YEAR?NO POINTS0 INTERPRETATIONNEGATIVE RECREATIONAL DRUG USE DRUG USE?NO LEARNING BARRIERS / SPECIAL NEEDS BARRIERS TO LEARNING?NO HEARING IMPAIRED?NO VISION IMPAIRED?YES COGNITIVELY IMPAIRED?NO :CORRECTIVE LENSES READINESS TO LEARN?YES LEARNING PREFERENCES?YES :DEMONSTRATION/VERBAL INSTRUCTION LEARNING CAPABILITIES PRESENT?YES EMOTIONAL BARRIERS?NO SPECIAL DEVICES?NO DEMURRAGE CLERK NEEDED?NO REVIEWED WITH PT 11/07/18 1024 BV02/20/19 REVIEWED WITH PT. NEILWED WITH PATIENT 04/21/19 1350 JS07/14/2019 REVIEWED WITH PT. AD. HOSPITALIZATION/MAJOR DIAGNOSTIC PROCEDURE FOR 3 DAYS FOR INFLUENZA 06/2017 FOR 8 DAYS FOR NOROVIRUS 10/2017 ECOLI 01/2019 DEHYDRATION X2 ?,06/2019 REVIEW OF SYSTEMS REVIEWED BY: PROVIDER: MIKO ROSALES . CONSTITUTIONAL: ANY CHANGE IN YOUR MEDICAL CONDITION? NO . CHILLS NO . FEVER NO . INFECTION: DO YOU HAVE NEW INFECTIONS? NO . DO YOU HAVE HISTORY OF MRSA? NO . MUSCULOSKELETAL: ANY NEW PATTERNS OF PAIN OR NUMBNESS? NO . GASTROENTEROLOGY: ANY NEW CHANGE IN BOWEL CONTROL? NO . GENITOURINARY: ANY NEW CHANGE IN BLADDER CONTROL? NO . IS THERE A CHANCE YOU COULD BE ? NO . HEMATOLOGY/LYMPH: DO YOU TAKE ANY BLOOD THINNERS? (FOR EXAMPLE- COUMADIN, PLAVIX, AGGRENOX, PLATEL, PRADAXA, OR XARELTO) NO . WHEN WAS YOUR LAST DOSE? DATE: TIME: . NEUROLOGY: HAVE YOU FALLEN IN THE PAST 12 MONTHS? YES . ANY NEW EXTREMITY NUMBNESS OR WEAKNESS? NO . CARDIOLOGY: DO YOU HAVE A PACEMAKER OR DEFIBRILLATOR? NO . RESPIRATORY: HAVE YOU BEEN SICK IN THE PAST WEEK? NO . FEVER NO . FLU LIKE SYMPTOMS? NO . COUGH NO . INTEGUMENTARY: DO YOU HAVE ANY RASHES OR OPEN SORES? NO . ALLERGIC/IMMUNO: ARE YOU ALLERGIC TO IV DYE? NO . ANY NEW ALLERGIES? NO . PSYCHIATRIC: DO YOU HAVE THOUGHTS OF HURTING YOURSELF OR SOMEONE ELSE? NO . ARE YOU ABUSED, NEGLECTED, OR IN AN UNSAFE ENVIRONMENT? NO . ENDOCRINOLOGY: ARE YOU DIABETIC? NO . OTHER: DO YOU NEED ANY PRESCRIPTIONS? NO . IF YES, PLEASE LIST: ____ . ANY NEW PROBLEMS WITH YOUR MEDICATIONS? NO . WHEN DID YOU LAST EAT? ____ . WHEN DID YOU LAST DRINK? ____ . WHAT DID YOU LAST DRINK? ____ . NAME OF PERSON DRIVING YOU HOME? ____ . DO YOU HAVE ANY OTHER QUESTIONS OR CONCERNS NO . VITAL SIGNS WT 167.8 LBS, HT 69 IN, BMI 24.78 INDEX, BP 117/84 MM HG, HR 119 /MIN, RR 18 /MIN, TEMP 96.0 F, OXYGEN SAT % 98%, NA INITIALS AW 1032, REVIEWED BY: LS. EXAMINATION GENERAL EXAMINATION: GENERALNO ACUTE DISTRESS, WELL NOURISHED AND HYDRATED. PSYCHAPPROPRIATE MOOD AND AFFECT . LUNGS:CLEAR TO AUSCULTATION BILATERALLY, NO WHEEZES, RHONCHI, RALES. HEART:NO MURMURS, REGULAR RATE AND RHYTHM. ASSESSMENTS CERVICAL DISC DISORDER WITH RADICULOPATHY OF CERVICAL REGION - M50.10 (PRIMARY) TREATMENT CERVICAL DISC DISORDER WITH RADICULOPATHY OF CERVICAL REGION CLINICAL NOTES: 63-YEAR-OLD FEMALE IN FOR POST ADRIEN FOLLOW-UP. GIVEN PRESENTING SYMPTOMS AND RESULTS OF PHYSICAL EXAMINATION RECOMMEND FOLLOW-UP IN 2 MONTHS. PATIENT HAS EXPRESSED UNDERSTANDING OF AND WAS IN AGREEMENT WITH TREATMENT PLAN. GIVEN TIME TO ASK QUESTIONS AND EXPRESS CONCERNS. PROCEDURE CODES FA211 ESTABILISHED PATIENT [facility] CHARGE DISPOSITION & COMMUNICATION FOLLOW UP 2 MONTHS (REASON: NECK PAIN ) ELECTRONICALLY SIGNED BY KRIS PAUL ON 08/04/2019 AT 08:10 AM EST DISCLAIMER : THIS IS A VISIT SUMMARY EXTRACTED FROM THE [employer] CHART. IT IS NOT A COPY OF THE [employer] PROGRESS NOTE. KAITLYNN
== END ==
LOC: M PAIN 10:15
PROVIDERS: ATTEND Family Medicine
DX: M50.10 Cervical disc disorder with radiculopathy, unspecified cervical region (principal); J45.909 Unspecified asthma, uncomplicated; I10 Essential (primary) hypertension; Z86.59 Personal history of other mental and behavioral disorders; Z88.8 Allergy status to other drugs, medicaments and biological substances; Z79.899 Other long term (current) drug therapy

== ENCOUNTER → 2019-08-04 | Outpatient (CLI) | payer MEDICARE ==
[2019-08-04 12:54] LABS: C REACTIVE PROTEIN QUANTITATIV 1.03 MG/DL (0.00-0.30); PERCENT SATURATION 31.7 % (13.2-45.0)
[2019-08-05 10:35] LABS: FOLATE 23.9 NG/ML
[2019-08-07 00:08] LABS: ANCA-ATYPICAL <1:20 titer (Neg:<1:20); ANTI-SACCHAROMYCES CEREV. IgA <20.0 Units (0.0-24.9); ANTI-SACCHAROMYCES CEREV. IgG 39.6 Units (0.0-24.9); CYTOPLASMIC NEUTROP AB ANCA-C <1:20 titer (Neg:<1:20); PERINUCLEAR AB ANCA-P <1:20 titer (Neg:<1:20)
== END ==
LOC: M LAB 11:36
PROVIDERS: ATTEND Internal Medicine Gastroenterology
DX: K56.600 Partial intestinal obstruction, unspecified as to cause (principal); Z79.51 Long term (current) use of inhaled steroids; Z79.899 Other long term (current) drug therapy

== ENCOUNTER 2019-08-10 12:34 | Day surgery (SDC) | payer MEDICARE ==
[~2019-08-10] VITALS: Ht 175.3 cm; Wt 74.1 kg
[~2019-08-10 12:34] MED LIST changes: +LIDOCAINE 1% MDV 20ML VIAL SQ PRN; +LR 1,000 ML IV ONE; +NS 1,000 ML IV ONE
[2019-08-10] MEDS ORDERED: LIDOCAINE 2% INJ 100 MG/5 ML SDV (FOR ANES.) As Ordered ONE (14:19)
[2019-08-10] MEDS ORDERED: propofoL 200 MG/20 ML VIAL As Ordered ONE ×2 (14:19→14:32)
--- NOTE | 2019-08-10 14:49 | ROOR ---
Patient Name: Susan Damon Procedure Date: 08/10/2019 2:09 PM Date of : 1955 Age: 63 Room: [facility] Gender: Female Note Status: Finalized Procedure: Colonoscopy Indications: Follow-up for history of adenomatous polyps in the colon, Follow-up of colonic obstruction Providers: Madan Grayson MD Referring MD: Massiel Louise NP Requesting Provider: Medicines: Monitored Anesthesia Care Complications: No immediate complications. Procedure: Pre-Anesthesia Assessment: - Prior to the procedure, a History and Physical was performed, and patient medications and allergies were reviewed. The patient is competent. The risks and benefits of the procedure and the sedation options and risks were discussed with the patient. All questions were answered and informed consent was obtained. Patient identification and proposed procedure were verified by the physician, the nurse and the anesthesiologist in the procedure room. Mental Status Examination: alert and oriented. Airway Examination: normal oropharyngeal airway and neck mobility. Respiratory Examination: clear to auscultation. CV Examination: normal. Prophylactic Antibiotics: The patient does not require prophylactic antibiotics. Prior Anticoagulants: The patient has taken no previous anticoagulant or antiplatelet agents. ASA Grade Assessment: III - A patient with severe systemic disease. After reviewing the risks and benefits, the patient was deemed in satisfactory condition to undergo the procedure. The anesthesia plan was to use monitored anesthesia care (MAC). Immediately prior to administration of medications, the patient was re-assessed for adequacy to receive sedatives. The heart rate, respiratory rate, oxygen saturations, blood pressure, adequacy of pulmonary ventilation, and response to care were monitored throughout the procedure. The physical status of the patient was re-assessed after the procedure. The Colonoscope was introduced through the anus and advanced to the cecum, identified by appendiceal orifice and ileocecal valve. The colonoscopy was performed without difficulty. The patient tolerated the procedure well. The quality of the bowel preparation was poor. The ileocecal valve, appendiceal orifice, and rectum were photographed. Scope insertion time was 4 minutes. Scope withdrawal time was 8 minutes. The total duration of the procedure was 12 minutes. Findings: The perianal and digital rectal examinations were normal. A benign-appearing, intrinsic moderate stenosis measuring 1.2 cm (inner diameter) was found in the transverse colon and was traversed. Biopsies were taken with a cold forceps for histology. Verification of patient identification for the specimen was done by the physician and nurse using the patient's name, date and medical record number. Estimated blood loss was minimal. A tattoo was seen in the transverse colon. Noted on either side of the stricture. Multiple small and large-mouthed diverticula were found from sigmoid to ascending colon. Non-bleeding external and internal hemorrhoids were found during anoscopy. The hemorrhoids were medium-sized. A large amount of semi-liquid semi-solid stool was found from sigmoid to cecum, interfering with visualization. Lavage of the area was performed using a large amount of sterile water, resulting in incomplete clearance with continued poor visualization. Impression: - Preparation of the colon was poor. - Stricture in the transverse colon. Biopsied. - A tattoo was seen in the transverse colon. Noted on either side of the stricture. - Diverticulosis from sigmoid to ascending colon. - Non-bleeding external and internal hemorrhoids. Recommendation: - Patient has a contact number available for emergencies. The signs and symptoms of potential delayed complications were discussed with the patient. Return to normal activities tomorrow. Written discharge instructions were provided to the patient. - High fiber diet. - Continue present medications. - Await pathology results. - Repeat colonoscopy in 3 - 5 years for surveillance based on pathology results. - Telephone GI clinic for pathology results in 2 weeks. - Return to primary care physician. Madan Grayson MD Madan Grayson MD 08/10/2019 2:48:58 PM Electronically signed by Madan Grayson MD Number of Addenda: 0 Note Initiated On: 08/10/2019 2:09 PM Estimated Blood Loss: Estimated blood loss was minimal.
[2019-08-10 15:14] VITALS: BP 139/85
== END 2019-08-10 15:16 | disposition home or self-care (01) ==
LOC: M SDC 12:34
PROVIDERS: ATTEND Internal Medicine Gastroenterology
DX: K56.609 Unspecified intestinal obstruction, unspecified as to partial versus complete obstruction (principal); K57.30 Diverticulosis of large intestine without perforation or abscess without bleeding; D12.3 Benign neoplasm of transverse colon; K64.4 Residual hemorrhoidal skin tags; K64.8 Other hemorrhoids; I10 Essential (primary) hypertension; K21.9 Gastro-esophageal reflux disease without esophagitis; F41.9 Anxiety disorder, unspecified; G43.909 Migraine, unspecified, not intractable, without status migrainosus; J45.909 Unspecified asthma, uncomplicated; R91.1 Solitary pulmonary nodule; Z87.891 Personal history of nicotine dependence; Z79.899 Other long term (current) drug therapy; Z79.51 Long term (current) use of inhaled steroids; Z88.8 Allergy status to other drugs, medicaments and biological substances

== ENCOUNTER → 2019-08-14 | Outpatient (CLI) | payer MEDICARE ==
[~2019-08-14] MED LIST changes: -LIDOCAINE 1% MDV 20ML VIAL SQ PRN; -LR 1,000 ML IV ONE; -NS 1,000 ML IV ONE
--- NOTE | 2019-08-14 16:43 | REP ---
CT chest without contrast: History: Nonspecific abnormal finding in the lung irizarry. Comparison chest CT studies are from July 09, 2019 and January 14, 2019. Findings: There is a cavitary irregular spiculated mass in the right upper lobe of the lung abutting the adjacent pleural surface. This measures 3.6 cm in greatest diameter today. This is an oblique measurement from the coronal multiplanar reformation scans. Axial, transverse and anteroposterior dimensions are 3.1 x 3.4 cm. The lesion appears very slightly larger than on the July 09, 2019 study. There is tenting and fibrosis extending to the overlying pleura. No other pulmonary parenchymal opacity is seen. Pleural angles are sharp. There is vascular calcification in the coronary artery distribution and in the aortic arch. There are scattered normal-sized mediastinal lymph nodes. No adenopathy is seen. No adrenal lesion is observed. Visualized upper abdominal structures are unremarkable. No bony destructive lesion is seen. Impression: Progressive spiculated cavitary mass right upper lobe. Malignancy versus granulomatous versus fungal lesion. Electronically Signed by Jorje Warner MD 08/14/2019 05:09 P
== END ==
LOC: M RAD 14:51
PROVIDERS: ATTEND Internal Medicine Pulmonary Disease
DX: R91.8 Other nonspecific abnormal finding of lung field (principal)

== ENCOUNTER 2019-08-31 05:44 | Day surgery (SDC) | payer MEDICARE ==
[~2019-08-31] VITALS: Ht 175.3 cm; Wt 74.9 kg
[2019-08-31] MEDS ORDERED: EPINEPHrine 1MG/10ML SYRINGE 1.5IN As Ordered ONE (07:13)
[2019-08-31] MEDS ORDERED: THROMBIN SOLN 5,000 UNITS VIAL As Ordered ONE (07:13)
[2019-08-31] MEDS ORDERED: CETACAINE SPRAY 5GM As Ordered ONE (07:13)
[2019-08-31] MEDS ORDERED: LIDOCAINE 1% SDV INJ 30 ML VIAL As Ordered ONE (07:14)
[2019-08-31] MEDS ORDERED: LIDOCAINE VISCOUS 2% SOLN 15ML UDC As Ordered ONE (07:14)
[2019-08-31] MEDS ORDERED: LIDOCAINE 2% INJ 100 MG/5 ML SDV (FOR ANES.) As Ordered ONE (07:46)
[2019-08-31] MEDS ORDERED: fentaNYL 250 MCG/5 ML INJECTION (J3010) As Ordered ONE (07:46)
[2019-08-31] MEDS ORDERED: ONDANSETRON 4MG/2ML VIAL (J2405) As Ordered ONE (07:46)
[2019-08-31] MEDS ORDERED: METOCLOPRAMIDE INJ 10MG/2ML VIAL (J2765) As Ordered ONE (07:46)
[2019-08-31] MEDS ORDERED: MIDAZOLAM INJ 2 MG/2 ML VIAL (J2250) As Ordered ONE (07:46)
[2019-08-31] MEDS ORDERED: dexameTHASONE 4 MG/ML 1ML VIAL (J1100) As Ordered ONE (07:46)
[2019-08-31] MEDS ORDERED: ROCURONIUM BROMIDE 50 MG/5 ML VIAL As Ordered ONE (07:46)
[2019-08-31] MEDS ORDERED: SUGAMMADEX SODIUM 500 MG/5 ML VIAL (BRIDION) As Ordered ONE (07:46)
[2019-08-31] MEDS ORDERED: propofoL 200 MG/20 ML VIAL As Ordered ONE (07:46)
[2019-08-31] MEDS ORDERED: LABETALOL HCL 100 MG/20 ML VIAL As Ordered ONE ×2 (07:47→13:05)
[2019-08-31] MEDS ORDERED: ALBUTEROL 6.7GM INHALER **FOR ANES. CART/OMNICELL ONLY As Ordered ONE (08:10)
--- NOTE | 2019-08-31 08:33 | REP ---
Chest x-ray: Single fluoroscopic view. History: Intra procedural imaging. 3 minutes 2 seconds of fluoroscopy time is reported. Findings: A single last image hold fluoroscopically obtained spot radiograph of the chest documents bronchoscopic position and fiducial marker placement. This appears to be in the right upper lobe and. Electronically Signed by Jorje Warner MD 08/31/2019 08:23 A
[2019-08-31] MEDS ORDERED: NORCO, ANEXSIA 5/325MG TABLET (HYDROcodone/ACETAMINOPHEN) PO PRN (08:45)
[2019-08-31] MEDS ORDERED: ONDANSETRON 4MG/2ML VIAL (J2405) IV PRN (08:45)
[2019-08-31] MEDS ORDERED: fentaNYL 100 MCG/2 ML INJECTION (J3010) IV PRN (08:45)
[2019-08-31] MEDS ORDERED: LR 1,000 ML IV SCH (08:45)
[2019-08-31] MEDS ORDERED: METOCLOPRAMIDE INJ 10MG/2ML VIAL (J2765) IV PRN (08:45)
--- NOTE | 2019-08-31 08:58 | ROOR ---
Patient Name: Susan Damon Procedure Date: 08/31/2019 7:21 AM Date of : 1955 Admit Type: Outpatient Age: 63 Note Status: Finalized Attending MD: Ondina Judge MD Procedure: Bronchoscopy Indications: Right upper lobe mass Providers: Ondina Judge MD (Doctor) Referring MD: 1. No Referring Physician 1. No Referring Physician, Admin. (Referring MD) Requesting Physician: Medicines: General Anesthesia, Cetacaine topical Complications: No immediate complications. Estimated blood loss: Minimal Procedure: Pre-Anesthesia Assessment: - Prior to the procedure, a History and Physical was performed, and patient medications and allergies were reviewed. The patient's tolerance of previous anesthesia was also reviewed. The risks and benefits of the procedure and the sedation options and risks were discussed with the patient. All questions were answered, and informed consent was obtained. Prior Anticoagulants: The patient has taken no previous anticoagulant or antiplatelet agents. ASA Grade Assessment: II - A patient with mild systemic disease. After reviewing the risks and benefits, the patient was deemed in satisfactory condition to undergo the procedure. The Bronchoscope was introduced through the mouth, via the endotracheal tube (the patient was intubated for the procedure) and advanced to the tracheobronchial tree of both lungs. The procedure was accomplished without difficulty. The patient tolerated the procedure well. Findings: The chele is sharp. The entire tracheobronchial tree was examined to at least the first subsegmental level. Bronchial anatomy was normal; there are no endobronchial lesions and scant mucous secretions. Bronchial mucosa showed some pitting and webbing in bilateral bronchial tree and appeared normal except in the right upper lobe. Right Lung Abnormalities: Edematous and friable mucosa was found in the apical segment of the right upper lobe (B1) and in the anterior segment of the right upper lobe (B3). Electromagnetic navigation bronchoscopy utilizing the [employer] system with iLogic upgrade was performed. The CT scan was used for planning purposes. A virtual bronchoscopic image was generated using the planning software and the chele, left main bronchus chele, left lower lobe basilar segment, right upper lobe, right middle lobe and right lower lobe basilar segment registration points were marked on the virtual image. The target in the apical segment of the right upper lobe was marked. A mass 3.4 cm in size was found and a pathway was identified. After a complete airway exam, the locatable guide/extended working channel was inserted and an automatic registration was performed. The navigation phase was then begun to locate the target lesion(s). Positioning centrally (in relation to the lesion) was confirmed using the Olympus radial probe US catheter. The locatable guide was removed from the extended working channel. Fluoroscopy guided transbronchial brushings were obtained in the apical segment of the right upper lobe with a needle brush and sent for routine cytology. Transbronchial brushing technique was selected because the sampling site was not visible endoscopically. Transbronchial needle aspiration of a mass was performed in the apical segment of the right upper lobe using GenCut needle and sent for routine cytology. The procedure was guided by fluoroscopy. Transbronchial needle aspiration technique was selected because the sampling site was not visible endoscopically. Transbronchial biopsies were performed in the apical segment of the right upper lobe using forceps and sent for histopathology examination. The procedure was guided by fluoroscopy. Transbronchial biopsy technique was selected because the sampling site was not visible endoscopically. BAL was performed in the RUL apical segment (B1) of the lung and sent for routine cytology and bacterial, AFB and fungal analysis. The return was blood-tinged and cellular. Mucous plugs were present in the return fluid. Fiducial marker placement was performed. Once the target lesion was identified, two markers were deployed in the lesion 2 mm apart in the apical segment of the right upper lobe. Impression: - Right upper lobe mass - Edema was present in the apical segment of the right upper lobe (B1) and in the anterior segment of the right upper lobe (B3). - Friable mucosa was found in the apical segment of the right upper lobe (B1) and in the anterior segment of the right upper lobe (B3). - Electromagnetic navigation bronchoscopy was performed. - Transbronchial brushings were obtained. - A transbronchial needle aspiration was performed. - Transbronchial lung biopsies were performed. - Bronchoalveolar lavage was performed. - Fiducial markers were deployed. Recommendation: - Follow up with bronchoscopist as previously scheduled. Attending Participation: I personally performed the entire procedure. Ondina Judge MD 08/31/2019 8:57:46 AM Number of Addenda: 0 Note Initiated On: 08/31/2019 7:21 AM
--- NOTE | 2019-08-31 09:09 | REP ---
Portable chest, 08:45 a.m., single AP view with the patient sitting, post op study: Comparison is 07/09/2019. There is a focal density in the right upper lobe that appears larger in size. There is a surgical clip within this density as an interval change. There is no pneumothorax or pleural fluid collection. Left lung is clear. Cardiac size normal. The ciera, mediastinum, skeletal structures are unremarkable. Impression: Surgical clip is now identified within the known right upper lobe focal density. There is no pneumothorax. Electronically Signed by Yahir Maldonado MD 08/31/2019 09:01 A
[2019-08-31 09:46] VITALS: BP 127/71
== END 2019-08-31 10:38 | disposition home or self-care (01) ==
LOC: M SDC 05:44
PROVIDERS: ATTEND Internal Medicine Pulmonary Disease
DX: C34.11 Malignant neoplasm of upper lobe, right bronchus or lung (principal); J81.1 Chronic pulmonary edema; J45.30 Mild persistent asthma, uncomplicated; E78.5 Hyperlipidemia, unspecified; F41.9 Anxiety disorder, unspecified; F32.9 Major depressive disorder, single episode, unspecified; K59.09 Other constipation; K21.9 Gastro-esophageal reflux disease without esophagitis; M54.2 Cervicalgia; G43.909 Migraine, unspecified, not intractable, without status migrainosus; Z87.19 Personal history of other diseases of the digestive system; Z87.891 Personal history of nicotine dependence; Z88.8 Allergy status to other drugs, medicaments and biological substances; Z79.899 Other long term (current) drug therapy; Z79.51 Long term (current) use of inhaled steroids
CPT/HCPCS: 31623; 31624; 31626; 31627; 31628; 31629; 71045; 76000; 87070; 87077; 87102; 87116; 87186; 87205; 87206; 88104; 88108; 88173; 88305; 88313; A4648; J1100; J2250; J2405; J2765; J3010

== ENCOUNTER → 2019-09-08 | Outpatient (CLI) | payer MEDICARE ==
--- NOTE | 2019-09-08 15:13 | PFTRPT ---
Height: 69.50 Inches Weight: 166.00 Lbs BSA: 1.92 Diagnosis: J45.30 DATE OF PROCEDURE: 09/08/2019 ORDERED BY: Dr. Judge Spirometry: Pre and post bronchodilator study of excellent technical quality. Forced vital capacity normal. FEV1 out of proportion. Obstructive index is, therefore, reduced. Flow Volume Loop: Expiratory limb of the flow volume loop consistent with flow rate limitation. No significant bronchodilator response identified. Lung Volumes: Total lung capacity normal. Residual volume is in proportion. Diffusing Capacity: Diffusing capacity is normal. Hemoglobin: Hemoglobin acceptable at 12. Airway Mechanics: Airway resistance and conductance are normal. IMPRESSION: Mild obstructive ventilatory impairment without bronchodilator response. Please correlate clinically. MTDD
== END ==
LOC: M CARPUL 14:26
PROVIDERS: ATTEND Internal Medicine Pulmonary Disease
DX: J45.998 Other asthma (principal)

== ENCOUNTER → 2019-09-14 | Outpatient (CLI) | payer MEDICARE ==
--- NOTE | 2019-09-15 10:16 | REP ---
PET/CT: HISTORY: Staging lung cancer. COMPARISONS: Comparison PET/CT study June 23, 2015. Comparison chest CT August 14, 2019. TECHNIQUE: ____minutes following the intravenous injection of a mCi dose of F-18 FDG, three-dimensional PET scintigraphy is acquired from the skull base to the proximal thighs. Triplanar noncontrast CT scanning is acquired through the same anatomic range for attenuation correction, and image registration with scan parameters optimized to minimize radiation exposure to the patient. PET scintigraphy and CT datasets were fused and displayed on a workstation with multiplanar and projection display capability. PET/CT FINDINGS: There is hypermetabolic uptake associated with the surgical reconstruction changes noted at the left temporomandibular joint. Maximum standard uptake value 9.02. These changes are chronic in can be seen on January 12, [address] study. No other abnormal skeletal hypermetabolic uptake is seen. There is however hypermetabolic tomás uptake in the neck soft tissues. Along the inferior edge of the right parotid gland, there is a 1 cm tomás focus of hypermetabolic uptake, 16.96. A second hypermetabolic lymph node is noted in the left retromandibular region, maximum SUV value 12.43. Small 1 cm lymph nodes are seen in these locations. No other abnormal hypermetabolic uptake is seen in the soft tissues of the neck. In the chest, the cavitary mass in the right upper lobe is hypermetabolic, maximum standard uptake value 16.25. There is a precarinal tomás focus which is normal in size, less than a centimeter in diameter. It is not considered hypermetabolic, 2.69. No other abnormal hypermetabolic uptake is seen in the thorax. No abnormal hypermetabolic uptake is seen in the abdomen or pelvis. IMPRESSION: The known malignant right upper lobe mass is hypermetabolic. There are two suspicious lymph node foci of hypermetabolic uptake in the cervical soft tissues, one on each side of the neck. Electronically Signed by Jorje Warner MD 09/15/2019 10:23 A
== END ==
LOC: M PLARAD 10:21
PROVIDERS: ATTEND Internal Medicine Pulmonary Disease
DX: C34.11 Malignant neoplasm of upper lobe, right bronchus or lung (principal); R93.89 Abnormal findings on diagnostic imaging of other specified body structures; R91.8 Other nonspecific abnormal finding of lung field
CPT/HCPCS: 78815; A9552

== ENCOUNTER → 2019-09-17 | Outpatient (CLI) | payer MEDICARE ==
[~2019-09-17] MED LIST changes: +SENN8.6T28 PO
--- NOTE | 2019-09-17 15:32 | RADONC ---
RADIATION ONCOLOGY CONSULTATION NOTE DATE: 09/17/2019 DIAGNOSIS: Right upper lobe non-small cell lung cancer. STAGE: T2a, NO, MX. ECOG PERFORMANCE STATUS: 0. CONSULTATION NOTE: Ms. Madsen is a very pleasant 63-year-old white female with the diagnosis of what appears to be a [id number] lung carcinoma involving her right upper lobe who is presenting to us today for discussion of her overall management and therapeutic options. HISTORY OF PRESENT ILLNESS: I do not have a complete history at this point, but the patient and her family appear to be good historians. Apparently the patient was noted to have a pulmonary nodule back in 2014 and underwent a PET/CT scan on 06/23/2015 which showed a 1.5 cm focus of intense hypermetabolic uptake with an SUV value of 13 compatible with neoplasm inferior to the right ear. There was no hypermetabolic activity in the lung nodule, nor was there any on the left side. The patient reports that she had multiple biopsies of that right neck/parotid lung nodule and was diagnosis as having a Warthin's tumor. These apparently were done at an outside institution. Once again that PET/CT scan did not show anything on the left or in the lung. Since that time she has been followed and reports that she has had biopsies of her lung lesion which initially were also negative. More recently, however, a CT scan of the chest done 08/14/2019 showed a cavitary irregular spiculated mass in the right upper lobe of the lung abutting the adjacent pleural surface. This measured 3.6 cm in diameter. This appeared to have increased in size slightly when compared to CT scan done July 09, 2019. A biopsy was undertaken on 08/31/2019 of the right upper lobe lesion which showed malignancy consistent with a non-small cell carcinoma. A PET scan was done once again on 09/14/2019. This time the PET scan once again showed hypermetabolic uptake at the inferior edge of the right parotid gland which was measuring at 1 cm and with an SUV value of 16.96. This is very similar to the previous PET scan of 5 years ago that the patient reports as being a Warthin tumor. What was not present 2 years ago is a second hypermetabolic lymph node noted in the left retromandibular region with an SUV value of 12.31. That was also small 1 cm lymph node. In the chest itself there was a cavitary mass in the right upper lobe which was hypermetabolic with an SUV value of 16.25. There was a precarinal lymph node focus which was normal in size and less than 1 cm in diameter. It was not considered hypermetabolic. In summary the patient's right upper lobe lesion lit up and it was hypermetabolic as were bilateral neck nodules, the one previously seen in 2015 which the patient reports as a Warthin's tumor and the other one new. The patient is now being referred to me for discussion of all her options and further workup. PAST MEDICAL HISTORY: The patient's past medical history is positive for anxiety, asthma, COPD, depression, GERD, hyperlipidemia, neuropathy, a past history of E-coli and a left jaw partial replacement. She had a right knee meniscus repair. The left jaw surgery was in the . ALLERGIES: The patient reports that she is allergic to DICYCLOMINE. SOCIAL HISTORY: The patient reports that she smoked for 20 years. She quit 8 years ago. She says she smoked half-a-pack of cigarettes a day. She does not abuse alcohol. FAMILY HISTORY: The patient's family history is positive for a sister with lung cancer. REVIEW OF SYSTEMS: The patient's review of systems is positive for some occasional headaches as well as anxiety. It is otherwise noncontributory. She denies nausea, vomiting, fevers, chills, night sweats, diplopia, headaches, anxiety or depression, anorexia, weight loss, visual disturbances, chest pain, urinary or bowel difficulties, bone pain, or neurological problems. PHYSICAL EXAMINATION: Physical examination was deferred secondary to COVID-19 precautions. ASSESSMENT: At this time we are dealing with what appears to clearly be a malignant lesion in this patient's right upper lung. It measures approximately 3.6 cm in diameter. The patient has had pulmonary functions done and her FEV-1 is 2.08. If one were to consider solely her lung lesion, I believe this patient would be better addressed with either surgery if she is deemed a surgical candidate by her thoracic surgeon verses SBRT radiation. We do not presently perform SBRT and I am referring her to the excellent radiation oncologists at [facility], with whom I have worked for many years, for their expert opinion and evaluation. We do have the two other lesions in the bilateral neck to deal with. I have personally reviewed these with her radiologist, Dr. Jorje Warner MD. The right-sided lesion has been biopsied at least according to the patient on multiple occasions and appears to be a Warthin tumor. Indeed I have compared that to her previous PET scan of 2014 and it was present than and appears basically unchanged. I therefore believe that the right sided neck lesion is most likely benign and not related to her lung problem. Without a new biopsy however, we can not be certain. Of concern is the left-sided lesion. This was not present on previous PET scan from 5 years ago and just as her lung lesion is now hypermetabolic with an SUV value in the range above [address] is [address] area[address] Dr. Judge has scheduled this patient for biopsies of the right and left sides. If there is some way to get to the left-sided area, this may be more significant that the right. Dr. Warner does not believe this can be done by interventional radiology. Indeed it is in an area of great vascularity and behind the patient's mandible. I will defer to . The patient is scheduled see her medical oncologist in consultation today at 1 o'clock. I look forward to his expert opinion as well. In addition, the patient is scheduled for evaluation for possible biopsy on both the right and the left sides. This especially biopsy of the left side if possible would give us a lot of information. At this time I cannot make an absolute a recommendation other than to continue the workup. Indeed if the head and neck area is of not malignant then SBRT like I mentioned should be considered and I am referring her to [facility] for that purpose. Again, in summary, I am referring this patient for consultation with Dr. Holbrook, our Thoracic Surgeon. I am also referring this patient to [facility] for an SBRT consultation. Medical Oncology consultation is pending. At this time, if indeed we are dealing with node negative disease, conventional EBRT would not be recommended, unless she is deemed not a candidate for SBRT or Surgery. CC: [facility] cc: MD Vasu Lau MD Vivian Keenan, MD Nancy Spicer, JOHN CALDERÓN
== END ==
LOC: M ONCR 08:48
PROVIDERS: ATTEND Radiology Radiation Oncology
DX: C34.11 Malignant neoplasm of upper lobe, right bronchus or lung (principal)

== ENCOUNTER → 2019-09-24 | Outpatient (CLI) | payer MEDICARE ==
[~2019-09-24] MED LIST changes: +PROHANCE 279.3MG/ML 15ML VIAL (A9576) As Ordered ONE
--- NOTE | 2019-09-24 14:41 | REP ---
MRI BRAIN WITHOUT AND WITH IV GADOLINIUM: HISTORY: Lung carcinoma. Headaches. Comparison is made with images from PET/CT study dated September 14, 2019. Comparison head CT July 27, 2019. TECHNIQUE: Axial and sagittal imaging planes are utilized for T1- and T2-weighted scans. Sequences include spin-echo, fast spin echo, FLAIR, and diffusion weighted sequences. Gadolinium enhancement dose is 15 mL of intravenous ProHance. MRI FINDINGS: There is metallic field susceptibility artifact which appears to be centered in the region of the preauricular soft tissues on the left. Review of the CT study demonstrates that the patient had reconstructive surgery here with metallic screws placed. The bony calvarium is otherwise intact. Craniocervical junction and upper cervical cord are normal in appearance. Diffusion weighted scans show no evidence of restricted diffusion. There is no visible intracranial mass lesion. Postcontrast images show enhancement in normal vasculature. No abnormal contrast enhancement is seen intracranially. On FLAIR images, there are multiple focal T2 hyperintensities in the periventricular and subcortical white matter of the frontal lobes bilaterally consistent with small vessel atherosclerotic changes. IMPRESSION: There is no evidence to suggest intracranial metastasis or other acute intracranial abnormality. Small vessel changes. Electronically Signed by Jorje Warner MD 09/24/2019 03:17 P
== END ==
LOC: M RAD 12:00
PROVIDERS: ATTEND Radiology Radiation Oncology
DX: C34.11 Malignant neoplasm of upper lobe, right bronchus or lung (principal); R51 Headache
CPT/HCPCS: 70553; A9576

== ENCOUNTER → 2019-09-28 | Outpatient (CLI) | payer MEDICARE ==
[~2019-09-28] MED LIST changes: +LIDOCAINE 1% MDV 20ML VIAL As Ordered ONE; -PROHANCE 279.3MG/ML 15ML VIAL (A9576) As Ordered ONE
[2019-09-28 13:20] VITALS: BP 154/93
--- NOTE | 2019-09-28 15:18 | REP ---
Ultrasound-guided right parotid lymph node biopsy This procedure was performed by ZEENAT Barajas, under the direct supervision of Dr. Hare. The patient has a history of hypermetabolic lymph node in the right parotid gland, and a hypermetabolic lymph node in the left retromandibular region. A on a PET CT dated 09/14/2019. The left retromandibular lymph node was not able to be visualized under ultrasound guidance and therefore was not biopsied today. It is doubtful if any image guided biopsy can be done on this lymph node given its location. The risks and the benefits of the procedure were explained to the patient and informed consent was obtained both verbally and written. Directly prior to the start of the procedure, a formal time out was completed in the procedure room. The right parotid lymph node was localized using ultrasound guidance. The skin was prepped and draped in a sterile fashion. 1 ml of 1% lidocaine 10 mg/ml was used as a local anesthetic. Using ultrasound guidance 8 fine-needle aspirations were obtained using 25 gauge needles of the right parotid lymph node. The patient tolerated the procedure well and there were no immediate complications. After the appropriate amount of monitored convalescence the patient was discharged from the department. Reviewed by ZEENAT Barajas 09/28/2019 01:51 P Electronically Signed by Yahir Hare MD 09/28/2019 03:09 P
== END ==
LOC: M IRPRO 11:41
PROVIDERS: ATTEND Internal Medicine Pulmonary Disease
DX: R89.6 Abnormal cytological findings in specimens from other organs, systems and tissues (principal); D11.0 Benign neoplasm of parotid gland; C34.11 Malignant neoplasm of upper lobe, right bronchus or lung

== ENCOUNTER 2019-10-15 15:43 | Emergency (ER) | payer MEDICARE ==
[~2019-10-15] VITALS: Ht 175.3 cm; Wt 75.0 kg
[~2019-10-15 15:43] MED LIST changes: -LIDOCAINE 1% MDV 20ML VIAL As Ordered ONE
[2019-10-15 15:44] VITALS: BP 160/92
[2019-10-15] MEDS ORDERED: ISOVUE-370 76% 100ML VIAL As Ordered ONE (16:16)
[2019-10-15] MEDS ORDERED: POTA1TAB23 PO (16:17)
--- NOTE | 2019-10-15 16:58 | REP ---
REASON FOR EXAM: Followup. All priors were reviewed, the latest of which is dated 09/12/2019. That examination showed a progressive, spiculated cavitary right upper lobe mass lesion. CONTRAST TODAY: 100 mL Isovue-[id number]. Prominent, but nonenlarged and stable mediastinal and right hilar lymph nodes are present. There are no pleural or pericardial effusions. The imaged upper abdomen and imaged osseous structures are again seen to be within normal limits and unchanged. Evaluation of the lung irizarry shows the spiculated cavitary right upper lobe mass lesion to measure approximately 4.8 x 3.5 x 4.8 cm. Within the mass lesion, two metallic radiodensities are now seen. No new abnormal nodules, masses, or opacities have developed. Stable chronic biapical pleuroparenchymal scarring is noted with tiny biapical pleural blebs, all stable. IMPRESSION: The spiculated cavitary mass density seen in the right upper lobe has gotten larger, as described above. There are two metallic radiodensities now seen within the mass lesion and are consistent with some form of procedural intervention. I have no history as to what was performed on this patient. If there has been a recent procedure, then the increased size of the lesion may, in fact, be secondary to hemorrhage within the air spaces due to performance of the procedure rather than true mass lesion increase in size. This all needs to be correlated clinically with appropriate followup. Other findings as described above. Electronically Signed by Ayden Stephen DO 10/16/2019 10:23 A
--- NOTE | 2019-10-15 17:09 | ER ---
DATE OF CONSULTATION: 10/15/2019 Mrs. Madsen is a 63-year-old white female who is being considered for surgery and now complains of hemoptysis in the morning when she coughs. Her cough is status quo. Other than hemoptysis, she brings up white phlegm. She does not complain of shortness of breath, nor does she complain of fever, chills or sweats, or night sweats. There is no weight loss, and there is no dysphagia. On physical examination, her lungs show equal breath sounds on either side with some faint expiratory wheezing on the right side. Percussion note is full to the diaphragm. Cardiac exam is without murmurs, clicks, gallops or rubs. I cannot feel her point of maximum impulse (PMI). S1, S2 are normal. Abdomen is soft and nontender. Bowel sounds are positive. There is no hepatomegaly. No costovertebral angle (CVA) tenderness. Extremities show no pretibial edema. No calf tenderness. No differential swelling of the upper extremities. Skin is warm, dry and perfused without cyanosis or mottling, including that of the nail beds and the knees. Neck is supple. There is no jugular venous distention, no subcutaneous emphysema. Trachea is midline. Mouth shows her mucous membranes to be pink and moist. Lips and commissures without lesions. There is no thrush. Eyes show her pupils to be equal and reactive. Extraocular motions intact. Sclerae anicteric. Neurologic shows II-XII intact along with gross motor and gross sensation intact. Gait is not tested. Psychiatric shows her to be awake and alert, oriented times three with appropriate mood and affect and conversational. Her BUN and creatinine are 7 and 0.83. PLAN AND DISCUSSION: I will obtain a CT scan. After evaluation with CT scan, I will decide whether we should proceed with surgery. I will obtain the CT scan with contrast.
--- NOTE | 2019-10-16 13:40 | ED PDOC ---
Post-Departure Follow-Up marija gallegos faxed formal report of ct chest for fu Alejo High MD Oct 16, 2019 13:40
== END 2019-10-15 17:15 | disposition home or self-care (01) ==
LOC: M ED 15:43
DX: R04.2 Hemoptysis (principal); C34.91 Malignant neoplasm of unspecified part of right bronchus or lung; I10 Essential (primary) hypertension; K21.9 Gastro-esophageal reflux disease without esophagitis; J44.9 Chronic obstructive pulmonary disease, unspecified; J45.909 Unspecified asthma, uncomplicated; F41.9 Anxiety disorder, unspecified; Z86.19 Personal history of other infectious and parasitic diseases; Z88.8 Allergy status to other drugs, medicaments and biological substances; Z79.899 Other long term (current) drug therapy; Z79.51 Long term (current) use of inhaled steroids
CPT/HCPCS: 71260; 80047; 99284; Q9967

== ENCOUNTER → 2019-10-20 | Outpatient (CLI) | payer MEDICARE ==
[~2019-10-20] MED LIST changes: +POTA1TAB23 PO
[2019-10-20 11:46] LABS: ABG BASE EXCESS -3.6 (-2.0-2.0); ABG O2 SATURATION 98.9 % (95.0-99.0); ABG PARTIAL PRESSURE CO2 36.4 mmHg (35.0-45.0); ABG PARTIAL PRESSURE O2 126.6 mmHg (75.0-100.0); ABG STANDARD HCO3 21.5 MEQ/L (22.0-26.0); ABG TOTAL CO2 22.1 MEQ/L (23.0-31.0); ABG pH (ARTERIAL) 7.379 UNITS (7.350-7.450)
[2019-10-20 12:05] LABS: HEMATOCRIT 38.3 % (36.0-47.0); HEMOGLOBIN 12.1 g/dl (12.0-15.5); MEAN CORPUSCULAR HGB CONC 31.6 g/dl (32.0-36.5); PLATELET COUNT, AUTOMATED 353 10^3/uL (150-450); RED BLOOD COUNT 4.03 10^6/uL (4.00-5.40); WHITE BLOOD COUNT 6.7 10^3/uL (4.0-10.0)
[2019-10-20 12:09] LABS: APPEARANCE, URINE CLEAR (CLEAR); BACTERIA, URINE AUTO NEGATIVE (NEGATIVE); BILIRUBIN, URINE AUTO NEGATIVE (NEGATIVE); BLOOD, URINE BLOOD NEGATIVE (NEGATIVE); COLOR, URINE YELLOW (YELLOW); GLUCOSE, URINE (UA) AUTO NEGATIVE (NEGATIVE); KETONE, URINE AUTO NEGATIVE (NEGATIVE); LEUKOCYTE ESTERASE, URINE AUTO NEGATIVE (NEGATIVE); MUCUS, URINE SMALL (NEGATIVE); NITRITE, URINE AUTO NEGATIVE (NEGATIVE); PROTEIN, URINE AUTO NEGATIVE (NEGATIVE); RBC, URINE AUTO 4 /HPF (0-3); SPECIFIC GRAVITY URINE AUTO 1.015 (1.002-1.035); SQUAMOUS EPITHELIAL CELL UR AU 0 /HPF (0-6); UROBILINOGEN, URINE AUTO 0.2 mg/dL (0.0-2.0); WBC, URINE AUTO 3 /HPF (0-3)
[2019-10-20 12:23] LABS: INR 1.02; PROTHROMBIN TIME 13.1 SECONDS (11.8-14.0)
[2019-10-20 12:24] LABS: PARTIAL THROMBOPLASTIN TIME 30.8 SECONDS (25.0-38.4)
[2019-10-20 12:29] LABS: BLOOD UREA NITROGEN 11 MG/DL (7-18); CALCIUM LEVEL 8.6 MG/DL (8.8-10.2); CARBON DIOXIDE LEVEL 26 MEQ/L (21-32); CHLORIDE LEVEL 108 MEQ/L (98-107); CREATININE FOR GFR 0.93 MG/DL (0.55-1.30); GLOMERULAR FILTRATION RATE > 60.0 (>45); GLUCOSE, FASTING 100 MG/DL (70-100); POTASSIUM SERUM 4.2 MEQ/L (3.5-5.1); RHEUMATOID FACTOR QUANT < 10.0 IU/ML (<15.0); SODIUM LEVEL 139 MEQ/L (136-145)
--- NOTE | 2019-10-20 17:05 | REP ---
Clinical: Preoperative assessment. Lung cancer. Technique: PA and lateral. Comparison: 08/31/2019. Findings: Right upper lobe mass with too small surgical biopsy clips is again identified and essentially unchanged. Mediastinum and cardiac silhouette are within normal limits. Underlying adenopathy cannot be excluded. No effusion. No pneumothorax. Skeletal structures intact. Impression: Known right upper lobe lung mass. Electronically Signed by Benja Corcoran MD 10/20/2019 04:57 P
--- NOTE | 2019-10-21 09:20 | ECGEPIP ---
[facility] Test Date: 2019-10-20 Pat Name: DEJON WESTFALL Department: Room: - Gender: Female Security Screener: SAMIRA : 1955 Requested By: Vasu Francois Order Number: [id number] Reading MD: Marc Wilson Measurements Intervals [place] Rate: 87 P: 56 SC: 145 QRS: 49 QRSD: 76 T: 48 QT: 358 QTc: 433 Interpretive Statements Normal sinus rhythm Left atrial enlargement Minor repolarization abnormalities No significant change since prior tracing of 07/27/2019 Electronically Signed on 10-21-2019 9:20:04 EDT by Marc Wilson
== END ==
LOC: M ADMPAT 10:58
PROVIDERS: ATTEND Thoracic Surgery (Cardiothoracic Vascular Surgery)
DX: Z01.818 Encounter for other preprocedural examination (principal); C34.11 Malignant neoplasm of upper lobe, right bronchus or lung

== ENCOUNTER → 2019-10-23 | Outpatient (CLI) | payer MEDICARE | LOC: M LABSMTC 11:25 | PROVIDERS: ATTEND Anesthesiology | DX: Z11.59 Encounter for screening for other viral diseases (principal) ==

== ENCOUNTER 2019-10-26 06:18 | Inpatient (IN) | payer MEDICARE ==
[~2019-10-26] VITALS: Ht 175.3 cm; Wt 80.1 kg
[2019-10-26] VITALS (11 sets, daily range): BP systolic 102–148; BP diastolic 65–75
[~2019-10-26 06:18] MED LIST changes: +LIDOCAINE 1% MDV 20ML VIAL SQ PRN; +LR 1,000 ML IV ONE; +MUPIROCIN 2% OINT 22 GM TUBE TOP ONE; +ceFAZolin SOD 2 GM in IV 1 EA IV ONE
[2019-10-26] MEDS ORDERED: fentaNYL 100 MCG/2 ML INJECTION (J3010) As Ordered ONE ×2 (07:09→12:24)
[2019-10-26] MEDS ORDERED: MIDAZOLAM INJ 2MG/2ML VIAL (J2250 PER 1MG) As Ordered ONE ×2 (07:09→07:12)
[2019-10-26] MEDS ORDERED: propofoL 200 MG/20 ML VIAL As Ordered ONE (07:12)
[2019-10-26] MEDS ORDERED: fentaNYL 250 MCG/5 ML INJECTION (J3010) As Ordered ONE (07:12)
[2019-10-26] MEDS ORDERED: ROCURONIUM BROMIDE 50 MG/5 ML VIAL As Ordered ONE ×3 (07:12→14:22)
[2019-10-26] MEDS ORDERED: LIDOCAINE 2% 100MG/5ML SDV (FOR ANES.) As Ordered ONE (07:12)
[2019-10-26] MEDS ORDERED: SUGAMMADEX SODIUM 500 MG/5 ML VIAL (BRIDION) As Ordered ONE (07:13)
[2019-10-26] MEDS ORDERED: ONDANSETRON 4MG/2ML VIAL As Ordered ONE (07:13)
[2019-10-26] MEDS ORDERED: dexameTHASONE 4 MG/ML 1ML VIAL (J1100 PER 1MG) As Ordered ONE (07:13)
[2019-10-26] MEDS ORDERED: METOCLOPRAMIDE INJ 10MG/2ML VIAL (J2765 PER 1) As Ordered ONE (07:13)
[2019-10-26] MEDS ORDERED: BUPIVACAINE LIPOSOME/PF 1.3% 20ML VIAL (13.3MG/ML)(EXPAREL)(C9290 PER1MG) As Ordered ONE (07:21)
[2019-10-26] MEDS ORDERED: CETACAINE SPRAY 5GM As Ordered ONE ×2 (07:21→14:43)
[2019-10-26] MEDS ORDERED: BUPIVACAINE HCL 0.5% 10ML VIAL As Ordered ONE (07:21)
[2019-10-26] MEDS ORDERED: BUPIVACAINE HCL 0.25% 30ML VIAL As Ordered ONE (07:21)
[2019-10-26] MEDS ORDERED: LIDOCAINE 5% OINT 30 GM As Ordered ONE (07:32)
[2019-10-26] MEDS ORDERED: fentaNYL 100 MCG/2 ML INJECTION (J3010) IV ONE (07:55)
[2019-10-26] MEDS ORDERED: MIDAZOLAM INJ 2MG/2ML VIAL (J2250 PER 1MG) IV ONE ×2 (07:55→08:23)
[2019-10-26] MEDS ORDERED: NALOXONE INJ 0.4MG/1ML VIAL (J2310 PER 1MG) IV PRN (09:15)
[2019-10-26] MEDS ORDERED: WALLBOXKEY XX PRN (09:15)
[2019-10-26] MEDS ORDERED: EPIDURAL/PCA KEYS XX PRN (09:15)
[2019-10-26] MEDS ORDERED: METOCLOPRAMIDE INJ 10MG/2ML VIAL (J2765 PER 1) IV PRN ×2 (09:15→15:30)
[2019-10-26] MEDS ORDERED: ONDANSETRON 4MG/2ML VIAL IV PRN ×3 (09:15→15:30)
[2019-10-26] MEDS ORDERED: ALBUTEROL 6.7GM INHALER **FOR ANES. CART/OMNICELL ONLY As Ordered ONE (09:41)
[2019-10-26] MEDS ORDERED: PHENYLephrine HCL 500 MCG/5 ML (100MCG/ML) SYRINGE (J2370) As Ordered ONE (09:41)
[2019-10-26] MEDS ORDERED: ACETAMINOPHEN 1000MG 100ML IV BTL (OFIRMEV) (J0131 PER 10MG) As Ordered ONE (10:36)
[2019-10-26] MEDS ORDERED: ceFAZolin 2 GM/D5W 50 ML IV BAG (J0690 PER 500MG) As Ordered ONE (13:15)
[2019-10-26] MEDS ORDERED: BISACODYL 10 MG SUPP PR PRN (14:30)
[2019-10-26] MEDS ORDERED: NORCO, ANEXSIA 5/325MG TABLET (HYDROcodone/ACETAMINOPHEN) PO PRN (14:30)
[2019-10-26] MEDS ORDERED: PERCOCET 5MG/325MG TAB PO PRN ×2 (14:30)
[2019-10-26] MEDS: FENTANYL/BUPIVACAINE/NACL BAG 250 ML EPIDURAL SCH (15:06)
[2019-10-26] MEDS ORDERED: KETOROLAC 30 MG/ML 1ML VIAL As Ordered ONE (15:22)
[2019-10-26 15:27] LABS: ABG BASE EXCESS -4.7 (-2.0-2.0); ABG HCO3 21.8 MEQ/L (22.0-26.0); ABG O2 SATURATION 99.2 % (95.0-99.0); ABG PARTIAL PRESSURE CO2 46.3 mmHg (35.0-45.0); ABG PARTIAL PRESSURE O2 154.9 mmHg (75.0-100.0); ABG STANDARD HCO3 20.6 MEQ/L (22.0-26.0); ABG TOTAL CO2 23.2 MEQ/L (23.0-31.0); ABG pH (ARTERIAL) 7.291 UNITS (7.350-7.450)
[2019-10-26] MEDS ORDERED: fentaNYL 100 MCG/2 ML INJECTION (J3010) IV PRN (15:30)
[2019-10-26] MEDS ORDERED: oxyCODONE 5MG TAB PO PRN (15:30)
[2019-10-26] MEDS ORDERED: KETOROLAC 30 MG/ML 1ML VIAL IV PRN (15:30)
[2019-10-26] MEDS ORDERED: LR 1,000 ML IV SCH (15:30)
[2019-10-26 15:31] LABS: BASO # 0.1 10^3/uL (0.0-0.2); BASO % 0.4 % (0.0-1.0); EOS % 0.1 % (0.0-3.0); HEMATOCRIT 35.5 % (36.0-47.0); HEMOGLOBIN 11.3 g/dl (12.0-15.5); LYMPH # 0.7 10^3/uL (1.5-5.0); LYMPH % 4.3 % (24.0-44.0); MEAN CORPUSCULAR HEMOGLOBIN 30.4 pg (27.0-33.0); MEAN CORPUSCULAR HGB CONC 31.8 g/dl (32.0-36.5); MEAN CORPUSCULAR VOLUME 95.4 fl (80.0-96.0); MONO # 0.9 10^3/uL (0.0-0.8); MONO % 5.5 % (0.0-5.0); NEUTROPHILS # 14.2 10^3/uL (1.5-8.5); NEUTROPHILS % 89.3 % (36.0-66.0); PLATELET COUNT, AUTOMATED 382 10^3/uL (150-450); RED BLOOD COUNT 3.72 10^6/uL (4.00-5.40); WHITE BLOOD COUNT 15.9 10^3/uL (4.0-10.0)
[2019-10-26] MEDS: KCL 20MEQ IN D5/NS 1000ML 1,000 ML IV SCH (15:32)
[2019-10-26] MEDS ORDERED: SODIUM BICARBONATE 8.4% INJ 50 ML SYRINGE As Ordered ONE (15:35)
--- NOTE | 2019-10-26 15:44 | REP ---
PORTABLE CHEST X-RAY: Single view. HISTORY: Right upper lobectomy. COMPARISON CHEST X-RAY: October 20, 2019. FINDINGS: There are two pleural drainage tubes in the apex on the right. The patient status post right thoracotomy and partial pneumonectomy with clips in the right suprahilar region and along the lateral aspect of the right apex. There is some mild soft tissue emphysema in the extrathoracic soft tissues. There is an epidural catheter noted along with monitoring electrodes. The left lung remains clear. No infiltrate or atelectasis seen on the right. IMPRESSION: Status post right thoracotomy and right upper lobectomy. Two right apical chest tubes. No evidence of pneumothorax, hydrothorax, or infiltrate. Electronically Signed by Jorje Warner MD 10/26/2019 04:40 P
[2019-10-26] MEDS ORDERED: SODIUM BICARBONATE 8.4% INJ 50 ML SYRINGE IV STA (15:48)
[2019-10-26 15:57] LABS: CALCIUM LEVEL 8.8 MG/DL (8.8-10.2); CREATININE FOR GFR 1.08 MG/DL (0.55-1.30); GLOMERULAR FILTRATION RATE 54.2 (>45); POTASSIUM SERUM 4.9 MEQ/L (3.5-5.1)
[2019-10-26] MEDS ORDERED: LEVALBUTEROL 1.25 MG/0.5 ML CONCENTRATE NEB NEB ONE (16:00)
[2019-10-26 16:31] LABS: ABG BASE EXCESS -1.7 (-2.0-2.0); ABG HCO3 23.4 MEQ/L (22.0-26.0); ABG O2 LITER FLOW 3; ABG O2 SATURATION 96.7 % (95.0-99.0); ABG PARTIAL PRESSURE CO2 40.9 mmHg (35.0-45.0); ABG PARTIAL PRESSURE O2 85.5 mmHg (75.0-100.0); ABG TOTAL CO2 24.6 MEQ/L (23.0-31.0); ABG pH (ARTERIAL) 7.375 UNITS (7.350-7.450)
[2019-10-26] MEDS: DOCUSATE SODIUM 100 MG CAP PO SCH ×2 (17:00→21:22)
[2019-10-26] MEDS ORDERED: NS 500 ML IV ONE (19:30)
[2019-10-26] MEDS: ceFAZolin SOD 1 GM in D5W MINI-BAG PLUS 50 ML IV SCH (19:30)
[2019-10-26] MEDS: SYMBICORT 160/4.5MCG INHALER 6GM INH SCH (19:48)
[2019-10-26] MEDS: LEVALBUTEROL 1.25 MG/0.5 ML CONCENTRATE NEB NEB SCH (19:48)
[2019-10-26] MEDS: clonazePAM 1 MG TAB PO SCH (21:21)
[2019-10-26] MEDS: HEPARIN SOD (PORCINE) 5000UNITS/ML VIAL (J1644 PER 1000UNITS) SC SCH (21:21)
[2019-10-26] MEDS: KETOROLAC 30 MG/ML 1ML VIAL IV SCH (21:21)
[2019-10-26] MEDS: SENNA 8.6 MG TAB (SENOKOT) PO SCH (21:22)
[2019-10-26] MEDS: ZONISAMIDE 100 MG CAP (ZONEGRAN) PO SCH (21:22)
[2019-10-26] MEDS: GABAPENTIN 100 MG CAP PO SCH (21:22)
[2019-10-27] VITALS (11 sets, daily range): BP systolic 106–154; BP diastolic 55–84
[2019-10-27] MEDS: ceFAZolin SOD 1 GM in D5W MINI-BAG PLUS 50 ML IV SCH ×3 (00:37→18:08)
[2019-10-27] MEDS: LEVALBUTEROL 1.25 MG/0.5 ML CONCENTRATE NEB NEB SCH ×4 (01:31→19:54)
[2019-10-27] MEDS: KCL 20MEQ IN D5/NS 1000ML 1,000 ML IV SCH (03:11)
[2019-10-27] MEDS: KETOROLAC 30 MG/ML 1ML VIAL IV SCH ×4 (03:11→20:09)
[2019-10-27 05:45] LABS: BASO # 0.1 10^3/uL (0.0-0.2); BASO % 0.5 % (0.0-1.0); EOS % 0.1 % (0.0-3.0); HEMATOCRIT 30.6 % (36.0-47.0); HEMOGLOBIN 9.9 g/dl (12.0-15.5); LYMPH # 1.5 10^3/uL (1.5-5.0); LYMPH % 13.5 % (24.0-44.0); MEAN CORPUSCULAR HEMOGLOBIN 30.7 pg (27.0-33.0); MEAN CORPUSCULAR HGB CONC 32.4 g/dl (32.0-36.5); MONO # 0.9 10^3/uL (0.0-0.8); MONO % 7.6 % (0.0-5.0); NEUTROPHILS # 8.9 10^3/uL (1.5-8.5); PLATELET COUNT, AUTOMATED 329 10^3/uL (150-450); RED BLOOD COUNT 3.22 10^6/uL (4.00-5.40); WHITE BLOOD COUNT 11.4 10^3/uL (4.0-10.0)
[2019-10-27 06:02] LABS: CALCIUM LEVEL 7.4 MG/DL (8.8-10.2); CREATININE FOR GFR 1.02 MG/DL (0.55-1.30); GLOMERULAR FILTRATION RATE 57.9 (>45); POTASSIUM SERUM 4.2 MEQ/L (3.5-5.1)
[2019-10-27 06:10] LABS: ABG BASE EXCESS -2.1 (-2.0-2.0); ABG HCO3 22.9 MEQ/L (22.0-26.0); ABG O2 SATURATION 98.6 % (95.0-99.0); ABG PARTIAL PRESSURE CO2 40.1 mmHg (35.0-45.0); ABG STANDARD HCO3 22.7 MEQ/L (22.0-26.0); ABG TOTAL CO2 24.2 MEQ/L (23.0-31.0); ABG pH (ARTERIAL) 7.375 UNITS (7.350-7.450)
[2019-10-27] MEDS: SYMBICORT 160/4.5MCG INHALER 6GM INH SCH ×2 (07:01→19:53)
--- NOTE | 2019-10-27 08:00 | REP ---
Clinical: Status post right upper lobectomy. Technique: PA and lateral. Comparison: 10/20/2019. Findings: Two right-sided chest tubes are identified along with relatively normal postsurgical changes involving the right hemithorax. Minimal atelectasis cannot be excluded. No obvious effusion or pneumothorax. Small amount of subcutaneous emphysema noted. Right hilar adenopathy cannot be excluded. Mediastinum and cardiac silhouette are otherwise within normal limits. Left hemithorax appears clear/stable. Skeletal structures are intact. Impression: Presumed normal postsurgical changes involving the right hemithorax. Electronically Signed by Benja Corcoran MD 10/27/2019 07:51 A
[2019-10-27] MEDS: PRAVASTATIN 20 MG TAB PO SCH (08:43)
[2019-10-27] MEDS: MONTELUKAST 10 MG TAB PO SCH (08:44)
[2019-10-27] MEDS: VENLAFAXINE **XR** 75MG CAPSULE PO SCH (08:44)
[2019-10-27] MEDS: MULTIVITAMINS/MINERALS THERAP 1 TAB PO SCH (08:44)
[2019-10-27] MEDS: PANTOPRAZOLE 40MG TAB (PROTONIX) PO SCH (08:44)
[2019-10-27] MEDS: GABAPENTIN 100 MG CAP PO SCH ×3 (08:44→20:06)
[2019-10-27] MEDS: clonazePAM 1 MG TAB PO SCH ×2 (08:45→20:06)
[2019-10-27] MEDS: DOCUSATE SODIUM 100 MG CAP PO SCH ×3 (08:45→20:05)
[2019-10-27] MEDS: ZONISAMIDE 100 MG CAP (ZONEGRAN) PO SCH ×2 (08:45→20:06)
[2019-10-27] MEDS: SENNA 8.6 MG TAB (SENOKOT) PO SCH ×2 (08:45→20:08)
[2019-10-27] MEDS: HEPARIN SOD (PORCINE) 5000UNITS/ML VIAL (J1644 PER 1000UNITS) SC SCH ×2 (08:47→20:08)
[2019-10-27] MEDS: MOM 30ML SUSPENSION UDC PO SCH (09:00)
[2019-10-27] MEDS ORDERED: VENLAFAXINE **XR** 75MG CAPSULE PO SCH (09:00)
--- NOTE | 2019-10-27 11:12 | RO ---
DATE OF PROCEDURE: 10/26/2019 PREPROCEDURE DIAGNOSIS: Right upper lobe lung cancer. POSTOPERATIVE DIAGNOSIS: Right upper lobe lung cancer, pathology pending. PROCEDURE: Right upper lobectomy, mediastinal lymphadenectomy, bronchoscopy times two with bronchoalveolar lavage at the beginning and end of the case, azygos flap bronchoplasty, and five level rib block. SURGEON: Dr. Vasu Holbrook GROVE WORKER: ANESTHESIA: FINDINGS: The initial bronchoscopy revealed tracheobronchial tree with normal anatomy, however, with copious amounts of secretions which are suction aspirated and cleared with bronchoalveolar lavage. There are numerous mucus plugs. Because of the findings at the beginning of the operation it was planned to undertake yet another bronchoscopy with bronchoalveolar lavage (BAL) and clearing of mucus plugs at the end of the procedure. There were no endobronchial lesions seen. The tumor was found to be adherent to the chest wall. It was carved off the chest wall and multiple biopsies of the chest wall did not reveal any residual tumor. She had an intense inflammatory response throughout all of the vessels, which made dissection difficult and tedious. There was no minor fissure, however, it could be created with an [place] stapler, once having divided all of the vessels. Chest wall was marked with hemoclips at the margins of the adherent mass. DESCRIPTION OF PROCEDURE: Under satisfactory general anesthesia and single lumen tube endotracheal intubation, the bronchoscope was placed into the tracheobronchial tree with the above results. Each segment and sub segment of the bronchus was thoroughly inspected after clearing mucus plugs with saline bronchoalveolar lavage. The patient was then turned into the left lateral decubitus position and prepped and draped in the usual sterile fashion. A posterolateral thoracotomy incision was made. Ribs were counted and the chest was entered through the fifth intercostal space. It was obvious that because of the lack of fissure and her barrier anatomy that the major fissure was not positioned in its usual place and therefore the fourth intercostal space was opened to provide better exposure. Except for the portion where the tumor was adherent to the chest wall the remainder of the lung was essentially free of adhesions to the chest wall. With thoracoscopic control, the lung was carved off the lateral chest wall with electrocautery. The chest wall was then copiously biopsied and sent for frozen sections. No malignancy was found. The left chest wall was marked with clips. Attention was then turned to the major fissure as there was no minor fissure. While the major fissure was present, it was incomplete and a tedious dissection to find the pulmonary artery ensued. Finally, a glimpse of the pulmonary artery could be seen and was expanded to trace the artery more cephalad. The apical basilar segment was seen coming off a rather large trunk after bifurcating into the posterior ascending pulmonary artery and the apical basilar right lower lobe segmental artery. The posterior mediastinal portal was incised and the bifurcation of the bronchus intermedius and right upper lobe bronchus was ascertained. A right angled clamp could eventually be placed very carefully from right between the bifurcation of the above vessels posteriorly and the fissure could then be completed by an [place] stapler. This then opened up more of the anatomy which was continued to be dissected more cephalad. The middle lobe arteries were identified. The posterior ascending pulmonary artery was divided by use of a vascular stapler reinforced with hemoclips. Attention was then turned to the hilum where the truncal pulmonary artery could be ascertained. It was able to be divided with a vascular stapler after surrounding it with a vessel loop and slightly elevating it to accommodate the stapler. Attention was then turned to the superior pulmonary vein where the right middle lobe vein was identified and preserved. This had a very dense inflammatory reaction around it and had to be slowly and carefully dissected. Finally, it was freed up. A vessel loop was placed across it and it was divided by use of a vascular stapler. The pulmonary artery was then dissected more caudal and one extra branch was identified and found and stapled with a vascular stapler. This then left the fissure to be completed. What I thought was the middle lobe demarcation was then crossed with an [place] stapler, again, preserving the vein. This required multiple flavio to create the fissure. Later on in the case at closure, when reinflating the lung, it was noted that a portion of the remaining middle lobe was still atelectatic and obviously part of the upper lobe and it was wedged off for completion. This then left the bronchus. Nodes were swept up the bronchus and the bronchus divided by use of an [place] 4.8 stapler. The azygos vein was divided at its junction with the superior vena cava (SVC) and doubly stapled at the junction with the hemiazygos vein and then filleted for later use as an azygos flap. The bronchus was tested to 30 cm of water and was found to be intact without leaking. The mediastinum underneath the divided azygos vein was then incised and a mediastinal lymphadenectomy then ensued, removing all tomás tissue with the harmonic scalpel and with electrocautery. After achieving adequate hemostasis and assuring ourselves of no lymphatic leak, the mediastinal space was filled with Tisseel glue. A five level rib block consisting of 1/2% Marcaine and Exparel was then instilled. Two chest tubes, #24 curved and straight, were then placed, one through the already existing axillary incision for the prior stapling of the vascular structures. The ribs were then reapproximated by use of #1 Prolene [id number] sutures. The lung was reinflated under direct vision. As noted above, a small segment of atelectasis in the middle lobe remained and it was clearly a portion of the upper lobe which was then wedged off with an [place] stapler. The extrathoracic muscles were closed with running #0 Vicryl suture. The subcutaneous tissue closed with running #3-0 Vicryl suture. The skin closed with running #3-0 Monocryl subcuticular suture. The patient tolerated the procedure well and left the operating room in satisfactory condition for the recovery room. KAITLYNN
[2019-10-27] MEDS ORDERED: FUROSEMIDE 20MG/2ML VIAL (J1940) IV ONE (11:45)
--- NOTE | 2019-10-27 12:36 | IPN ---
DATE OF SERVICE: 10/27/2019 This is now the first postoperative day for Mrs. Damon. She has had a stable night of surgery. Her pain is being fairly well controlled. She does complain of shoulder pain, which is being treated with both Toradol and a heating pad. Her vital signs show a maximum temperature (Tmax) of 99.0 with a heart rate that ranges between 92 and 108 in a sinus rhythm, respiratory rate of 16-20 without the use of accessory muscles, who is 97% saturated now on room air, and her blood pressure is ranging between 106/57 to 154/76. Her intake and output over the past 24 hours has been recorded as 2420 in and 730 out for a positivity of 1690 mL. She has only put out 130 mL up to midnight and 150 mL since midnight in urine. She put out 150 mL since midnight from the chest tube, and there is no air leak. The nursing staff today, she saw an air leak early this morning. Her weight today is 77 kg compared to 73 kg yesterday. On physical examination, she has bilateral wheezing on either side. Percussion notes are full to the diaphragm. Cardiovascular examination: Is without murmurs, click, gallops, or rubs. I cannot feel her point of maximal impulse (PMI). S1 and S2 are normal. Abdomen is soft, nontender. Bowel sounds are positive. There is no hepatomegaly. No costovertebral angle (CVA) tenderness. She is having flatus. Extremities shows no pretibial edema, no calf tenderness, no differential swelling of the upper extremities. The skin is warm, dry, and perfused without cyanosis or mottling, including that of the nail beds and the knees. Neck is supple. There is no jugular venous distention, no subcutaneous emphysema. Trachea is midline. Mouth shows her mucous membranes to be pink and moist. Lips and commissures without lesions. There is no thrush. Eyes show her pupils to be equal and reactive. Extraocular movements intact. Sclerae anicteric. Neurologic shows II-XII intact, along with gross motor and gross sensation intact. Gait is not tested. Psychiatric shows her to be awake and alert and oriented times three with appropriate mood and affect and conversational. It should be noted that the nurses did take her down to x-ray today, and she walked without difficulty. Her white count today is 11.4 with a hemoglobin and hematocrit of 9.9 and 13.6 down from 11.3 and 35.5 secondary to hemodilution. Platelet count is 329 and differential shows 78% neutrophils, 13% lymphocytes, 7% monocytes. There are no immature forms, no toxic granulations. Her electrolytes are normal with a BUN and creatinine of 14 and 1.02, a glucose of 122, and a calcium of 7.4. Blood gas today show a pH of 7.37, a PCO2 of 40, a pO2 of 113, with a base excess of -2.1. Her chest x-ray today shows her lung fully expanded to the chest wall. Chest tubes are in good place. Costophrenic angles are sharp. There is minimal subcutaneous emphysema on the lateral chest wall on the right side. Cardiac size is normal. There are no infiltrates. IMPRESSION: 1. Asthma. 2. Gastroesophageal reflux disease (GERD). 3. Hyperlipidemia. 4. Non small cell tumor, right side, path pending. 5. History of Escherichia (E.) coli colitis. 6. Possible large bowel obstructive lesion being considered for resectional surgery. 7. Coronary artery disease. PLAN AND DISCUSSION: I will transfer her to the progressive care unit (PCU) today. I will gently start diuresing her today. Her pain is being well controlled except for her shoulder pain, and that will disappear in the next couple of days and probably secondary to counting the ribs and positioning on the table. Pathology is pending. KAITLYNN
[2019-10-27] MEDS: FENTANYL/BUPIVACAINE/NACL BAG 250 ML EPIDURAL SCH (15:43)
[2019-10-27] MEDS: diphenhydrAMINE 50MG/ML VIAL (J1200) IV PRN (15:49)
[2019-10-28] VITALS: BP_SYST 123; BP_SYST 23; BP_DIAS 66
[2019-10-28] MEDS: ceFAZolin SOD 1 GM in D5W MINI-BAG PLUS 50 ML IV SCH ×2 (00:47→08:47)
[2019-10-28] MEDS: LEVALBUTEROL 1.25 MG/0.5 ML CONCENTRATE NEB NEB SCH ×4 (01:00→20:00)
[2019-10-28] MEDS: diphenhydrAMINE 50MG/ML VIAL (J1200) IV PRN (01:18)
[2019-10-28] MEDS: KETOROLAC 30 MG/ML 1ML VIAL IV SCH ×4 (03:43→20:05)
[2019-10-28 04:00] VITALS: BP 147/73
[2019-10-28 05:50] LABS: BASO # 0.1 10^3/uL (0.0-0.2); BASO % 0.7 % (0.0-1.0); EOS # 0.1 10^3/uL (0.0-0.5); EOS % 1.1 % (0.0-3.0); HEMATOCRIT 29.5 % (36.0-47.0); HEMOGLOBIN 9.6 g/dl (12.0-15.5); LYMPH # 1.2 10^3/uL (1.5-5.0); LYMPH % 11.1 % (24.0-44.0); MEAN CORPUSCULAR HEMOGLOBIN 30.9 pg (27.0-33.0); MEAN CORPUSCULAR HGB CONC 32.5 g/dl (32.0-36.5); MEAN CORPUSCULAR VOLUME 94.9 fl (80.0-96.0); MONO # 0.9 10^3/uL (0.0-0.8); MONO % 8.3 % (0.0-5.0); NEUTROPHILS # 8.4 10^3/uL (1.5-8.5); NEUTROPHILS % 78.3 % (36.0-66.0); PLATELET COUNT, AUTOMATED 334 10^3/uL (150-450); RED BLOOD COUNT 3.11 10^6/uL (4.00-5.40); WHITE BLOOD COUNT 10.7 10^3/uL (4.0-10.0)
[2019-10-28 06:18] LABS: CALCIUM LEVEL 8.2 MG/DL (8.8-10.2); CREATININE FOR GFR 1.1 MG/DL (0.55-1.30); GLOMERULAR FILTRATION RATE 53.1 (>45); POTASSIUM SERUM 3.9 MEQ/L (3.5-5.1)
[2019-10-28] MEDS: SYMBICORT 160/4.5MCG INHALER 6GM INH SCH ×2 (07:06→19:29)
--- NOTE | 2019-10-28 07:53 | REP ---
Clinical: Status post right upper lobectomy. Technique: PA and lateral. Comparison: 10/27/2019. Findings: Two right-sided chest tubes in stable position. Increased subcutaneous emphysema with extension into the neck. No obvious pneumothorax or pleural effusion. No obvious consolidation or significant atelectasis. Mediastinum and cardiac silhouette are within normal limits / stable. Skeletal structures are intact. Impression: 1. Increased subcutaneous emphysema. 2. Otherwise stable examination. 3. No new acute process identified. Electronically Signed by Benja Corcoran MD 10/28/2019 07:45 A
[2019-10-28 08:00] VITALS: BP 129/68
[2019-10-28] MEDS: HEPARIN SOD (PORCINE) 5000UNITS/ML VIAL (J1644 PER 1000UNITS) SC SCH ×2 (08:47→20:04)
[2019-10-28] MEDS: PRAVASTATIN 20 MG TAB PO SCH (08:48)
[2019-10-28] MEDS: SENNA 8.6 MG TAB (SENOKOT) PO SCH ×2 (08:48→20:04)
[2019-10-28] MEDS: VENLAFAXINE **XR** 75MG CAPSULE PO SCH (08:48)
[2019-10-28] MEDS: clonazePAM 1 MG TAB PO SCH ×2 (08:48→20:04)
[2019-10-28] MEDS: ZONISAMIDE 100 MG CAP (ZONEGRAN) PO SCH ×2 (08:48→20:04)
[2019-10-28] MEDS: PANTOPRAZOLE 40MG TAB (PROTONIX) PO SCH (08:48)
[2019-10-28] MEDS: MONTELUKAST 10 MG TAB PO SCH (08:48)
[2019-10-28] MEDS: GABAPENTIN 100 MG CAP PO SCH ×3 (08:48→20:04)
[2019-10-28] MEDS: DOCUSATE SODIUM 100 MG CAP PO SCH ×3 (08:49→20:04)
[2019-10-28] MEDS: MULTIVITAMINS/MINERALS THERAP 1 TAB PO SCH (08:49)
[2019-10-28] MEDS: MOM 30ML SUSPENSION UDC PO SCH (08:50)
[2019-10-28 12:00] VITALS: BP 146/70
[2019-10-28] MEDS: FENTANYL/BUPIVACAINE/NACL BAG 250 ML EPIDURAL SCH (15:08)
--- NOTE | 2019-10-28 15:32 | IPN ---
DATE: 10/28/2019 This is now the second postoperative day for Mrs. Damon. Her pain is being fairly well controlled, although she is still having shoulder pain, which is being treated with Toradol and warm compresses. She is able to breathe better today. Her vital signs show a maximum temperature (Tmax) of 100.5, now 97.0. Heart rate that ranges between 92 and 104 in a sinus rhythm with a respiratory rate of 16-20 without the use of accessory muscles, who is 96-93% saturated on room air, and whose blood pressure is ranging between 147/73 to 123/66. Her intake and output over the past 24 hours has been recorded as 2595 in and 1955 out for a positivity of 640 mL. She has put out 420 mL from the chest tube. Today, she is negative 700 mL so far. She put out 1535 mL in urine in response to 20 mg of Lasix yesterday. Her weight today is 46.5 kg compared to 77 kg yesterday and 73 kg on admission. On physical examination, I hear some crackles and subcutaneous emphysema in the right lower hemithorax. Percussion notes are full to the diaphragm. I hear no wheezing today. Cardiovascular examination is without murmurs, click, gallops, or rubs. I cannot feel her point of maximal impulse (PMI). S1 and S2 are normal. Abdomen is soft, nontender. Bowel sounds are positive. There is no hepatomegaly. No costovertebral angle (CVA) tenderness. Extremities shows no pretibial edema, no calf tenderness, no differential swelling of the upper extremities. Skin is warm, dry, and perfused without cyanosis or mottling, including that of the nail beds and the knees. Neck is supple. There is no jugular venous distention, no subcutaneous emphysema. Trachea is midline. Mouth shows her mucous membranes to be pink and moist. Lips and commissures without lesions. There is no thrush. Eyes show her pupils to be equal and reactive. Extraocular movements intact. Sclerae anicteric. Neurologic shows II-XII intact, along with gross motor and gross sensation intact. Gait is not tested. Psychiatric shows her to be awake and alert and oriented times three with appropriate mood and affect and conversational. Her chest wall on the right side shows some subcutaneous emphysema. White count today is 10.7 with a hemoglobin and hematocrit of 9.6 and 29.5, slightly down from 9.9 and 30.6 yesterday. Platelet count is 334 and stable, and differential shows 78% neutrophils, 11% lymphocytes, 8% monocytes. There are no immature forms, no toxic granulations. Chemistries today show normal electrolytes with BUN and creatinine of 13 and 1.10 with a glucose of 100 and a calcium of 8.2. There are no blood gases on her today. Her chest x-ray today shows her lung fully expanded to the chest wall. There is more subcutaneous emphysema on the lateral chest wall than there was yesterday. Costophrenic angles are sharp and there are no infiltrates either on the PA view or the lateral view. Chest tubes are in good place. Her chest tube does show a couple of bubbles of an air leak with forceful coughing but it is less than yesterday. I have gone over the pathology slides with Dr. Ramey of pathology. The final results are not back but all the nodes are negative. One question is there is any tumor located in the chest wall. All the margins, including the intercostal muscle margins are clear of tumor. However, the tumor has crossed the visceral pleura into the parietal pleura. It is being sent off to [facility] for a second opinion. The bottom line is that are we going to call this invasion into the chest wall making it a T3 tumor and stage II, N0 disease or no invasion into the chest wall making it a stage I disease. The decision will have to be made as to whether to recommend radiation to the chest wall. IMPRESSION: 1. Adenocarcinoma right upper lobe. 2. Asthma. 3. Gastroesophageal reflux disease. 4. Hyperlipidemia. 5. History of Escherichia (E) coli colitis. 6. Large bowel stricture. 7. Coronary artery disease. PLAN AND DISCUSSION: I will continue her chest tube on suction. Will have to present her at tumor conference for opinions of medical and radiation oncology. I will not diurese her today as her creatinine bumped a little bit.
[2019-10-28 16:00] VITALS: BP 132/69
[2019-10-28] MEDS ORDERED: SLF 3 ML SYR IV PRN (16:00)
[2019-10-28 20:00] VITALS: BP 121/66
[2019-10-28] MEDS: SLF 3 ML SYR IV SCH (20:08)
[2019-10-29] VITALS: BP 123/59
[2019-10-29] MEDS: LEVALBUTEROL 1.25 MG/0.5 ML CONCENTRATE NEB NEB SCH ×4 (01:07→19:39)
[2019-10-29] MEDS: KETOROLAC 30 MG/ML 1ML VIAL IV SCH ×4 (03:36→20:49)
[2019-10-29] MEDS: SLF 3 ML SYR IV SCH ×3 (03:37→20:50)
[2019-10-29 04:00] VITALS: BP 123/57
[2019-10-29 06:00] LABS: BASO # 0.1 10^3/uL (0.0-0.2); BASO % 0.7 % (0.0-1.0); EOS # 0.3 10^3/uL (0.0-0.5); HEMOGLOBIN 8.8 g/dl (12.0-15.5); LYMPH % 13.6 % (24.0-44.0); MEAN CORPUSCULAR HEMOGLOBIN 30.7 pg (27.0-33.0); MEAN CORPUSCULAR HGB CONC 32.6 g/dl (32.0-36.5); MEAN CORPUSCULAR VOLUME 94.1 fl (80.0-96.0); MONO # 0.7 10^3/uL (0.0-0.8); MONO % 9.3 % (0.0-5.0); NEUTROPHILS # 5.2 10^3/uL (1.5-8.5); NEUTROPHILS % 72.1 % (36.0-66.0); PLATELET COUNT, AUTOMATED 315 10^3/uL (150-450); RED BLOOD COUNT 2.87 10^6/uL (4.00-5.40); WHITE BLOOD COUNT 7.2 10^3/uL (4.0-10.0)
[2019-10-29 06:26] LABS: CALCIUM LEVEL 8.2 MG/DL (8.8-10.2); CREATININE FOR GFR 1.02 MG/DL (0.55-1.30); GLOMERULAR FILTRATION RATE 57.9 (>45)
[2019-10-29] MEDS: SYMBICORT 160/4.5MCG INHALER 6GM INH SCH ×2 (07:48→19:39)
--- NOTE | 2019-10-29 07:50 | REP ---
Clinical: Status post right upper lobectomy. Technique: PA and lateral. Comparison: 10/28/2019. Findings: Two right-sided chest tubes in stable position. Right-sided postsurgical changes and subtle right lower lobe atelectasis is suggested and stable. Moderate subcutaneous emphysema is unchanged. Mediastinum and cardiac silhouette are stable. Left hemithorax is well-aerated and clear. Impression: 1. No significant change from prior examination. 2. Moderate subcutaneous emphysema along the right hemithorax. 3. Right-sided postsurgical changes and subtle atelectasis similar to prior examination. Electronically Signed by Benja Corcoran MD 10/29/2019 07:42 A
[2019-10-29 08:00] VITALS: BP 140/79
[2019-10-29] MEDS: ZONISAMIDE 100 MG CAP (ZONEGRAN) PO SCH ×2 (08:31→20:46)
[2019-10-29] MEDS: PRAVASTATIN 20 MG TAB PO SCH (08:31)
[2019-10-29] MEDS: HEPARIN SOD (PORCINE) 5000UNITS/ML VIAL (J1644 PER 1000UNITS) SC SCH ×2 (08:31→20:49)
[2019-10-29] MEDS: clonazePAM 1 MG TAB PO SCH ×2 (08:31→20:46)
[2019-10-29] MEDS: SENNA 8.6 MG TAB (SENOKOT) PO SCH ×2 (08:31→20:46)
[2019-10-29] MEDS: MONTELUKAST 10 MG TAB PO SCH (08:31)
[2019-10-29] MEDS: PANTOPRAZOLE 40MG TAB (PROTONIX) PO SCH (08:31)
[2019-10-29] MEDS: VENLAFAXINE **XR** 75MG CAPSULE PO SCH (08:31)
[2019-10-29] MEDS: MULTIVITAMINS/MINERALS THERAP 1 TAB PO SCH (08:32)
[2019-10-29] MEDS: DOCUSATE SODIUM 100 MG CAP PO SCH ×3 (08:32→20:47)
[2019-10-29] MEDS: MOM 30ML SUSPENSION UDC PO SCH (08:33)
[2019-10-29] MEDS: GABAPENTIN 100 MG CAP PO SCH ×3 (08:33→20:46)
[2019-10-29 12:00] VITALS: BP 148/82
--- NOTE | 2019-10-29 12:20 | IPN ---
DATE: 10/29/2019 This is now the third postoperative day for Mrs. Damon. Her pain is getting better in her shoulder and is being well controlled at her excision sites. She still has a small air leak with forceful coughing. Her vital signs show a maximum temperature (Tmax) of 98.6 with a heart rate that ranges between 99 and 88 in a sinus rhythm with a respiratory rate of 16 to 18 without the use of accessory muscles, who is 95-97% saturated on room air, and whose blood pressure is ranging between 146/70 to 123/57. Her intake and output over the past 24 hours has been recorded as 2970 in and 2895 out for near equality. She has put out 2600 mL in urine compared to 1500 mL yesterday. She has put 270 mL in the chest tube compared to 420 yesterday. Her weight today is 76.2 kg compared to 76.5 kg yesterday. I did not diurese her yesterday. On physical examination, she today again has bilateral wheezing, more on the right than the left at the end of expiration. Percussion notes are full to the diaphragm. I do hear the sounds of subcutaneous emphysema on the posterior chest wall. Cardiovascular examination is without murmurs, click, gallops, or rubs. I cannot feel her point of maximal impulse (PMI). S1 and S2 are normal. Abdomen is soft, nontender. Bowel sounds are positive. There is no hepatomegaly. No costovertebral angle (CVA) tenderness. Extremities shows no pretibial edema, no calf tenderness and no differential swelling of the upper extremities. Skin is warm, dry, and perfused without cyanosis or mottling, including that of the nail beds and the knees. Neck is supple. There is no jugular venous distention, no subcutaneous emphysema. Trachea is midline. Mouth shows her mucous membranes to be pink and moist. Lips and commissures without lesions. There is no thrush. Eyes show her pupils to be equal and reactive. Extraocular movements intact. Sclerae anicteric. Neurologic shows II-XII intact, along with gross motor and gross sensation intact. Gait is not tested. Psychiatric shows her to be awake and alert and oriented times three with appropriate mood and affect and conversational. Her white count today is 7.2 with a hemoglobin and hematocrit of 8.8 and 27.0, down from 9.6 and 29.5 yesterday. Platelet count is stable at 315. Differential shows 72% neutrophils, 13% lymphocytes, 9% monocytes. There are no immature forms and no toxic granulations. Her electrolytes are normal today with a BUN and creatinine of 14 and 1.02, essentially unchanged from yesterday, with a glucose of 98 and a calcium of 8.2. Her chest x-ray today shows her lung fully expanded to the chest wall. I see no infiltrates. The costophrenic angles are sharp. There is dissipating subcutaneous emphysema. Pathology consultation from [facility] is not yet back. IMPRESSION: 1. Postoperative day #3 status post right upper lobectomy. 2. Adenocarcinoma right upper lobe, final pathology pending. 3. Asthma. 4. Gastroesophageal reflux disease. 5. Hyperlipidemia. 6. History of Escherichia (E) coli colitis. 7. Large bowel stricture. 8. Coronary artery disease. PLAN AND DISCUSSION: I will again not diurese her as she seems to be diuresing spontaneously. I will keep her chest tube on suction. I will add ipratropium to her nebs for her wheezing.
[2019-10-29] MEDS: IPRATROPIUM 0.02% SOLN 0.5MG/2.5 ML NEB INH SCH ×2 (13:53→19:39)
[2019-10-29] MEDS: FENTANYL/BUPIVACAINE/NACL BAG 250 ML EPIDURAL SCH (14:49)
[2019-10-29 16:00] VITALS: BP 152/82
[2019-10-30] VITALS: BP 125/80
[2019-10-30] MEDS: IPRATROPIUM 0.02% SOLN 0.5MG/2.5 ML NEB INH SCH ×4 (00:39→20:00)
[2019-10-30] MEDS: LEVALBUTEROL 1.25 MG/0.5 ML CONCENTRATE NEB NEB SCH ×4 (00:39→20:00)
[2019-10-30] MEDS: KETOROLAC 30 MG/ML 1ML VIAL IV SCH ×4 (03:27→20:47)
[2019-10-30] MEDS: LEVALBUTEROL 1.25 MG/0.5 ML CONCENTRATE NEB NEB PRN (03:59)
[2019-10-30 04:00] VITALS: BP 136/74
[2019-10-30 05:52] LABS: BASO % 0.6 % (0.0-1.0); EOS # 0.2 10^3/uL (0.0-0.5); EOS % 3.5 % (0.0-3.0); HEMATOCRIT 25.8 % (36.0-47.0); HEMOGLOBIN 8.5 g/dl (12.0-15.5); LYMPH # 1.2 10^3/uL (1.5-5.0); LYMPH % 18.4 % (24.0-44.0); MEAN CORPUSCULAR HEMOGLOBIN 30.5 pg (27.0-33.0); MEAN CORPUSCULAR HGB CONC 32.9 g/dl (32.0-36.5); MEAN CORPUSCULAR VOLUME 92.5 fl (80.0-96.0); MONO # 0.6 10^3/uL (0.0-0.8); MONO % 8.8 % (0.0-5.0); NEUTROPHILS # 4.4 10^3/uL (1.5-8.5); NEUTROPHILS % 68.2 % (36.0-66.0); PLATELET COUNT, AUTOMATED 325 10^3/uL (150-450); RED BLOOD COUNT 2.79 10^6/uL (4.00-5.40); WHITE BLOOD COUNT 6.5 10^3/uL (4.0-10.0)
[2019-10-30 06:21] LABS: CREATININE FOR GFR 1.07 MG/DL (0.55-1.30); GLOMERULAR FILTRATION RATE 54.8 (>45); POTASSIUM SERUM 4.2 MEQ/L (3.5-5.1)
[2019-10-30] MEDS: SLF 3 ML SYR IV SCH ×3 (06:51→20:47)
[2019-10-30] MEDS: SYMBICORT 160/4.5MCG INHALER 6GM INH SCH ×2 (07:33→20:13)
[2019-10-30 08:00] VITALS: BP 131/70
--- NOTE | 2019-10-30 08:46 | REP ---
Chest x-ray: Two views. History: Status post right upper lobectomy. Comparison chest x-ray: October 29, 2019. Findings: There are two right-sided chest tubes remaining in place. There may be a small apical pleural air collection persisting unchanged. No large pneumothorax or hydrothorax is seen. Left lung remains clear. There is moderate extrathoracic soft tissue emphysema along the right chest wall and extending into the right neck. There is soft tissue fullness and surgical clips in the right perihilar region. This is unchanged. The heart is not enlarged. Electronically Signed by Jorje Warner MD 10/30/2019 08:38 A
[2019-10-30] MEDS: MOM 30ML SUSPENSION UDC PO SCH (09:00)
[2019-10-30] MEDS: PANTOPRAZOLE 40MG TAB (PROTONIX) PO SCH (09:51)
[2019-10-30] MEDS: VENLAFAXINE **XR** 75MG CAPSULE PO SCH (09:51)
[2019-10-30] MEDS: ZONISAMIDE 100 MG CAP (ZONEGRAN) PO SCH ×2 (09:51→20:44)
[2019-10-30] MEDS: PRAVASTATIN 20 MG TAB PO SCH (09:52)
[2019-10-30] MEDS: DOCUSATE SODIUM 100 MG CAP PO SCH ×3 (09:52→20:45)
[2019-10-30] MEDS: MONTELUKAST 10 MG TAB PO SCH (09:52)
[2019-10-30] MEDS: SENNA 8.6 MG TAB (SENOKOT) PO SCH ×2 (09:52→20:45)
[2019-10-30] MEDS: GABAPENTIN 100 MG CAP PO SCH ×3 (09:52→20:45)
[2019-10-30] MEDS: MULTIVITAMINS/MINERALS THERAP 1 TAB PO SCH (09:52)
[2019-10-30] MEDS: clonazePAM 1 MG TAB PO SCH ×2 (09:52→20:43)
[2019-10-30] MEDS: HEPARIN SOD (PORCINE) 5000UNITS/ML VIAL (J1644 PER 1000UNITS) SC SCH ×2 (09:53→20:46)
[2019-10-30 12:00] VITALS: BP 125/81
--- NOTE | 2019-10-30 14:31 | IPN ---
DATE: 10/30/2019 This is now the fourth postoperative day for Mrs. Damon. Her pain continues to improve, although she was complaining of pain in her right arm today after having done a long walk to x-ray and around the progressive care unit (PCU). She has an intermittent air leak. There is no air leak with coughing, however, there is a small air leak with talking intermittently. Her vital signs show a maximum temperature (Tmax) of 99.4 with a heart rate that ranges between 89 and 101 in a sinus rhythm, a respiratory rate of 18 to 20 without the use of accessory muscles, who is 96% saturated on room air, and whose blood pressure is ranging between 136/74 to 125/80. On physical examination, her lungs show equal breath sounds on either side. I no not hear any wheezing today. Percussion note is full to the diaphragm. I do hear the crepitus of subcutaneous emphysema over the posterior chest wall. Cardiovascular examination is without murmurs, click, gallops, or rubs. I cannot feel her point of maximal impulse (PMI). S1 and S2 are normal. Abdomen is soft, nontender. Bowel sounds are positive. There is no hepatomegaly. No costovertebral angle (CVA) tenderness. She has not yet had a bowel movement. Extremities shows no pretibial edema, no calf tenderness and no differential swelling of the upper extremities. Skin is warm, dry, and perfused without cyanosis or mottling, including that of the nail beds and the knees. Neck is supple. There is subcutaneous emphysema at the base of the neck. Trachea is midline. There is no jugular venous distention. Mouth shows her mucous membranes to be pink and moist. Lips and commissures without lesions. There is no thrush. Eyes show her pupils to be equal and reactive. Extraocular movements intact. Sclerae anicteric. Neurologic shows II-XII intact, along with gross motor and gross sensation intact. Gait is not tested. Psychiatric shows her to be awake and alert and oriented times three with appropriate mood and affect and conversational. Her white count is 6.5 with a hemoglobin and hematocrit of 8.5 and 25.8. Differential shows 68% neutrophils, 10% lymphocytes, 8% monocytes. There are no immature forms and no toxic granulations. Her electrolytes are normal with a BUN and creatinine of 15 and 1.07 with a glucose of 95 and a calcium of 8.0 Her chest x-ray shows her lung fully expanded to the chest wall. The lateral chest wall subcutaneous emphysema is dissipating. There is a little bit more subcutaneous emphysema at the base of the neck. Her intake and output the past 24 hours has been recorded as 1980 in and 2470 out for a negativity of 490 mL, without Lasix. She has put 120 mL out the chest tube. Her weight today is 79.2 kg compared to 76.2 kg yesterday. I have now gone over the pathology with Dr. Ramey of pathology. The final opinion has come back from [facility] and they are characterizing it as a sarcomatoid carcinoma. It invades the visceral and parietal pleura, but the chest wall margins and muscular margins that were resected are clear. IMPRESSION: 1. Postoperative day #4 status post right upper lobectomy. 2. Sarcomatoid carcinoma right upper lobe, final. 3. Asthma. 4. Gastroesophageal reflux disease. 5. Hyperlipidemia. 6. History of Escherichia (E) coli colitis. 7. Large bowel stricture. 8. Coronary artery disease. PLAN AND DISCUSSION: I have gone over her diagnosis and pathology findings extensively with both her and her daughter via telephone. Sarcomatoid carcinoma is a notoriously aggressive disease. I have had an informal talk with Dr. Puga over at oncology and while I am keen on doing radiation therapy to the marked area where I carved the tumor off the chest wall, he also is of the opinion that she should under adjuvant chemotherapy just because of the known aggressive nature of sarcomatoid carcinoma. I will present her at cancer conference in a few weeks for further discussion. I will take her chest tube off suction today.
[2019-10-30] MEDS: FENTANYL/BUPIVACAINE/NACL BAG 250 ML EPIDURAL SCH ×2 (15:09→15:22)
[2019-10-30 16:00] VITALS: BP 129/58
[2019-10-30 20:00] VITALS: BP 142/76
[2019-10-31] VITALS: BP 147/78
[2019-10-31] MEDS: LEVALBUTEROL 1.25 MG/0.5 ML CONCENTRATE NEB NEB SCH ×4 (00:58→20:00)
[2019-10-31] MEDS: IPRATROPIUM 0.02% SOLN 0.5MG/2.5 ML NEB INH SCH ×4 (02:00→20:00)
[2019-10-31] MEDS: KETOROLAC 30 MG/ML 1ML VIAL IV SCH ×3 (03:26→14:09)
[2019-10-31 04:00] VITALS: BP 133/71
[2019-10-31 05:43] LABS: BASO % 0.8 % (0.0-1.0); EOS # 0.2 10^3/uL (0.0-0.5); EOS % 3.5 % (0.0-3.0); HEMATOCRIT 25.7 % (36.0-47.0); HEMOGLOBIN 8.2 g/dl (12.0-15.5); MEAN CORPUSCULAR HEMOGLOBIN 30.1 pg (27.0-33.0); MEAN CORPUSCULAR HGB CONC 31.9 g/dl (32.0-36.5); MEAN CORPUSCULAR VOLUME 94.5 fl (80.0-96.0); MONO # 0.6 10^3/uL (0.0-0.8); MONO % 11.4 % (0.0-5.0); NEUTROPHILS # 3.1 10^3/uL (1.5-8.5); NEUTROPHILS % 62.9 % (36.0-66.0); PLATELET COUNT, AUTOMATED 398 10^3/uL (150-450); RED BLOOD COUNT 2.72 10^6/uL (4.00-5.40); WHITE BLOOD COUNT 4.9 10^3/uL (4.0-10.0)
[2019-10-31 05:47] LABS: BLOOD UREA NITROGEN 11 MG/DL (7-18); CALCIUM LEVEL 7.8 MG/DL (8.8-10.2); CARBON DIOXIDE LEVEL 25 MEQ/L (21-32); CHLORIDE LEVEL 112 MEQ/L (98-107); CREATININE FOR GFR 0.82 MG/DL (0.55-1.30); GLOMERULAR FILTRATION RATE > 60.0 (>45); GLUCOSE, FASTING 97 MG/DL (70-100); SODIUM LEVEL 143 MEQ/L (136-145)
[2019-10-31] MEDS: SLF 3 ML SYR IV SCH ×3 (06:22→20:47)
[2019-10-31 08:00] VITALS: BP 134/64
[2019-10-31] MEDS: SYMBICORT 160/4.5MCG INHALER 6GM INH SCH ×2 (08:12→20:19)
[2019-10-31] MEDS: SENNA 8.6 MG TAB (SENOKOT) PO SCH ×2 (08:46→20:46)
[2019-10-31] MEDS: DOCUSATE SODIUM 100 MG CAP PO SCH ×3 (08:47→20:44)
[2019-10-31] MEDS: VENLAFAXINE **XR** 75MG CAPSULE PO SCH (08:47)
[2019-10-31] MEDS: MONTELUKAST 10 MG TAB PO SCH (08:47)
[2019-10-31] MEDS: PRAVASTATIN 20 MG TAB PO SCH (08:48)
[2019-10-31] MEDS: GABAPENTIN 100 MG CAP PO SCH ×3 (08:48→20:46)
[2019-10-31] MEDS: MULTIVITAMINS/MINERALS THERAP 1 TAB PO SCH (08:48)
[2019-10-31] MEDS: PANTOPRAZOLE 40MG TAB (PROTONIX) PO SCH (08:48)
[2019-10-31] MEDS: clonazePAM 1 MG TAB PO SCH ×2 (08:49→20:46)
[2019-10-31] MEDS: ZONISAMIDE 100 MG CAP (ZONEGRAN) PO SCH ×2 (08:49→20:47)
[2019-10-31] MEDS: HEPARIN SOD (PORCINE) 5000UNITS/ML VIAL (J1644 PER 1000UNITS) SC SCH ×2 (08:49→20:47)
[2019-10-31] MEDS: MOM 30ML SUSPENSION UDC PO SCH (08:50)
--- NOTE | 2019-10-31 11:08 | REP ---
REASON: Followup. COMPARISON: Multiple, the latest 10/30/2019 at 8:17 a.m. The cardiomediastinal silhouette and lung irizarry are unchanged. Thoracotomy tubes are unchanged. Right-sided subcutaneous emphysema, status quo. IMPRESSION: No change. Electronically Signed by Ayden Stephen DO 10/31/2019 12:57 P
[2019-10-31 12:00] VITALS: BP 141/78
--- NOTE | 2019-10-31 14:01 | IPN ---
DATE OF SERVICE: 10/31/2019 Her pain is being well controlled with both the Toradol and the epidural. She has an intermittent air leak, particularly when talking. She does have some more subcutaneous emphysema, both on physical examination and on x-ray, and I will return her chest tube to suction. Her vital signs show a maximum temperature (Tmax) of 99.1 with a heart rate that ranges between 102 and 89 in a sinus rhythm, respiratory rate that is constant at 18, who is 97% saturated on room air, and whose blood pressure is ranging between 125/81 to 147/78. Her intake and output over the past 24 hours has been recorded as 2232 in and 2655 out for a negativity of 420 mL. She has put out 100 mL from the chest tube, but she is saturating her dressings twice a day, which are being changed. Weight today is 78.7 kg compared to 79.2 kg yesterday. She has put out 2555 mL in urine output spontaneously without Lasix. On physical examination, her lungs show the sounds of subcutaneous emphysema and crepitus, both on auscultation and palpation. I do not hear wheezing. Percussion note is hyperresonant on the right side secondary to the subcutaneous emphysema. Cardiovascular examination is without murmurs, click, gallops, or rubs. I cannot feel her point of maximal impulse (PMI). S1 and S2 are normal. Abdomen is soft, nontender. Bowel sounds are positive. There is no hepatomegaly. No costovertebral angle (CVA) tenderness. Surprisingly, she is not all that distended. She has not had a bowel movement yet. Extremities shows no pretibial edema, no calf tenderness, and no differential swelling of the upper extremities. Skin is warm, dry, and perfused without cyanosis or mottling, including that of the nail beds and the knees. Neck is supple. There is no jugular venous distention. There is subcutaneous emphysema at the base and up to the middle of the neck on the right side. Trachea is midline. Mouth shows her mucous membranes to be pink and moist. Lips and commissures without lesions. There is no thrush. Eyes show her pupils to be equal and reactive. Extraocular movements intact. Sclerae anicteric. Neurologic shows II-XII intact, along with gross motor and gross sensation intact. Gait is not tested. Psychiatric shows her to be awake and alert and oriented times three with appropriate mood and affect and conversational. Her white count today is 4.9 which continues to decrease. Hemoglobin and hematocrit are 8.2 and 25.7, looking as if it has plateaued now. Platelet count is 398 and stable, and differential shows 62% neutrophils, 21% lymphocytes, 11% monocytes. There are no immature forms and no toxic granulations. Chemistries today show essentially normal electrolytes with a BUN and creatinine of 11 and 0.82, a glucose of 97, and a calcium of 7.8. Her chest x-ray today, as noted above, shows increased subcutaneous emphysema in the lateral chest wall and at the base of the neck. The lung, however, does look to be expanded in the chest wall, and I do not see a pneumothorax. Chest tubes are in good place. Costophrenic angles are sharp. The is obligate volume loss from the lobectomy. IMPRESSION: 1. Sarcomatoid carcinoma, right upper lobe. 2. Postoperative day #5, status post right upper lobectomy. 3. Asthma. 4. Gastroesophageal reflux disease. 5. Hyperlipidemia. 6. History of Escherichia (E) coli colitis. 7. Large bowel stricture. 8. Coronary artery disease. 9. Continued air leak. PLAN AND DISCUSSION: I will place her chest tube back on suction today. It is a small intermittent air leak, and it will eventually stop. Again, she is diuresing spontaneously, and I will not give her a diuretic. She has not had a bowel movement since admission. She often goes 1 week without having a bowel movement, but we will give her a Dulcolax suppository today. I am concerned about the fact that she does have a stricture. We knew that going in.
[2019-10-31] MEDS: FENTANYL/BUPIVACAINE/NACL BAG 250 ML EPIDURAL SCH (14:04)
[2019-10-31 16:00] VITALS: BP 131/60
[2019-10-31] MEDS ORDERED: BISACODYL 10 MG SUPP PR ONE (16:00)
[2019-10-31 20:00] VITALS: BP 138/94
[2019-10-31] MEDS ORDERED: BISACODYL 10 MG SUPP PR PRN (22:00)
[2019-11-01] VITALS: BP 135/74
[2019-11-01] MEDS: LEVALBUTEROL 1.25 MG/0.5 ML CONCENTRATE NEB NEB SCH ×4 (01:43→20:00)
[2019-11-01] MEDS: IPRATROPIUM 0.02% SOLN 0.5MG/2.5 ML NEB INH SCH ×4 (01:43→20:00)
[2019-11-01 04:00] VITALS: BP 132/78
[2019-11-01 05:38] LABS: BASO % 0.5 % (0.0-1.0); EOS # 0.3 10^3/uL (0.0-0.5); EOS % 4.4 % (0.0-3.0); HEMATOCRIT 26.6 % (36.0-47.0); HEMOGLOBIN 8.4 g/dl (12.0-15.5); LYMPH # 1.3 10^3/uL (1.5-5.0); LYMPH % 20.9 % (24.0-44.0); MEAN CORPUSCULAR HGB CONC 31.6 g/dl (32.0-36.5); MONO # 0.7 10^3/uL (0.0-0.8); MONO % 11.5 % (0.0-5.0); NEUTROPHILS # 3.8 10^3/uL (1.5-8.5); NEUTROPHILS % 62.2 % (36.0-66.0); PLATELET COUNT, AUTOMATED 416 10^3/uL (150-450); WHITE BLOOD COUNT 6.1 10^3/uL (4.0-10.0)
[2019-11-01 06:01] LABS: BLOOD UREA NITROGEN 11 MG/DL (7-18); CALCIUM LEVEL 8.1 MG/DL (8.8-10.2); CARBON DIOXIDE LEVEL 26 MEQ/L (21-32); CHLORIDE LEVEL 110 MEQ/L (98-107); CREATININE FOR GFR 0.88 MG/DL (0.55-1.30); GLOMERULAR FILTRATION RATE > 60.0 (>45); GLUCOSE, FASTING 92 MG/DL (70-100); POTASSIUM SERUM 4.3 MEQ/L (3.5-5.1); SODIUM LEVEL 143 MEQ/L (136-145)
[2019-11-01] MEDS: SLF 3 ML SYR IV SCH ×3 (06:04→21:13)
[2019-11-01] MEDS: SYMBICORT 160/4.5MCG INHALER 6GM INH SCH ×2 (07:25→20:15)
[2019-11-01 07:44] VITALS: BP 119/66
[2019-11-01] MEDS: ZONISAMIDE 100 MG CAP (ZONEGRAN) PO SCH ×2 (08:17→21:12)
[2019-11-01] MEDS: DOCUSATE SODIUM 100 MG CAP PO SCH ×3 (08:17→21:12)
[2019-11-01] MEDS: MULTIVITAMINS/MINERALS THERAP 1 TAB PO SCH (08:17)
[2019-11-01] MEDS: GABAPENTIN 100 MG CAP PO SCH ×3 (08:17→21:12)
[2019-11-01] MEDS: clonazePAM 1 MG TAB PO SCH ×2 (08:17→21:11)
[2019-11-01] MEDS: PANTOPRAZOLE 40MG TAB (PROTONIX) PO SCH (08:17)
[2019-11-01] MEDS: SENNA 8.6 MG TAB (SENOKOT) PO SCH ×2 (08:18→21:12)
[2019-11-01] MEDS: VENLAFAXINE **XR** 75MG CAPSULE PO SCH (08:18)
[2019-11-01] MEDS: MONTELUKAST 10 MG TAB PO SCH (08:19)
[2019-11-01] MEDS: ACETAMINOPHEN TAB 650MG DOSE (2X325MG) PO PRN ×2 (08:19→23:35)
[2019-11-01] MEDS: PRAVASTATIN 20 MG TAB PO SCH (08:19)
[2019-11-01] MEDS: HEPARIN SOD (PORCINE) 5000UNITS/ML VIAL (J1644 PER 1000UNITS) SC SCH ×2 (08:20→21:11)
[2019-11-01] MEDS: MOM 30ML SUSPENSION UDC PO SCH (08:20)
--- NOTE | 2019-11-01 09:34 | REP ---
REASON: Followup. COMPARISON: 10/31/2019 at 8:02 a.m. Right-sided thoracotomy tubes, status quo. Cardiomediastinal silhouette stable. Lung irizarry stable. No new abnormal opacities or pneumothoraces. Stable right-sided subcutaneous emphysema. Minimal right CP angle blunting. No change in the osseous structures. Multiple right-sided rib fractures and old healed right clavicular fracture, status quo. IMPRESSION: No significant change. Electronically Signed by Ayden Stephen DO 11/01/2019 10:37 A
[2019-11-01 11:47] VITALS: BP 136/72
--- NOTE | 2019-11-01 11:58 | IPN ---
DATE: 11/01/2019 This is now the 6th postoperative day for Ms. Damon. Her pain is being well controlled with the epidural. She still has an intermittent but small air leak with speaking. Her vital signs show a maximum temperature (Tmax) of 98.2, with a heart rate that ranges between 104 and 93 in a sinus rhythm, respiratory rate that is constant at 20, who is 95% saturated on room air, and whose blood pressure is ranging between 131/60 to 135/74. Her intake and output over the past 24 hours has been recorded as 2700 in and 3574 out for a negativity of 874 mL. She put out 74 mL from the chest tube, and there is still an air leak with speaking. It is very small and intermittent. Draining from her dressing is much decreased. Her weight today is 78.6 kg compared to 78.7 kg yesterday. On physical examination, her lungs show equal breath sounds on either side with some scattered rhonchi, which cleared with coughing. Percussion note is full to the diaphragm. I do not hear any wheezing. Cardiac exam is without murmurs, clicks, gallops, or rubs. I cannot feel her point of maximal impulse (PMI). S1 and S2 are normal. Abdomen is soft, nontender. Bowel sounds are positive. There is no hepatomegaly. No costovertebral angle (CVA) tenderness. She still has not had a bowel movement. She is not distended, however, and is nontender. Extremities shows no pretibial edema, no calf tenderness, no differential swelling of the upper extremities. Skin is warm, dry, and perfused without cyanosis or mottling, including that of the nail beds and the knees. Neck is supple. There is no jugular venous distention, no subcutaneous emphysema. Trachea is midline. Mouth shows her mucous membranes to be pink and moist. Lips and commissures without lesions. There is no thrush. Eyes show her pupils to be equal and reactive. Extraocular movements intact. Sclerae anicteric. Neurologic shows II-XII intact, along with gross motor and gross sensation intact. Gait is not tested, but she did walk to x-ray today, according to the nurses. Psychiatric shows her to be awake and alert and oriented times three with appropriate mood and affect and conversational. Her white count today is 6.1, with hemoglobin and hematocrit of 8.4 and 26.6, up from 8.2 and 25.7 yesterday. Platelet count is 416 with a differential that shows 62% neutrophils, 20% lymphocytes, 11% monocytes. There are no immature forms, no toxic granulations. Her electrolytes are essentially normal with a BUN and creatinine of 11 and 0.88, a glucose of 92, calcium 8.1. Her chest x-ray today, shows her lung fully expanded to the chest wall. It looks as though the subcutaneous emphysema is now dissipating more on the lateral chest wall. Costophrenic angles are sharp. There are no infiltrates. Chest tube is in good place. IMPRESSION: 1. Postoperative day #6, status post right upper lobectomy. 2. Sarcomatoid carcinoma, right upper lobe, stage IIB, T3N0M0. 3. Asthma. 4. Gastroesophageal reflux disease. 5. Hyperlipidemia. 6. History of Escherichia (E) coli colitis. 7. Large bowel stricture. 8. Coronary artery disease. 9. Alveolar pleural fistula. PLAN AND DISCUSSION: I will continue her on suction today. We will offer her another suppository today. She is not at all symptomatic from her lack of bowel movements. She does have a history of going without a bowel movement for 7-10 days. I am worried that she does not have a known stricture of the large bowel. As the tumor has definitely invaded the parietal pleura but with clear margins on the chest wall, this is a T3 lesion. All her nodes are negative and I will, therefore, classify her as a T3N0M0, or stage IIB. As such, I will recommend both radiation and adjuvant chemotherapy. Radiation would be applied to the chest wall where it is well marked with clips.
[2019-11-01] MEDS: FENTANYL/BUPIVACAINE/NACL BAG 250 ML EPIDURAL SCH (14:11)
[2019-11-01] MEDS: KETOROLAC 30 MG/ML 1ML VIAL IV SCH ×2 (15:25→21:13)
[2019-11-01 15:30] VITALS: BP 130/72
[2019-11-01 19:00] VITALS: BP 157/70
[2019-11-02] VITALS (10 sets, daily range): BP systolic 102–146; BP diastolic 55–81
[2019-11-02] MEDS: LEVALBUTEROL 1.25 MG/0.5 ML CONCENTRATE NEB NEB SCH ×5 (02:00→19:05)
[2019-11-02] MEDS: IPRATROPIUM 0.02% SOLN 0.5MG/2.5 ML NEB INH SCH ×5 (02:00→19:06)
[2019-11-02] MEDS: SLF 3 ML SYR IV SCH ×3 (02:53→20:53)
[2019-11-02] MEDS: KETOROLAC 30 MG/ML 1ML VIAL IV SCH ×4 (02:53→20:52)
[2019-11-02 06:55] LABS: BASO # 0.1 10^3/uL (0.0-0.2); BASO % 0.3 % (0.0-1.0); EOS # 0.1 10^3/uL (0.0-0.5); EOS % 0.5 % (0.0-3.0); HEMATOCRIT 28.9 % (36.0-47.0); HEMOGLOBIN 9.3 g/dl (12.0-15.5); LYMPH # 0.7 10^3/uL (1.5-5.0); LYMPH % 3.6 % (24.0-44.0); MEAN CORPUSCULAR HGB CONC 32.2 g/dl (32.0-36.5); MEAN CORPUSCULAR VOLUME 93.2 fl (80.0-96.0); MONO % 5.2 % (0.0-5.0); NEUTROPHILS # 16.8 10^3/uL (1.5-8.5); NEUTROPHILS % 88.8 % (36.0-66.0); PLATELET COUNT, AUTOMATED 447 10^3/uL (150-450)
[2019-11-02 07:19] LABS: CALCIUM LEVEL 8.1 MG/DL (8.8-10.2); CREATININE FOR GFR 1.08 MG/DL (0.55-1.30); GLOMERULAR FILTRATION RATE 54.2 (>45); POTASSIUM SERUM 4.7 MEQ/L (3.5-5.1)
[2019-11-02] MEDS: SYMBICORT 160/4.5MCG INHALER 6GM INH SCH ×2 (08:12→19:05)
--- NOTE | 2019-11-02 08:34 | REP ---
Chest x-ray: Two views. History: Right upper lobectomy. Comparison chest x-ray: November 01, 2019. Findings: There are two right-sided chest tubes again noted. There is fairly extensive soft tissue emphysema about the right chest. The left lung remains clear. There is no definite pneumothorax on the right. No new infiltrate is seen. Electronically Signed by Jorje Warner MD 11/02/2019 08:25 A
[2019-11-02] MEDS: VENLAFAXINE **XR** 75MG CAPSULE PO SCH (08:40)
[2019-11-02] MEDS: PANTOPRAZOLE 40MG TAB (PROTONIX) PO SCH (08:40)
[2019-11-02] MEDS: MONTELUKAST 10 MG TAB PO SCH (08:40)
[2019-11-02] MEDS: clonazePAM 1 MG TAB PO SCH ×2 (08:40→20:52)
[2019-11-02] MEDS: PRAVASTATIN 20 MG TAB PO SCH (08:40)
[2019-11-02] MEDS: SENNA 8.6 MG TAB (SENOKOT) PO SCH ×2 (08:40→20:52)
[2019-11-02] MEDS: MOM 30ML SUSPENSION UDC PO SCH (08:40)
[2019-11-02] MEDS: DOCUSATE SODIUM 100 MG CAP PO SCH ×3 (08:40→20:53)
[2019-11-02] MEDS: ZONISAMIDE 100 MG CAP (ZONEGRAN) PO SCH ×2 (08:40→20:52)
[2019-11-02] MEDS: PIPERACILLIN/TAZOBACTAM SOD 3.375 GM in D5W MINI-BAG PLUS 50 ML IV SCH ×3 (08:40→20:51)
[2019-11-02] MEDS: GABAPENTIN 100 MG CAP PO SCH ×3 (08:40→20:52)
[2019-11-02] MEDS: MULTIVITAMINS/MINERALS THERAP 1 TAB PO SCH (08:41)
[2019-11-02] MEDS: HEPARIN SOD (PORCINE) 5000UNITS/ML VIAL (J1644 PER 1000UNITS) SC SCH ×2 (08:42→20:52)
[2019-11-02 08:43] LABS: ABG BASE EXCESS -3.7 (-2.0-2.0); ABG HCO3 19.6 MEQ/L (22.0-26.0); ABG O2 SATURATION 99.6 % (95.0-99.0); ABG PARTIAL PRESSURE CO2 29.6 mmHg (35.0-45.0); ABG PARTIAL PRESSURE O2 179.8 mmHg (75.0-100.0); ABG STANDARD HCO3 21.4 MEQ/L (22.0-26.0); ABG TOTAL CO2 20.5 MEQ/L (23.0-31.0); ABG pH (ARTERIAL) 7.439 UNITS (7.350-7.450)
[2019-11-02] MEDS ORDERED: FLEET ENEMA PR PRN (09:45)
[2019-11-02] MEDS: FENTANYL/BUPIVACAINE/NACL BAG 250 ML EPIDURAL SCH (11:05)
[2019-11-02] MEDS: VANCOMYCIN HCL 1,000 MG, VIAL MATE ADAPTER 1 EACH in D5W 250 ML IV SCH ×2 (11:12→23:54)
--- NOTE | 2019-11-02 11:49 | IPN ---
DATE OF SERVICE: 11/02/2019 Ms. Damon was seen and examined during bedside rounds. Dr. Holbrook requested us to see the patient for she sees Dr. Judge at the pulmonary clinic. Ms. Damon has a pertinent history of asthma as well as sarcomatoid carcinoma who is currently postoperative day 7 for a right upper lobectomy by Dr. Holbrook. She had two chest tubes into one drainage site. She states that she only has been complaining of a right shoulder pain and some discomfort in breathing which has improved since she got her Atrovent treatment this morning. She does note of having some chills and some night sweats in the last 24 hours, but does break with the Toradol that she is using for pain control. Dr. Holbrook did consult us for the fact that the patient continues to have wheezing despite Atrovent and leukocytosis in the last 24 hours from 6.1 to 19.0. PHYSICAL EXAMINATION: Vitals: Temperature 97.8. Pulse 118. Respirations 22. Blood pressure 106/59 (75). Pulse oximetry 77% on 2 liters of nasal cannula. Intake and output in the last 24 hours with intake of 780 mL and output 2348 mL, balance of negative 1568 mL. Chest tube drainage 98 mL. In general, this is a very pleasant, 63-year-old female who does not appear in any respiratory distress, appropriately answering questions. HEENT: Atraumatic, normocephalic. Moist mucous membranes. No jugular venous distention. Nasal cannula in place. Slight crepitus appreciated on the lateral right side of the neck and the right chest wall. Cardiac: Tachycardic rate, regular rhythm. No audible murmurs or rubs are appreciated. Lungs: Expiratory wheeze appreciated on the right lung base. None appreciated on the left. Clear to auscultate in the upper lung folds. No dullness to percussion. Chest tube site on lateral right chest wall examined, appears to be nonerythematous, no outside drainage appreciated, some crepitus appreciated. Abdomen: Hypoactive bowel sounds. Nontender. Nondistended. Slight discomfort with deep palpation due to fullness. Extremities: No calf tenderness. No lower extremity edema. LABORATORIES: WBC 19.0, hemoglobin 9.3, hematocrit 28.9, platelets 447. Chemistry: Sodium 138, potassium 4.7, chloride 107, carbon dioxide 25, anion gap 6, BUN 12, creatinine 1.08, fasting glucose 104, calcium 8.1. Blood Gas, ABG: pH 7.43, pCO2 29.6, pO2 179.8, oxygen saturation 99.6. Serology: Methicillin-resistant Staphylococcus aureus (MRSA) screen pending. IMAGING: Chest x-ray was reviewed. Subcutaneous emphysema continues to persist on the right side, which is improving. Slight haziness appreciated on the right lower lobe, but because of extensive air cannot see if it is new or if it is new infiltrate. Official report states two right sided chest tubed noted, fairly extensive soft tissue emphysema on the right chest wall. The left lung appears normal. There is no definite pneumothorax on the right, no new infiltrate is seen. Pathology with poorly differentiated sarcomatoid carcinoma of the right upper lobe. ASSESSMENT AND PLAN: Ms. Damon is a 63-year-old female with a known history of asthma who came in for a right upper lobectomy who was found to have Stage III A sarcomatoid carcinoma on 10/26/[address] Holbrook. In the last 24 hours, the patient had persistent right sided wheezing, as well as a leukocytosis of 19.0. Expiratory wheeze with a leukocytosis. The patient has no documented fevers in the last 24 hours/last recorded fever was on 10/27/2019 at 100.5. She is getting around the clock ketorolac that can masking fevers. Because of this sudden jump in the leukocytosis , we have to see of possible causes. She is currently on vancomycin and Zosyn for broad spectrum coverage and will continue as such. Will obtain a sputum culture and get a CT of the chest without contrast to make sure if there is any underlying infiltrate. Her [place] was removed. She is not complaining of any suprapubic tenderness or any complaints of dysuria, so will continue to monitor. The patient is ambulating with no problems. There is no calf tenderness and she is on deep vein thrombosis (DVT) prophylaxis with heparin. I will order incentive spirometry as I did not see it at bedside and see if that helps as well. At this current time, will continue with the antibiotics and follow along with the patient and pending the results of the CT of the chest will have further recommendations. I was physically present for the entire interview and exam. I agree with the above assessment and plan. GUTH[facility] CORT[facility] MEDICAL CENTERDave
--- NOTE | 2019-11-02 11:53 | REP ---
CT CHEST WITHOUT IV CONTRAST: CT chest performed without IV contrast and compared to a prior study of 10/15/2019. Since that time the patient has had right upper lobectomy. Sagittal and coronal reconstruction images are performed. There are two right chest tubes in place. There is a moderate degree of emphysema in the right chest wall. There is mild pneumomediastinum superiorly. There is a small amount of pleural air and fluid present. This is seen diffusely. Multiple surgical sutures are seen along the right superior mediastinum. There is an adjacent oval soft tissue density contiguous with the right hilum. This measures about 4.3 x 1.8 cm. There are tiny foci of air within this density. This may represent a postsurgical hematoma given somewhat increased density internally. At the superior margin of this soft tissue density, there is a more ill-defined parenchymal density medially along the mediastinal border. Other scattered interstitial linear densities are seen in the more inferior lower lobe with some mild ground-glass opacity. There is also evidence of mild scattered ground-glass opacity in the medial left lung. These parenchymal opacities bilaterally could represent atelectasis or infiltrate. There is a tiny amount of right-sided pericardial thickening. Visualized upper abdominal structures appear unremarkable. There are mild degenerative changes of the spine. Electronically Signed by Yahir Hare MD 11/02/2019 12:19 P
--- NOTE | 2019-11-02 11:54 | REP ---
ABDOMEN SERIES: Two views. HISTORY: Question constipation or obstruction. FINDINGS: There are two right-sided chest tube. There is no evidence of free subdiaphragmatic air. An epidural catheter is noted. Monitoring electrodes are seen. There is extensive soft tissue emphysema in the extra thoracic and abdominal wall soft tissues on the right. Bowel gas pattern is normal with some formed stool in the right colon and descending colon but no colonic distension is seen. Flank stripes are intact. Psoas margins are symmetric. IMPRESSION: Soft tissue emphysema in the extra abdominal soft tissues on the right. Pleural drainage catheter is noted on the right. No large or small bowel distension seen. Electronically Signed by Jorje Warner MD 11/02/2019 02:07 P
[2019-11-02] MEDS ORDERED: VANCOMYCIN HCL 500 MG in D5W MINI-BAG PLUS 100 ML IV ONE (12:00)
--- NOTE | 2019-11-02 12:29 | IPN ---
DATE: 11/02/2019 This is now the seventh postoperative day for Mrs. Damon. She did not have a very good night and this morning when I see her she is rather short of breath. She does not have an air leak however. On physical examination, she has significant increased wheezing, particularly anteriorly. Her vital signs show a Tmax of 99.1, with a heart rate that is now ranging between 110 and 131. She is in a sinus rhythm. Respiratory rate is 18 to 22 without the use of accessory muscles and who is 97% saturated now on 2 liters nasal cannula. Her blood pressure is ranging between 106/59 to 138/81. Her intake and output the past 24 hours has been recorded as 780 in and 2348 out for a negativity of 1500 mL. She has put 98 mL out the chest tube and there is no air leak. She weighs 78 kg today compared to 78.6 kg yesterday. The diuresis is again without Lasix. On physical examination, as noted she has marked wheezing in expiration, particularly anteriorly, on both right and left sides. There is also scattered rhonchi throughout the right lung. Percussion note is full to the diaphragm. She has subcutaneous emphysema over the posterior, anterior and lateral chest boone. Cardiovascular examination is without murmurs, click, gallops, or rubs. I cannot feel her point of maximal impulse (PMI). S1 and S2 are normal. Abdomen is soft, nontender. Bowel sounds are positive, but she is slightly distended now. She has not yet had a bowel movement. Extremities shows no pretibial edema, no calf tenderness and no differential swelling of the upper extremities. Skin is warm, dry, and perfused without cyanosis or mottling, including that of the nail beds and the knees. Neck is supple. There is subcutaneous emphysema up to the angle of the jaw. Trachea is midline. There is no jugular venous distention. Eyes show her pupils to be equal and reactive. Extraocular movements intact. Sclerae anicteric. Neurologic shows II-XII intact, along with gross motor and gross sensation intact. Gait is not tested. Psychiatric shows her to be awake and alert and oriented times three with appropriate mood and affect and appropriately anxious from her shortness of breath. Her white count today has spiked to 19.0 from 6.1 yesterday. Hemoglobin and hematocrit are 9.3 and 28.9, probably secondary to hemoconcentration. Platelet count is 447 and stable. Differential shows 88% neutrophils, 3% lymphocytes, 5% monocytes. The differential has changed to a left shift from 62% neutrophils yesterday. Her chemistries today show normal electrolytes with a BUN and creatinine of 12 and 1.08, a glucose of 104 and a calcium of 8.1. Her chest x-ray today again shows her lung fully expanded to the chest wall. It looks as though the subcutaneous emphysema is dissipating. There is more subcutaneous emphysema on the lateral right flank. The costophrenic angles are sharp. IMPRESSION: 1. Postoperative day #7 status post right upper lobectomy. 2. Sarcomatoid carcinoma right upper lobe, Stage II B, T3N0M0. 3. Asthma. 4. Gastroesophageal reflux disease. 5. Hyperlipidemia. 6. History of Escherichia (E) coli colitis. 7. Known large bowel stricture. 8. Coronary artery disease. 9. Alveolar pleural fistula, hopefully resolved. 10. New leukocytosis. 11. Increased bronchospasm. PLAN AND DISCUSSION: I will have Dr. Meléndez of pulmonology see her for her wheezing. I will start her on antibiotics because of the steep rise in her white count. I do not have a good reason or source for it. I will discontinue her [place] catheter, the epidural not withstanding. I am more and more concerned about her abdomen and I will obtain a flat and upright KUB to see if there is an actual obstruction. We will of course monitor her very closely. I think her tachycardia is secondary to her difficulty breathing and her low grade fever.
[2019-11-03] VITALS: BP 103/62
[2019-11-03] MEDS: LEVALBUTEROL 1.25 MG/0.5 ML CONCENTRATE NEB NEB SCH ×4 (01:20→19:04)
[2019-11-03] MEDS: IPRATROPIUM 0.02% SOLN 0.5MG/2.5 ML NEB INH SCH ×4 (01:20→19:04)
[2019-11-03] MEDS: PIPERACILLIN/TAZOBACTAM SOD 3.375 GM in D5W MINI-BAG PLUS 50 ML IV SCH ×4 (03:51→19:52)
[2019-11-03] MEDS: SLF 3 ML SYR IV SCH ×3 (03:52→19:54)
[2019-11-03] MEDS: KETOROLAC 30 MG/ML 1ML VIAL IV SCH (03:52)
[2019-11-03 04:00] VITALS: BP 105/51
[2019-11-03 04:59] LABS: HEMATOCRIT 26.2 % (36.0-47.0); HEMOGLOBIN 8.4 g/dl (12.0-15.5); MEAN CORPUSCULAR HEMOGLOBIN 30.3 pg (27.0-33.0); MEAN CORPUSCULAR HGB CONC 32.1 g/dl (32.0-36.5); MEAN CORPUSCULAR VOLUME 94.6 fl (80.0-96.0); PLATELET COUNT, AUTOMATED 445 10^3/uL (150-450); RED BLOOD COUNT 2.77 10^6/uL (4.00-5.40); WHITE BLOOD COUNT 22.4 10^3/uL (4.0-10.0)
[2019-11-03 05:20] LABS: EOSINOPHILS 1 % (0-3); LYMPHOCYTES 2 % (16-44); METAMYELOCYTES 3 % (0-0); MONOCYTES 2 % (0-5); NEUTROPHILS 85 % (28-66); PLATELET ESTIMATE INCREASED (NORMAL)
[2019-11-03 05:21] LABS: DOHLE BODIES 1+
[2019-11-03 05:23] LABS: CALCIUM LEVEL 7.7 MG/DL (8.8-10.2); CREATININE FOR GFR 1.42 MG/DL (0.55-1.30); GLOMERULAR FILTRATION RATE 39.5 (>45); POTASSIUM SERUM 4.4 MEQ/L (3.5-5.1)
[2019-11-03] MEDS: FENTANYL/BUPIVACAINE/NACL BAG 250 ML EPIDURAL SCH (06:27)
[2019-11-03] MEDS: SYMBICORT 160/4.5MCG INHALER 6GM INH SCH ×2 (07:20→19:04)
[2019-11-03 08:00] VITALS: BP 114/59
[2019-11-03] MEDS ORDERED: ISOVUE-370 76% 100ML VIAL As Ordered ONE (08:43)
[2019-11-03] MEDS: HEPARIN SOD (PORCINE) 5000UNITS/ML VIAL (J1644 PER 1000UNITS) SC SCH ×2 (09:15→19:52)
[2019-11-03] MEDS: ZONISAMIDE 100 MG CAP (ZONEGRAN) PO SCH ×2 (09:15→19:52)
[2019-11-03] MEDS: MOM 30ML SUSPENSION UDC PO SCH (09:15)
[2019-11-03] MEDS: clonazePAM 1 MG TAB PO SCH ×2 (09:15→19:52)
[2019-11-03] MEDS: SENNA 8.6 MG TAB (SENOKOT) PO SCH ×2 (09:16→19:53)
[2019-11-03] MEDS: GABAPENTIN 100 MG CAP PO SCH ×3 (09:16→19:53)
[2019-11-03] MEDS: PRAVASTATIN 20 MG TAB PO SCH (09:16)
[2019-11-03] MEDS: VENLAFAXINE **XR** 75MG CAPSULE PO SCH (09:16)
[2019-11-03] MEDS: DOCUSATE SODIUM 100 MG CAP PO SCH ×3 (09:16→19:53)
[2019-11-03] MEDS: PANTOPRAZOLE 40MG TAB (PROTONIX) PO SCH (09:16)
[2019-11-03] MEDS: MULTIVITAMINS/MINERALS THERAP 1 TAB PO SCH (09:16)
[2019-11-03] MEDS: MONTELUKAST 10 MG TAB PO SCH (09:16)
--- NOTE | 2019-11-03 09:23 | REP ---
CHEST X-RAY: Two views. HISTORY: Right upper lobectomy. COMPARISON CHEST X-RAY: November 02, 2019 and November 01, 2019. FINDINGS: Monitoring electrodes are seen. Two right-sided chest tubes remain in place. A small stable right apical air collection is seen in the pleural space unchanged. There is extrathoracic soft tissue gas along the right chest wall similar to the previous study and perhaps slightly improved in quantity. Left lung remains clear. No new infiltrate on the right. There is some mild plate-like atelectasis in the right base. Electronically Signed by Jorje Warner MD 11/03/2019 11:25 A
[2019-11-03] MEDS: NS 1,000 ML IV SCH ×2 (09:28→19:53)
--- NOTE | 2019-11-03 09:49 | IPN ---
DATE OF SERVICE: 11/03/2019 This is now the eighth day for Mrs. Damon, status post right upper lobectomy. I am starting to get worried about Mrs. Damon. While she states she feels better today than she felt yesterday and she is no longer wheezing, her white count continues to rise. Now, it is 22,000, and her creatinine is now rising. Paradoxically, she states she is feeling better. She has not yet had a bowel movement. She declined the Fleet enema yesterday. Her vital signs show a maximum temperature (Tmax) of 99.9 yesterday at 4 o'clock. She has now defervesced to 97.9. Her heart rate is now ranging between 98 and 114 in a sinus rhythm. Respiratory rate of 18-22 without the use of accessory muscles who is 98% to 96% saturated alternating between 2 liters nasal cannula and room air. Her blood pressure is ranging between 114/59 to 102/55. Her intake and output over the past 24 hours has been recorded as 1660 in and 1300 out for a positivity of 360 mL. She has put 1100 mL out in urine. Weight is pending on her today. She put 200 mL out of the chest tube yesterday while on suction and 185 in the last 8 hours. There is no air leak. On physical examination, her lungs show some scattered rhonchi and rales, not all of which clear with coughing on the right side. I do not hear any wheezing today. Percussion note is full to the diaphragm. Cardiovascular examination is without murmurs, click, gallops, or rubs. I cannot feel her point of maximal impulse (PMI). S1 and S2 are normal. Abdomen is soft, nontender. She is slightly distended. Bowel sounds are positive. There is no hepatomegaly. No costovertebral angle (CVA) tenderness. Extremities shows no pretibial edema, no calf tenderness, and no differential swelling of the upper extremities. Skin is warm, dry, and perfused without cyanosis or mottling, including that of the nail beds and the knees. Neck is supple. No subcutaneous emphysema. Trachea is midline. There is no jugular venous distention. Mouth shows her mucous membranes to be pink and moist. Lips and commissures without lesions. There is no thrush. Eyes show her pupils to be equal and reactive. Extraocular movements intact. Sclerae anicteric. Neurologic shows II-XII intact, along with gross motor and gross sensation intact. Gait is not tested. Psychiatric shows her to be awake and alert and oriented times three with appropriate mood and affect and conversational. It should be noted that over the last five days, she is about 3000 mL negative spontaneously. Her white count today is 22.4 up from 19.0 yesterday and 6.1 the day before. Hemoglobin and hematocrit are 8.4 and 26.2 down from 9.3 and 28.9, probably secondary to hemodilution. Differential shows 85% neutrophils, 7% bands, 2% lymphocytes, and 2 monocytes, and 3 metamyelocytes. No toxic granulations reported. Platelet count is 445 and stable. Her electrolytes show marginal hyponatremia at 134. BUN and creatinine, however, are 22 and 1.42, with a glucose of 81 and a calcium of 7.7. Methicillin-resistant Staphylococcus aureus (MRSA) yesterday was not detected. Her chest x-ray is still pending. I will look at it in the next half hour when it is done. Her chest CT done yesterday showed copious subcutaneous emphysema. It looks to be an infiltrative pattern in the middle lobe proximally. I am not sure if this is the middle lobe infiltrate or whether it is upper lobe that might not have been resected because there was no fissure. I did see a portion of upper lobe which was retained and did not inflate which was then wedged off to complete the upper lobectomy. 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 It looks like a postoperative change and not a true lung consolidation. Abdominal x-ray, flat and upright, did not show an obstruction. There is no free air into the diaphragm. That portion of the chest CT that scanned the abdomen showed feces within the left colon, both transverse and the first part of the descending colon. No small loops of bowel were seen. IMPRESSION: 1. Postoperative day #8, status post right upper lobectomy. 2. Sarcomatoid carcinoma right upper lobe, stage IIB, T3N0M0. 3. Asthma. 4. Gastroesophageal reflux disease. 5. Hyperlipidemia. 6. History of Escherichia (E) coli colitis. 7. Known large bowel stricture. 8. Coronary artery disease. 9. Alveolar pleural fistula, hopefully resolved. 10. Leukocytosis, continuing. 11. Bronchospasm, resolving. PLAN AND DISCUSSION: I am very concerned about the rising white count and now the rising creatinine. Blood cultures were drawn yesterday and are still pending. Sputum cultures are pending. Gram stain showed a few gram-positive cocci in pairs and chains. I am continuing to worry about her stricture and her lack of bowel movements. Surprisingly, her abdomen is soft and nontender. Bowel sounds are positive. She has a history of E. coli colitis, and I will check her for C. difficile. She only was on a limited course of antibiotics for 2 days after surgery. I did start her on zosyn and vancomycin yesterday. Will check her for COVID-19 presence. She does not have an unusual cough nor actual chills or even a fever over 100. Obtain an abdominal CT with oral contrast as I cannot give intravenous (IV) contrast secondary to her now-rising creatinine. I will continue her Toradol and will also wean and remove her epidural. Will give her oral pain medications for pain control during the epidural wean. I will check a blood lactate. Will offer her enemas today again. If the CT shows a significant stricture with no stool in the rectum, I will consult Dr. Walker of general surgery, as he has seen her preoperatively. KAITLYNN
[2019-11-03 09:52] LABS: ALBUMIN 1.8 GM/DL (3.2-5.2); BILIRUBIN,TOTAL 0.3 MG/DL (0.2-1.0); TOTAL PROTEIN 5.3 GM/DL (6.4-8.2)
--- NOTE | 2019-11-03 09:56 | REP ---
REASON FOR EXAM: Unexplained leukocytosis and pyrexia. The latest prior for comparison is a noncontrast enhanced examination of 07/09/2019. The latest contrast-enhanced examination comparison is 02/08/2019. Contrast today 100 mL of Isovue 370. Asymmetric densities are seen in the right lung base. There are two thoracotomy tubes seen along the right lung base. There are numerable tiny air densities which are seen along the right hemidiaphragm. Although these are likely within the pleural space, due to volume averaging, I cannot completely rule out the possibility of a tiny amount of subdiaphragmatic air density. The liver, spleen, adrenal glands and kidneys are again seen to be within normal limits and essentially unchanged. There is a simple right renal cyst status quo. The gallbladder is somewhat hydropic and the pancreas is atrophic, however, no abnormal enhancement is seen and there is no abnormal gallbladder wall thickening or fluid in the pararenal spaces. The abdominal aorta and para-aortic regions are within normal limits. There is no free fluid in the abdomen. There is no evidence of an intra-abdominal mass or adenopathy. The bowel loops are within normal limits. Gas and stool is seen throughout the colon. There is no evidence of intestinal obstruction. There is no evidence of a definite abnormal colonic or small bowel transition. There is no abnormal bowel wall enhancement. CT PELVIS: There is gas seen throughout the sigmoid colon and within the rectum. No free fluid or free air is seen in the pelvis. There is no evidence of a pelvic mass or adenopathy. Bone window technique throughout the examination shows no significant change in the appearance of the osseous structures. IMPRESSION: There is no evidence of acute intra-abdominal or intrapelvic disease. Findings as described above. These findings were assessed with Dr. Vasu Holbrook at the time of this dictation. Electronically Signed by Ayden Stephen DO 11/03/2019 10:27 A
--- NOTE | 2019-11-03 10:27 | IPN ---
DATE OF VISIT: 11/03/2019 I again attended Susan Damon. I spoke at length with the nurse at the bedside as well as with Dr. Holbrook regarding her status today. T-max overnight was 97.9, blood pressure 100 to 114 range systolic, heart rate 90 to the low 100s with a sinus mechanism, respiratory rate 16 to 20 without accessory muscle use. Ins and outs midnight to midnight 1660 mL in with 1300 mL out. Overall, by mouth intake has been poor over the last 24 to 48 hours. Chest tube without air leak. She is now on waterseal. She has had a little bit more in the way of drainage over the last 24 hours with 200 mL out yesterday and 185 mL out already today. Sputum has some occasional gram positive cocci on the initial gram stain. Occasionally discolored with some mild hemoptysis intermittently, not unexpected after a lobectomy. Most recent laboratories show sodium 134, potassium 4.4, chloride 102, CO2 24, BUN 22, creatinine 1.42, calcium 7.7, glucose 81. Liver functions are pending as is an amylase and lipase. White blood cell count elevated a little more today at 22.4, 85% segs, 7% bands, hemoglobin 8.4, platelet count 445,000. Toradol has been discontinued. On exam, she is awake, alert and appropriate. States she is reasonably comfortable except for some residual right shoulder pain. HEENT: Otherwise normocephalic, atraumatic. Pupils react. Neck is reasonably supple for age. Trachea is midline. Chest again shows her subcutaneous emphysema. Chest tubes are in place and the dressings are clean and dry. Chest shows decreased expansion on the right compared to the left. Her subcutaneous emphysema is audible, but she does have a little bit better air exchange at the right base today compared to yesterday. Left chest is clear. No wheezing, rubs, egophony or rhonchi. Cardiac exam is distant, but regular. Peripheral pulses palpable. No obvious edema. Abdomen is soft, nontender, with active bowel sounds. No obvious organomegaly or masses. No rebound. Extremities without cyanosis or clubbing. Neurologically, she is awake, alert and appropriate. Psychiatric: Generally with normal mood and affect. Chest CT from yesterday and a CT of abdomen and pelvis from today have been reviewed as well as a chest x-ray from this morning. She has a small probable mediastinal hematoma not inconsistent at all with her recent surgery. She has a collection at the right base with some air bubbles in it which is likely old blood which is consolidated. Again, not unexpected postoperatively. Gallbladder although large shows no edema or wall thickening. No other obvious abnormalities identified by the radiologist per my discussion with Dr. Holbrook who spoke with Dr. Stephen. IMPRESSION: 1. Underlying asthma. 2. Fever with elevated white count in a postoperative patient. 3. Lung cancer status post resection. RECOMMENDATIONS: A very length discussion was had with the patient as well as Dr. Holbrook concerning her status. She has worsening renal function today. Her Toradol has been stopped. She has not been eating or drinking well and is net negative over the last several days and therefore we will replete her with IV fluids and monitor her renal function closely. She is on broad spectrum antimicrobials. Cultures are all pending. Her findings on her CT scan of her chest are not at all unexpected in a postoperative patient, but again we will be monitoring this closely. She has had a little bit more drainage out of her chest tube than I would expect and again I spoke with Dr. Holbrook in this regard. Will check not only her liver functions but her amylase and lipase. I spoke with her regarding her overall status and she will keep us apprised of any changes, especially regarding pain or other feelings of well being. Ulcer and deep vein thrombosis (DVT) prophylaxis are in place. She has been ambulating generally in the halls. We will proceed as outlined above. Further recommendations will be made in the progress record as new information becomes available.
[2019-11-03 10:47] LABS: AMYLASE 8 U/L (25-115); LIPASE 16 U/L (73-393)
[2019-11-03] MEDS: VANCOMYCIN HCL 1,000 MG, VIAL MATE ADAPTER 1 EACH in D5W 250 ML IV SCH ×2 (11:44→22:39)
[2019-11-03 12:00] VITALS: BP 141/94
[2019-11-03] MEDS: ACETAMINOPHEN TAB 650MG DOSE (2X325MG) PO PRN (14:33)
[2019-11-03 16:00] VITALS: BP 121/62
[2019-11-03] MEDS: LEVALBUTEROL 1.25 MG/0.5 ML CONCENTRATE NEB NEB PRN (17:45)
[2019-11-03 18:50] LABS: CALCIUM LEVEL 7.6 MG/DL (8.8-10.2); CREATININE FOR GFR 1.35 MG/DL (0.55-1.30); GLOMERULAR FILTRATION RATE 41.9 (>45); POTASSIUM SERUM 3.9 MEQ/L (3.5-5.1)
[2019-11-03 20:00] VITALS: BP 126/66
[2019-11-03] MEDS ORDERED: PERCOCET 5MG/325MG TAB PO PRN (22:30)
[2019-11-03] MEDS: PERCOCET 5MG/325MG TAB PO PRN (22:39)
[2019-11-04] VITALS (11 sets, daily range): BP systolic 112–159; BP diastolic 63–88
[2019-11-04] MEDS: IPRATROPIUM 0.02% SOLN 0.5MG/2.5 ML NEB INH SCH ×4 (01:37→19:16)
[2019-11-04] MEDS: LEVALBUTEROL 1.25 MG/0.5 ML CONCENTRATE NEB NEB SCH ×4 (01:37→19:16)
[2019-11-04] MEDS: PIPERACILLIN/TAZOBACTAM SOD 3.375 GM in D5W MINI-BAG PLUS 50 ML IV SCH ×4 (02:49→21:43)
[2019-11-04 05:16] LABS: BASO # 0.1 10^3/uL (0.0-0.2); BASO % 0.3 % (0.0-1.0); EOS # 0.3 10^3/uL (0.0-0.5); EOS % 1.4 % (0.0-3.0); HEMATOCRIT 23.8 % (36.0-47.0); HEMOGLOBIN 7.9 g/dl (12.0-15.5); LYMPH # 0.8 10^3/uL (1.5-5.0); MEAN CORPUSCULAR HEMOGLOBIN 30.9 pg (27.0-33.0); MEAN CORPUSCULAR HGB CONC 33.2 g/dl (32.0-36.5); MONO # 0.7 10^3/uL (0.0-0.8); MONO % 3.7 % (0.0-5.0); NEUTROPHILS # 16.6 10^3/uL (1.5-8.5); NEUTROPHILS % 89.7 % (36.0-66.0); PLATELET COUNT, AUTOMATED 467 10^3/uL (150-450); RED BLOOD COUNT 2.56 10^6/uL (4.00-5.40); WHITE BLOOD COUNT 18.5 10^3/uL (4.0-10.0)
[2019-11-04] MEDS: NS 1,000 ML IV SCH ×4 (05:34→22:02)
[2019-11-04 05:35] LABS: CREATININE FOR GFR 1.27 MG/DL (0.55-1.30); POTASSIUM SERUM 3.8 MEQ/L (3.5-5.1)
[2019-11-04] MEDS: SLF 3 ML SYR IV SCH ×3 (05:35→22:02)
[2019-11-04] MEDS: SYMBICORT 160/4.5MCG INHALER 6GM INH SCH ×2 (07:11→19:16)
[2019-11-04] MEDS: MONTELUKAST 10 MG TAB PO SCH (08:30)
[2019-11-04] MEDS: MULTIVITAMINS/MINERALS THERAP 1 TAB PO SCH (08:30)
[2019-11-04] MEDS: PANTOPRAZOLE 40MG TAB (PROTONIX) PO SCH (08:30)
[2019-11-04] MEDS: PRAVASTATIN 20 MG TAB PO SCH (08:31)
[2019-11-04] MEDS: DOCUSATE SODIUM 100 MG CAP PO SCH ×3 (08:31→21:43)
[2019-11-04] MEDS: VENLAFAXINE **XR** 75MG CAPSULE PO SCH (08:31)
[2019-11-04] MEDS: MOM 30ML SUSPENSION UDC PO SCH (08:31)
[2019-11-04] MEDS: GABAPENTIN 100 MG CAP PO SCH ×3 (08:32→21:43)
[2019-11-04] MEDS: PERCOCET 5MG/325MG TAB PO PRN ×3 (08:32→22:04)
[2019-11-04] MEDS: SENNA 8.6 MG TAB (SENOKOT) PO SCH ×2 (08:32→21:43)
[2019-11-04] MEDS: ZONISAMIDE 100 MG CAP (ZONEGRAN) PO SCH ×2 (08:33→21:43)
[2019-11-04] MEDS: HEPARIN SOD (PORCINE) 5000UNITS/ML VIAL (J1644 PER 1000UNITS) SC SCH ×2 (08:33→21:42)
[2019-11-04] MEDS: clonazePAM 1 MG TAB PO SCH ×2 (08:33→21:42)
--- NOTE | 2019-11-04 10:12 | REP ---
CHEST TWO VIEWS: Two views of the chest is performed and compared to a prior study of 11/03/2019. Once again, there are two right chest tubes in place. Right hilar soft tissue density is unchanged. Mild scattered pleural and parenchymal opacities on the right are unchanged. Left lung is clear. The heart and mediastinum are unchanged. Air in the right chest wall is unchanged. IMPRESSION: Stable exam. Electronically Signed by Yahir Hare MD 11/04/2019 12:45 P
--- NOTE | 2019-11-04 10:33 | IPN ---
DATE OF VISIT: 11/04/2019 I again attended Susan Damon. I have spoken at length with Dr. Holbrook regarding her as well this morning. T-max overnight 97.8. Blood pressure 112 to 130s. Heart rate 90 to 100s with a sinus mechanism. Respiratory rate 16 to 20 without accessory muscle use. Ins and outs midnight to midnight 3200 mL in with 1405 mL out. Laboratories this morning show a white blood cell count of 18.5, 89% segs, 0 bands today. Hemoglobin mildly diminished at 7.9, not inconsistent with her hydration yesterday. Platelet count mildly elevated at 467. Sodium 138, potassium 3.8, chloride 107, CO2 23, BUN 20, creatinine 1.27. Procalcitonin elevated at 4.0. Blood cultures negative. Sputum did have a few gram positive cocci. Chest x-ray this morning does show some haziness at the right base. Her chest tube drained 255 mL out yesterday, 95 mL out since midnight. She remains on waterseal. On exam, she is comfortable, awake, alert and appropriate. Pupils react, sclerae are clear. Trachea is in midline. Chest shows her right thoracostomy tubes. Her subcutaneous emphysema is less. I do believe underneath the noise of her crepitus there are some faint right basilar crackles. Left chest is clear. No rhonchus or wheeze. Cardiac exam is regular with no gallop. Peripheral pulses palpable. No edema. Abdomen is soft, nontender, with active bowel sounds. No convincing organomegaly or masses. Extremities without cyanosis or clubbing. Neurologically, she is awake, alert and appropriate. Psychiatric with generally with normal mood and affect. Pulse oximetry remains 99% on 2 liters nasal cannula. IMPRESSION: 1. Right lower lobe pneumonia. 2. Underlying asthma. 3. Lung cancer status post lobectomy. RECOMMENDATIONS: At this point, we will continue her current antimicrobials. She is on her home medications regarding her inhalers and nebulizers. I spoke at length with Dr. Holbrook regarding her status. We will continue her current antimicrobials, especially in view of her elevated calcitonin, it really points towards a bacterial source for her fever. She has not ambulated yet today and I have urged her to do so. Kidney function is improving with hydration and will continue that. Her hemoglobin is being monitored and she is at the point where she may actually benefit from a transfusion if it drops much lower. I did discuss that with Dr. Holbrook as well and will defer that to him. Otherwise, will continue as outlined above. Further recommendations will be made in the progress record as new information becomes available.
--- NOTE | 2019-11-04 11:20 | IPN ---
DATE OF SERVICE: 11/04/2019 This is now the ninth postoperative day for Mrs. Damon. Yesterday, she is back to her white count. Was placed on antibiotics. She was given fluid yesterday because of her spontaneous diuresis. Her creatinine is improved, and her white count has come down. Her pain is being fairly well managed with oral pain control. She is able to cough and take deep breaths. Her vital signs show a maximum temperature (Tmax) of 97.8 with a heart rate that ranges between 98 and 111 in a sinus rhythm. Respiratory rate of 16-20 without the use of accessory muscles who is 98% saturated on room air, and whose blood pressure is ranging between 134/71 to 112/63. Her intake and output over the past 24 hours has been recorded as 3200 in and 1405 out for a positivity of 1800 mL. She has put 255 mL out of the chest tube. Her weight today is 80.1 kg compared to 78 kg 2 days ago. She has put out 1150 mL in urine, and she has taken in 1380 mL in oral intake. On physical examination, she has rales and rhonchi in the right lower hemithorax. I hear no expiratory wheezing. Percussion notes are full to the diaphragm. Cardiac examination is without murmurs, click, gallops, or rubs. I cannot feel her point of maximal impulse (PMI). S1 and S2 are normal. Abdomen is soft, nontender. Bowel sounds are positive. There is no hepatomegaly, no costovertebral angle (CVA) tenderness. Extremities shows no pretibial edema, no calf tenderness, and no differential swelling of the upper extremities. Skin is warm, dry, and perfused without cyanosis or mottling, including that of the nail beds and the knees. Neck is supple. There is subcutaneous emphysema at the base of the neck but improved. Trachea is midline. There is no jugular venous distention. Mouth shows her mucous membranes to be pink and moist. Lips and commissures without lesions. There is no thrush. Eyes show her pupils to be equal and reactive. Extraocular movements intact. Sclerae anicteric. Neurologic shows II-XII intact, along with gross motor and gross sensation intact. Gait is not tested. Psychiatric shows her to be awake and alert and oriented times three with appropriate mood and affect and conversational. Her white count today is down to 18.5 from 22.4 yesterday. Hemoglobin and hematocrit are 7.9 and 23.8, respectively. Platelet count is 467 and stable. Differential shows 89% neutrophils, 4% lymphocytes, and 3% monocytes. There are no immature forms, no toxic granulations. Her chemistries today show normal electrolytes with a BUN and creatinine of 20 and 1.27, and a glucose of 80, and a calcium of 8.0 Her chest x-ray today shows the lung fully expanded to the chest wall. I think there is a little bit of subpulmonic air just above the diaphragm. She does look to have more of an infiltrative pattern in the right lower lobe again, which is progressive from 2 days ago. Chest tubes are in good place. Notably, I do not see a posterior infiltrate on the lateral film. Her sputum culture is still pending. There were only a few gram-positive cocci and chains in pairs noted on gram stain. Blood cultures are all negative. Her procalcitonin has come back as 4.0, which is greater than the upper limit of normal of 0.24, which points to a bacterial infection. Lactic acid was only 1.1. IMPRESSION: 1. Postoperative day #9 status post right upper lobectomy. 2. Sarcomatoid carcinoma right upper lobe, stage IIB, T3N0M0. 3. Asthma. 4. Gastroesophageal reflux disease (GERD). 5. Hyperlipidemia. 6. History of Escherichia (E) coli colitis. 7. Known large bowel stricture. 8. Coronary artery disease. 9. Alveolar pleural fistula, resolved. 10. Leukocytosis, improving. 11. Bronchospasm, resolved. 12. Probable bacterial pneumonia, right lower lobe. PLAN AND DISCUSSION: Until our cultures come back, I will continue her on Zosyn and vancomycin. We did hold her vancomycin secondary to her renal failure. Renal failure is improved. I would normally discontinue her chest tubes, but they are putting out a little bit too much, which is a marked change from her prior course. The residual fluid that she has could be infected; and, therefore, until we get leukocytosis and possible pneumonia under control, I will continue the chest tubes to drain her fluid. She did have three bowel movements yesterday, all formed. [facility]
[2019-11-04] MEDS: VANCOMYCIN HCL 750 MG, VIAL MATE ADAPTER 1 EACH in D5W 250 ML IV SCH (17:08)
[2019-11-05] VITALS: BP 115/55
[2019-11-05] MEDS: IPRATROPIUM 0.02% SOLN 0.5MG/2.5 ML NEB INH SCH ×4 (02:14→19:36)
[2019-11-05] MEDS: LEVALBUTEROL 1.25 MG/0.5 ML CONCENTRATE NEB NEB SCH ×4 (02:14→19:36)
[2019-11-05] MEDS: NS 1,000 ML IV SCH ×5 (04:37→23:17)
[2019-11-05] MEDS: PIPERACILLIN/TAZOBACTAM SOD 3.375 GM in D5W MINI-BAG PLUS 50 ML IV SCH ×4 (04:37→20:05)
[2019-11-05] MEDS: PERCOCET 5MG/325MG TAB PO PRN (04:38)
[2019-11-05] MEDS: SLF 3 ML SYR IV SCH ×3 (04:40→20:05)
[2019-11-05] MEDS: VANCOMYCIN HCL 750 MG, VIAL MATE ADAPTER 1 EACH in D5W 250 ML IV SCH ×3 (05:58→18:34)
[2019-11-05 06:06] LABS: BASO # 0.1 10^3/uL (0.0-0.2); BASO % 0.5 % (0.0-1.0); EOS # 0.3 10^3/uL (0.0-0.5); EOS % 2.4 % (0.0-3.0); HEMATOCRIT 26.5 % (36.0-47.0); HEMOGLOBIN 8.7 g/dl (12.0-15.5); LYMPH # 0.8 10^3/uL (1.5-5.0); LYMPH % 6.7 % (24.0-44.0); MEAN CORPUSCULAR HEMOGLOBIN 29.5 pg (27.0-33.0); MEAN CORPUSCULAR HGB CONC 32.8 g/dl (32.0-36.5); MEAN CORPUSCULAR VOLUME 89.8 fl (80.0-96.0); MONO # 0.7 10^3/uL (0.0-0.8); MONO % 5.7 % (0.0-5.0); NEUTROPHILS # 9.9 10^3/uL (1.5-8.5); NEUTROPHILS % 83.9 % (36.0-66.0); PLATELET COUNT, AUTOMATED 467 10^3/uL (150-450); RED BLOOD COUNT 2.95 10^6/uL (4.00-5.40); WHITE BLOOD COUNT 11.8 10^3/uL (4.0-10.0)
[2019-11-05 06:24] LABS: BLOOD UREA NITROGEN 10 MG/DL (7-18); CALCIUM LEVEL 7.6 MG/DL (8.8-10.2); CARBON DIOXIDE LEVEL 21 MEQ/L (21-32); CHLORIDE LEVEL 113 MEQ/L (98-107); CREATININE FOR GFR 0.79 MG/DL (0.55-1.30); GLOMERULAR FILTRATION RATE > 60.0 (>45); GLUCOSE, FASTING 75 MG/DL (70-100); SODIUM LEVEL 142 MEQ/L (136-145)
[2019-11-05] MEDS: SYMBICORT 160/4.5MCG INHALER 6GM INH SCH ×2 (07:13→19:36)
[2019-11-05 08:00] VITALS: BP 144/80
[2019-11-05] MEDS: MOM 30ML SUSPENSION UDC PO SCH (08:21)
[2019-11-05] MEDS: PRAVASTATIN 20 MG TAB PO SCH (08:22)
[2019-11-05] MEDS: clonazePAM 1 MG TAB PO SCH ×2 (08:22→20:02)
[2019-11-05] MEDS: ZONISAMIDE 100 MG CAP (ZONEGRAN) PO SCH ×2 (08:22→20:03)
[2019-11-05] MEDS: SENNA 8.6 MG TAB (SENOKOT) PO SCH ×2 (08:22→20:03)
[2019-11-05] MEDS: DOCUSATE SODIUM 100 MG CAP PO SCH ×3 (08:22→20:02)
[2019-11-05] MEDS: GABAPENTIN 100 MG CAP PO SCH ×3 (08:22→20:04)
[2019-11-05] MEDS: MULTIVITAMINS/MINERALS THERAP 1 TAB PO SCH (08:22)
[2019-11-05] MEDS: MONTELUKAST 10 MG TAB PO SCH (08:22)
[2019-11-05] MEDS: PANTOPRAZOLE 40MG TAB (PROTONIX) PO SCH (08:23)
[2019-11-05] MEDS: VENLAFAXINE **XR** 75MG CAPSULE PO SCH (08:23)
[2019-11-05] MEDS: HEPARIN SOD (PORCINE) 5000UNITS/ML VIAL (J1644 PER 1000UNITS) SC SCH ×2 (08:23→20:04)
--- NOTE | 2019-11-05 08:27 | REP ---
CHEST X-RAY: Two views. HISTORY: Right upper lobectomy. COMPARISON STUDY: November 04, 2019. FINDINGS: Monitoring electrodes overlie the chest. There are two right apical chest tubes again noted. The left lung remains clear. There is discoid atelectasis and some increased interstitial markings in the right lung base. This is unchanged. There is mild pleural thickening laterally on the right. Decrease in amount of extrathoracic soft tissue gas. A decreased amount of apical pleural gas. Old healed right clavicle fracture. Electronically Signed by Jorje Warner MD 11/05/2019 08:43 A
--- NOTE | 2019-11-05 09:40 | IPN ---
DATE OF VISIT: 11/05/2019 I again attended Susan Damon here in the progressive care unit. The patient has been examined, the chart reviewed and I spoke with Dr. Holbrook regarding her care. T-max overnight 98.8, blood pressure 115 to 140 systolic, heart rate generally in the 80s and 90s with a sinus mechanism. Ins and outs midnight to midnight 6945 mL in with 4117 mL out. Chest tube drained 117 mL yesterday. The most recent laboratories show a white blood cell count down to 11.8, hemoglobin 8.7. She received one unit of packed cells yesterday. Platelet count 467,000 with 83% segs and 0 bands. Sodium 142, potassium 4.0, chloride 113, CO2 21, BUN 10, creatinine 0.79, glucose 75. Chest x-ray shows lines and tubes in good position. On exam, denies any new complaints. HEENT: Otherwise normocephalic, atraumatic. Pupils react. Neck supple. Trachea is midline. Membranes are moist. Chest shows her thoracostomy tubes in good position. There are decreased breath sounds at the right base. There may be the faintest of rubs. There is occasional rhonchi that clear with cough. Left chest is clear. Cardiac exam is regular without murmur, gallop or rub. Peripheral pulses palpable. No edema. Abdomen soft, nontender, with active bowel sounds. No convincing organomegaly or masses. Extremities: Without cyanosis or clubbing. Neurologic: She is awake, alert and appropriate. Psychiatric: Generally with normal mood and affect. Chest x-ray from today shows no acute findings. Better aeration at the right base. IMPRESSIONS: 1. Pneumonia. 2. Underlying obstructive lung disease. 3. Lung cancer status post resection. RECOMMENDATIONS: At this point, certainly chest tube will be per Dr. Holbrook. She may actually get those out today given the drop off in her drainage. I am in agreement with her current antimicrobials. Those will be continued. Her pain control is reasonable. Ulcer and deep vein thrombosis (DVT) prophylaxis are in place. She is increasing her ambulation. She is tolerating a diet. We will continue her inhaler regimen for underlying lung disease. Will proceed as outlined above. Hopefully, we are nearing change to oral regimen regarding antimicrobials with an eye on discharge. The fact that her creatinine has continued to improve is encouraging as well. Further recommendations will be made int he progress record as new information becomes available.
[2019-11-05 12:00] VITALS: BP 129/68
[2019-11-05] MEDS: NORCO, ANEXSIA 5/325MG TABLET (HYDROcodone/ACETAMINOPHEN) PO PRN ×2 (13:39→20:05)
--- NOTE | 2019-11-05 15:22 | IPN ---
DATE: 11/05/2019 This is now the tenth postoperative day for Mrs. Damon. She is feeling better today although her pain is still an issue. Her kidneys are returning to normal. Her vital signs show a maximum temperature (T-max) of 98.8 with a heart rate that ranges between 86 and 105 in sinus rhythm. Respiratory rate 18-20 without the use of accessory muscles who is 98% saturated on room air and blood pressures range between 129/68 to 144/80. Intake and output over the past 24 hours has been recorded as 6945 in and 4117 out for a positivity of 2800 mL. She has taken in 2220 mL in oral intake and 3825 mL in IV intake. She has put 117 mL out the chest tube. There is no air leak. Weight today is 81.5 kg compared to 80.1 kg yesterday. On physical examination she has bibasilar crackles and a little bit of wheezing at the end of expiration. Percussion note is full to the diaphragm. I do not feel any subcutaneous emphysema. Cardiac exam is without murmurs, clicks, gallops or rubs. I cannot feel her point of maximum impulse (PMI). S1 and S2 are normal. Abdomen is soft and nontender. Bowel sounds are positive. There is no hepatomegaly. No costovertebral angle (CVA) tenderness. It was noted that she did have three bowel movements 2 days ago. Extremities shows 1+ pretibial edema with no calf tenderness. No differential swelling of the upper extremities. Skin is warm, dry and perfused without cyanosis or mottling including that of the nail beds and knees. Neck is supple. There is no jugular venous distention. No subcutaneous emphysema. Trachea is midline. Mouth shows her mucous membranes to be pink and moist. Lips and commissures are without lesions. There is no thrush. Eyes show her pupils to be equal and reactive. Extraocular movements intact. Sclerae nonicteric. Neurologic shows II-XII intact along with gross motor and gross sensation intact. Gait is not tested. Psychiatric showed her to be awake, alert and oriented times three with appropriate and affect and conversational. Her white count today is down to 11.8 from 18.5 yesterday. Her hemoglobin and hematocrit 8.7 and 26.5 after one unit transfusion yesterday. Platelet count is 467 and stable and differential shows 83% neutrophils, 6% lymphocytes, 5% monocytes. There are no immature forms or toxic granulations. Her electrolytes are essentially normal with a BUN and creatinine of 10 and 0.79. Glucose is 75 and a calcium 7.6. Her chest x-ray shows the lungs fully expanded to the chest wall. Subcutaneous emphysema is fading. She still looks as though she has a right hemithorax infiltrative process. I do not see an infiltrate on the lateral view posteriorly. IMPRESSION: 1. Postoperative day #10 status post right upper lobectomy. 2. Sarcomatoid carcinoma of the right upper lobe, stage II B, T3 N0 M0. 3. Asthma. 4. Gastroesophageal reflux disease, (GERD). 5. Hyperlipidemia. 6. Prior history of E coli colitis. 7. Known large bowel stricture. 8. Coronary artery disease. 9. Alveolar pleural fistula resolved. 10. Leukocytosis improving. 11. Bronchospasm resolving. 12. Probably bacterial pneumonia, right lower lobe. PLAN/DISCUSSION: I will turn down her fluids today. I am very grateful that her kidney function is returning. We will remove her chest tubes. I do not think that I will send her home tomorrow as she is going to need a few more days of IV antibiotics.
[2019-11-05 16:00] VITALS: BP 148/74
[2019-11-05 20:00] VITALS: BP 138/77
[2019-11-06] VITALS: BP 150/69
[2019-11-06] MEDS: IPRATROPIUM 0.02% SOLN 0.5MG/2.5 ML NEB INH SCH ×4 (01:48→20:00)
[2019-11-06] MEDS: LEVALBUTEROL 1.25 MG/0.5 ML CONCENTRATE NEB NEB SCH ×4 (01:48→20:00)
[2019-11-06] MEDS: PIPERACILLIN/TAZOBACTAM SOD 3.375 GM in D5W MINI-BAG PLUS 50 ML IV SCH (02:51)
[2019-11-06 04:00] VITALS: BP 139/69
[2019-11-06 05:17] LABS: BASO # 0.1 10^3/uL (0.0-0.2); BASO % 0.8 % (0.0-1.0); EOS # 0.2 10^3/uL (0.0-0.5); EOS % 1.9 % (0.0-3.0); HEMATOCRIT 26.7 % (36.0-47.0); HEMOGLOBIN 8.8 g/dl (12.0-15.5); LYMPH # 0.8 10^3/uL (1.5-5.0); LYMPH % 8.1 % (24.0-44.0); MEAN CORPUSCULAR HEMOGLOBIN 29.6 pg (27.0-33.0); MEAN CORPUSCULAR VOLUME 89.9 fl (80.0-96.0); MONO # 0.7 10^3/uL (0.0-0.8); NEUTROPHILS % 81.1 % (36.0-66.0); PLATELET COUNT, AUTOMATED 504 10^3/uL (150-450); RED BLOOD COUNT 2.97 10^6/uL (4.00-5.40); WHITE BLOOD COUNT 9.9 10^3/uL (4.0-10.0)
[2019-11-06 05:38] LABS: BLOOD UREA NITROGEN 8 MG/DL (7-18); CALCIUM LEVEL 7.9 MG/DL (8.8-10.2); CARBON DIOXIDE LEVEL 22 MEQ/L (21-32); CHLORIDE LEVEL 114 MEQ/L (98-107); CREATININE FOR GFR 0.83 MG/DL (0.55-1.30); GLOMERULAR FILTRATION RATE > 60.0 (>45); GLUCOSE, FASTING 75 MG/DL (70-100); POTASSIUM SERUM 4.3 MEQ/L (3.5-5.1); SODIUM LEVEL 143 MEQ/L (136-145)
[2019-11-06] MEDS: VANCOMYCIN HCL 750 MG, VIAL MATE ADAPTER 1 EACH in D5W 250 ML IV SCH (05:53)
[2019-11-06] MEDS: SLF 3 ML SYR IV SCH ×3 (05:53→20:12)
[2019-11-06 07:02] VITALS: BP 133/69
[2019-11-06] MEDS: SYMBICORT 160/4.5MCG INHALER 6GM INH SCH ×2 (07:58→19:45)
[2019-11-06] MEDS: MULTIVITAMINS/MINERALS THERAP 1 TAB PO SCH (08:02)
[2019-11-06] MEDS: MOM 30ML SUSPENSION UDC PO SCH (08:02)
[2019-11-06] MEDS: PANTOPRAZOLE 40MG TAB (PROTONIX) PO SCH (08:03)
[2019-11-06] MEDS: LevoFLOXacin 750 MG TABLET PO SCH (08:03)
[2019-11-06] MEDS: PRAVASTATIN 20 MG TAB PO SCH (08:03)
[2019-11-06] MEDS: GABAPENTIN 100 MG CAP PO SCH ×3 (08:03→20:11)
[2019-11-06] MEDS: DOCUSATE SODIUM 100 MG CAP PO SCH ×3 (08:03→20:10)
[2019-11-06] MEDS: MONTELUKAST 10 MG TAB PO SCH (08:03)
[2019-11-06] MEDS: HEPARIN SOD (PORCINE) 5000UNITS/ML VIAL (J1644 PER 1000UNITS) SC SCH ×2 (08:04→20:11)
[2019-11-06] MEDS: VENLAFAXINE **XR** 75MG CAPSULE PO SCH (08:04)
[2019-11-06] MEDS: clonazePAM 1 MG TAB PO SCH ×2 (08:04→20:10)
[2019-11-06] MEDS: SENNA 8.6 MG TAB (SENOKOT) PO SCH ×2 (08:04→20:11)
[2019-11-06] MEDS: NORCO, ANEXSIA 5/325MG TABLET (HYDROcodone/ACETAMINOPHEN) PO PRN ×3 (08:05→18:40)
[2019-11-06] MEDS: ZONISAMIDE 100 MG CAP (ZONEGRAN) PO SCH ×2 (08:15→20:10)
[2019-11-06] MEDS ORDERED: KETOROLAC 30 MG/ML 1ML VIAL IV PRN (08:30)
--- NOTE | 2019-11-06 10:36 | REP ---
REASON: Status post thoracotomy tube removal, followup. Right-side thoracotomy tubes have been removed. The somewhat patchy appearing right-sided lung opacities are unchanged. Multiple right side rib fractures, status quo. Degree of subcutaneous emphysema on the right less. Left lung clear and unchanged. No change in the cardiomediastinal silhouette. IMPRESSION: Removal of the right side thoracotomy tubes. Otherwise, no significant change compared to the prior exam. Electronically Signed by Ayden Stephen DO 11/06/2019 10:58 A
--- NOTE | 2019-11-06 11:01 | IPN ---
DATE: 11/06/2019 This is now the 11th postoperative day for Mrs. Damon. Things are looking a lot better today. I had a discussion with the patient and the nurse today. She has been more confused with higher doses of Percocet and we have decreased those. In fact, her niece made the same observations when I called her today. Her vital signs show a T-max of 99.1, with a respiratory rate that ranges between 16 and 20, without the use of accessory muscles, who is 98% saturated on room air, and whose blood pressure is ranging between 150/69 to 133/69. Her heart rate ranges between 91 and 86 in a sinus rhythm. Her intake and output the past 24 hours has been recorded as 3550 in and 3650 out for a negativity of 200 mL. Her chest tube was removed yesterday and she weighs 80.4 kg today compared to 81.5 kg yesterday. She has put out 3650 mL in urine. On physical examination, she has some bilateral rhonchi, most of which clear with coughing. These occur during inspiration and expiration. Percussion note is full to the diaphragm. I feel no subcutaneous emphysema. Cardiac exam is without murmurs, clicks, gallops or rubs. I cannot feel her PMI. S1, S2 are normal. Abdomen is soft and nontender. Bowel sounds are positive. There is no hepatomegaly. No CVA tenderness. Extremities: Show no pretibial edema and no calf tenderness. No differential swelling of the upper extremities. Skin is warm, dry and perfused without cyanosis or mottling including that of the nail bed and knees. Neck is supple. There is no jugular venous distention. No subcutaneous emphysema. Trachea is midline. Mouth shows the mucous membranes to be pink and moist. Lips and commissures without lesions. There is no thrush. Eyes show her pupils to be equal and reactive. Extraocular movements intact. Sclerae nonicteric. Neuro shows II-XII intact along with gross motor and gross sensation intact. Gait is not tested. Psychiatric shows her to be awake, alert and oriented times three, with appropriate mood and affect and conversational. Her wound shows a small dehiscence with some serous drainage. Her white count today is now down to 9.9 with hemoglobin and hematocrit of 8.8 and 26.7 with a platelet count of 504 and stable. Differential shows 81% neutrophils, 8% lymphocytes, 7% monocytes. There are no immature forms and no toxic granulations. Her chemistries show normal electrolytes with a BUN and creatinine of 8 and 0.83, glucose of 75, and a calcium of 7.9. Her chest x-ray is markedly improved today with the right lower hemithorax infiltrate clearing. The costophrenic angles are sharp. I seen no posterior infiltrates on the lateral film. IMPRESSIONS: 1. Postoperative day eleven status post right upper lobectomy. 2. Sarcomatoid carcinoma of the right upper lobe Stage II B, T3N0M0, 3. Asthma. 4. Gastroesophageal reflux disease. 5. Hyperlipidemia. 6. Prior history of E. Coli colitis. 7. Known large bowel stricture. 8. Coronary artery disease. 9. Alveolar pleural fistula, resolved. 10. Leukocytosis, resolved. 11. Bronchospasm, resolved. 12. Probable bacterial pneumonia right lower lobe, resolving. PLAN AND DISCUSSION: I am very gratified by the improvement in her course. I will change her over to oral antibiotics today to consist of Levaquin. There are no sputum cultures positive on her other than a yeast-like organism. I am not sure what to make of that. There are only a few yeast. Will try and get her pain better under control and I will restart the Toradol. Hopefully, tomorrow will be able to discharge her. Will encourage more ambulation today.
[2019-11-06 12:00] VITALS: BP 160/79
[2019-11-06 16:00] VITALS: BP 138/80
[2019-11-06 20:00] VITALS: BP 148/72
[2019-11-07] VITALS: BP 145/86
[2019-11-07] MEDS: IPRATROPIUM 0.02% SOLN 0.5MG/2.5 ML NEB INH SCH ×2 (01:31→07:18)
[2019-11-07] MEDS: LEVALBUTEROL 1.25 MG/0.5 ML CONCENTRATE NEB NEB SCH ×2 (01:31→07:18)
[2019-11-07 04:00] VITALS: BP 141/91
[2019-11-07 05:06] LABS: BASO # 0.1 10^3/uL (0.0-0.2); EOS # 0.3 10^3/uL (0.0-0.5); EOS % 3.4 % (0.0-3.0); HEMATOCRIT 27.4 % (36.0-47.0); HEMOGLOBIN 9.1 g/dl (12.0-15.5); LYMPH # 1.2 10^3/uL (1.5-5.0); MEAN CORPUSCULAR HEMOGLOBIN 29.6 pg (27.0-33.0); MEAN CORPUSCULAR HGB CONC 33.2 g/dl (32.0-36.5); MEAN CORPUSCULAR VOLUME 89.3 fl (80.0-96.0); MONO # 0.9 10^3/uL (0.0-0.8); MONO % 11.2 % (0.0-5.0); NEUTROPHILS # 5.5 10^3/uL (1.5-8.5); NEUTROPHILS % 66.8 % (36.0-66.0); PLATELET COUNT, AUTOMATED 529 10^3/uL (150-450); RED BLOOD COUNT 3.07 10^6/uL (4.00-5.40); WHITE BLOOD COUNT 8.2 10^3/uL (4.0-10.0)
[2019-11-07] MEDS: LevoFLOXacin 750 MG TABLET PO SCH (05:07)
[2019-11-07] MEDS: NORCO, ANEXSIA 5/325MG TABLET (HYDROcodone/ACETAMINOPHEN) PO PRN (05:07)
[2019-11-07] MEDS: SLF 3 ML SYR IV SCH (05:07)
[2019-11-07 05:29] LABS: BLOOD UREA NITROGEN 9 MG/DL (7-18); CARBON DIOXIDE LEVEL 23 MEQ/L (21-32); CHLORIDE LEVEL 111 MEQ/L (98-107); CREATININE FOR GFR 0.84 MG/DL (0.55-1.30); GLOMERULAR FILTRATION RATE > 60.0 (>45); GLUCOSE, FASTING 81 MG/DL (70-100); POTASSIUM SERUM 4.2 MEQ/L (3.5-5.1); SODIUM LEVEL 140 MEQ/L (136-145)
[2019-11-07] MEDS: SYMBICORT 160/4.5MCG INHALER 6GM INH SCH (07:18)
[2019-11-07 07:27] VITALS: BP 132/68
--- NOTE | 2019-11-07 08:34 | REP ---
Clinical: Status post lobectomy. Technique: PA and lateral. Comparison: 11/06/2019. Findings: Right-sided pleuroparenchymal changes including areas of presumed infiltrate/atelectasis, small pleural effusion, and subcutaneous emphysema appear essentially unchanged. Surgical clips noted in the right apex. Left hemithorax is well-aerated and clear. Visualized portions of the cardiac silhouette are normal. Right hilar prominence remains stable. Skeletal structures unchanged. Impression: 1. Right-sided pleuroparenchymal changes remain stable compared to 11/06/2019. 2. No obvious new, acute process identified. Electronically Signed by Benja Corcoran MD 11/07/2019 08:26 A
[2019-11-07] MEDS: MOM 30ML SUSPENSION UDC PO SCH (08:36)
[2019-11-07] MEDS: VENLAFAXINE **XR** 75MG CAPSULE PO SCH (08:36)
[2019-11-07] MEDS: PRAVASTATIN 20 MG TAB PO SCH (08:36)
[2019-11-07] MEDS: ZONISAMIDE 100 MG CAP (ZONEGRAN) PO SCH (08:36)
[2019-11-07] MEDS: clonazePAM 1 MG TAB PO SCH (08:36)
[2019-11-07] MEDS: MULTIVITAMINS/MINERALS THERAP 1 TAB PO SCH (08:37)
[2019-11-07] MEDS: GABAPENTIN 100 MG CAP PO SCH (08:37)
[2019-11-07] MEDS: SENNA 8.6 MG TAB (SENOKOT) PO SCH (08:37)
[2019-11-07] MEDS: DOCUSATE SODIUM 100 MG CAP PO SCH (08:37)
[2019-11-07] MEDS: MONTELUKAST 10 MG TAB PO SCH (08:37)
[2019-11-07] MEDS: PANTOPRAZOLE 40MG TAB (PROTONIX) PO SCH (08:37)
[2019-11-07] MEDS: HEPARIN SOD (PORCINE) 5000UNITS/ML VIAL (J1644 PER 1000UNITS) SC SCH (08:37)
[2019-11-07] MEDS ORDERED: LEVA750T7 PO (11:23)
[2019-11-07] MEDS ORDERED: HYDR-3715 PO (11:23)
--- NOTE | 2019-11-07 15:26 | DSES ---
DATE OF ADMISSION: 10/26/2019 DATE OF DISCHARGE: 11/07/2019 DISCHARGE DIAGNOSES: 1. 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 2. Postoperative day #12 status post right upper lobectomy. 3. Asthma. 4. Gastroesophageal reflux disease (GERD). 5. Hyperlipidemia. 6. Prior history of E coli colitis. 7. Known large bowel stricture. 8. Coronary artery disease. 9. Alveolar pleural fistula resolved. 10. Probable bacterial pneumonia, right lower lobe, resolved. 11. History of prior Warthin's tumor. 12. Bronchospasm resolved. 13. Transient renal insufficiency. 14. Anemia secondary to blood loss requiring transfusion of one unit. HOSPITAL COURSE: Patient is a 63-year-old white female who has known right upper lobe lesion for a number of years, which evidently was seen and followed in [place]. Biopsies were undertaken about 5 years ago and showed nonmalignant disease. Followup CT was obtained which was occasioned by chest x-ray when she was in the hospital for an E coli enteritis. This showed an increasing lesion in the right upper lobe, which had become cavitary. She was evaluated by general surgery after her E coli colitis and was found to have a benign stricture. 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 She is a former smoker having smoked about 20 years of 1/2 to 3/4 pack a day but she quite 8 years ago. Her preoperative pulmonary function tests (PFTs) showed an FEV1 of 2.94, which is 82% of predicted and a diffusion capacity of 19.34, which is 83% of predicted. The chest CT showed a lesion in the right upper lobe which was adjacent to the chest wall. Biopsy via bronchoscopy showed this to be a nonsmall cell carcinoma. She was taken to the operating room on 10/26/2019 where she underwent a right upper lobectomy. There was no minor fissure. The tumor was adherent to the chest wall and was carved off the chest wall with electrocautery to include intrathoracic muscles. She had intensive inflammatory response overall of the vessels which made dissection tedious. A minor fissure was created with an Tome stapler. Her final pathology was then reported back as sarcomatoid carcinoma with a maximum dimension of 4 cm but which invaded the parietal pleural but the intercostal muscles that were taken with the specimen were clear of tumor. It was judged to be a T3 lesion as it invaded the parietal pleura. The area where the tumor was removed from the chest wall had been marked with clips. All nodes were negative and therefore made her pT3 N0 M0 or stage II B. As such, she will need radiation up to the chest wall and adjuvant chemotherapy. She had a significant postoperative course with a rather prolonged alveolar pleural fistula but more notably a spike in her white count on the fifth postoperative day. It went from 6.1 to 9.0 with a low grade fever. Her procalcitonin was 4 and she had developed an infiltrate in the right lower lobe. This was therefore treated with vancomycin and Zosyn. The final sputum culture grew out only yeast-like organism. All blood cultures were negative and her COVID-19 was negative. She was treated as if she had bacterial pneumonia. On the day before admission, it was noted that she had a small superficial dehiscence above her wound for approximately 1 cm with some clear serous drainage, which was almost nearly resolved by the day of discharge. DISCHARGE MEDICATIONS: She is being discharged on her home medications which consist of: - Ventolin two puffs every 4 hours as needed shortness of breath. - Symbicort 164.5 two puffs twice a day - clonazepam 1 mg twice a day - Colace 200 mg by mouth nightly - gabapentin 100 mg three times a day - Singular 10 mg daily - multivitamins 1 tablet daily - omeprazole 20 mg daily - potassium chloride 10 mg daily - pravastatin 40 mg nightly - Senna two tablets twice a day as needed constipation. - Effexor 225 mg daily - zonisamide 100 mg twice a day Additionally, she is being placed on [place] 5/325 every 4-6 hours as needed pain along with Levaquin 750 mg by mouth daily for 6 days. She is to return to see me in 1 week with a chest x-ray for followup. Her discharge white count is 8.2 with a hemoglobin and hematocrit of 9.1 and 27.4 and a platelet count is 529. Electrolytes are essentially normal with a BUN and creatinine of 9 and 0.84 with a calcium of 8.0.
== END 2019-11-07 13:16 | disposition home or self-care (01) | DRG 163 ==
LOC: M OR 06:18 → EDSTATUS 08:30 → M MSPAV 16:55 → M ICU 17:00 → M PCU 10-27 12:51
PROVIDERS: ADMIT Thoracic Surgery (Cardiothoracic Vascular Surgery); ATTEND Thoracic Surgery (Cardiothoracic Vascular Surgery)
PROC: 07B70ZX Excision of Thorax Lymphatic, Open Approach, Diagnostic (ICD-10-PCS; 2019-10-26)
PROC: 0BTC0ZZ Resection of Right Upper Lung Lobe, Open Approach (ICD-10-PCS; principal; 2019-10-26 08:30)
DX: C34.11 Malignant neoplasm of upper lobe, right bronchus or lung (principal); J86.0 Pyothorax with fistula; J15.9 Unspecified bacterial pneumonia; K56.609 Unspecified intestinal obstruction, unspecified as to partial versus complete obstruction; J45.909 Unspecified asthma, uncomplicated; D72.829 Elevated white blood cell count, unspecified; K21.9 Gastro-esophageal reflux disease without esophagitis; I25.10 Atherosclerotic heart disease of native coronary artery without angina pectoris; E75.5 Other lipid storage disorders

== ENCOUNTER → 2019-11-19 | Outpatient (CLI) | payer MEDICARE ==
[~2019-11-19] MED LIST changes: +HYDR-3715 PO; +LEVA750T7 PO; -LIDOCAINE 1% MDV 20ML VIAL SQ PRN; -LR 1,000 ML IV ONE; -MUPIROCIN 2% OINT 22 GM TUBE TOP ONE; -ceFAZolin SOD 2 GM in IV 1 EA IV ONE
--- NOTE | 2019-11-19 18:34 | REP ---
Clinical: Right upper lobe neoplasm . Comparison: 11/07/2019 . Technique: PA and lateral. Findings: Postsurgical changes involving the right hemithorax are again noted with volume loss and pleuroparenchymal changes. Subtle acute process cannot be excluded. Surgical clips identified in the right apex and right hilum. No definite effusion. Left hemithorax is stable / clear. Mediastinum and cardiac silhouette are stable. Skeletal structures unchanged. Impression: 1. Relatively chronic-appearing postsurgical changes involving the right hemithorax. Subtle superimposed acute process cannot definitively be excluded. Electronically Signed by Benja Corcoran MD 11/19/2019 06:25 P
== END ==
LOC: M RAD 09:43
PROVIDERS: ATTEND Thoracic Surgery (Cardiothoracic Vascular Surgery)
DX: C34.11 Malignant neoplasm of upper lobe, right bronchus or lung (principal)

== ENCOUNTER → 2019-12-07 | Outpatient (CLI) | payer MEDICARE ==
--- NOTE | 2019-12-07 09:20 | REPPI ---
CHEST X-RAY: Two views. HISTORY: Malignant neoplasm of the right upper lobe. Followup chest x-ray. COMPARISON STUDY: November 19, 2019. FINDINGS: Post thoracotomy changes are noted on the right. Stable pleural thickening and pleuroparenchymal fibrosis is seen. Right hemidiaphragm is slightly elevated. There is a little fullness in the right hilus. This is less prominent than on the 11/19/2019 study. Left lung remains clear. Electronically Signed by Jorje Warner MD 12/07/2019 02:51 P
== END ==
LOC: M PLAIMG 08:06
PROVIDERS: ATTEND Thoracic Surgery (Cardiothoracic Vascular Surgery)
DX: C34.11 Malignant neoplasm of upper lobe, right bronchus or lung (principal)

== ENCOUNTER → 2019-12-08 | Outpatient (CLI) | payer MEDICARE ==
--- NOTE | 2019-12-15 06:40 | RADONC ---
RADIATION ONCOLOGY FOLLOWUP CONSULTATION NOTE DATE OF SERVICE: 12/08/2019 This is a telemedicine visit. The patient was informed of the risks including security breech, technological failure, inability to perform a comprehensive physical exam which could delay or prevent an accurate diagnosis, and potential complications from treatment decisions rendered over a telemedicine platform. The patient understands and consented to the use of telehealth services. Phone only. CHART NUMBER: [id number] DIAGNOSIS: Right upper lobe non-small cell lung carcinoma. STAGE: IIB, T3, N0, M0. ECOG PERFORMANCE STATUS: 0. FOLLOWUP CONSULTATION NOTE: Ms. Damon is a very pleasant 63-year-old white female with a diagnosis of what is now a pathologically stage IIB, T3, N0, M0 poorly differentiated sarcomatoid carcinoma of the right upper lobe, who is presenting to me today status post right upper lobectomy for consideration of postoperative radiation therapy to her right chest wall. HISTORY OF PRESENT ILLNESS: The patient presented to us on 09/17/2019 for a lesion in her right upper lobe. There were also questionable lesions in her neck. I refer to our previous consultation note dated 09/17/2019 for further edification. Since we last saw this patient, she has undergone a right upper lobectomy and mediastinal lymph node biopsy on 10/26/2019. Pathology revealed a 4 cm x 2.5 cm poorly differentiated sarcomatoid carcinoma. The carcinoma showed spindle cell/sarcomatoid components, as well as focal squamous cell carcinoma and focal adenocarcinoma components. The tumor invaded through the visceral pleura and into the parietal pleura, as well as into the chest wall. The margins of resection pathologically appeared to be negative for malignancy. A peribronchial lymph node and bronchial margins were free of malignancy. Mediastinal lymph nodes were sampled and were also free of malignancy. The tumor was, therefore, staged as a pT3, pN0 malignancy. Dr. Holbrook, who did the surgery, was quite concerned in light of the fact that the tumor was involving the chest wall and had to be carved out of the chest wall with electrocautery. It was a quite aggressive tumor, and I agree with Dr. Holbrook's assessment that this patient is at great likelihood of having a local recurrence. I have spoken with Jamaal Ramey MD, our pathologist, who agrees that this chest wall is at significant risk for local recurrence. REVIEW OF SYSTEMS: The patient's review of systems is noncontributory. She denies nausea, vomiting, fevers, chills, night sweats, diplopia, headaches, anxiety or depression, anorexia, weight loss, visual disturbances, chest pain, urinary or bowel difficulties, bone pain, or neurological problems. PHYSICAL EXAMINATION: Physical examination was deferred as per COVID-19 precautions. This was a telephone interview. ASSESSMENT: As noted above, this patient is presenting now status post lobectomy for consideration of radiation therapy to her right chest wall. Dr. Holbrook reports that he had to carve the tumor out of the chest wall using electrocautery and is very nervous about the possibility of local recurrence. In addition, I have reviewed this, as noted above, with our senior pathologist, Dr. Jamaal Ramey, who also concurs that the likelihood of chest wall recurrence is high. In light of this, I believe this patient is a candidate for external beam radiation therapy and I have so informed her. I have discussed with the patient in detail the potential benefits as well as possible acute and chronic sequelae of external beam radiation therapy. We discussed logistics of treatment planning, simulation, subsequent fractionated daily radiation treatments. In addition, since this patient has now been upstaged to a stage IIB, T3, N0, M0 poorly differentiated malignancy, I believe that chemotherapy should be reconsulted as a therapeutic option, as well. Therefore, I am setting this patient up for a medical oncology consultation to see whether or not she would benefit from systemic therapy. In addition, I am setting her up for CT for treatment planning for local regional treatment in an attempt to achieve local control of that chest wall. Thank you for allowing us to participate in the care of this very pleasant woman. If I could be of any further assistance, please feel free to contact me at any time. As always, warm regards, Stephon De Paz cc: MD Vasu Duval MD Vivian Keenan, MD Nancy Spicer, ANP
== END ==
LOC: M ONCR 10:12
PROVIDERS: ATTEND Radiology Radiation Oncology
DX: C34.90 Malignant neoplasm of unspecified part of unspecified bronchus or lung (principal)

== ENCOUNTER 2019-12-15 13:22 | Outpatient (RCR) | payer MEDICARE ==
[2019-12-15 14:19] LABS: HEMATOCRIT 37.7 % (36.0-47.0); HEMOGLOBIN 11.7 g/dl (12.0-15.5); MEAN CORPUSCULAR HEMOGLOBIN 29.1 pg (27.0-33.0); MEAN CORPUSCULAR VOLUME 93.8 fl (80.0-96.0); PLATELET COUNT, AUTOMATED 306 10^3/uL (150-450); RED BLOOD COUNT 4.02 10^6/uL (4.00-5.40); WHITE BLOOD COUNT 5.8 10^3/uL (4.0-10.0)
[2020-03-08] MEDS ORDERED: GABA-1171 PO (14:50)
== END 2019-12-22 ==
LOC: M ONCR 13:22
PROVIDERS: ATTEND Radiology Radiation Oncology
DX: C34.11 Malignant neoplasm of upper lobe, right bronchus or lung (principal)

== ENCOUNTER → 2019-12-31 | Outpatient (CLI) | payer MEDICARE ==
[~2019-12-31] MED LIST changes: +LIDOCAINE 1% MDV 20ML VIAL As Ordered ONE; +MIDAZOLAM INJ 2MG/2ML VIAL (J2250 PER 1MG) As Ordered ONE; +ceFAZolin 1GM VIAL (J0690 PER 500MG) As Ordered ONE; +diphenhydrAMINE 50MG/ML VIAL (J1200) As Ordered ONE; +fentaNYL 100 MCG/2 ML INJECTION (J3010) As Ordered ONE
--- NOTE | 2019-12-31 15:01 | IRHP ---
[facility] IR Pre-Procedure H & P General Date of Service: Dec 31, 2019 Procedure: Same Day Surgery Interval History and Physical I have seen the patient and reviewed last H & P performed within 30 days. There is no significant interval change. History of Present Illness Chief Complaint The patient is a 64-year-old female admitted with a reason for visit of Lung Ca. PRE-PROCEDURE DIAGNOSIS: lung ca HEART: normal rate. LUNGS: normal breathing at rest. ASA Classification ASA Classification: III-Severe systemic dis. Mallampati Score: II NPO: Yes Problems with prior sedation: No Obstructive Sleep Apnea: No Plan moderate sedation Allergies Coded Allergies: dicyclomine (Verified Adverse Reaction, Intermediate, vision problems, 10/26/19) umeclidinium (Verified Adverse Reaction, Mild, "it made me feel weird", 10/26/19) Home Medications Scheduled Budesonide/Formoterol (Symbicort 160-4.5 Mcg Inhaler), 2 PUFF INH BID, (Reported) Clonazepam (Clonazepam), 1 MG PO BID, (Reported) Docusate Sodium (Colace), 200 MG PO QHS, (Reported) Gabapentin (Gabapentin), 100 MG PO TID, (Reported) Montelukast Sodium (Singulair), 10 MG PO DAILY, (Reported) Multivitamins (Thera M Plus Tablet), 1 TAB PO DAILY, (Reported) Omeprazole (Omeprazole), 20 MG PO DAILY, (Reported) Potassium Chloride (Potassium Chloride), 10 MEQ PO DAILY, (Reported) Pravastatin Sodium (Pravastatin Sodium), 40 MG PO DAILY, (Reported) Sennosides (Senna), 2 TAB PO BID, (Reported) Venlafaxine HCl (Effexor Xr), 225 MG PO DAILY, (Reported) Venlafaxine HCl (Venlafaxine HCl ER), 150 MG PO DAILY, (Reported) Zonisamide (Zonisamide), 100 MG PO BID, (Reported) Scheduled PRN Albuterol Sulfate (Ventolin Hfa), 2 PUFFS INH Q4H PRN for SHORTNESS OF BREATH, (Reported) VS, I&O, 24H, Fishbone Vital Signs/I&O Vital Signs Date Time Temp Pulse Resp B/P (MAP) Pulse Ox O2 Delivery O2 Flow Rate FiO2 12/31/19 13:55 77 20 97 Room Air 12/31/19 13:30 2 12/31/19 12:01 96.3 CR UBTLER MD Dec 31, 2019 15:01
--- NOTE | 2019-12-31 15:02 | POST-OPPD ---
Postoperative Procedure Note Date Of Procedure: Dec 31, 2019 Time Of Procedure: 15:01 PREOPERATIVE DIAGNOSIS: lung ca POSTOPERATIVE DIAGNOSIS: same FINDINGS: patent left IJ PROCEDURE: left sided port placed. ready to use. SURGEON: Claudia ANESTHESIA: mod sed ESTIMATED BLOOD LOSS: < 5 ml COMPLICATIONS: none POSTOPERATIVE CONDITION: stable CR BUTLER MD Dec 31, 2019 15:02
[2019-12-31 15:40] VITALS: BP 138/73
--- NOTE | 2020-01-06 12:05 | REP ---
IR Ultrasound and fluoroscopy-guided port placement. IR Ultrasound of the neck. IR Moderate sedation. Clinical information: lung cancer. Physician: Dr. Taylor. Procedure: The patient was advised of the benefits, risks, and alternatives of the procedure and informed consent was obtained. A time-out was performed with verification of the patient's name, MRN, site of procedure and type of procedure to be performed. The patient was positioned in the supine position on the angiographic table. The site was prepped and draped in the usual sterile fashion. Moderate sedation was performed by the physician including the presence of an independent trained observer who assisted and monitored the patient's level of consciousness and physiologic status. Following the administration of fentanyl and Versed, the physician spent 30 minutes of continuous face to face time with the patient. Ultrasound of the neck reveals a patent and compressible left internal jugular vein. A mold cutting machine operator radiograph reveals right-sided pleural effusion. The neck and anterior chest wall were anesthetized with lidocaine. The left internal jugular vein was accessed using a microintroducer needle under ultrasound guidance, via a lateral approach. An 018 wire was advanced into the superior vena cava, the needle was removed and a microsheath was placed. An Amplatz wire was then passed into the inferior vena cava. An incision at the internal jugular vein access site and anterior chest wall were made using a scalpel. An incision was made at the anterior chest wall. A small pocket was created using a combination of blunt and sharp dissection. A tunneling device was then used to pass the catheter from the pocket to the neck puncture site. An 8-Upper Sorbian [employer] Smart power port was then positioned in the pocket. The catheter was then measured and cut. The introducer sheath was exchanged for a peel-away sheath. The catheter was passed through the peel-away sheath into the internal jugular vein and the peel-away sheath was removed. The port tip was positioned at the cavoatrial junction. The port was then accessed with a Chaves needle. The port flushes and aspirates well. The puncture site in the neck was closed. The chest wall incision was then closed with 2-0 Vicryl and 4-0 Monocryl. Glue and Steri-Strips were applied. A sterile dressing was then applied. The patient tolerated the procedure well and was returned to the PRU in stable condition. Estimated blood loss: <5 ml. Complications: None. Conclusion: 1. Successful placement of an 8-Upper Sorbian [employer] Smart power port via the left internal jugular vein. The port is ready for immediate use. 2. Patient to follow up in IR clinic in 2 weeks. Thank you for this referral. Electronically Signed by Sonam Taylor MD 01/06/2020 12:03 P
== END ==
LOC: M IRPRO 11:19
PROVIDERS: ATTEND Specialist
DX: C34.11 Malignant neoplasm of upper lobe, right bronchus or lung (principal)
CPT/HCPCS: 36561; 99152; 99153; C1769; C1788; C1894; J0690; J1200; J1642; J1644; J2250; J3010

== ENCOUNTER 2020-01-13 09:41 | Outpatient (RCR) | payer MEDICARE ==
--- NOTE | 2020-01-05 16:48 | RADONC ---
RADIATION ONCOLOGY PROGRESS NOTE DATE: 12/28/2019 CHART NUMBER: [id number] Ms. Madsen underwent her first fraction of radiation today for a dose of 200 cGy to her right upper lung. Radiation was tolerated without difficulty or discomfort. The patient's review of systems remained unchanged. Overall, the patient's first fraction of radiation was tolerated without difficulty and treatments will continue as scheduled.
--- NOTE | 2020-01-11 17:24 | RADONC ---
RADIATION ONCOLOGY PROGRESS NOTE DATE: 01/11/2020 CHART NUMBER: [id number] PROGRESS NOTE: Ms. Madsen is presently at a dose of 1400 cGy to her left upper lung and is tolerating treatments quite well at this point with no significant difficulties related to her radiation therapy other than some discomfort upon swallowing. REVIEW OF SYSTEMS: The patient's review of systems is positive for some discomfort but is otherwise noncontributory. Denies nausea, vomiting, fevers, chills, night sweats, diplopia, headaches, anxiety or depression, anorexia, weight loss, visual disturbances, chest pain, urinary or bowel difficulties, bone pain, or neurological problems. PHYSICAL EXAMINATION: The patient's skin is in good condition with no evidence of moist or dry desquamation. The remainder of her physical exam remains unchanged. Ms. Madsen is tolerating treatments quite well and radiation will continue as scheduled.
[~2020-01-13 09:41] MED LIST changes: -LIDOCAINE 1% MDV 20ML VIAL As Ordered ONE; -MIDAZOLAM INJ 2MG/2ML VIAL (J2250 PER 1MG) As Ordered ONE; -ceFAZolin 1GM VIAL (J0690 PER 500MG) As Ordered ONE; -diphenhydrAMINE 50MG/ML VIAL (J1200) As Ordered ONE; -fentaNYL 100 MCG/2 ML INJECTION (J3010) As Ordered ONE
[2020-03-08] MEDS ORDERED: GABA-1171 PO (14:50)
== END 2020-01-22 ==
LOC: M ONCR 09:41
PROVIDERS: ATTEND Radiology Radiation Oncology
DX: C34.11 Malignant neoplasm of upper lobe, right bronchus or lung (principal)

== ENCOUNTER → 2020-01-19 | Outpatient (POV) | payer MEDICARE ==
--- NOTE | 2020-02-25 10:27 | IRPN ---
[facility] IR Progress Note IR Progress Note DATE: Jan 19, 2020 Patient agreed to this telephone follow-up. Duration of call 5 minutes. Status post port placement. No fevers, chills or discharge at site. Patient doing well. Port being used without issues. ON EXAMINATION: Video conference: Port site appears to be healing well. No r edness, swelling or discharge. IMPRESSION: Doing well status post port placement. No further follow-up scheduled unless initiated by patient and or referring provider. Thank you for this referral Allergies Coded Allergies: dicyclomine (Verified Adverse Reaction, Intermediate, vision problems, 10/26/19) umeclidinium (Verified Adverse Reaction, Mild, "it made me feel weird", 10/26/19) CR BUTLER MD Feb 25, 2020 10:27
== END ==
LOC: M IRPOV 09:30
PROVIDERS: ATTEND Radiology Diagnostic Radiology
DX: Z45.2 Encounter for adjustment and management of vascular access device (principal)

== ENCOUNTER → 2020-02-24 | Outpatient (CLI) | payer MEDICARE ==
--- NOTE | 2020-02-24 11:07 | REPMRS ---
Patient History The patient states she had a clinical breast exam in 2018. Patient is postmenopausal, had previous chest radiation therapy at age 63, has history of other cancer at age 63, and is nulliparous. Family history of unknown cancer at age 49 in sister, breast cancer at age 65 in maternal aunt, unknown cancer at age 60 in maternal uncle. Took hormonal contraceptives for 6 months. 3D TOMOSYNTHESIS WAS PERFORMED. [facility] lifetime risk for breast cancer is 9.1%. VOLPARA DENSITY B. Infusaport on left Digital Woman Screen Mammo: February 24, 2020 - Exam #: [id number] Bilateral CC and MLO view(s) were taken. Technologist: Irina Cabrera Technologist Prior study comparison: October 31, 2018, bilateral digital mammo screening bilat, performed at [facility]. October 12, 2015, bilateral digital mammo screening bilat, performed at [facility]. FINDINGS: There are scattered fibroglandular densities. There has been no change in the appearance of the mammogram from the prior studies. There is a mild amount of residual fibroglandular tissue which is fairly symmetric. There is no interval development of dominant mass, architectural distortion, or clustered microcalcification suggestive of malignancy. Assessment: BI-RADS/ACR category 1 mammogram. Negative Mammogram. Recommendation Routine screening mammogram in 1 year (for women over age 40). This mammogram was interpreted with the aid of an FDA-approved computer-aided dectection system. Electronically Signed By: Yahir Hare MD 02/24/20 [id number]
== END ==
LOC: M WHC 07:51
PROVIDERS: ATTEND Registered Nurse
DX: Z12.31 Encounter for screening mammogram for malignant neoplasm of breast (principal)

== ENCOUNTER → 2020-05-24 | Outpatient (CLI) | payer MEDICARE ==
--- NOTE | 2020-05-26 06:17 | REP ---
INDICATION: MALIGNANT NEOPLASM OF UPPER LOBE, RT BRONCHUS OR LUNG COMPARISON: 12/07/2019 TECHNIQUE: PA and lateral. FINDINGS: [id number] identified with tip in the SVC. Pleuroparenchymal and postsurgical changes involving the right hemithorax are similar to prior examination. Left hemithorax is well aerated and clear. No obvious acute consolidation, effusion, or pneumothorax. Musculoskeletal structures are intact. IMPRESSION: 1. Right-sided pleuroparenchymal changes. 2. No obvious acute process. <Electronically signed by Benja Corcoran > 05/26/20 0614
== END ==
LOC: M RAD 14:47
PROVIDERS: ATTEND Internal Medicine Pulmonary Disease
DX: C34.11 Malignant neoplasm of upper lobe, right bronchus or lung (principal); Z97.8 Presence of other specified devices

== ENCOUNTER → 2020-05-24 | Outpatient (REF) | payer MEDICARE | LOC: M LAB REF 17:11 | PROVIDERS: ATTEND Internal Medicine Pulmonary Disease | DX: J44.1 Chronic obstructive pulmonary disease with (acute) exacerbation (principal); C34.11 Malignant neoplasm of upper lobe, right bronchus or lung; Z97.8 Presence of other specified devices ==

== ENCOUNTER → 2020-07-06 | Outpatient (CLI) | payer MEDICARE ==
[~2020-07-06] MED LIST changes: +AZIT-12 PO
--- NOTE | 2020-07-06 15:44 | RADONC ---
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 She completed adjuvant chemoradiation to 60 Gy in 30 fractions in February 2020, her treatment at [facility] was transferred to [facility] due to a system wide network outage, such that she completed the final 17 fractions there. She continues to follow at [facility] with medical oncology and is here for radiation oncology follow up. Diagnosis/Treatment History Oncologic History Per Dr. 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 Treatment history: Mrs. Susan Damon is a 63-year-old white female who has history of non-small cell lung carcinoma with right gland of the right upper lung identified in [place] in 2016. At that time, she underwent CT-guided biopsy, which found chronic inflammation and focal organizing pneumonia. Tissue sampling was done subsequently and treated conservatively. In 08/07/2019, she underwent CT scan and was found to have enlarging cavity lesion in the right upper lobe. The mass was measuring 2.3 cm x 2.9 cm x 3.[address] scan of 08/14/2019. The right upper lung lesion was abutting the adjacent pleural space characterized by cavity with irregular border and spiculations and appeared slightly larger than on previous study of June 2019. Patient underwent bronchoscopy by Dr. Judge and biopsy on 08/31/2019 which documented non-small cell lung carcinoma. PET/CT 09/14/2019 showed hypermetabolic activity at the inferior edge of the right parotid gland measuring 1 cm with SUV of 16.96. Patient has biopsy-proven Warthin tumor but was not significantly changed 5 years ago. PET/CT 09/14/2019 showed hypermetabolic lymph nodes in the left retromandibular region with standard uptake of 12.31. The right upper lobe lung cancer was hyper-metabolic with SUV of 16.25. Patient was seen by thoracic surgeon, Dr. Holbrook, and it was decided to do surgery and right upper lobectomy. She underwent right upper lobectomy on October 2019 right upper lobectomy which revealed poorly differentiated sarcomatoid carcinoma with spindle cell/sarcomatoid component, focal squamous cell carcinoma and focal adenocarcinoma. Size of tumor was 4 x 2.5 cm. Tumor was invading through visceral pleura into the parietal pleura and chest wall. Resected margins at the chest wall were free of malignancy. Peribronchial lymph node and bronchial margins were clear. Pathologic staging was pT3, N0, MX. Molecular testing was found to be positive for PDL 10%, but was negative for BRAF, ALK, EGFR, but was positive for K-grecia. Second opinion from [facility] came back as sarcomatoid carcinoma, grade 3 with tumor size of 4 x 2.5 cm. Pathological staging was pT3, N0, MX. She is coming for follow-up visit. Tish ent received concomitant chemotherapy radiation followed by 2 full doses of carboplatin and taxol on 03/07/2020 and 03/28/2020. Interval History Feels generally well. Has chronic cough and VILLEGAS which is stable. No CP, hemoptysis, N, V, HERNANDEZ. Saw Ayad Ulysses @ [facility] 05/09/[address] which was normal. Asked at that time to have her radiation oncology follow up transferred back here. Has significant social stress at moment with her hospitalized in [place] with fall and dural hemorrhage. Current Therapy Surveillance Stage [id number] RUL stage IIB sarcomatoid carcinoma Social History: 10 pack year former smoker Does not drink Allergies / Meds Allergies: Coded Allergies: dicyclomine (Verified Adverse Reaction, Intermediate, vision problems, 10/26/19) umeclidinium (Verified Adverse Reaction, Mild, "it made me feel weird", 10/26/19) Home Meds Active Scripts Prednisone (Prednisone) 20 Mg Tablet, 1 TAB PO DAILY for 10 Days, #10 TAB Prov:GLORIA MARMOLEJO MD 07/06/20 Azithromycin (Azithromycin) 250 Mg Tablet, 1 DP PO ASDIRECTED for 5 Days, #6 TAB 2 the first day followed by 1 for days 2-5 Prov:GLORIA MARMOLEJO MD 07/06/20 Gabapentin (Gabapentin) 100 Mg Capsule, 200 MG PO TID for 90 Days, #540 CAP 3 Refills TAKE TWO CAPSULES THREE TIMES DAILY Prov:MEENU SILVA MD 03/08/20 Reported Medications Potassium Chloride (Potassium Chloride) 10 Meq Tablet.er, 10 MEQ PO DAILY 10/15/19 Sennosides (Senna) 8.6 Mg Tablet, 2 TAB PO BID for constipation for 30 Days, #120 TAB 09/21/19 Docusate Sodium (Colace) 100 Mg Capsule, 200 MG PO QHS, CAP 07/09/19 Venlafaxine HCl (Venlafaxine HCl ER) 150 Mg Cap.er.24h, 150 MG PO DAILY, CAP TAKES WITH 75MG FOR TOTAL DOSE 225MG 07/09/19 Zonisamide (Zonisamide) 100 Mg Capsule, 100 MG PO BID, CAP 07/09/19 Albuterol Sulfate (Ventolin Hfa) 108 Mcg/Act Aer, 2 PUFFS INH Q4H PRN for SHORTNESS OF BREATH 11/07/17 Multivitamins (Thera M Plus Tablet) 1 Tab Tab, 1 TAB PO DAILY, TAB 11/07/17 Venlafaxine HCl (Effexor Xr) 75 Mg Cap, 225 MG PO DAILY, CAP 11/07/17 Budesonide/Formoterol (Symbicort 160-4.5 Mcg Inhaler) 60 Puff/Inhaler Aers, 2 PUFF INH BID, INHALER 10/08/16 Montelukast Sodium (Singulair) 10 Mg Tab, 10 MG PO DAILY, TAB 10/08/16 Omeprazole (Omeprazole) 20 Mg Cap, 20 MG PO DAILY, CAP 10/08/16 Pravastatin Sodium (Pravastatin Sodium) 40 Mg Tab, 40 MG PO DAILY, TAB 10/08/16 Clonazepam (Clonazepam) 1 Mg Tab, 1 MG PO BID 10/08/16 Review of Systems Review of Systems Constitutional: Reports: Fatigue; Denies: Chills, Fever Eyes: Denies: Pain, Vision change HEENT: Reports: Head Aches Skin: Denies: Rash Pulmonary: Reports: Dyspnea, Cough Cardiovascular: Denies: Chest Pain, Palpitations Gastrointestinal: Denies: Nausea, Vomiting, Abdominal Pain Genitourinary: Denies: Dysuria Hematologic: Denies: Bruising Endocrine: Denies: Polydipsia Musculoskeletal: Denies: Neck pain, Back pain Neurological: Denies: Weakness, Numbness Psych: Reports: Anxiety; Denies: Mood Normal Physical Examination Vital Signs Wt 143 General Exam: Positive: Alert, Cooperative; Negative: No Acute Distress Eye Exam: Positive: PERRLA, EOMI ENT EXAM: Positive: Atraumatic Neck Exam: Positive: Supple; Negative: Lymphadenopathy Chest Exam: Positive: Clear to auscultation, Normal air movement; Negative: Rales, Rhonchi Heart Exam: Positive: Regular Rhythm Abdomen Exam: Positive: Normal bowel sounds, Soft; Negative: Tenderness Extremity Exam: Negative: Edema Skin Exam: Positive: Nl turgor and temperature Neuro Exam: Positive: Normal Gait, Normal Speech, Cranial Nerves 3-12 NL Psych Exam: Positive: Mental status NL Diagnostic and Laboratory Diagnostic Review Radiologic images, relevant labs and pathology reports were personally reviewed and discussed with Ms. Damon. Assessment and Plan Impression Assessment Ms. 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 She completed adjuvant chemoradiation to 60 Gy in 30 fractions in February 2020, her treatment at [facility] was transferred to [facility] due to a system wide network outage, such that she completed the final 17 fractions there. She continues to follow at [facility] with medical oncology and is here for radiation oncology follow up. She is doing well overall, no significant change in her respiratory status with stable VILLEGAS and cough. Her CT chest from April 2020 at [facility] is by report without evidence of recurrence. We discussed follow up in October 2019 as she has an appointment with Dr. Del Valle at the end of July with a CT chest. This would facilitate split follow up. Performance Status ECOG 0 Plan Follow up in October [address] Del Valle next month with CT chest Ms. Damon was encouraged to call with questions or concerns in the interim period. GLORIA MARMOLEJO MD Jul 06, 2020 15:43
== END ==
LOC: M ONCR 12:25
PROVIDERS: ATTEND General Practice
DX: Z08 Encounter for follow-up examination after completed treatment for malignant neoplasm (principal); C34.11 Malignant neoplasm of upper lobe, right bronchus or lung; Z92.3 Personal history of irradiation; Z92.21 Personal history of antineoplastic chemotherapy; Z90.2 Acquired absence of lung [part of]

== ENCOUNTER → 2020-08-12 | Outpatient (CLI) | payer MEDICARE ==
[~2020-08-12] MED LIST changes: +INCR1INH INH; +ISOVUE-370 76% 100ML VIAL As Ordered ONE; -LISI-542 PO; +LISI-898 PO
--- NOTE | 2020-08-12 09:08 | REP ---
INDICATION: LUNG CA FOLLOW UP COMPARISON: 11/02/2019 TECHNIQUE: Axial contrast enhanced images from the thoracic inlet to the upper abdomen with coronal and sagittal reformations using 75 ml Isovue 370 intravenous contrast material. This CT examination was performed using the following dose reduction techniques: Automated exposure control, adjustment of mA and/or kv according to the patient's size, and use of iterative reconstruction technique. FINDINGS: Postsurgical changes involving the right hemithorax including right upper lobe and right lower lobe resection with chronic scarring to the perihilar right lower lobe. Minimal biapical scarring is also appreciated bilaterally. No acute consolidation, effusion or pneumothorax. No suspicious nodule or evidence for recurrence/metastatic disease. Mediastinum demonstrates normal thoracic aorta, pulmonary vasculature and heart/pericardium. No axillary, hilar, or mediastinal adenopathy. [id number] identified with tip in the SVC. Surrounding musculoskeletal structures are intact. IMPRESSION: Postsurgical changes involving the right hemithorax. No evidence for acute mediastinal or pleuroparenchymal process. No evidence for recurrence or metastatic disease. <Electronically signed by Benja Corcoran > 08/12/20 0904
== END ==
LOC: M RAD 08:27
PROVIDERS: ATTEND Specialist
DX: C34.90 Malignant neoplasm of unspecified part of unspecified bronchus or lung (principal)
CPT/HCPCS: 71260; Q9967

== ENCOUNTER → 2020-11-16 | Outpatient (CLI) | payer MEDICARE ==
[~2020-11-16] MED LIST changes: +ADV250INH INH; -ISOVUE-370 76% 100ML VIAL As Ordered ONE
--- NOTE | 2020-11-16 14:19 | RADONC ---
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 She completed adjuvant chemoradiation to 60 Gy in 30 fractions in February 2020, her treatment at [facility] was transferred to [facility] due to a system wide network outage, such that she completed the final 17 fractions there. She continues to follow at [facility] with medical oncology and is here for radiation oncology follow up. Diagnosis/Treatment History Oncologic History Per Dr. 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 Treatment history: Mrs. Susan Damon is a 63-year-old white female who has history of non-small cell lung carcinoma with right gland of the right upper lung identified in [place] in 2016. At that time, she underwent CT-guided biopsy, which found chronic inflammation and focal organizing pneumonia. Tissue sampling was done subsequently and treated conservatively. In 08/07/2019, she underwent CT scan and was found to have enlarging cavity lesion in the right upp er lobe. The mass was measuring 2.3 cm x 2.9 cm x 3.[address] scan of 08/14/2019. The right upper lung lesion was abutting the adjacent pleural space characterized by cavity with irregular border and spiculations and appeared slightly larger than on previous study of June 2019. Patient underwent bronchoscopy by Dr. Judge and biopsy on 08/31/2019 which documented non-small cell lung carcinoma. PET/CT 09/14/2019 showed hypermetabolic activity at the inferior edge of the right parotid gland measuring 1 cm with SUV of 16.96. Patient has biopsy-proven Warthin tumor but was not significantly changed 5 years ago. PET/CT 09/14/2019 showed hypermetabolic lymph nodes in the left retromandibular region with standard uptake of 12.31. The right upper lobe lung cancer was hyper-metabolic with SUV of 16.25. Patient was seen by thoracic surgeon, Dr. Holbrook, and it was decided to do surgery and right upper lobectomy. She underwent right upper lobectomy on October 2019 right upper lobectomy which revealed poorly differentiated sarcomatoid carcinoma with spindle cell/sarcomatoid component, focal squamous cell carcinoma and focal adenocarcinoma. Size of tumor was 4 x 2.5 cm. Tumor was invading through visceral pleura into the parietal pleura and chest wall. Resected margins at the chest wall were free of malignancy. Peribronchial lymph node and bronchial margins were clear. Pathologic staging was pT3, N0, MX. Molecular testing was found to be positive for PDL 10%, but was negative for BRAF, ALK, EGFR, but was positive for K-grecia. Second opinion from [facility] came back as sarcomatoid carcinoma, grade 3 with tumor size of 4 x 2.5 cm. Pathological staging was pT3, N0, MX. She is coming for follow-up visit. Patient received concomitant chemoradiation 60 Gy in 30 fractions completed in January 2020, followed by 2 full doses of carboplatin and taxol on 03/07/2020 and 03/28/2020. Recent data: 08/12/20 CT chest IMPRESSION: Postsurgical changes involving the right hemithorax. No evidence for acute mediastinal or pleuroparenchymal process. No evidence for recurrence or metastatic disease. Interval History Susan reports persistent mild fatigue and stable VILLEGAS today. She is active, can go for long walks. Has cough productive of clear sputum. No hemoptysis. Appetite is good and weight is up. Caring for her grand kids during the day. had a subdural hematoma/hemorrhagic stroke is in rehab. Mood and outlook good despite challenges. Reports her hair has grown back curly. Current Therapy Surveillance Stage [id number] RUL stage IIB sarcomatoid carcinoma Social History: 10 pack year former smoker Does not drink Allergies / Meds Allergies: Coded Allergies: dicyclomine (Verified Adverse Reaction, Intermediate, vision problems, 10/26/19) umeclidinium (Verified Adverse Reaction, Mild, "it made me feel weird", 10/26/19) Home Meds Active Scripts Salmeterol/Fluticasone (Advair 250-50 Diskus) 1 Each Blst.w.dev, 1 PUFF INH BID for 30 Days, #1 INHALER 5 Refills Prov:GLORIA MARMOLEJO MD 11/16/20 Gabapentin (Gabapentin) 100 Mg Capsule, 200 MG PO TID for 90 Days, #540 CAP 3 Refills TAKE TWO CAPSULES THREE TIMES DAILY Prov:MEENU SILVA MD 03/08/20 Reported Medications Umeclidinium [place] (Incruse Ellipta) 62.5 Mcg Blst.w.dev, 1 PUFF INH DAILY, #1 PUFF 08/16/20 Potassium Chloride (Potassium Chloride) 10 Meq Tablet.er, 10 MEQ PO DAILY 10/15/19 Sennosides (Senna) 8.6 Mg Tablet, 2 TAB PO BID for constipation for 30 Days, #120 TAB 09/21/19 Docusate Sodium (Colace) 100 Mg Capsule, 200 MG PO QHS, CAP 07/09/19 Venlafaxine HCl (Venlafaxine HCl ER) 150 Mg Cap.er.24h, 150 MG PO DAILY, CAP TAKES WITH 75MG FOR TOTAL DOSE 225MG 07/09/19 Zonisamide (Zonisamide) 100 Mg Capsule, 100 MG PO BID, CAP 07/09/19 Albuterol Sulfate (Ventolin Hfa) 108 Mcg/Act Aer, 2 PUFFS INH Q4H PRN for SHORTNESS OF BREATH 11/07/17 Multivitamins (Thera M Plus Tablet) 1 Tab Tab, 1 TAB PO DAILY, TAB 11/07/17 Venlafaxine HCl (Effexor Xr) 75 Mg Cap, 225 MG PO DAILY, CAP 11/07/17 Montelukast Sodium (Singulair) 10 Mg Tab, 10 MG PO DAILY, TAB 10/08/16 Omeprazole (Omeprazole) 20 Mg Cap, 20 MG PO DAILY, CAP 10/08/16 Pravastatin Sodium (Pravastatin Sodium) 40 Mg Tab, 40 MG PO DAILY, TAB 10/08/16 Clonazepam (Clonazepam) 1 Mg Tab, 1 MG PO BID 10/08/16 Discontinued Reported Medications Budesonide/Formoterol (Symbicort 160-4.5 Mcg Inhaler) 60 Puff/Inhaler Aers, 2 PUFF INH BID, INHALER 10/08/16 Review of Systems Review of Systems Constitutional: Reports: Fatigue; Denies: Weight Loss Eyes: Denies: Pain HEENT: Denies: Head Aches Skin: Denies: Rash Pulmonary: Reports: Dyspnea, Cough, Other Symptoms (Persistent right upper arm numbness); Denies: Pleuritic Chest Pain Cardiovascular: Denies: Chest Pain, Orthopnea, Edema Gastrointestinal: Denies: Nausea, Abdominal Pain Hematologic: Denies: Bruising Musculoskeletal: Denies: Neck pain, Back pain Neurological: Denies: Weakness Psych: Reports: Mood Normal Physical Examination Vital Signs Ht 69" Wt 148 lbs T 97 P 113 RR 20 BP 121/64 O2 96% Pain 0 Fatigue 1 General Exam: Positive: Alert, Cooperative, No Acute Distress Eye Exam: Positive: PERRLA, EOMI ENT EXAM: Positive: Atraumatic, Mucous membr. moist/pink, Pharynx Normal Neck Exam: Positive: Supple; Negative: Lymphadenopathy Chest Exam: Positive: Clear to auscultation, Wheezing (Right chest diffusely wheezy. Left sided normal breath sounds. No rhonchi or rales) Heart Exam: Positive: Rate Normal, Regular Rhythm Abdomen Exam: Positive: Normal bowel sounds, Soft Extremity Exam: Negative: Edema Skin Exam: Positive: Nl turgor and temperature Neuro Exam: Positive: Normal Gait, Normal Speech, Cranial Nerves 3-12 NL Psych Exam: Positive: Mental status NL Diagnostic and Laboratory Diagnostic Review Radiologic images, relevant labs and pathology reports were personally reviewed and discussed with Ms. Damon. Assessment and Plan Impression Assessment Ms. 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 She completed adjuvant chemoradiation to 60 Gy in 30 fractions in February 2020, her treatment at [facility] was transferred to [facility] due to a system wide ne twork outage, such that she completed the final 17 fractions there. She continues to follow at [facility] with medical oncology and is here for radiation oncology follow up. She is doing well overall. Most recent scans in July are negative for evidence of recurrence. 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 This is consistent with her diffuse right sided wheezing on exam. She is currently only taking albuterol PRN, cingulair, and using nebulized albuterol PRN at home. She has been prescribed trelegy by Dr. Judge but the cost of this was prohibitive. I think she would benefit from a lower cost alternative, she had been on symbicort previously which she says was $100s per month. I suggested we try a formulary approved medication. I looked and saw advair diskus was covered and so will send a script for this for her to try. I asked her to call me back if this too is prohibitively expensive, and we could then try a mono-formulation like pulmicort (it is ultimately the steroid that I think would be most beneficial in her case). In the meantime she is seeing Dr. Del Valle with scans in November/December, there for I will see her in 6 months time. Performance Status ECOG 1 Plan Rx for advair sent Follow up in 6 months Ms. Damon was encouraged to call with questions or concerns in the interim period. Billing Statement Total time of [25] minutes was spent preparing for the visit [2], obtaining HPI [4], examining the patient [4], reviewing diagnostic tests [2], discussing management options [4], coordinating care [3], and writing this note [6]. GLORIA MARMOLEJO MD November 16, 2020 14:19
== END ==
LOC: M ONCR 12:46
PROVIDERS: ATTEND General Practice
DX: C34.11 Malignant neoplasm of upper lobe, right bronchus or lung (principal)

== ENCOUNTER → 2021-02-08 | Outpatient (CLI) | payer MEDICARE ==
[~2021-02-08] MED LIST changes: +GLYCCAP PO; +ISOVUE-370 76% 100ML VIAL As Ordered ONE; +NOXI1TAB PO; +TREL1AER PO
--- NOTE | 2021-02-08 21:47 | REP ---
INDICATION: SM CELL LUNG CANCER COMPARISON: 08/12/2020, 11/02/2019 TECHNIQUE: Axial contrast enhanced images from the thoracic inlet to the upper abdomen with coronal and sagittal reformations using 75 ml Isovue 370 intravenous contrast material. This CT examination was performed using the following dose reduction techniques: Automated exposure control, adjustment of mA and/or kv according to the patient's size, and use of iterative reconstruction technique. FINDINGS: Postsurgical changes consistent with prior lobectomy involving the right hemithorax noted. Surgical clips are identified along the periphery of the right apex and there is associated pleural thickening and subtle prominent soft tissue (series 201; images 16-31) which appears slightly increased as compared to prior examination. As such, changes related to post radiation scarring versus active residual disease cannot be differentiated and correlation is required. The bilateral lung irizarry otherwise demonstrate chronic interstitial changes including minimal left apical scarring which remains stable no further suspicious area of consolidation, nodule or mass. Tracheobronchial tree is relatively normal/stable (small amount of inspissated material is again identified in posterior right lower lobe bronchus). No effusion. No pneumothorax. Subcarinal and small right hilar lymph node are unchanged. Further evaluation of the mediastinum demonstrates relatively stable appearance of the thoracic aorta, pulmonary vasculature, and heart/pericardium. Skeletal structures demonstrate old right-sided rib fractures without acute process. [id number]-M-Wrqt identified with tip in the SVC. IMPRESSION: 1. Subtle increased changes along the lateral right apical subpleural surface with pleural thickening and subtle increased soft tissue adjacent to surgical clips. Differential diagnosis includes post radiation type scarring as well as the possibility of residual active pathology which cannot be differentiated based on current exam. Consider short-term 3 month follow-up. <Electronically signed by Benja Corcoran > 02/08/21 0964
== END ==
LOC: M RAD 13:56
PROVIDERS: ATTEND Specialist
DX: C34.90 Malignant neoplasm of unspecified part of unspecified bronchus or lung (principal)
CPT/HCPCS: 71260; Q9967

== ENCOUNTER → 2021-04-12 | Outpatient (CLI) | payer MEDICARE ==
[~2021-04-12] MED LIST changes: +INCR1INH; -ISOVUE-370 76% 100ML VIAL As Ordered ONE; +LEVO500T3 PO
--- NOTE | 2021-04-12 15:09 | REPMRS ---
Patient History The patient states she had a clinical breast exam in February 2021. Patient is postmenopausal, had previous chest radiation therapy at age 63, has history of other cancer at age 63, and is nulliparous. Family history of unknown cancer at age 49 in sister, breast cancer at age 65 in maternal aunt, unknown cancer at age 60 in maternal uncle. Took hormonal contraceptives for 6 months. Pt stated she had her covid vaccines in her right arm, unable to remember the dates. Patient states no breast complaints today. Patient has signed MRS History Sheet. Digital Woman Screen Mammo: April 12, 2021 - Exam #: [id number] Bilateral CC and MLO view(s) were taken. Technologist: RT Unique Prior study comparison: February 24, 2020, bilateral digital woman screen mammo performed at [facility]. October 31, 2018, bilateral digital mammo screening bilat, performed at [facility]. FINDINGS: There are scattered fibroglandular densities. Screening. Digital screening (2D) mammography was performed bilaterally in the CC and MLO projections. Additionally, breast tomosynthesis (3D mammography) was performed bilaterally in the CC and MLO projections. Todays exam was compared to the prior exam/exams. By history, the patient has no complaints of a palpable breast abnormality or other significant breast complaints. The breasts are unchanged in size and shape. There are no andrzej-soft tissue densities or spiculated masses. There is no internal architectural distortion. Once again, stable benign appearing calcifications are seen.There are no suspicious andrzej-calcific clusters. Skin thickening or nipple retraction is not present. IMPRESSION: BI-RADS Category 2- Benign Findings. There is no evidence of malignant alteration of the breasts. Followup examination recommended in one year. The Volpara volumetric breast density category is B, there are scattered areas of fibroglandular densities. This mammogram was read with the assistance of SafeBoot,an FDA approved computer aided detection system for mammography. The lifetime Tyrer-Cuzick score is 8.6 % Negative x-ray reports should not delay surgical consultation if a dominant or clinically suspicious mass is present. Not all breast cancers can be identified by mammography. Therefore, we recommend that you continue to perform regular breast self-examination and physical examination and then promptly contact your physician of any concerns or changes. Adenosis and dense breasts may obscure an underlying neoplasm. Assessment: BI-RADS/ACR category 2 mammogram. Benign Findings. Recommendation Routine screening mammogram of both breasts in 1 year. Electronically Signed By: Ayden Stephen DO 04/12/21 3414
== END ==
LOC: M WHC 14:19
PROVIDERS: ATTEND Nurse Practitioner Adult Health
DX: Z12.31 Encounter for screening mammogram for malignant neoplasm of breast (principal); Z85.9 Personal history of malignant neoplasm, unspecified; Z80.9 Family history of malignant neoplasm, unspecified; Z92.3 Personal history of irradiation; R92.1 Mammographic calcification found on diagnostic imaging of breast

== ENCOUNTER → 2021-04-13 | Outpatient (REF) | payer MEDICARE ==
[2021-04-13 10:16] LABS: CHOLESTEROL RISK RATIO 2.208 (<5)
== END ==
LOC: M LAB REF 09:19
PROVIDERS: ATTEND Nurse Practitioner Adult Health
DX: E78.00 Pure hypercholesterolemia, unspecified (principal)

== ENCOUNTER → 2021-05-03 | Outpatient (CLI) | payer MEDICARE ==
[~2021-05-03] MED LIST changes: +ISOVUE-370 76% 100ML VIAL As Ordered ONE
--- NOTE | 2021-05-03 14:08 | REP ---
INDICATION: LUNG CA COMPARISON: Multiple the latest 02/08/2021 also with contrast TECHNIQUE: Standard helical technique after the intravenous administration of 100 cc Isovue 370 FINDINGS: There is no significant change in appearance of the mediastinum or pulmonary ciera. There are postoperative changes status quo. There is no mass or adenopathy. There are no pleural or pericardial effusions. There is no significant change in appearance of the imaged upper abdomen or imaged osseous structures. Evaluation of the lung irizarry shows chronic biapical pleuroparenchymal scarring, right apical postoperative change status quo, and postoperative changes along the right lateral upper chest wall all having a stable appearance. No new abnormal nodules, masses, or opacities have developed. IMPRESSION: Stable CT findings as described above. <Electronically signed by Ayden Stephen > 05/03/21 [id number]
== END ==
LOC: M RAD 13:17
PROVIDERS: ATTEND Specialist
DX: C34.90 Malignant neoplasm of unspecified part of unspecified bronchus or lung (principal); J98.4 Other disorders of lung
CPT/HCPCS: 71260; Q9967

== ENCOUNTER → 2021-09-04 | Outpatient (REF) | payer MEDICARE ==
[~2021-09-04] MED LIST changes: -ISOVUE-370 76% 100ML VIAL As Ordered ONE; -LEVO500T3 PO; +LEVO500T4 PO; -LISI-898 PO; +LISI5TAB11 PO
== END ==
LOC: M LAB REF 12:09
PROVIDERS: ATTEND Nurse Practitioner Adult Health
DX: R71.8 Other abnormality of red blood cells (principal)

== ENCOUNTER → 2022-04-09 | Outpatient (CLI) | payer MEDICARE ==
[~2022-04-09] MED LIST changes: +EXCETAB32 PO; -EXCETAB33 PO; +GASTROGRAFIN SOLUTION 30ML (Q9963) As Ordered ONE; +ISOVUE-370 76% 100ML VIAL As Ordered ONE; +LEVO1TAB39 PO; -LEVO500T4 PO; -ZONI100C17 PO; +ZONI100C67 PO
== END ==
LOC: M RAD 08:59
PROVIDERS: ATTEND Specialist
DX: C34.11 Malignant neoplasm of upper lobe, right bronchus or lung (principal); K76.0 Fatty (change of) liver, not elsewhere classified; I25.10 Atherosclerotic heart disease of native coronary artery without angina pectoris
CPT/HCPCS: 71260; 74177; Q9963; Q9967

== ENCOUNTER → 2022-05-03 | Outpatient (CLI) | payer MEDICARE ==
[~2022-05-03] MED LIST changes: -GASTROGRAFIN SOLUTION 30ML (Q9963) As Ordered ONE; -ISOVUE-370 76% 100ML VIAL As Ordered ONE
== END ==
LOC: M WHC 11:33
PROVIDERS: ATTEND Nurse Practitioner
DX: E04.1 Nontoxic single thyroid nodule (principal)

== ENCOUNTER 2022-05-14 14:35 | Emergency (ER) | payer MEDICARE ==
[~2022-05-14] VITALS: Ht 175.3 cm; Wt 64.5 kg
[2022-05-14 14:37] VITALS: BP 126/76
[2022-05-14] MEDS ORDERED: MUCI30TA5 PO (15:16)
[2022-05-14] MEDS ORDERED: MUCI600T31 PO (15:16)
[2022-05-14] MEDS ORDERED: AMOX875T2 PO (17:18)
[2022-05-14] MEDS ORDERED: CLAR5TAB7 PO (17:18)
== END 2022-05-14 17:34 | disposition home or self-care (01) ==
LOC: M ED 14:35
DX: J01.90 Acute sinusitis, unspecified (principal); I10 Essential (primary) hypertension; J44.9 Chronic obstructive pulmonary disease, unspecified; Z88.8 Allergy status to other drugs, medicaments and biological substances; Z79.899 Other long term (current) drug therapy; Z79.51 Long term (current) use of inhaled steroids

== ENCOUNTER → 2022-05-30 | Outpatient (CLI) | payer MEDICARE ==
[~2022-05-30] MED LIST changes: +AMOX875T2 PO; +CLAR5TAB7 PO; +MUCI30TA5 PO; +MUCI600T31 PO
== END ==
LOC: M WHC 15:35
PROVIDERS: ATTEND Nurse Practitioner Adult Health
DX: Z12.31 Encounter for screening mammogram for malignant neoplasm of breast (principal)

== ENCOUNTER → 2022-10-30 | Outpatient (CLI) | payer OTHER ==
[~2022-10-30] MED LIST changes: +MONT-5 PO; -SING10TA32 PO
== END ==
LOC: M RAD 10:58
PROVIDERS: ATTEND Nurse Practitioner
DX: E04.1 Nontoxic single thyroid nodule (principal); C34.90 Malignant neoplasm of unspecified part of unspecified bronchus or lung

== ENCOUNTER → 2022-11-02 | Outpatient (CLI) | payer OTHER ==
[2022-11-02 10:09] LABS: HEMATOCRIT 41.5 % (36.0-47.0); HEMOGLOBIN 13.1 g/dl (12.0-15.5); MEAN CORPUSCULAR HEMOGLOBIN 31.8 pg (27.0-33.0); MEAN CORPUSCULAR HGB CONC 31.6 g/dl (32.0-36.5); MEAN CORPUSCULAR VOLUME 100.7 fl (80.0-96.0); PLATELET COUNT, AUTOMATED 308 10^3/uL (150-450); RED BLOOD COUNT 4.12 10^6/uL (4.00-5.40); WHITE BLOOD COUNT 5.2 10^3/uL (4.0-10.0)
[2022-11-02 10:29] LABS: APPEARANCE, URINE CLEAR (CLEAR); BACTERIA, URINE AUTO NEGATIVE (NEGATIVE); BILIRUBIN, URINE AUTO NEGATIVE (NEGATIVE); BLOOD, URINE BLOOD NEGATIVE (NEGATIVE); COLOR, URINE YELLOW (YELLOW); GLUCOSE, URINE (UA) AUTO NEGATIVE (NEGATIVE); KETONE, URINE AUTO NEGATIVE (NEGATIVE); LEUKOCYTE ESTERASE, URINE AUTO NEGATIVE (NEGATIVE); NITRITE, URINE AUTO NEGATIVE (NEGATIVE); PROTEIN, URINE AUTO NEGATIVE (NEGATIVE); RBC, URINE AUTO 0 /HPF (0-3); SPECIFIC GRAVITY URINE AUTO 1.009 (1.002-1.035); SQUAMOUS EPITHELIAL CELL UR AU 0 /HPF (0-6); UROBILINOGEN, URINE AUTO 0.2 mg/dL (0.0-2.0); WBC, URINE AUTO 1 /HPF (0-3)
[2022-11-02 10:30] LABS: INR 0.93; PROTHROMBIN TIME 12.7 SECONDS (12.5-14.5)
[2022-11-02 10:44] LABS: ALBUMIN 3.5 G/DL (3.2-5.2); BILIRUBIN,TOTAL 0.3 MG/DL (0.3-1.2); CALCIUM LEVEL 8.6 MG/DL (8.3-10.6); CREATININE FOR GFR 1.01 MG/DL (0.55-1.30); POTASSIUM SERUM 4.1 MMOL/L (3.5-5.1); TOTAL PROTEIN 6.9 G/DL (5.7-8.2)
[2022-11-02 10:57] LABS: ERYTHROCYTE SEDIMENTATION RATE 50 mm/hr (0-30)
== END ==
LOC: M RAD 09:23
PROVIDERS: ATTEND Orthopaedic Surgery
DX: Z01.818 Encounter for other preprocedural examination (principal); M17.11 Unilateral primary osteoarthritis, right knee; Z79.899 Other long term (current) drug therapy

== ENCOUNTER 2023-03-29 04:53 | Emergency (ER) | payer OTHER ==
[~2023-03-29] VITALS: Ht 176.5 cm; Wt 74.4 kg
[2023-03-29 05:57] LABS: RSV AMPLIFICATION NEGATIVE (NEGATIVE)
[2023-03-29 08:07] LABS: BASO # 0.1 10^3/uL (0.0-0.2); BASO % 1.1 % (0.0-1.0); EOS # 0.4 10^3/uL (0.0-0.5); EOS % 3.8 % (0.0-3.0); HEMOGLOBIN 12.7 g/dl (12.0-15.5); LYMPH # 2.3 10^3/uL (1.5-5.0); LYMPH % 24.1 % (24.0-44.0); MEAN CORPUSCULAR HEMOGLOBIN 31.3 pg (27.0-33.0); MEAN CORPUSCULAR HGB CONC 32.6 g/dl (32.0-36.5); MEAN CORPUSCULAR VOLUME 96.1 fl (80.0-96.0); MONO % 10.8 % (2.0-8.0); NEUTROPHILS # 5.7 10^3/uL (1.5-8.5); NEUTROPHILS % 59.9 % (36.0-66.0); PLATELET COUNT, AUTOMATED 296 10^3/uL (150-450); RED BLOOD COUNT 4.06 10^6/uL (4.00-5.40); WHITE BLOOD COUNT 9.5 10^3/uL (4.0-10.0)
[2023-03-29] MEDS ORDERED: methylPREDNISolone 125MG 2ML VIAL IV ONE (08:15)
[2023-03-29] MEDS ORDERED: ISOVUE-370 76% 100ML VIAL As Ordered ONE (08:29)
[2023-03-29 08:37] LABS: LIPASE 23 U/L (12-53)
[2023-03-29 08:39] LABS: ALBUMIN 3.1 G/DL (3.2-5.2); ALKALINE PHOSPHATASE 136 U/L (46-116); ALT/SGPT 13 U/L (7.0-40); AST/SGOT 12 U/L (<34); BILIRUBIN,DIRECT < 0.1 MG/DL (<0.4); BILIRUBIN,TOTAL < 0.2 MG/DL (0.3-1.2); TOTAL PROTEIN 6.5 G/DL (5.7-8.2)
[2023-03-29 09:20] LABS: INR 1.05; PROTHROMBIN TIME 13.4 SECONDS (12.5-14.5)
[2023-03-29] MEDS ORDERED: IPRATROPIUM 0.5MG/ALBUTEROL 2.5MG INH SOL UD 3ML (DUONEB) NEB ONE ×2 (09:20→10:55)
[2023-03-29 09:21] LABS: PARTIAL THROMBOPLASTIN TIME 28.3 SECONDS (24.8-34.2)
[2023-03-29] MEDS ORDERED: cefTRIAXone SOD 1 GM in D5W MINI-BAG PLUS 50 ML IV ONE (09:30)
[2023-03-29] MEDS ORDERED: DOXY100C82 PO (11:49)
[2023-03-29] MEDS ORDERED: AMOX875T2 PO (11:49)
[2023-03-29 11:57] VITALS: BP 150/99; TEMP 97; O2SAT 97
[2023-03-29] MEDS ORDERED: CEFD300C PO (11:58)
[2023-03-29] MEDS ORDERED: ZITHTAB PO (11:58)
== END 2023-03-29 12:01 | disposition home or self-care (01) ==
LOC: M ED 04:53
DX: J18.1 Lobar pneumonia, unspecified organism (principal); I45.10 Unspecified right bundle-branch block; J45.909 Unspecified asthma, uncomplicated; J44.9 Chronic obstructive pulmonary disease, unspecified; I10 Essential (primary) hypertension; K21.9 Gastro-esophageal reflux disease without esophagitis; E78.5 Hyperlipidemia, unspecified; G43.909 Migraine, unspecified, not intractable, without status migrainosus; C34.90 Malignant neoplasm of unspecified part of unspecified bronchus or lung; Z87.891 Personal history of nicotine dependence; Z91.048 Other nonmedicinal substance allergy status; Z79.52 Long term (current) use of systemic steroids; Z79.2 Long term (current) use of antibiotics; Z79.83 Long term (current) use of bisphosphonates; Z79.899 Other long term (current) drug therapy
CPT/HCPCS: 71046; 71275; 80047; 80076; 81001; 83605; 83690; 83880; 85025; 85610; 85730; 87040; 87088; 87186; 87486; 87581; 87631; 87633; 87798; 93005; 94640; 96374; 96375; 99284; J0696; J2930; Q9967

== ENCOUNTER 2023-05-24 11:48 | Emergency (ER) | payer OTHER ==
[~2023-05-24] VITALS: Ht 175.3 cm; Wt 72.5 kg
[~2023-05-24 11:48] MED LIST changes: +CEFD300C PO; +DOXY100C82 PO; +PRED20TA; +ZITHTAB PO
[2023-05-24] MEDS ORDERED: GABA-284 PO (12:29)
[2023-05-24] MEDS ORDERED: EXCETAB32 PO (12:29)
[2023-05-24 12:59] LABS: BASO # 0.1 10^3/uL (0.0-0.2); BASO % 1.2 % (0.0-1.0); EOS # 0.3 10^3/uL (0.0-0.5); EOS % 4.5 % (0.0-3.0); HEMOGLOBIN 13.2 g/dl (12.0-15.5); LYMPH # 1.8 10^3/uL (1.5-5.0); LYMPH % 31.8 % (24.0-44.0); MEAN CORPUSCULAR HEMOGLOBIN 30.9 pg (27.0-33.0); MEAN CORPUSCULAR HGB CONC 32.2 g/dl (32.0-36.5); MONO # 0.7 10^3/uL (0.0-0.8); MONO % 12.3 % (2.0-8.0); NEUTROPHILS # 2.9 10^3/uL (1.5-8.5); PLATELET COUNT, AUTOMATED 315 10^3/uL (150-450); RED BLOOD COUNT 4.27 10^6/uL (4.00-5.40); WHITE BLOOD COUNT 5.8 10^3/uL (4.0-10.0)
[2023-05-24 13:19] LABS: CK-MB VALUE MASS < 1.0 NG/ML (<3.6); CPK CREATINE PHOSPHOKINASE 48 U/L (34-145); MB/CK RELATIVE INDEX 2.08 (< OR =4)
[2023-05-24 13:20] LABS: BLOOD UREA NITROGEN 10 MG/DL (9-23); CALCIUM LEVEL 8.7 MG/DL (8.3-10.6); CARBON DIOXIDE LEVEL 24 MMOL/L (20-31); CHLORIDE LEVEL 112 MMOL/L (98-107); CREATININE FOR GFR 0.93 MG/DL (0.55-1.30); GLOMERULAR FILTRATION RATE > 60.0 (>45); GLUCOSE, FASTING 98 MG/DL (74-106); POTASSIUM SERUM 4.3 MMOL/L (3.5-5.1); SODIUM LEVEL 145 MMOL/L (136-145)
[2023-05-24 13:35] LABS: RSV AMPLIFICATION NEGATIVE (NEGATIVE)
[2023-05-24] MEDS ORDERED: NS 1,000 ML IV ONE (14:00)
[2023-05-24] MEDS ORDERED: KETOROLAC 30 MG/ML 1ML VIAL IV ONE (14:05)
[2023-05-24] MEDS ORDERED: ONDANSETRON 4MG 2ML VIAL IV ONE (14:05)
[2023-05-24 14:22] LABS: ETHYL ALCOHOL (ETHANOL) < 0.003 % (0.000-0.010); LIPASE 22 U/L (12-53)
[2023-05-24 14:25] LABS: ALBUMIN 3.1 G/DL (3.2-5.2); ALKALINE PHOSPHATASE 123 U/L (46-116); ALT/SGPT 16 U/L (7.0-40); AST/SGOT 16 U/L (<34); BILIRUBIN,DIRECT < 0.1 MG/DL (<0.4); BILIRUBIN,TOTAL 0.2 MG/DL (0.3-1.2); MAGNESIUM LEVEL 1.9 MG/DL (1.8-2.4); SALICYLATE LEVEL < 3.0 MG/DL (<30); TOTAL PROTEIN 6.5 G/DL (5.7-8.2)
[2023-05-24 14:27] LABS: FREE T4 0.79 NG/DL (0.89-1.76); THYROID STIMULATING HORMONE 1.954 uIU/ML (0.55-4.78)
[2023-05-24 15:13] LABS: INR 1.08; PROTHROMBIN TIME 13.7 SECONDS (12.5-14.5)
[2023-05-24 15:14] LABS: PARTIAL THROMBOPLASTIN TIME 25.8 SECONDS (24.8-34.2)
[2023-05-24] MEDS ORDERED: SUMAtriptan SUCCINATE 6MG/0.5ML VIAL SC ONE (16:40)
[2023-05-24] MEDS ORDERED: AUGMENTIN 875 MG TAB PO ONE (17:05)
[2023-05-24] MEDS ORDERED: AMOX875T2 PO (17:48)
[2023-05-24 18:29] VITALS: BP 134/68; TEMP 98.8; O2SAT 97
== END 2023-05-24 18:31 | disposition home or self-care (01) ==
LOC: M ED 11:48
DX: G43.909 Migraine, unspecified, not intractable, without status migrainosus (principal); J32.0 Chronic maxillary sinusitis; M54.9 Dorsalgia, unspecified; I10 Essential (primary) hypertension; E78.5 Hyperlipidemia, unspecified; J44.9 Chronic obstructive pulmonary disease, unspecified; K21.9 Gastro-esophageal reflux disease without esophagitis; F41.9 Anxiety disorder, unspecified; M43.02 Spondylolysis, cervical region; Z79.899 Other long term (current) drug therapy
CPT/HCPCS: 70450; 71045; 72125; 80048; 80076; 80143; 82077; 82140; 82550; 82553; 83690; 83735; 83880; 84439; 84443; 84484; 85025; 85610; 85730; 87631; 93005; 93041; 94760; 96361; 96372; 96374; 96375; 99285; J1885; J2405; J3030

== ENCOUNTER → 2023-08-12 | Outpatient (CLI) | payer OTHER ==
[~2023-08-12] MED LIST changes: +GABA-284 PO
== END ==
LOC: M RAD 09:10
PROVIDERS: ATTEND Internal Medicine Pulmonary Disease
DX: R91.8 Other nonspecific abnormal finding of lung field (principal); C34.11 Malignant neoplasm of upper lobe, right bronchus or lung; S22.31XK Fracture of one rib, right side, subsequent encounter for fracture with nonunion

== ENCOUNTER → 2023-09-09 | Outpatient (CLI) | payer OTHER | LOC: M WHC 12:43 | PROVIDERS: ATTEND Nurse Practitioner Adult Health | DX: Z12.31 Encounter for screening mammogram for malignant neoplasm of breast (principal) ==

== ENCOUNTER 2024-03-19 07:06 | Day surgery (SDC) | payer OTHER ==
[~2024-03-19] VITALS: Ht 175.3 cm; Wt 65.8 kg
[~2024-03-19 07:06] MED LIST changes: +ALBU8.5H INH; +D 10CHW PO; +GABA-282 PO; +NS 1,000 ML IV ONE; +OMEG10002 PO; +POTA-151 PO; +SPIR1CAP INH; +THERTAB52 PO; +VENL75CA47 PO
[2024-03-19] MEDS ORDERED: fentaNYL 100 MCG/2 ML INJECTION As Ordered ONE (08:52)
[2024-03-19] MEDS ORDERED: LIDOCAINE 2% 100MG/5ML SDV (FOR ANES.) As Ordered ONE (08:53)
[2024-03-19] MEDS ORDERED: propofoL 200 MG/20 ML VIAL As Ordered ONE (08:53)
[2024-03-19 09:41] VITALS: TEMP 97.6
[2024-03-19 10:00] VITALS: BP 132/74; O2SAT 99
== END 2024-03-19 10:20 | disposition home or self-care (01) ==
LOC: M OPP 07:06
PROVIDERS: ATTEND Surgery
DX: Z12.11 Encounter for screening for malignant neoplasm of colon (principal); D12.3 Benign neoplasm of transverse colon; D12.5 Benign neoplasm of sigmoid colon; K57.30 Diverticulosis of large intestine without perforation or abscess without bleeding; K30 Functional dyspepsia; Z86.010 Personal history of colon polyps; K21.9 Gastro-esophageal reflux disease without esophagitis; I10 Essential (primary) hypertension; J44.89 Other specified chronic obstructive pulmonary disease; E78.00 Pure hypercholesterolemia, unspecified; Z87.19 Personal history of other diseases of the digestive system; Z79.899 Other long term (current) drug therapy; Z79.51 Long term (current) use of inhaled steroids; Z85.118 Personal history of other malignant neoplasm of bronchus and lung; Z92.21 Personal history of antineoplastic chemotherapy; Z92.3 Personal history of irradiation
CPT/HCPCS: 43235; 45384; 45385; 88305; J3010

== ENCOUNTER → 2024-09-10 | Outpatient (CLI) | payer MEDICARE ==
[~2024-09-10] MED LIST changes: -ADV250INH INH; +ADVA1AER9 INH; +DOXY-442 PO; -DOXY100C82 PO; +GABA-1172 PO; -GABA-282 PO; -NS 1,000 ML IV ONE
== END ==
LOC: M WHC 09:47
PROVIDERS: ATTEND Nurse Practitioner Adult Health
DX: Z12.31 Encounter for screening mammogram for malignant neoplasm of breast (principal); M81.0 Age-related osteoporosis without current pathological fracture

== ENCOUNTER → 2024-09-17 | Outpatient (CLI) | payer MEDICARE | LOC: M RAD 12:41 | PROVIDERS: ATTEND Internal Medicine Pulmonary Disease | DX: Z12.2 Encounter for screening for malignant neoplasm of respiratory organs (principal); Z87.891 Personal history of nicotine dependence; J43.9 Emphysema, unspecified ==

== ENCOUNTER → 2025-05-24 | Outpatient (CLI) | payer MEDICARE ==
[~2025-05-24] MED LIST changes: +ALEN70TA82; +ISOVUE-370 76% 100 ML VIAL As Ordered ONE; -PRAV40TA2 PO; +PRAV40TA85 PO
== END ==
LOC: M RAD 13:24
PROVIDERS: ATTEND Specialist
DX: C34.90 Malignant neoplasm of unspecified part of unspecified bronchus or lung (principal)
CPT/HCPCS: 71260; Q9967